=== PATIENT | male | born 1995 | race Caucasian/White ===

== ENCOUNTER 2020-06-25 10:55 | Emergency (ER) | payer OTHER, SELFPAY ==
--- NOTE | ~2020-06-25 | XR_ITS ---
EXAMINATION: LEFT HAND/WRIST. CLINICAL INFORMATION: Status post work-related injury. Pain. COMPARISON: None TECHNIQUE: 4 views left hand/wrist: FINDINGS: There is no visible acute fracture, dislocation or subluxation seen. The soft tissues are normal. Especially there is no bony abnormality involving the fourth digit XR/XR hand wrist LT IMPRESSION: Unremarkable left hand/wrist exam. No bony abnormality seen involving the fourth digit.
[2020-06-25 11:48] VITALS: BP 96/48; PULSE 57; RESP 16; TEMP 35.6; O2SAT 97; BMI 38.7
[2020-06-25] MEDS: Ibuprofen 800 MG TABLET PO (12:39)
[2020-06-25] MEDS: Lidocaine HCl 1 % MPF 5 ML VIAL SUBCUT (12:39)
--- NOTE | 2020-06-25 12:58 | ED_ITS ---
HPI - Wound/Laceration General Chief Complaint: Wound/Laceration Stated Complaint: left hand inj,work related Time Seen by Provider: 06/25/20 11:45 Source: patient Mode of arrival: ambulatory Limitations: no limitations History of Present Illness HPI narrative: 24-year-old male presenting to the ED with complaints of laceration to the left hand 4th digit at the mid to distal aspect while trying to cut some tape with a knife at work. Reports he is up-to-date on tetanus received it within the last 5 years. Denies any other symptoms complaints concerns or injuries at this time. Onset (ago): hour(s) Location: other (Left 4th digit) Place: work Patient tetanus UTD: Yes Context: accidental Associated symptoms: pain Treatments prior to arrival: bandage and tourniquet Related Data Previous Rx's Medication Instructions Recorded acetaminophen [Tylenol] 650 mg PO Q6H PRN #10 tab 06/25/20 ibuprofen 800 mg PO Q8H PRN #14 tab 06/25/20 tramadol 50 mg PO BID PRN #7 tab 06/25/20 Allergies Allergy/AdvReac Type Severity Reaction Status Date / Time No Known Allergies Allergy Verified 06/25/20 12:27 [No Known Allergies*] Review of Systems Review of Systems: Constitutional : No Fever, No Chills, Cardiovascular : No Chest Pain, No SOB Respiratory : No Dyspnea Gastrointestinal : No abdominal pain Musculoskeletal : No Joint Swelling Skin : positive skin laceration, No Foreign bodies, No rash, No surrounding erythema Neuro : No Weakness, No Numbness/tingling Psych : No SI/HI/thoughts of self injury Yes all other systems are reviewed and are negative [facility] Past Medical History Attestation statement: The following information was validated with the patient. Medical History Anxiety No known health problems OCD (obsessive compulsive disorder) Social History Social History Advance Directives: No Advance Directives Information Provided: No Physical Exam Vital Signs: Vital Signs: Last Vital Signs Temp 96.1 F L 06/25/20 11:48 Pulse 57 06/25/20 11:48 Resp 16 06/25/20 11:48 BP 96/48 L 06/25/20 11:48 Pulse Ox 97 06/25/20 11:48 Body Mass Index 38.7 vital signs have been reviewed as normal and appeared to be correct. Blood pressure hypotensive at 96/48 normal per patient. Heart rate normal. Respiration rate normal. Temperature normal. Oxygen saturation normal. Appearance: Alert. Oriented X3. No acute distress. Head: Normal external exam. Normocephalic. Atraumatic. Eyes: PERRLA. EOMI. Conjunctiva and sclera normal. Eyelids normal. ENT: Pharynx normal. Uvula midline. Moist mucous membranes. Neck: Normal inspection. Neck supple. FROM. No meningeal signs. CVS: Normal heart rate and rhythm. Heart sound normal. Respiratory: No respiratory distress. Painless inspiration. Back: Full range of motion noted. Skin: Skin warm and dry. Normal skin color. Normal skin turgor. No rashes/lesions/lacerations noted. Extremities: To left hand 4th digit at the palmar aspect at the mid to distal 4th digit there is noted to be of 3 cm intermediate laceration that is linear. No foreign bodies noted. Patient has full range of motion and sensation. No bony tenderness noted. No obvious deformities noted. Otherwise all other Extremities exhibit normal range of motion and nontender. Neuro: Oriented X 3. No motor deficit. No sensory deficit. Reflexes normal. Course Course Course Narrative: Patient now status post laceration repair with 8 sutures placed. Patient tolerated procedure well. No complications. Tetanus is up-to-date per patient within the past 5 years. X-ray obtained negative for any acute processes. Instructed patient to return if any new or worsening symptoms to follow up in 10-14 days for suture removal and to follow up with [facility] from his job. Patient understands agrees with this plan. Procedures Laceration Laceration 1: Site: hand (4th digit palmar aspect) Side (If applicable): left Size (cm): 3 Description: linear Depth: simple, single layer Local Anesthetic: lidocaine 1% Amount of anesthesia used (mL): 3 Pre-repair: wound explored, irrigated extensively and deep structures intact Skin layer closed with: nylon Size (cm): 4-0 Number of sutures: 8 Technique: simple, interrupted MDM - Wound/Laceration Medical Records Attestation: I reviewed the patient's medical records. Imaging Data X-ray of left hand/wrist: Attestation: I personally reviewed and interpreted this imaging study as follows: Radiologist's impression: FINDINGS: There is no visible acute fracture, dislocation or subluxation seen. The soft tissues are normal. Especially there is no bony abnormality involving the fourth digit XR/XR hand wrist LT IMPRESSION: Unremarkable left hand/wrist exam. No bony abnormality seen involving the fourth digit. Discharge Plan Discharge Clinical Impression: Laceration Patient Disposition: Home, Self-Care Instructions: Finger Laceration (ED) Prescriptions: New tramadol 50 mg tablet 50 mg PO BID PRN (Reason: pain) Qty: 7 RF: 0 acetaminophen [Tylenol] 325 mg tablet 650 mg PO Q6H PRN (Reason: fever or pain) Qty: 10 RF: 0 ibuprofen 800 mg tablet 800 mg PO Q8H PRN (Reason: pain) Qty: 14 RF: 0 Referrals: Carmen Rodriguez PA [Emergency Midlevel Provider] - 10 days (In 10-14 days for suture removal) Stand Alone Forms: Work/School Release Print Language: Japanese
== END 2020-06-25 13:40 | disposition home or self-care (01) ==
PROVIDERS: Emergency Provider Emergency Medicine Emergency Medical Services
DX: S61.215A Laceration without foreign body of left ring finger without damage to nail, initial encounter (principal); M79.642 Pain in left hand; W26.0XXA Contact with knife, initial encounter; Y93.9 Activity, unspecified; Y92.9 Unspecified place or not applicable; Y99.0 Civilian activity done for income or pay
CPT/HCPCS: 12002; 73110; 73130; 96372; 99283; 99284

== ENCOUNTER → 2020-07-06 16:22 | Outpatient (BNVA) | payer OTHER, SELFPAY | PROVIDERS: Visit Provider Physician Assistant | DX: Z48.02 Encounter for removal of sutures (principal); T81.30XA Disruption of wound, unspecified, initial encounter; S61.215A Laceration without foreign body of left ring finger without damage to nail, initial encounter; X58.XXXA Exposure to other specified factors, initial encounter | CPT/HCPCS: 99203; 99212 ==

== ENCOUNTER → 2020-07-08 15:30 | Outpatient (BNVA) | payer OTHER, SELFPAY | PROVIDERS: Visit Provider Physician Assistant | DX: S61.215A Laceration without foreign body of left ring finger without damage to nail, initial encounter (principal); X58.XXXA Exposure to other specified factors, initial encounter | CPT/HCPCS: 99213 ==

== ENCOUNTER 2020-07-14 15:03 | Outpatient (REF) | payer OTHER, SELFPAY | END 2020-07-14 15:04 | disposition home or self-care (01) | LOC: HO.LAB 15:03 | PROVIDERS: Visit Provider Nurse Practitioner Family | DX: R19.7 Diarrhea, unspecified (principal); Z20.822 Contact with and (suspected) exposure to COVID-19 | CPT/HCPCS: U0003; U0005 ==

== ENCOUNTER → 2020-08-13 11:28 | Outpatient (BNVA) | payer OTHER, SELFPAY | PROVIDERS: PCP Internal Medicine; Visit Provider Internal Medicine | DX: S61.315A Laceration without foreign body of left ring finger with damage to nail, initial encounter (principal); W26.9XXA Contact with unspecified sharp object(s), initial encounter | CPT/HCPCS: 12002; 99203 ==

== ENCOUNTER → 2020-08-14 13:15 | Outpatient (BNVA) | payer OTHER, SELFPAY | PROVIDERS: PCP Internal Medicine; Visit Provider Internal Medicine | DX: S61.315A Laceration without foreign body of left ring finger with damage to nail, initial encounter (principal); W26.9XXA Contact with unspecified sharp object(s), initial encounter | CPT/HCPCS: 99213 ==

== ENCOUNTER 2020-08-16 18:59 | Emergency (ER) | payer OTHER, SELFPAY ==
[2020-08-16 19:07] VITALS: BP 123/75; PULSE 87; RESP 16; TEMP 36.7; O2SAT 96; BMI 38.7
--- NOTE | 2020-08-16 19:20 | ED_ITS ---
HPI - Wound/Laceration General Chief Complaint: Wound/Laceration Stated Complaint: wound check Time Seen by Provider: 08/16/20 19:15 Source: patient Mode of arrival: ambulatory Limitations: no limitations History of Present Illness HPI narrative: 24-year-old male presents for wound check. He cut the tip of his left 4th finger with a dry box tender on 08/13/2020, presented to [facility] to have sutured. He stated that he stubbed the tip of this finger earlier today, has pain, had concerns that the sutures were loosened and applied a copious amount of super glued to the tip of his finger to keep the sutures in place. Patient is concerned about his wound. He has full range of motion, denies bleeding swelling, fevers, chills, bleeding from the site, purulent drainage, discoloration or any other concerning symptoms. Onset (ago): day(s) Extremity Location: left: hand (Left 4th finger tip) Place: work Patient tetanus UTD: Yes Context: accidental Associated symptoms: pain Treatments prior to arrival: bandage Related Data Home Medications Medication Instructions Recorded Confirmed olanzapine 2.5 mg tablet 0 mg PO 07/14/20 olanzapine 5 mg tablet 0 mg PO 07/14/20 olanzapine 7.5 mg tablet 7.5 mg PO BEDTIME 07/14/20 sertraline 100 mg tablet 200 mg PO DAILY 07/14/20 Previous Rx's Medication Instructions Recorded acetaminophen [Tylenol] 650 mg PO Q6H PRN #10 tab 06/25/20 ibuprofen 800 mg PO Q8H PRN #14 tab 06/25/20 tramadol 50 mg PO BID PRN #7 tab 06/25/20 Allergies Allergy/AdvReac Type Severity Reaction Status Date / Time No Known Allergies Allergy Verified 06/25/20 12:27 [No Known Allergies*] Review of Systems Review of Systems: Constitutional: No Fever, No Chills ENT/Mouth: No Ear Pain, No Hoarseness, No sore throat Eyes: No Eye Pain, No Swelling, No Redness, No Foreign Body Cardiovascular: No Chest Pain, No SOB Respiratory: No Cough, No Dyspnea Gastrointestinal: No Nausea, No Vomiting, No Diarrhea, No abdominal Pain Genitourinary: No Dysuria, No Hematuria Musculoskeletal: positive 4th finger pain, No Myalgias, No Joint Swelling Skin: Positive 4th finger tip laceration with sutures in place, No rash Neuro: No Weakness, No Numbness, No Paresthesias, No Loss of Consciousness, No Dizziness, No Headache Psych: No Anxiety/Panic, No Depression Heme/Lymph: no easy bruising, no Lymphadenopathy Endocrine: No Polyuria, No Polydipsia Yes all other systems are reviewed and are negative [facility] Past Medical History Attestation statement: The following information was validated with the patient. Source: old records reviewed Medical History Anxiety No known health problems OCD (obsessive compulsive disorder) Social History Social History Advance Directives: No Physical Exam Vital Signs: Vital Signs: Last Vital Signs Temp 98.0 F 08/16/20 19:07 Pulse 87 08/16/20 19:07 Resp 16 08/16/20 19:07 BP 123/75 08/16/20 19:07 Pulse Ox 96 08/16/20 19:07 Body Mass Index 38.7 Appearance: Alert. Oriented X3. No acute distress. Eyes: Pupils equal, round and reactive to light. ENT: Pharynx normal. Neck: Normal inspection. Neck supple. CVS: Normal heart rate and rhythm. Pulses normal. Respiratory: No respiratory distress. Breath sounds normal. Abdomen: Soft and nontender. Skin: Skin warm and dry. Normal skin color. Normal skin turgor. Extremities: 6 sutures to the finger tip, brisk capillary refill, strength 5/5, full range of motion. Neuro: No motor deficit. No sensory deficit. Course Course Course Narrative: 24-year-old male presents for wound assessment. Patient stubbed his finger and feels like the suture is a lucent, he did apply super glue to the tip of his finger to keep them in place. Area was cleaned, assessed, gauze pulled out of the super glue. Patient has brisk capillary refill, no indication of infection or purulent drainage from the site. Normal sensation. Patient was advised not to use any industrial products to keep sutures in place as they should be removed in a few days Patient verbalized understanding of and agrees to plan of care discharge home. MDM - Wound/Laceration Differential Diagnosis Differential diagnosis: Likely laceration Medical Records Attestation: I reviewed the patient's medical records. Discharge Plan Discharge Clinical Impression: Encounter for assessment of wound Patient Disposition: Home, Self-Care Instructions: Finger Laceration (ED) Additional Instructions: You were evaluated for pain on your left 4th finger tip. Your sutures are intact, you have brisk capillary refill. Your wound healing appropriately. Do not apply any industrial products to the wound, this includes super glue. Please follow-up with work connection as scheduled. Thank you for choosing this emergency department for evaluation. Please follow-up with primary care physician as needed. Return to the emergency department for any new, concerning, or worsening symptoms. Prescriptions: No Action tramadol 50 mg tablet 50 mg PO BID PRN (Reason: pain) Qty: 7 RF: 0 acetaminophen [Tylenol] 325 mg tablet 650 mg PO Q6H PRN (Reason: fever or pain) Qty: 10 RF: 0 ibuprofen 800 mg tablet 800 mg PO Q8H PRN (Reason: pain) Qty: 14 RF: 0 olanzapine 5 mg tablet 0 mg PO RF: 0 olanzapine 7.5 mg tablet 7.5 mg PO BEDTIME RF: 0 sertraline 100 mg tablet 200 mg PO DAILY RF: 0 olanzapine 2.5 mg tablet 0 mg PO RF: 0 Referrals: [facility] [Provider Group] - 2 days (Left 4th finger laceration) Discharge Date/Time: 08/16/20 19:39
== END 2020-08-16 19:39 | disposition home or self-care (01) ==
PROVIDERS: Emergency Provider Emergency Medicine
DX: Z04.2 Encounter for examination and observation following work accident (principal); Z48.01 Encounter for change or removal of surgical wound dressing; M79.645 Pain in left finger(s); S61.215D Laceration without foreign body of left ring finger without damage to nail, subsequent encounter; W26.9XXD Contact with unspecified sharp object(s), subsequent encounter
CPT/HCPCS: 99282; 99283

== ENCOUNTER → 2020-08-18 10:04 | Outpatient (BNVA) | payer OTHER, SELFPAY | PROVIDERS: Visit Provider Internal Medicine | DX: S61.215D Laceration without foreign body of left ring finger without damage to nail, subsequent encounter (principal); X58.XXXD Exposure to other specified factors, subsequent encounter | CPT/HCPCS: 99213 ==

== ENCOUNTER → 2020-08-24 09:19 | Outpatient (BNVA) | payer OTHER, SELFPAY | PROVIDERS: Visit Provider Internal Medicine | DX: S61.211D Laceration without foreign body of left index finger without damage to nail, subsequent encounter (principal); X58.XXXD Exposure to other specified factors, subsequent encounter | CPT/HCPCS: 99212; 99213 ==

== ENCOUNTER → 2020-09-01 11:57 | Outpatient (BNVA) | payer OTHER, SELFPAY | PROVIDERS: Visit Provider Internal Medicine | DX: S61.213D Laceration without foreign body of left middle finger without damage to nail, subsequent encounter (principal); X58.XXXD Exposure to other specified factors, subsequent encounter | CPT/HCPCS: 99213 ==

== ENCOUNTER 2020-10-17 17:55 | Inpatient (IN) | payer OTHER, MEDICAID, SELFPAY ==
[2020-10-17 18:13] VITALS: BP 152/81; PULSE 75; RESP 16; TEMP 36.8; O2SAT 100; BMI 66.4
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
[2020-10-17 18:21] VITALS: BP 152/81; PULSE 75; RESP 16; TEMP 36.8; O2SAT 100
[2020-10-17 19:17] LABS: COVID-19 Test Negative (Negative)
[2020-10-17 19:32] LABS: Amphetamine Screen Urine Not Detected (Not Detect); Barbiturates, Urine Not Detected (Not Detect); Benzodiazepines Screen Urine Not Detected (Not Detect); Cannabinoid Screen Urine POSITIVE (Not Detect); Cocaine Screen Urine Not Detected (Not Detect); Opiate Screen Urine Not Detected (Not Detect); Phencyclidine Screen Urine Not Detected (Not Detect)
--- NOTE | 2020-10-17 20:46 | PC.NURSE ---
Patient compliant with lab draw, family visited had good meeting, no behavioral concerns at this time, will continue to monitor.
[2020-10-17 20:53] LABS: MANUAL DIFF FLAG NO
[2020-10-17 20:55] LABS: Basophils Percent Auto 0.2 % (0-2); Eosinophils Percent Auto 0.2 % (0-4); Hematocrit 44.9 % (42-52); Hemoglobin 15.4 g/dl (14.0-18.0); Imm Gran Abs Auto 0.02 X10*3/uL (0.00-0.03); Imm Gran Pct Auto 0.2 % (0.0-0.4); Lymphocytes Absolute Auto 1.9 X10*3/uL (1.2-4.9); Lymphocytes Percent Auto 18.7 % (20-40); Mean Corpuscular HGB Conc 34.3 g/dl (31.0-36.0); Mean Corpuscular Hemoglobin 29.5 pg (27.0-33.0); Mean Platelet Volume 9.6 fL (9.4-12.4); Monocytes Absolute Auto 0.5 X10*3/uL (0.1-1.2); Monocytes Percent Auto 5.4 % (2-11); Neutrophils Absolute Auto 7.5 X10*3/uL (2.0-8.3); Neutrophils Percent Auto 75.3 % (45-73); Platelet Count 231 X10*3/uL (160-400); Red Blood Count 5.22 X10*6/uL (4.60-5.80); Red Cell Distribution Width 14.3 % (11.0-16.0); White Blood Count 9.9 X10*3/uL (4.8-10.8)
[2020-10-17 21:16] LABS: Ethanol < 10 mg/dL
[2020-10-17 21:18] LABS: Anion Gap 17 (12-20); Blood Urea Nitrogen 9 mg/dL (9-16); Calcium 9.5 mg/dL (8.4-10.2); Carbon Dioxide 20 mmol/L (22-29); Chloride 108 mmol/L (96-108); Estimated Glomerular Filt Rate > 60; Glucose Random 120 mg/dL (60-115); Potassium 3.6 mmol/L (3.3-5.1); Sodium 141 mmol/L (135-145)
[2020-10-17 21:20] LABS: Alanine Aminotransferase 48 U/L (0-40); Albumin Level 4.4 g/dL (3.5-5.0); Alkaline Phosphatase 71 U/L (39-117); Aspartate Amino Transferase 25 U/L (5-37); Bilirubin Direct < 0.2 mg/dL (0.0-0.5); Bilirubin Total 0.3 mg/dL (0.0-1.0); Total Protein 7.6 g/dL (6.5-8.0)
[2020-10-18 00:16] VITALS: BP 127/79; PULSE 66; RESP 17; TEMP 36.6; O2SAT 97
[2020-10-18] MEDS: LORazepam 1 MG TABLET 2 MG PO (00:37)
--- NOTE | 2020-10-18 00:59 | MHC.CARE ---
CARE team evaluation complete. Plan of care is for inpatient psychiatric admission. Pt is agreeable for treatment at this time, however a Section 12a is signed and in pt's chart for containment purposes while awaiting placement.
--- NOTE | 2020-10-18 06:23 | PC.NURSE ---
Patient requested Ativan for his restlessness and anxiety, provider notified/ordered Ativan 2 mg PO/administered as ordered at 0037, patient went to bed 0130 and slept since then, no distress observed/reported, patient is on section 12 inpatient bed search, will continue to monitor.
--- NOTE | 2020-10-18 07:03 | PC.NURSE ---
patient appears to remain at rest appears in no distress at present respirations even and unlabored
[2020-10-18 09:30] VITALS: BP 118/76; PULSE 71; RESP 17; TEMP 35.6; O2SAT 100
[2020-10-18] MEDS: Sertraline HCL 100 MG TABLET 200 MG PO (16:04)
[2020-10-18 16:57] VITALS: BP 129/50; PULSE 75; RESP 18; TEMP 36.3; O2SAT 97
[2020-10-19] MEDS: diphenhydrAMINE HCL 25 MG TABLET 50 MG PO (02:35)
[2020-10-19] MEDS: Ibuprofen 800 MG TABLET PO (02:35)
--- NOTE | 2020-10-19 05:43 | PC.NURSE ---
Patient was up until 4 am, no behavior concerns, stayed in his watching TV, Benedryl 5 mg and Ibuprofen 800 mg administered per request, mood pleasant, disposition is section 12 inpatient bed search, will continue to monitor.
[2020-10-19 07:27] VITALS: BP 163/94; PULSE 77; RESP 16; TEMP 35.8; O2SAT 99
--- NOTE | 2020-10-19 07:34 | PC.NURSE ---
Report received from Aime pt ambulating around pod with a steady gait. Flat affect, requesting tea and provided with tea.
[2020-10-19] MEDS: Sertraline HCL 100 MG TABLET 200 MG PO (08:13)
[2020-10-19] MEDS: Acetaminophen 325 MG TABLET 650 MG PO (09:18)
[2020-10-19 14:24] VITALS: RESP 16
[2020-10-19] MEDS: LORazepam 1 MG TABLET 2 MG PO (20:57)
[2020-10-19 22:36] VITALS: BP 135/60; PULSE 78; TEMP 35.7; O2SAT 96
--- NOTE | 2020-10-19 23:47 | PC.NURSE ---
Patient continues psychotic, pacing, requested Ativan, provider notified/ordered Ativan 2 mg, administered as ordered at 2157, patient is currently in bed appears sleeping, no distress observed/reported, will continue to monitor.
[2020-10-20 04:02] VITALS: BP 118/66; PULSE 66; RESP 16; TEMP 36.7; O2SAT 97
--- NOTE | 2020-10-20 06:09 | PC.NURSE ---
Patient slept through the night, no issues and concerns, no distress observed/reported, VSS, disposition section 12 bed search, will continue to monitor
[2020-10-20] MEDS: Sertraline HCL 100 MG TABLET 200 MG PO (08:26)
[2020-10-20 08:35] VITALS: BP 148/90; PULSE 94; RESP 17; TEMP 36.3; O2SAT 97
[2020-10-20] MEDS: Acetaminophen 325 MG TABLET 650 MG PO (11:38)
--- NOTE | 2020-10-20 13:35 | PC.NURSE ---
Lewis Islas (Father) [phone]
[2020-10-20] MEDS: LORazepam 1 MG TABLET PO ×2 (15:19→21:55)
[2020-10-20 17:42] VITALS: BP 139/90; PULSE 109; RESP 18; TEMP 36.7; O2SAT 96
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
[2020-10-20 18:00] VITALS: BP 135/84; PULSE 97; RESP 18; TEMP 36.2; O2SAT 97
--- NOTE | 2020-10-21 | ECG_ITS ---
Test Reason : QTC Blood Pressure : / mmHG Vent. Rate : 074 BPM Atrial Rate : 074 BPM P-R Int : 126 ms QRS Dur : 090 ms QT Int : 382 ms P-R-T Axes : 059 043 -12 degrees QTc Int : 424 ms Normal sinus rhythm Nonspecific T wave abnormality Borderline ECG No previous ECGs available Referred By: Giulia Dsouza Electronically Signed By:NAJMA FERNÁNDEZ
[2020-10-21 07:13] LABS: Cholesterol 204 mg/dL; HDL Cholesterol 39 mg/dL; LDL Cholesterol Calculated 131 mg/dl; Triglycerides 174 mg/dL
[2020-10-21 07:24] LABS: Thyroid Stimulating Hormone 2.31 uIU/mL (0.32-4.0)
[2020-10-21 07:47] LABS: Estimated Average Glucose 105 mg/dL; Hemoglobin A1C 151.6804 umol/L; Hemoglobin A1c % 5.3 %
[2020-10-21 08:46] VITALS: BP 133/90; PULSE 79; RESP 18; TEMP 36.7; O2SAT 97
[2020-10-21 09:15] LABS: Folate 9.5 ng/mL (> or = 4.0); Vitamin B12 224 pg/mL (200-900)
[2020-10-21] MEDS: Sertraline HCL 100 MG TABLET PO (14:51)
--- NOTE | 2020-10-21 14:58 | MHC.CLN ---
NUTRITION-WEIGHT HX CURRENT WEIGHT RECORDED 210 KG. PATIENT REPORTS CURRENT WEIGHT [id number]#. MEDICAL RECORD INDICATES WEIGHT HX 06/25/20=270#; 07/14/20=275#. NO RECENT WEIGHT LOSS OR WEIGHT GAIN REPORTED. NO REPORTED CONCERNS WITH CURRENT APPETITE.
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
[2020-10-21 17:21] VITALS: BP 166/84; PULSE 91; RESP 16; TEMP 36.7; O2SAT 97
[2020-10-22 10:49] VITALS: BP 161/91; PULSE 84; RESP 20; O2SAT 96
--- NOTE | 2020-10-22 14:31 | HO.PSYCHPN ---
Subjective Subjective Date of Service: 10/22/20 Reason For Visit: Radha Subjective Notes: Conditional Voluntary Interim History: Pt continues to present as labile, was up most of night, writting several very disorganized notes. Pt reports he wanted to write complaint but unable to do so as thoughts are racing and he is unable to concentrate. He denies SI/HI. He continues with roman catholic preoccupation and having to leave as I have many plans, I don't even need to sleep. Pt appears physically tired. He continues to compulsively write things down, unable to keep track of conversations. He declines antipsychotics or mood stabilizer. Medication Compliance: No Review of Systems Review of Systems Constitutional: No Fever, No Chills ENT/Mouth: No Ear Pain, No Nasal Congestion, No sore throat Eyes: No Eye Pain, No Swelling, No Redness Cardiovascular: No Chest Pain, No SOB Respiratory: No Cough, No Sputum, No Dyspnea Gastrointestinal: No Nausea, No Vomiting, No Diarrhea, No Hematochezia, No Melena Genitourinary: No Dysuria, No Urinary Frequency, No Hematuria Musculoskeletal: No Myalgias Skin: No Skin Lesions, No rash Neuro: No Weakness, No Numbness, No Paresthesias, No Dizziness, No Headache Psych: positive Anxiety, positive Depression, positive radha, no SI HI Heme/Lymph: No Lymphadenopathy Endocrine: No Polyuria, No Polydipsia Yes all other systems are reviewed and are negative Cardiovascular: Denies chest pain, Denies irregular heart rhythm and Denies lightheadedness Respiratory: Denies pain with cough Gastrointestinal: Denies constipation and Denies diarrhea Mental Status Exam Mental Status Exam Narrative: Appearance: casually groomed, poor hygiene, in NAD Behavior: guarded, irritable at times Psychomotor: agitation noted Speech: clear, hyperverbal, pressured rate/rhythm/ loud at times volume, spontaneous TP: derailment, disorganized TC: paranoid towards roommate and other family members, wanting to do many things but unable to specify what Mood: anxious Affect:labile, expansive SI:denies HI:denies AH/VH:denies Delusions:roman catholic preoccupation Insight/judgment:poor x 2. Memory/cog: alert, oriented x 3, impaired secondary to psychiatric symptoms. Diagnostics Vital Signs (24Hr): Vital Signs - 24 hr 10/21/20 17:21 10/22/20 10:49 Temperature 98.0 F Pulse Rate 91 84 Respiratory Rate 16 20 Blood Pressure 166/84 H 161/91 H Pulse Oximetry 97 96 Body Mass Index 66.4 Labs Results: 10/17/20 20:45 10/17/20 20:45 Labs: Laboratory Results - last 48 hr 10/21/20 10/21/20 10/21/20 06:19 06:19 06:19 Estimat Average Glucose 105 Hemoglobin A1c % 5.3 Triglycerides 174 Cholesterol 204 LDL Cholesterol, Calc 131 HDL Cholesterol 39 Vitamin B12 224 Folate 9.5 TSH 2.31 Medications Medications Current Medications Generic Name Dose Route Start Last Admin Trade Name Freq PRN Reason Stop Dose Admin Acetaminophen 650 mg 10/18/20 15:51 10/20/20 11:38 Acetaminophen 325 Mg Tablet PO 650 mg Q6H PRN Administration fever or pain Acetaminophen 650 mg 10/20/20 13:45 Acetaminophen 325 Mg Tablet PO Q6H PRN Headache/Pain Mild Scale (1-3) Al Hydroxide/Mg Hydroxide 30 ml 10/20/20 13:45 Magnesium Hydrox/Alum Hydrox 30 Ml Oral.Susp PO Q6H PRN Heartburn/Nausea Hydroxyzine HCl 50 mg 10/20/20 13:45 Hydroxyzine Hcl 25 Mg Tablet PO Q6H PRN Anxiety Ibuprofen 800 mg 10/18/20 15:51 10/19/20 02:35 Ibuprofen 800 Mg Tablet PO 800 mg Q8H PRN Administration pain Lorazepam 1 mg 10/20/20 13:48 10/20/20 21:55 Lorazepam 1 Mg Tablet PO 1 mg Q4H PRN Administration anxiety Magnesium Hydroxide 30 ml 10/20/20 13:45 Milk Of Magnesia 30 Ml Oral.Susp PO DAILY PRN Constipation Olanzapine 10 mg 10/20/20 13:50 Olanzapine Odt 10 Mg Tab.Rapdis TRANSLINGU Q6H PRN agitation Sertraline HCl 100 mg 10/21/20 14:45 10/22/20 09:23 Sertraline Hcl 100 Mg Tablet PO Not Given DAILY SAPNA Trazodone HCl 50 mg 10/20/20 13:45 Trazodone Hcl 50 Mg Tablet PO BEDTIME PRN Insomnia Allergies Allergies Allergy/AdvReac Type Severity Reaction Status Date / Time No Known Allergies Allergy Verified 06/25/20 12:27 [No Known Allergies*] Assessment & Plan Assessment & Plan (1) Bipolar 1 disorder, mixed, severe: Status: Acute Code(s): F31.63 - Bipolar disorder, current episode mixed, severe, without psychotic features Assessment and Plan: Mr. Islas is a 25 year-old male with hx of Bipolar Disorder who self presented to [facility] reporting signs of radha including decrease need for sleep, racing thoughts, hyperverbal, pressured speech, poor concentration, roman catholic preoccupation, flight of ideas. He recently was taken off olanzapine, some concern in terms of weight gain in addition to pt request, and started on sertraline currently on 200mg po daily. we discussed risks, benefits and alterntive treatment options. We discussed tapering him off sertraline as it is worsening manic symptoms. Pt currently declining to take antipsychotic medication nor mood stabilizer. PLAN: 1. pt declines antipsychotic medications or mood stabilizer. Medications can be offered, pt understands he can decline. May consider depakote 500mg po BID, perphenazine combination. 2. Obtain collateral information 3. Aftercare planning. Greater than 50% of the session was spent on counseling and/or coordination of care Reason for contiued inpatient stay Substantial Risk for: inability to function
--- NOTE | 2020-10-23 01:26 | PC.NURSE ---
PT pacing and sitting next to the nurse's station. Offered PRN Trazodone to help him sleep but refused and stated that he is waiting to speak with a human rights officers. This nurse reviewed all of the human rights documentation with the PT and informed him that a human rights officer would be available in the morning.
[2020-10-23 06:00] VITALS: BP 165/81; PULSE 86; TEMP 36.9; O2SAT 98
--- NOTE | 2020-10-23 14:45 | MHC.CLN ---
NUTRITION FOLLOW UP ASKED BY GSR TO SEE PATIENT. PATIENT SAID THAT HE 'WAS READY TO TALK BUT DID NOT COMMUNICATE FURTHER WITH THIS DATABASE TECHNICIAN. ASKED HOW I COULD HELP HIM AND HE DID NOT REPLY.
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
[2020-10-23 18:00] VITALS: BP 115/75; PULSE 72; RESP 18; TEMP 36.4; O2SAT 99
--- NOTE | 2020-10-24 08:33 | HO.PSYCHPN ---
Subjective Subjective Date of Service: 10/24/20 Reason For Visit: Radha Interim History: Remains psychotic and preoccupied. Talks to self. Bizarre tangential statements. Non compliance. Ct plan. Review of Systems Review of Systems Constitutional: No Fever, No Chills ENT/Mouth: No Ear Pain, No Nasal Congestion, No sore throat Eyes: No Eye Pain, No Swelling, No Redness Cardiovascular: No Chest Pain, No SOB Respiratory: No Cough, No Sputum, No Dyspnea Gastrointestinal: No Nausea, No Vomiting, No Diarrhea, No Hematochezia, No Melena Genitourinary: No Dysuria, No Urinary Frequency, No Hematuria Musculoskeletal: No Myalgias Skin: No Skin Lesions, No rash Neuro: No Weakness, No Numbness, No Paresthesias, No Dizziness, No Headache Psych: positive Anxiety, positive Depression, positive radha, no SI HI Heme/Lymph: No Lymphadenopathy Endocrine: No Polyuria, No Polydipsia Yes all other systems are reviewed and are negative Cardiovascular: Denies chest pain, Denies irregular heart rhythm and Denies lightheadedness Respiratory: Denies pain with cough Gastrointestinal: Denies constipation and Denies diarrhea Mental Status Exam Mental Status Exam Narrative: Appearance: casually groomed, poor hygiene, in NAD Behavior: guarded, irritable at times Psychomotor: agitation noted Speech: clear, hyperverbal, pressured rate/rhythm/ loud at times volume, spontaneous TP: derailment, disorganized TC: paranoid towards roommate and other family members, wanting to do many things but unable to specify what Mood: anxious Affect:labile, expansive SI:denies HI:denies AH/VH:denies Delusions:cheondoism preoccupation Insight/judgment:poor x 2. Memory/cog: alert, oriented x 3, impaired secondary to psychiatric symptoms. Diagnostics Vital Signs (24Hr): Vital Signs - 24 hr 10/23/20 18:00 Temperature 97.5 F Pulse Rate 72 Respiratory Rate 18 Blood Pressure 115/75 Pulse Oximetry 99 Body Mass Index 66.4 Labs Results: 10/17/20 20:45 10/17/20 20:45 Medications Medications Current Medications Generic Name Dose Route Start Last Admin Trade Name Freq PRN Reason Stop Dose Admin Acetaminophen 650 mg 10/18/20 15:51 10/20/20 11:38 Acetaminophen 325 Mg Tablet PO 650 mg Q6H PRN Administration fever or pain Acetaminophen 650 mg 10/20/20 13:45 Acetaminophen 325 Mg Tablet PO Q6H PRN Headache/Pain Mild Scale (1-3) Al Hydroxide/Mg Hydroxide 30 ml 10/20/20 13:45 Magnesium Hydrox/Alum Hydrox 30 Ml Oral.Susp PO Q6H PRN Heartburn/Nausea Divalproex Sodium 1,000 mg 10/22/20 14:35 10/23/20 09:04 Divalproex Sodium 500 Mg Tablet.Dr PO Not Given DAILY SAPNA Hydroxyzine HCl 50 mg 10/20/20 13:45 Hydroxyzine Hcl 25 Mg Tablet PO Q6H PRN Anxiety Ibuprofen 800 mg 10/18/20 15:51 10/19/20 02:35 Ibuprofen 800 Mg Tablet PO 800 mg Q8H PRN Administration pain Lorazepam 1 mg 10/20/20 13:48 10/20/20 21:55 Lorazepam 1 Mg Tablet PO 1 mg Q4H PRN Administration anxiety Magnesium Hydroxide 30 ml 10/20/20 13:45 Milk Of Magnesia 30 Ml Oral.Susp PO DAILY PRN Constipation Olanzapine 10 mg 10/20/20 13:50 Olanzapine Odt 10 Mg Tab.Rapdis TRANSLINGU Q6H PRN agitation Perphenazine 4 mg 10/22/20 14:35 10/23/20 20:36 Perphenazine 4 Mg Tablet PO Not Given BID SAPNA Sertraline HCl 100 mg 10/21/20 14:45 10/23/20 09:04 Sertraline Hcl 100 Mg Tablet PO Not Given DAILY SAPNA Trazodone HCl 50 mg 10/20/20 13:45 Trazodone Hcl 50 Mg Tablet PO BEDTIME PRN Insomnia Allergies Allergies Allergy/AdvReac Type Severity Reaction Status Date / Time No Known Allergies Allergy Verified 06/25/20 12:27 [No Known Allergies*] Assessment & Plan Assessment & Plan (1) Bipolar 1 disorder, mixed, severe: Status: Acute Code(s): F31.63 - Bipolar disorder, current episode mixed, severe, without psychotic features Assessment and Plan: Mr. Islas is a 25 year-old male with hx of Bipolar Disorder who self presented to [facility] reporting signs of radha including decrease need for sleep, racing thoughts, hyperverbal, pressured speech, poor concentration, cheondoism preoccupation, flight of ideas. He recently was taken off olanzapine, some concern in terms of weight gain in addition to pt request, and started on sertraline currently on 200mg po daily. we discussed risks, benefits and alterntive treatment options. We discussed tapering him off sertraline as it is worsening manic symptoms. Pt currently declining to take antipsychotic medication nor mood stabilizer. PLAN: 1. pt declines antipsychotic medications or mood stabilizer. Medications can be offered, pt understands he can decline. May consider depakote 500mg po BID, perphenazine combination. 2. Obtain collateral information. Collateral info from prescriber Venecia Kellogg obtained on 10/22- reports pt asked to be tappered off olanzapine due to weight gain, reluctant to start new antipsychotic or mood stabilizer. pt progressively more paranoid in past month. 3. Aftercare planning. Greater than 50% of the session was spent on counseling and/or coordination of care Reason for contiued inpatient stay Substantial Risk for: harm to others and inability to function
[2020-10-24 10:01] VITALS: BP 159/95; PULSE 89; RESP 16; TEMP 36.9; O2SAT 96
[2020-10-24 18:00] VITALS: BP 137/78; PULSE 73; RESP 18; TEMP 36.2; O2SAT 94
--- NOTE | 2020-10-24 18:58 | ECG_ITS ---
Test Reason : CP Blood Pressure : / mmHG Vent. Rate : 099 BPM Atrial Rate : 099 BPM P-R Int : 128 ms QRS Dur : 090 ms QT Int : 330 ms P-R-T Axes : 072 046 -11 degrees QTc Int : 423 ms Normal sinus rhythm Nonspecific ST and T wave abnormality Abnormal ECG When compared to the previous EKG of No significant changes seen Referred By: Giulia Dsouza Electronically Signed By:Yung Garrett
--- NOTE | 2020-10-25 07:25 | HO.PSYCHPN ---
Subjective Subjective Date of Service: 10/25/20 Reason For Visit: Radha Interim History: Remains psychotic and preoccupied. Talks to self. Bizarre tangential statements. Non compliance. tALKS OF BIOHAZARD/VACCINES/GERMS/VIRUSES. Was intrusive and triggered conflict with peer. Now on 1:1 Review of Systems Review of Systems Constitutional: No Fever, No Chills ENT/Mouth: No Ear Pain, No Nasal Congestion, No sore throat Eyes: No Eye Pain, No Swelling, No Redness Cardiovascular: No Chest Pain, No SOB Respiratory: No Cough, No Sputum, No Dyspnea Gastrointestinal: No Nausea, No Vomiting, No Diarrhea, No Hematochezia, No Melena Genitourinary: No Dysuria, No Urinary Frequency, No Hematuria Musculoskeletal: No Myalgias Skin: No Skin Lesions, No rash Neuro: No Weakness, No Numbness, No Paresthesias, No Dizziness, No Headache Psych: positive Anxiety, positive Depression, positive radha, no SI HI Heme/Lymph: No Lymphadenopathy Endocrine: No Polyuria, No Polydipsia Yes all other systems are reviewed and are negative Cardiovascular: Denies chest pain, Denies irregular heart rhythm and Denies lightheadedness Respiratory: Denies pain with cough Gastrointestinal: Denies constipation and Denies diarrhea Mental Status Exam Mental Status Exam Narrative: Appearance: casually groomed, poor hygiene, in NAD Behavior: guarded, irritable at times Psychomotor: agitation noted Speech: clear, hyperverbal, pressured rate/rhythm/ loud at times volume, spontaneous TP: derailment, disorganized TC: paranoid towards roommate and other family members, wanting to do many things but unable to specify what Mood: anxious Affect:labile, expansive SI:denies HI:denies AH/VH:denies Delusions:baptism preoccupation Insight/judgment:poor x 2. Memory/cog: alert, oriented x 3, impaired secondary to psychiatric symptoms. Diagnostics Vital Signs (24Hr): Vital Signs - 24 hr 10/24/20 10:01 10/24/20 18:00 Temperature 98.5 F 97.1 F Pulse Rate 89 73 Respiratory Rate 16 18 Blood Pressure 159/95 H 137/78 Pulse Oximetry 96 94 Body Mass Index 66.4 Labs Results: 10/17/20 20:45 10/17/20 20:45 Medications Medications Current Medications Generic Name Dose Route Start Last Admin Trade Name Freq PRN Reason Stop Dose Admin Acetaminophen 650 mg 10/18/20 15:51 10/20/20 11:38 Acetaminophen 325 Mg Tablet PO 650 mg Q6H PRN Administration fever or pain Acetaminophen 650 mg 10/20/20 13:45 Acetaminophen 325 Mg Tablet PO Q6H PRN Headache/Pain Mild Scale (1-3) Al Hydroxide/Mg Hydroxide 30 ml 10/20/20 13:45 Magnesium Hydrox/Alum Hydrox 30 Ml Oral.Susp PO Q6H PRN Heartburn/Nausea Divalproex Sodium 1,000 mg 10/22/20 14:35 10/24/20 10:13 Divalproex Sodium 500 Mg Tablet.Dr PO Not Given DAILY SAPNA Hydroxyzine HCl 50 mg 10/20/20 13:45 Hydroxyzine Hcl 25 Mg Tablet PO Q6H PRN Anxiety Ibuprofen 800 mg 10/18/20 15:51 10/19/20 02:35 Ibuprofen 800 Mg Tablet PO 800 mg Q8H PRN Administration pain Lorazepam 1 mg 10/20/20 13:48 10/20/20 21:55 Lorazepam 1 Mg Tablet PO 1 mg Q4H PRN Administration anxiety Magnesium Hydroxide 30 ml 10/20/20 13:45 Milk Of Magnesia 30 Ml Oral.Susp PO DAILY PRN Constipation Olanzapine 10 mg 10/20/20 13:50 Olanzapine Odt 10 Mg Tab.Rapdis TRANSLINGU Q6H PRN agitation Perphenazine 4 mg 10/22/20 14:35 10/24/20 23:31 Perphenazine 4 Mg Tablet PO Not Given BID SAPNA Sertraline HCl 100 mg 10/21/20 14:45 10/24/20 10:13 Sertraline Hcl 100 Mg Tablet PO Not Given DAILY SAPNA Trazodone HCl 50 mg 10/20/20 13:45 Trazodone Hcl 50 Mg Tablet PO BEDTIME PRN Insomnia Allergies Allergies Allergy/AdvReac Type Severity Reaction Status Date / Time No Known Allergies Allergy Verified 06/25/20 12:27 [No Known Allergies*] Assessment & Plan Assessment & Plan (1) Bipolar 1 disorder, mixed, severe: Status: Acute Code(s): F31.63 - Bipolar disorder, current episode mixed, severe, without psychotic features Assessment and Plan: Mr. Islas is a 25 year-old male with hx of Bipolar Disorder who self presented to [facility] reporting signs of radha including decrease need for sleep, racing thoughts, hyperverbal, pressured speech, poor concentration, baptism preoccupation, flight of ideas. He recently was taken off olanzapine, some concern in terms of weight gain in addition to pt request, and started on sertraline currently on 200mg po daily. we discussed risks, benefits and alterntive treatment options. We discussed tapering him off sertraline as it is worsening manic symptoms. Pt currently declining to take antipsychotic medication nor mood stabilizer. PLAN: 1. pt declines antipsychotic medications or mood stabilizer. Medications can be offered, pt understands he can decline. May consider depakote 500mg po BID, perphenazine combination. 2. Obtain collateral information. Collateral info from prescriber Venecia Kellogg obtained on 10/22- reports pt asked to be tappered off olanzapine due to weight gain, reluctant to start new antipsychotic or mood stabilizer. pt progressively more paranoid in past month. 3. Aftercare planning. 10/25: Put on 1:1. Needs civil commitment. Refusing meds Greater than 50% of the session was spent on counseling and/or coordination of care Reason for contiued inpatient stay Substantial Risk for: harm to others and rapid decompensation
[2020-10-25] MEDS: LORazepam 1 MG TABLET PO (10:50)
[2020-10-25] MEDS: OLANZapine ODT 10 MG TAB.RAPDIS TRANSLINGU (10:50)
--- NOTE | 2020-10-25 20:03 | PC.NURSE ---
Vital signs not done at 1900, patient asleep. Patient has not slept in over 24 hours, did not wake patient.
--- NOTE | 2020-10-26 04:13 | PC.NURSE ---
Johnathon was sleeping on the evening/overnight shift, did not wake up for HS medication as patient had not slept in over 24 hours the day before.
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
[2020-10-26 21:58] VITALS: BP 142/71; PULSE 74; RESP 20; TEMP 36; O2SAT 100
[2020-10-27 06:00] VITALS: BP 138/69; PULSE 70; RESP 16; TEMP 36.4; O2SAT 95
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
[2020-10-27 18:00] VITALS: BP 139/69; PULSE 75; RESP 18; TEMP 36.4; O2SAT 98
[2020-10-28 06:00] VITALS: BP 145/69; PULSE 62; RESP 20; TEMP 36.7; O2SAT 100
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
[2020-10-29 06:00] VITALS: BP 143/80; PULSE 60; TEMP 36.8; O2SAT 97
--- NOTE | 2020-10-29 15:39 | HO.PSYCHPN ---
Subjective Subjective Date of Service: 10/30/20 Reason For Visit: Radha Interim History: Pt did shower today with much encouragement. He continues to present as paranoid towards roommate, and family members of GF. He was up most of night last night. He has been less intrusive. he continues to decline medications. Thought process very disorganized. No SI/HI. No behavioral concerns. Review of Systems Review of Systems Constitutional: No Fever, No Chills ENT/Mouth: No Ear Pain, No Nasal Congestion, No sore throat Eyes: No Eye Pain, No Swelling, No Redness Cardiovascular: No Chest Pain, No SOB Respiratory: No Cough, No Sputum, No Dyspnea Gastrointestinal: No Nausea, No Vomiting, No Diarrhea, No Hematochezia, No Melena Genitourinary: No Dysuria, No Urinary Frequency, No Hematuria Musculoskeletal: No Myalgias Skin: No Skin Lesions, No rash Neuro: No Weakness, No Numbness, No Paresthesias, No Dizziness, No Headache Psych: positive Anxiety, positive Depression, positive radha, no SI HI Heme/Lymph: No Lymphadenopathy Endocrine: No Polyuria, No Polydipsia Yes all other systems are reviewed and are negative Cardiovascular: Denies chest pain, Denies irregular heart rhythm and Denies lightheadedness Respiratory: Denies pain with cough Gastrointestinal: Denies constipation and Denies diarrhea Mental Status Exam Mental Status Exam Narrative: Appearance: casually groomed, poor hygiene, in NAD Behavior: guarded, irritable at times Psychomotor: agitation noted Speech: clear, hyperverbal, pressured rate/rhythm/ loud at times volume, spontaneous TP: derailment, disorganized TC: paranoid towards roommate and other family members, wanting to do many things but unable to specify what Mood: anxious Affect:labile, expansive SI:denies HI:denies AH/VH:denies Delusions:latter-day preoccupation Insight/judgment:poor x 2. Memory/cog: alert, oriented x 3, impaired secondary to psychiatric symptoms. Diagnostics Vital Signs (24Hr): Vital Signs - 24 hr 10/30/20 06:00 Temperature 97.9 F Pulse Rate 87 Respiratory Rate 20 Blood Pressure 130/85 Pulse Oximetry 98 Body Mass Index 66.4 Labs Results: 10/17/20 20:45 10/17/20 20:45 Medications Medications Current Medications Generic Name Dose Route Start Last Admin Trade Name Freq PRN Reason Stop Dose Admin Acetaminophen 650 mg 10/18/20 15:51 10/20/20 11:38 Acetaminophen 325 Mg Tablet PO 650 mg Q6H PRN Administration fever or pain Acetaminophen 650 mg 10/20/20 13:45 Acetaminophen 325 Mg Tablet PO Q6H PRN Headache/Pain Mild Scale (1-3) Al Hydroxide/Mg Hydroxide 30 ml 10/20/20 13:45 Magnesium Hydrox/Alum Hydrox 30 Ml Oral.Susp PO Q6H PRN Heartburn/Nausea Divalproex Sodium 1,000 mg 10/22/20 14:35 10/30/20 07:57 Divalproex Sodium 500 Mg Tablet.Dr PO Not Given DAILY SAPNA Hydroxyzine HCl 50 mg 10/20/20 13:45 Hydroxyzine Hcl 25 Mg Tablet PO Q6H PRN Anxiety Ibuprofen 800 mg 10/18/20 15:51 10/19/20 02:35 Ibuprofen 800 Mg Tablet PO 800 mg Q8H PRN Administration pain Lorazepam 1 mg 10/25/20 20:10 10/30/20 13:52 Lorazepam 1 Mg Tablet PO 1 mg Q4H PRN Administration moderate to severe anxiety Magnesium Hydroxide 30 ml 10/20/20 13:45 Milk Of Magnesia 30 Ml Oral.Susp PO DAILY PRN Constipation Olanzapine 10 mg 10/20/20 13:50 10/25/20 10:50 Olanzapine Odt 10 Mg Tab.Rapdis TRANSLINGU 10 mg Q6H PRN Administration agitation Perphenazine 4 mg 10/22/20 14:35 10/30/20 07:52 Perphenazine 4 Mg Tablet PO 4 mg BID SAPNA Administration Sertraline HCl 50 mg 10/27/20 09:00 10/30/20 07:57 Sertraline Hcl 50 Mg Tablet PO Not Given DAILY SAPNA Trazodone HCl 50 mg 10/20/20 13:45 Trazodone Hcl 50 Mg Tablet PO BEDTIME PRN Insomnia Allergies Allergies Allergy/AdvReac Type Severity Reaction Status Date / Time No Known Allergies Allergy Verified 06/25/20 12:27 [No Known Allergies*] Assessment & Plan Assessment & Plan (1) Bipolar 1 disorder, mixed, severe: Status: Acute Code(s): F31.63 - Bipolar disorder, current episode mixed, severe, without psychotic features Assessment and Plan: Mr. Islas is a 25 year-old male with hx of Bipolar Disorder who self presented to [facility] reporting signs of radha including decrease need for sleep, racing thoughts, hyperverbal, pressured speech, poor concentration, latter-day preoccupation, flight of ideas. He recently was taken off olanzapine, some concern in terms of weight gain in addition to pt request, and started on sertraline currently on 200mg po daily. we discussed risks, benefits and alterntive treatment options. We discussed tapering him off sertraline as it is worsening manic symptoms. Pt currently declining to take antipsychotic medication nor mood stabilizer. PLAN: 1. pt declines antipsychotic medications or mood stabilizer. Medications can be offered, pt understands he can decline. May consider depakote 500mg po BID, perphenazine combination. 2. Obtain collateral information. Collateral info from prescriber Venecia Kellogg obtained on 10/22- reports pt asked to be tappered off olanzapine due to weight gain, reluctant to start new antipsychotic or mood stabilizer. pt progressively more paranoid in past month. 3. Aftercare planning. 10/25: Put on 1:1. Needs civil commitment. Refusing meds Greater than 50% of the session was spent on counseling and/or coordination of care Reason for contiued inpatient stay Substantial Risk for: inability to function
[2020-10-30 06:00] VITALS: BP 130/85; PULSE 87; RESP 20; TEMP 36.6; O2SAT 98
[2020-10-30] MEDS: Perphenazine 4 MG TABLET PO ×2 (07:52→13:52)
[2020-10-30] MEDS: LORazepam 1 MG TABLET PO (13:52)
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
[2020-10-30 20:59] VITALS: BP 133/64; PULSE 74; RESP 16; TEMP 36.4; O2SAT 97
[2020-10-31 06:00] VITALS: BP 132/82; PULSE 73; TEMP 36.2; O2SAT 99
--- NOTE | 2020-10-31 13:33 | HO.PSYCHPN ---
Subjective Subjective Date of Service: 10/31/20 Reason For Visit: Radha Subjective Notes: Section 7 Healthcare Proxy: No Guardianship: No Medical Problems Affecting Mental Status: No Interim History: Pt fearful there is something medically wrong with him his blood flow, his fingers feel cold, picking at where he has some dry skin thinking that is some indication of something- concerned they decreased his sertraline from 200mg to 50mg took perphenazine yesterday but refused today says he doesn't want an antipsychotic would like something to help sleep agreed to melatonin Medication Compliance: Intermittent Side effects from medications: No Attending Groups: No Review of Systems no clear medical issues , many somatic concerns Mental Status Exam Mental Status Exam Narrative: highly sensitive to noise coming from down shrestha , though it did echo quite loudly outside his room odd posturing holding hand in front of face, or notes/notebook blocking part of his face Patient Appearance: Appropriate Patient Orientation: Person, Place and Situation Level of Consciousness: Awake Patient Behavior: Posturing, Passive, Anxious and Poor Eye Contact Mood Description: Anxious and Blunted Affect Description: Apprehensive Patient Cognition Impaired: No Ability to Follow Directions: Fair Speech Pattern: Difficulty Finding Words and Long Pauses Thought Process: Distracted, Rumination and Slowed Thinking Thought Content: positive for Preoccupation and positive for Thought Blocking Depressive Symptoms: Insomnia, Diff. Making Decisions, Difficulty Sleeping and Unhappiness Abnormal Motor Activity Signs and Symptoms: Restlessness Judgement: Poor Diagnostics Vital Signs (24Hr): Vital Signs - 24 hr 10/30/20 20:59 10/31/20 06:00 Temperature 97.6 F 97.2 F Pulse Rate 74 73 Respiratory Rate 16 Blood Pressure 133/64 132/82 Pulse Oximetry 97 99 Body Mass Index 66.4 this is not his accurate bmi! Labs Results: 10/17/20 20:45 10/17/20 20:45 Medications Medications Current Medications Generic Name Dose Route Start Last Admin Trade Name Freq PRN Reason Stop Dose Admin Acetaminophen 650 mg 10/18/20 15:51 10/20/20 11:38 Acetaminophen 325 Mg Tablet PO 650 mg Q6H PRN Administration fever or pain Acetaminophen 650 mg 10/20/20 13:45 Acetaminophen 325 Mg Tablet PO Q6H PRN Headache/Pain Mild Scale (1-3) Al Hydroxide/Mg Hydroxide 30 ml 10/20/20 13:45 Magnesium Hydrox/Alum Hydrox 30 Ml Oral.Susp PO Q6H PRN Heartburn/Nausea Divalproex Sodium 1,000 mg 10/22/20 14:35 10/31/20 08:01 Divalproex Sodium 500 Mg Tablet.Dr PO Not Given DAILY SAPNA Hydroxyzine HCl 50 mg 10/20/20 13:45 Hydroxyzine Hcl 25 Mg Tablet PO Q6H PRN Anxiety Ibuprofen 800 mg 10/18/20 15:51 10/19/20 02:35 Ibuprofen 800 Mg Tablet PO 800 mg Q8H PRN Administration pain Magnesium Hydroxide 30 ml 10/20/20 13:45 Milk Of Magnesia 30 Ml Oral.Susp PO DAILY PRN Constipation Olanzapine 10 mg 10/20/20 13:50 10/25/20 10:50 Olanzapine Odt 10 Mg Tab.Rapdis TRANSLINGU 10 mg Q6H PRN Administration agitation Perphenazine 8 mg 10/30/20 21:00 10/31/20 08:02 Perphenazine 8 Mg Tablet PO Not Given BID SAPNA Sertraline HCl 50 mg 10/27/20 09:00 10/31/20 08:02 Sertraline Hcl 50 Mg Tablet PO Not Given DAILY SAPNA Trazodone HCl 50 mg 10/20/20 13:45 Trazodone Hcl 50 Mg Tablet PO BEDTIME PRN Insomnia Allergies Allergies Allergy/AdvReac Type Severity Reaction Status Date / Time No Known Allergies Allergy Verified 06/25/20 12:27 [No Known Allergies*] Assessment & Plan Assessment & Plan (1) Bipolar 1 disorder, mixed, severe: Status: Acute Code(s): F31.63 - Bipolar disorder, current episode mixed, severe, without psychotic features Assessment and Plan: continues to refuse depakote dosing, not taking perphenazine either today agreed to melatonin Quite disorganized and thought blocked Greater than 50% of the session was spent on counseling and/or coordination of care Reason for contiued inpatient stay Substantial Risk for: inability to function and rapid decompensation
[2020-10-31 21:17] VITALS: BP 142/68; PULSE 73; TEMP 36.6; O2SAT 98
[2020-11-01 06:00] VITALS: BP 131/78; PULSE 61; RESP 16; TEMP 36.6; O2SAT 99
[2020-11-01] MEDS: Sertraline HCL 50 MG TABLET PO (08:32)
[2020-11-01] MEDS: Perphenazine 8 MG TABLET PO ×2 (08:32→20:57)
--- NOTE | 2020-11-01 12:58 | HO.PSYCHPN ---
Subjective Subjective Date of Service: 11/01/20 Reason For Visit: Radha Subjective Notes: Section 7 Healthcare Proxy: No Guardianship: No (needs a gui order for out pt too!) Medical Problems Affecting Mental Status: No (though he thinks there is something wrong with his hands feet and head) Interim History: Pt reports to nursing his body coming apart. To me he is less engaged today- saying that his right side of head is heavy and the left side is sick (explains to me that the left side is too light) Says he ddidn't try melatonin we discussed because it wasn't offered Nursing reports he refused all meds lasta pm Constantly apologizing. Medication Compliance: Intermittent Side effects from medications: No (though I think he believes meds are causing hand /feet head issues) Attending Groups: No Mental Status Exam Mental Status Exam Narrative: sitting on unmade bed back/side to provider no eye contact today Patient Appearance: Disheveled Patient Orientation: Person and Place Level of Consciousness: Awake Patient Behavior: Guarded, Passive and Resistive to Care Mood Description: Suspicious, Fearful and Apprehensive Affect Description: Fearful, Anxious and Apprehensive Patient Cognition Impaired: No Ability to Follow Directions: Poor Speech Pattern: Difficulty Finding Words, Soft-Spoken, Delayed and Long Pauses Delusions: Being Controlled and Paranoid Ideation Thought Process: Illogical and Slowed Thinking Thought Content: positive for Flight of Ideas Depressive Symptoms: Diff. Making Decisions Abnormal Motor Activity Signs and Symptoms: Psychomotor Retardation and Muscle Rigidity Judgement: Poor Diagnostics Vital Signs (24Hr): Vital Signs - 24 hr 10/31/20 21:17 11/01/20 06:00 Temperature 97.8 F 97.8 F Pulse Rate 73 61 Respiratory Rate 16 Blood Pressure 142/68 H 131/78 Pulse Oximetry 98 99 Body Mass Index 66.4 Labs Results: 10/17/20 20:45 10/17/20 20:45 Medications Medications Current Medications Generic Name Dose Route Start Last Admin Trade Name Freq PRN Reason Stop Dose Admin Acetaminophen 650 mg 10/20/20 13:45 Acetaminophen 325 Mg Tablet PO Q6H PRN Headache/Pain Mild Scale (1-3) Al Hydroxide/Mg Hydroxide 30 ml 10/20/20 13:45 Magnesium Hydrox/Alum Hydrox 30 Ml Oral.Susp PO Q6H PRN Heartburn/Nausea Divalproex Sodium 1,000 mg 10/22/20 14:35 11/01/20 08:37 Divalproex Sodium 500 Mg Tablet.Dr PO Not Given DAILY SAPNA Hydroxyzine HCl 50 mg 10/20/20 13:45 Hydroxyzine Hcl 25 Mg Tablet PO Q6H PRN Anxiety Ibuprofen 800 mg 10/18/20 15:51 10/19/20 02:35 Ibuprofen 800 Mg Tablet PO 800 mg Q8H PRN Administration pain Magnesium Hydroxide 30 ml 10/20/20 13:45 Milk Of Magnesia 30 Ml Oral.Susp PO DAILY PRN Constipation Melatonin 6 mg 10/31/20 21:00 10/31/20 21:16 Melatonin 3 Mg Tablet PO Not Given BEDTIME SAPNA Olanzapine 10 mg 10/20/20 13:50 10/25/20 10:50 Olanzapine Odt 10 Mg Tab.Rapdis TRANSLINGU 10 mg Q6H PRN Administration agitation Perphenazine 8 mg 10/30/20 21:00 11/01/20 08:32 Perphenazine 8 Mg Tablet PO 8 mg BID SAPNA Administration Sertraline HCl 50 mg 10/27/20 09:00 11/01/20 08:32 Sertraline Hcl 50 Mg Tablet PO 50 mg DAILY SAPNA Administration Allergies Allergies Allergy/AdvReac Type Severity Reaction Status Date / Time No Known Allergies Allergy Verified 06/25/20 12:27 [No Known Allergies*] Assessment & Plan Assessment & Plan (1) Bipolar 1 disorder, mixed, severe: Status: Acute Code(s): F31.63 - Bipolar disorder, current episode mixed, severe, without psychotic features Assessment and Plan: continues to refuse depakote dosing, took sertraline and perphenazine now co weird head feeling Quite disorganized and thought blocked with odd posturing and speech- Greater than 50% of the session was spent on counseling and/or coordination of care Reason for contiued inpatient stay Substantial Risk for: inability to function and rapid decompensation
[2020-11-01] MEDS: Acetaminophen 325 MG TABLET 650 MG PO (16:23)
[2020-11-01] MEDS: Melatonin 3 MG TABLET 6 MG PO (20:57)
[2020-11-01 21:06] VITALS: BP 134/73; PULSE 75; TEMP 36.3
[2020-11-02 06:00] VITALS: BP 130/71; PULSE 60; RESP 16; TEMP 36.2; O2SAT 95
[2020-11-02] MEDS: Perphenazine 8 MG TABLET PO ×2 (08:22→20:23)
[2020-11-02] MEDS: Sertraline HCL 50 MG TABLET PO (08:22)
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
[2020-11-02] MEDS: Acetaminophen 325 MG TABLET 650 MG PO (20:23)
[2020-11-02] MEDS: Melatonin 3 MG TABLET 6 MG PO (20:23)
[2020-11-03] MEDS: Perphenazine 8 MG TABLET PO ×2 (10:18→21:20)
[2020-11-03] MEDS: Acetaminophen 325 MG TABLET 650 MG PO (10:26)
[2020-11-03 10:36] VITALS: BP 124/65; PULSE 78; RESP 16; TEMP 36.6; O2SAT 97
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
[2020-11-03 16:47] VITALS: BP 131/75; PULSE 65; RESP 18; TEMP 36.5; O2SAT 100
[2020-11-03 16:54] VITALS: BMI 30.2
[2020-11-03] MEDS: Melatonin 3 MG TABLET 6 MG PO (21:17)
[2020-11-04 06:00] VITALS: BP 138/78; PULSE 75; RESP 16; TEMP 36.3; O2SAT 97
[2020-11-04] MEDS: Sertraline HCL 50 MG TABLET PO (08:27)
[2020-11-04] MEDS: Perphenazine 8 MG TABLET PO ×2 (08:28→20:47)
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
[2020-11-04] MEDS: Acetaminophen 325 MG TABLET 650 MG PO (11:50)
[2020-11-04 14:53] VITALS: BP 138/78; PULSE 75; RESP 16; TEMP 36.3
[2020-11-04 18:00] VITALS: BP 153/83; PULSE 76; RESP 18; TEMP 36.3; O2SAT 94
[2020-11-04] MEDS: Melatonin 3 MG TABLET 6 MG PO (20:47)
[2020-11-05 06:00] VITALS: BP 133/79; PULSE 69; RESP 16; TEMP 36.5; O2SAT 100
[2020-11-05] MEDS: Perphenazine 8 MG TABLET PO (09:02)
[2020-11-05] MEDS: Sertraline HCL 25 MG TABLET PO (09:02)
[2020-11-05] MEDS: Divalproex Sodium 500 MG TABLET.DR 1000 MG PO (09:03)
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
[2020-11-05 18:00] VITALS: BP 147/67; PULSE 92; RESP 18; TEMP 36.6; O2SAT 98
[2020-11-05] MEDS: Melatonin 3 MG TABLET 6 MG PO (21:19)
[2020-11-05] MEDS: Perphenazine 4 MG TABLET 12 MG PO (21:19)
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
[2020-11-06 06:00] VITALS: BP 137/63; PULSE 84; RESP 16; TEMP 36.6; O2SAT 95
[2020-11-06] MEDS: Perphenazine 8 MG TABLET PO (08:47)
[2020-11-06] MEDS: Divalproex Sodium 500 MG TABLET.DR 1000 MG PO (08:47)
[2020-11-06] MEDS: Sertraline HCL 25 MG TABLET PO (08:47)
[2020-11-06] MEDS: Perphenazine 4 MG TABLET 12 MG PO (22:17)
[2020-11-06] MEDS: Melatonin 3 MG TABLET 6 MG PO (22:18)
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
[2020-11-07 06:00] VITALS: BP 130/60; PULSE 64; RESP 18; TEMP 36.5; O2SAT 98
[2020-11-07] MEDS: Perphenazine 8 MG TABLET PO (08:10)
[2020-11-07] MEDS: Divalproex Sodium 500 MG TABLET.DR 1000 MG PO (08:10)
[2020-11-07] MEDS: Sertraline HCL 25 MG TABLET PO (08:10)
[2020-11-07] MEDS: Acetaminophen 325 MG TABLET 650 MG PO (18:39)
[2020-11-07 20:36] VITALS: BP 168/110; PULSE 76; TEMP 35.9; O2SAT 99
[2020-11-07] MEDS: Melatonin 3 MG TABLET 6 MG PO (22:15)
[2020-11-07] MEDS: Perphenazine 4 MG TABLET 12 MG PO (22:15)
[2020-11-08 06:00] VITALS: BP 131/61; PULSE 61; RESP 16; TEMP 36.8; O2SAT 96
[2020-11-08] MEDS: Acetaminophen 325 MG TABLET 650 MG PO (08:13)
[2020-11-08] MEDS: Perphenazine 8 MG TABLET PO (08:13)
[2020-11-08] MEDS: Sertraline HCL 25 MG TABLET PO (08:13)
[2020-11-08] MEDS: Divalproex Sodium 500 MG TABLET.DR 1000 MG PO (08:13)
[2020-11-08 18:00] VITALS: BP 132/62; PULSE 79; RESP 18; TEMP 36.9; O2SAT 95
[2020-11-08] MEDS: Perphenazine 4 MG TABLET 12 MG PO (22:07)
[2020-11-08] MEDS: Melatonin 3 MG TABLET 6 MG PO (22:07)
[2020-11-09 06:00] VITALS: BP 110/59; PULSE 72; RESP 16; TEMP 36.7; O2SAT 98
[2020-11-09] MEDS: Perphenazine 8 MG TABLET PO (08:13)
[2020-11-09] MEDS: Divalproex Sodium 500 MG TABLET.DR 1000 MG PO (08:13)
[2020-11-09] MEDS: Sertraline HCL 25 MG TABLET PO (08:13)
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
[2020-11-09 20:10] VITALS: BP 173/79; PULSE 72; RESP 20; TEMP 37.1; O2SAT 99
[2020-11-09] MEDS: Perphenazine 4 MG TABLET 12 MG PO (22:03)
[2020-11-09] MEDS: Melatonin 3 MG TABLET 6 MG PO (22:03)
[2020-11-10 06:00] VITALS: BP 132/60; PULSE 78; RESP 16; TEMP 36.8; O2SAT 96
[2020-11-10] MEDS: Divalproex Sodium 500 MG TABLET.DR 1000 MG PO (08:15)
[2020-11-10] MEDS: Sertraline HCL 25 MG TABLET PO (08:15)
[2020-11-10] MEDS: Perphenazine 8 MG TABLET PO (08:15)
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
[2020-11-10] MEDS: Perphenazine 4 MG TABLET 12 MG PO (21:32)
[2020-11-10] MEDS: Melatonin 3 MG TABLET 6 MG PO (21:32)
[2020-11-11 06:00] VITALS: BP 119/57; PULSE 85; RESP 16; TEMP 36.7; O2SAT 98
[2020-11-11] MEDS: Sertraline HCL 25 MG TABLET PO (08:18)
[2020-11-11] MEDS: Perphenazine 8 MG TABLET PO (08:18)
[2020-11-11] MEDS: Divalproex Sodium 500 MG TABLET.DR 1000 MG PO (08:18)
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
[2020-11-11] MEDS: Melatonin 3 MG TABLET 6 MG PO (21:57)
[2020-11-11] MEDS: traZODone HCL 100 MG TABLET PO (21:57)
[2020-11-11] MEDS: Perphenazine 4 MG TABLET 12 MG PO (21:58)
[2020-11-11 22:06] VITALS: BP 127/72; PULSE 79; TEMP 36.6; O2SAT 98
[2020-11-12 08:01] LABS: Valproate 41.1 mcg/mL (50.0-100.0)
[2020-11-12] MEDS: Sertraline HCL 25 MG TABLET PO (08:22)
[2020-11-12] MEDS: Perphenazine 8 MG TABLET PO (08:22)
[2020-11-12 08:32] VITALS: BP 112/55; PULSE 62; RESP 18; TEMP 36.8; O2SAT 96
--- NOTE | 2020-11-12 11:46 | HO.PSYCHPN ---
Subjective Subjective Date of Service: 11/12/20 Reason For Visit: Radha Interim History: Pt presents with improve hygiene. Pt reports feeling frustrated about being in hospital and wants to know when he can go home. we discussed that team hopes to see that pt is less paranoid, thoughts more organized and clear. He does continue to report some paranoia towards roommate but also has no insight as to the fact that he can't return back home. He refused depakote this morning- levels today were 41. He reports fair sleep although does wake up frequently. He is suspicious about medications stating he is being given medication that are negatively affecting his brain but unable to report any side effects. No cogwheel/EPS. Review of Systems Review of Systems Constitutional: No Fever, No Chills ENT/Mouth: No Ear Pain, No Nasal Congestion, No sore throat Eyes: No Eye Pain, No Swelling, No Redness Cardiovascular: No Chest Pain, No SOB Respiratory: No Cough, No Sputum, No Dyspnea Gastrointestinal: No Nausea, No Vomiting, No Diarrhea, No Hematochezia, No Melena Genitourinary: No Dysuria, No Urinary Frequency, No Hematuria Musculoskeletal: No Myalgias Skin: No Skin Lesions, No rash Neuro: No Weakness, No Numbness, No Paresthesias, No Dizziness, No Headache Psych: positive Anxiety, positive Depression, positive radha, no SI HI Heme/Lymph: No Lymphadenopathy Endocrine: No Polyuria, No Polydipsia Yes all other systems are reviewed and are negative Cardiovascular: Denies chest pain, Denies irregular heart rhythm and Denies lightheadedness Respiratory: Denies pain with cough Gastrointestinal: Denies constipation and Denies diarrhea Mental Status Exam Mental Status Exam Narrative: Narrative: Appearance: casually groomed, poor hygiene, in NAD Behavior: guarded, irritable at times Psychomotor: agitation noted Speech: clear, hyperverbal, pressured rate/rhythm/ loud at times volume, spontaneous TP: derailment, disorganized TC: paranoid towards roommate and other family members, wanting to do many things but unable to specify what Mood: anxious Affect:labile, expansive SI:denies HI:denies AH/VH:denies Delusions:spiritism preoccupation Insight/judgment:poor x 2. Memory/cog: alert, oriented x 3, impaired secondary to psychiatric symptoms. Patient Appearance: Disheveled Patient Orientation: Person and Place Level of Consciousness: Awake Patient Behavior: Guarded, Passive and Resistive to Care Mood Description: Suspicious, Fearful and Apprehensive Affect Description: Fearful, Anxious and Apprehensive Patient Cognition Impaired: No Ability to Follow Directions: Poor Speech Pattern: Difficulty Finding Words, Soft-Spoken, Delayed and Long Pauses Diagnostics Vital Signs (24Hr): Vital Signs - 24 hr 11/11/20 22:06 11/12/20 08:32 Temperature 97.8 F 98.3 F Pulse Rate 79 62 Respiratory Rate 18 Blood Pressure 127/72 112/55 L Pulse Oximetry 98 96 Body Mass Index 30.2 Labs Results: 10/17/20 20:45 10/17/20 20:45 Labs: Laboratory Results - last 48 hr 11/12/20 07:11 Valproic Acid 41.1 L Medications Medications Current Medications Generic Name Dose Route Start Last Admin Trade Name Freq PRN Reason Stop Dose Admin Acetaminophen 650 mg 10/20/20 13:45 11/08/20 08:13 Acetaminophen 325 Mg Tablet PO 650 mg Q6H PRN Administration Headache/Pain Mild Scale (1-3) Al Hydroxide/Mg Hydroxide 30 ml 10/20/20 13:45 Magnesium Hydrox/Alum Hydrox 30 Ml Oral.Susp PO Q6H PRN Heartburn/Nausea Divalproex Sodium 1,250 mg 11/12/20 09:00 11/12/20 08:26 Divalproex Sodium 250 Mg Tablet.Dr PO Not Given DAILY SAPNA Hydroxyzine HCl 50 mg 10/20/20 13:45 Hydroxyzine Hcl 25 Mg Tablet PO Q6H PRN Anxiety Ibuprofen 800 mg 10/18/20 15:51 10/19/20 02:35 Ibuprofen 800 Mg Tablet PO 800 mg Q8H PRN Administration pain Magnesium Hydroxide 30 ml 10/20/20 13:45 Milk Of Magnesia 30 Ml Oral.Susp PO DAILY PRN Constipation Melatonin 6 mg 10/31/20 21:00 11/11/20 21:57 Melatonin 3 Mg Tablet PO 6 mg BEDTIME SAPNA Administration Olanzapine 10 mg 10/20/20 13:50 10/25/20 10:50 Olanzapine Odt 10 Mg Tab.Rapdis TRANSLINGU 10 mg Q6H PRN Administration agitation Perphenazine 12 mg 11/12/20 21:00 Perphenazine 4 Mg Tablet PO BID SAPNA Sertraline HCl 25 mg 11/05/20 09:00 11/12/20 08:22 Sertraline Hcl 25 Mg Tablet PO 25 mg DAILY SAPNA Administration Trazodone HCl 100 mg 11/11/20 21:00 11/11/20 21:57 Trazodone Hcl 100 Mg Tablet PO 100 mg BEDTIME SAPNA Administration Allergies Allergies Allergy/AdvReac Type Severity Reaction Status Date / Time No Known Allergies Allergy Verified 06/25/20 12:27 [No Known Allergies*] Assessment & Plan Assessment & Plan (1) Bipolar 1 disorder, mixed, severe: Status: Acute Code(s): F31.63 - Bipolar disorder, current episode mixed, severe, without psychotic features Assessment and Plan: Mr. Islas is a 25 year-old male with hx of Bipolar Disorder who self presented to [facility] [place] [facility] reporting signs of radha including decrease need for sleep, racing thoughts, hyperverbal, pressured speech, poor concentration, spiritism preoccupation, flight of ideas. He recently was taken off olanzapine, some concern in terms of weight gain in addition to pt request, and started on sertraline currently on 200mg po daily. we discussed risks, benefits and alterntive treatment options. We discussed tapering him off sertraline as it is worsening manic symptoms. Pt currently declining to take antipsychotic medication nor mood stabilizer. PLAN: 1. Pending section 8. 2. Increase perphenazine to 12mg po BID. 3. Increase depakote 1250mg po daily- pt started to take it more consistently. Depakote level on 11/12- 4. continue trazodone 100mg po qhs. Greater than 50% of the session was spent on counseling and/or coordination of care Reason for contiued inpatient stay Substantial Risk for: inability to function
[2020-11-12 20:08] VITALS: BP 164/84; PULSE 76; TEMP 36.5
[2020-11-12] MEDS: traZODone HCL 100 MG TABLET PO (20:37)
[2020-11-12] MEDS: Melatonin 3 MG TABLET 6 MG PO (20:37)
[2020-11-12] MEDS: Perphenazine 4 MG TABLET 12 MG PO (21:33)
[2020-11-13 08:26] VITALS: BP 126/60; PULSE 75; RESP 18; TEMP 36.3; O2SAT 100
[2020-11-13] MEDS: Divalproex Sodium 250 MG TABLET.DR 1250 MG PO (08:43)
[2020-11-13] MEDS: Perphenazine 4 MG TABLET 12 MG PO ×2 (08:43→21:10)
[2020-11-13] MEDS: Sertraline HCL 25 MG TABLET PO (08:43)
--- NOTE | 2020-11-13 14:23 | HO.PSYCHPN ---
Subjective Subjective Date of Service: 11/13/20 Reason For Visit: Radha Subjective Notes: Section 7 Interim History: Pt reports he wants to be discharged soon. he does not think he needs medications although he is less paranoid about roommate, staff here. He reports feeling frustrated about still being in hospital. He is taking medications as prescribed, with much encouragement at times. He denies SI/HI. He is less intrusive to peers. No cogwheel/EPS. Medication Compliance: Yes Side effects from medications: No Review of Systems Review of Systems Constitutional: No Fever, No Chills ENT/Mouth: No Ear Pain, No Nasal Congestion, No sore throat Eyes: No Eye Pain, No Swelling, No Redness Cardiovascular: No Chest Pain, No SOB Respiratory: No Cough, No Sputum, No Dyspnea Gastrointestinal: No Nausea, No Vomiting, No Diarrhea, No Hematochezia, No Melena Genitourinary: No Dysuria, No Urinary Frequency, No Hematuria Musculoskeletal: No Myalgias Skin: No Skin Lesions, No rash Neuro: No Weakness, No Numbness, No Paresthesias, No Dizziness, No Headache Psych: positive Anxiety, positive Depression, positive radha, no SI HI Heme/Lymph: No Lymphadenopathy Endocrine: No Polyuria, No Polydipsia Yes all other systems are reviewed and are negative Cardiovascular: Denies chest pain, Denies irregular heart rhythm and Denies lightheadedness Respiratory: Denies pain with cough Gastrointestinal: Denies constipation and Denies diarrhea Mental Status Exam Mental Status Exam Narrative: Narrative: Appearance: casually groomed, poor hygiene, in NAD Behavior: guarded, irritable at times Psychomotor: agitation noted Speech: clear, hyperverbal, pressured rate/rhythm/ loud at times volume, spontaneous TP: derailment, disorganized TC: paranoid towards roommate and other family members, wanting to do many things but unable to specify what Mood: anxious Affect:labile, expansive SI:denies HI:denies AH/VH:denies Delusions:congregational preoccupation Insight/judgment:poor x 2. Memory/cog: alert, oriented x 3, impaired secondary to psychiatric symptoms. Patient Appearance: Disheveled Patient Orientation: Person and Place Level of Consciousness: Awake Patient Behavior: Guarded, Passive and Resistive to Care Mood Description: Suspicious, Fearful and Apprehensive Affect Description: Fearful, Anxious and Apprehensive Patient Cognition Impaired: No Ability to Follow Directions: Poor Speech Pattern: Difficulty Finding Words, Soft-Spoken, Delayed and Long Pauses Diagnostics Vital Signs (24Hr): Vital Signs - 24 hr 11/12/20 20:08 11/13/20 08:26 Temperature 97.7 F 97.4 F Pulse Rate 76 75 Respiratory Rate 18 Blood Pressure 164/84 H 126/60 Pulse Oximetry 100 Body Mass Index 30.2 Labs Results: 10/17/20 20:45 10/17/20 20:45 Labs: Laboratory Results - last 48 hr 11/12/20 07:11 Valproic Acid 41.1 L Medications Medications Current Medications Generic Name Dose Route Start Last Admin Trade Name Freq PRN Reason Stop Dose Admin Acetaminophen 650 mg 10/20/20 13:45 11/08/20 08:13 Acetaminophen 325 Mg Tablet PO 650 mg Q6H PRN Administration Headache/Pain Mild Scale (1-3) Al Hydroxide/Mg Hydroxide 30 ml 10/20/20 13:45 Magnesium Hydrox/Alum Hydrox 30 Ml Oral.Susp PO Q6H PRN Heartburn/Nausea Divalproex Sodium 1,250 mg 11/12/20 09:00 11/13/20 08:43 Divalproex Sodium 250 Mg Tablet.Dr PO 1,250 mg DAILY SAPNA Administration Hydroxyzine HCl 50 mg 10/20/20 13:45 Hydroxyzine Hcl 25 Mg Tablet PO Q6H PRN Anxiety Ibuprofen 800 mg 10/18/20 15:51 10/19/20 02:35 Ibuprofen 800 Mg Tablet PO 800 mg Q8H PRN Administration pain Magnesium Hydroxide 30 ml 10/20/20 13:45 Milk Of Magnesia 30 Ml Oral.Susp PO DAILY PRN Constipation Melatonin 6 mg 10/31/20 21:00 11/12/20 20:37 Melatonin 3 Mg Tablet PO 6 mg BEDTIME SAPNA Administration Olanzapine 10 mg 10/20/20 13:50 10/25/20 10:50 Olanzapine Odt 10 Mg Tab.Rapdis TRANSLINGU 10 mg Q6H PRN Administration agitation Perphenazine 12 mg 11/12/20 21:00 11/13/20 08:43 Perphenazine 4 Mg Tablet PO 12 mg BID SAPNA Administration Sertraline HCl 25 mg 11/05/20 09:00 11/13/20 08:43 Sertraline Hcl 25 Mg Tablet PO 25 mg DAILY SAPNA Administration Trazodone HCl 100 mg 11/11/20 21:00 11/12/20 20:37 Trazodone Hcl 100 Mg Tablet PO 100 mg BEDTIME SAPNA Administration Allergies Allergies Allergy/AdvReac Type Severity Reaction Status Date / Time No Known Allergies Allergy Verified 06/25/20 12:27 [No Known Allergies*] Assessment & Plan Assessment & Plan (1) Bipolar 1 disorder, mixed, severe: Status: Acute Code(s): F31.63 - Bipolar disorder, current episode mixed, severe, without psychotic features Assessment and Plan: Mr. Islas is a 25 year-old male with hx of Bipolar Disorder who self presented to [facility] reporting signs of radha including decrease need for sleep, racing thoughts, hyperverbal, pressured speech, poor concentration, congregational preoccupation, flight of ideas. He recently was taken off olanzapine, some concern in terms of weight gain in addition to pt request, and started on sertraline currently on 200mg po daily. we discussed risks, benefits and alterntive treatment options. We discussed tapering him off sertraline as it is worsening manic symptoms. Pt currently declining to take antipsychotic medication nor mood stabilizer. PLAN: 1. Pending section 8. 2. Increase perphenazine to 12mg po BID. 3. Increase depakote 1250mg po daily- pt started to take it more consistently. Depakote level on 4. continue trazodone 100mg po qhs. Greater than 50% of the session was spent on counseling and/or coordination of care Reason for contiued inpatient stay Substantial Risk for: inability to function
[2020-11-13 20:00] VITALS: BP 136/60; PULSE 81; RESP 18; TEMP 36.9; O2SAT 96
[2020-11-13] MEDS: traZODone HCL 100 MG TABLET PO (21:10)
[2020-11-13] MEDS: Melatonin 3 MG TABLET 6 MG PO (21:10)
[2020-11-14 06:00] VITALS: BP 137/65; PULSE 84; RESP 16; TEMP 36.3; O2SAT 97
[2020-11-14] MEDS: Sertraline HCL 25 MG TABLET PO (08:48)
[2020-11-14] MEDS: Perphenazine 4 MG TABLET 12 MG PO ×2 (08:48→22:11)
[2020-11-14] MEDS: Divalproex Sodium 250 MG TABLET.DR 1250 MG PO (09:37)
--- NOTE | 2020-11-14 18:30 | P.PNPSI_ITS ---
Subjective Subjective Date of Service: 11/14/20 Reason For Visit: Radha Interim History: Patient seen and DW team. Patient continues paranoid and isolative. He is somatically preoccupied and gives non-descript symptoms. He says he is going through physical changes. Says his head is swelling . Says that when water came on his wrist band he started feeling it in his arm. Disorganized thought process. He says ASA helps with his headaches sometimes more than Ibuprofen. He is compliant with meds. Denies SI/HI. Review of Systems Review of Systems Constitutional: No Fever, No Chills ENT/Mouth: No Ear Pain, No Nasal Congestion, No sore throat Eyes: No Eye Pain, No Swelling, No Redness Cardiovascular: No Chest Pain, No SOB Respiratory: No Cough, No Sputum, No Dyspnea Gastrointestinal: No Nausea, No Vomiting, No Diarrhea, No Hematochezia, No Melena Genitourinary: No Dysuria, No Urinary Frequency, No Hematuria Musculoskeletal: No Myalgias Skin: No Skin Lesions, No rash Neuro: No Weakness, No Numbness, No Paresthesias, No Dizziness, No Headache Psych: positive Anxiety, positive Depression, positive radha, no SI HI Heme/Lymph: No Lymphadenopathy Endocrine: No Polyuria, No Polydipsia Yes all other systems are reviewed and are negative Cardiovascular: Denies chest pain, Denies irregular heart rhythm and Denies lightheadedness Respiratory: Denies pain with cough Gastrointestinal: Denies constipation and Denies diarrhea Mental Status Exam Mental Status Exam Patient Appearance: Disheveled Patient Orientation: Person and Place Level of Consciousness: Awake Patient Behavior: Guarded, Passive and Poor Eye Contact Mood Description: Suspicious, Withdrawn, Fearful, Blunted and Apprehensive Affect Description: Fearful, Anxious, Blunted, Flat and Apprehensive Patient Cognition Impaired: No Ability to Follow Directions: Poor Speech Pattern: Perseverating, Difficulty Finding Words, Soft-Spoken, Delayed and Long Pauses Memory Description: Intact Hallucinations: None (denied) Delusions: Bizarre (somatic) Thought Process: Illogical Thought Content: positive for Circumstantial, positive for Perseveration, positive for Slowed Thinking and positive for Hypochondriasis Abnormal Motor Activity Signs and Symptoms: Psychomotor Retardation Judgement: Poor Diagnostics Vital Signs (24Hr): Vital Signs - 24 hr 11/13/20 20:00 11/14/20 06:00 Temperature 98.4 F 97.4 F Pulse Rate 81 84 Respiratory Rate 18 16 Blood Pressure 136/60 137/65 Pulse Oximetry 96 97 Body Mass Index 30.2 Labs Results: 10/17/20 20:45 10/17/20 20:45 Medications Medications Current Medications Generic Name Dose Route Start Last Admin Trade Name Freq PRN Reason Stop Dose Admin Acetaminophen 650 mg 10/20/20 13:45 11/08/20 08:13 Acetaminophen 325 Mg Tablet PO 650 mg Q6H PRN Administration Headache/Pain Mild Scale (1-3) Al Hydroxide/Mg Hydroxide 30 ml 10/20/20 13:45 Magnesium Hydrox/Alum Hydrox 30 Ml Oral.Susp PO Q6H PRN Heartburn/Nausea Aspirin 325 mg 11/14/20 12:35 Aspirin Enteric Coated 325 Mg Tablet. PO Q4H PRN Pain, Moderate (Pain Scale 4-6 Divalproex Sodium 1,250 mg 11/12/20 09:00 11/14/20 09:37 Divalproex Sodium 250 Mg Tablet. PO 1,250 mg DAILY SAPNA Administration Hydroxyzine HCl 50 mg 10/20/20 13:45 Hydroxyzine Hcl 25 Mg Tablet PO Q6H PRN Anxiety Ibuprofen 800 mg 10/18/20 15:51 10/19/20 02:35 Ibuprofen 800 Mg Tablet PO 800 mg Q8H PRN Administration pain Magnesium Hydroxide 30 ml 10/20/20 13:45 Milk Of Magnesia 30 Ml Oral.Susp PO DAILY PRN Constipation Melatonin 6 mg 10/31/20 21:00 11/13/20 21:10 Melatonin 3 Mg Tablet PO 6 mg BEDTIME SAPNA Administration Olanzapine 10 mg 10/20/20 13:50 10/25/20 10:50 Olanzapine Odt 10 Mg Tab.Rapdis TRANSLINGU 10 mg Q6H PRN Administration agitation Perphenazine 12 mg 11/12/20 21:00 11/14/20 08:48 Perphenazine 4 Mg Tablet PO 12 mg BID SAPNA Administration Sertraline HCl 25 mg 11/05/20 09:00 11/14/20 08:48 Sertraline Hcl 25 Mg Tablet PO 25 mg DAILY SAPNA Administration Trazodone HCl 100 mg 11/11/20 21:00 11/13/20 21:10 Trazodone Hcl 100 Mg Tablet PO 100 mg BEDTIME SAPNA Administration Allergies Allergies Allergy/AdvReac Type Severity Reaction Status Date / Time No Known Allergies Allergy Verified 06/25/20 12:27 [No Known Allergies*] Assessment & Plan Assessment & Plan (1) Bipolar 1 disorder, mixed, severe: Status: Acute Code(s): F31.63 - Bipolar disorder, current episode mixed, severe, without psychotic features Assessment and Plan: Mr. Islas is a 25 year-old male with hx of Bipolar Disorder who self presented to [facility] reporting signs of radha including decrease need for sleep, racing thoughts, hyperverbal, pressured speech, poor concentration, congregation preoccupation, flight of ideas. He recently was taken off olanzapine, some concern in terms of weight gain in addition to pt request, and started on sertraline currently on 200mg po daily. we discussed risks, benefits and alterntive treatment options. We discussed tapering him off sertraline as it is worsening manic symptoms. Pt currently declining to take antipsychotic medication nor mood stabilizer. PLAN: 1. Pending section 8. 2. Increase perphenazine to 12mg po BID. 3. Continue depakote 1250mg po daily- pt started to take it more consistently. Depakote level on 11/12- 4. continue trazodone 100mg po qhs. 5. Added ASA 325 mg PRN headache Greater than 50% of the session was spent on counseling and/or coordination of care Reason for contiued inpatient stay Substantial Risk for: inability to function
[2020-11-14 19:57] VITALS: BP 139/80; PULSE 86; RESP 18; TEMP 36.8; O2SAT 93
[2020-11-14] MEDS: traZODone HCL 100 MG TABLET PO (22:11)
[2020-11-14] MEDS: Melatonin 3 MG TABLET 6 MG PO (22:11)
[2020-11-15 06:00] VITALS: BP 125/68; PULSE 61; RESP 16; TEMP 36.7; O2SAT 96
[2020-11-15 08:01] LABS: Alanine Aminotransferase 32 U/L (0-40); Albumin Level 4.1 g/dL (3.5-5.0); Alkaline Phosphatase 52 U/L (39-117); Aspartate Amino Transferase 17 U/L (5-37); Bilirubin Direct < 0.2 mg/dL (0.0-0.5); Bilirubin Total 0.3 mg/dL (0.0-1.0)
[2020-11-15 08:34] LABS: Ammonia 41 umol/L (13-55)
[2020-11-15] MEDS: Sertraline HCL 25 MG TABLET PO (08:41)
[2020-11-15] MEDS: Perphenazine 4 MG TABLET 12 MG PO ×2 (08:41→22:55)
[2020-11-15] MEDS: Divalproex Sodium 250 MG TABLET.DR 1250 MG PO (08:41)
[2020-11-15] MEDS: Aspirin Enteric Coated 325 MG TABLET.DR PO (12:01)
--- NOTE | 2020-11-15 13:22 | P.PNPSI_ITS ---
Subjective Subjective Date of Service: 11/15/20 Reason For Visit: Radha Interim History: Patient seen and DW team. Patient seen in his room. He continued to be internally preoccupied. He focuses on non-descript somatic syymptoms. Ear wax, head swelling, bloating and feeling his jaw is rough to the touch... Disorganized in his thought process. Denies SI/HI. Review of Systems Review of Systems Constitutional: No Fever, No Chills ENT/Mouth: No Ear Pain, No Nasal Congestion, No sore throat Eyes: No Eye Pain, No Swelling, No Redness Cardiovascular: No Chest Pain, No SOB Respiratory: No Cough, No Sputum, No Dyspnea Gastrointestinal: No Nausea, No Vomiting, No Diarrhea, No Hematochezia, No Melena Genitourinary: No Dysuria, No Urinary Frequency, No Hematuria Musculoskeletal: No Myalgias Skin: No Skin Lesions, No rash Neuro: No Weakness, No Numbness, No Paresthesias, No Dizziness, No Headache Psych: positive Anxiety, positive Depression, positive radha, no SI HI Heme/Lymph: No Lymphadenopathy Endocrine: No Polyuria, No Polydipsia Yes all other systems are reviewed and are negative Cardiovascular: Denies chest pain, Denies irregular heart rhythm and Denies lightheadedness Respiratory: Denies pain with cough Gastrointestinal: Denies constipation and Denies diarrhea Mental Status Exam Mental Status Exam Patient Appearance: Disheveled Patient Orientation: Person and Place Level of Consciousness: Awake Patient Behavior: Guarded, Passive and Poor Eye Contact Mood Description: Suspicious, Withdrawn, Fearful, Blunted and Apprehensive Affect Description: Fearful, Anxious, Blunted, Flat and Apprehensive Patient Cognition Impaired: No Ability to Follow Directions: Poor Speech Pattern: Perseverating, Difficulty Finding Words, Soft-Spoken, Delayed and Long Pauses Memory Description: Intact Hallucinations: None Delusions: Present (somatic) Perceptual Disturbances: Hallucinations Thought Process: Slowed Thinking Thought Content: positive for Circumstantial, positive for Perseveration, p ositive for Slowed Thinking and positive for Disorganized Abnormal Motor Activity Signs and Symptoms: Psychomotor Retardation Judgement: Poor Diagnostics Vital Signs (24Hr): Vital Signs - 24 hr 11/14/20 19:57 11/15/20 06:00 Temperature 98.2 F 98.0 F Pulse Rate 86 61 Respiratory Rate 18 16 Blood Pressure 139/80 125/68 Pulse Oximetry 93 96 Body Mass Index 30.2 Labs Results: 10/17/20 20:45 10/17/20 20:45 Labs: Laboratory Results - last 48 hr 11/15/20 11/15/20 06:56 06:56 Total Bilirubin 0.3 Direct Bilirubin < 0.2 AST 17 ALT 32 Alkaline Phosphatase 52 D Ammonia 41 Total Protein 7.0 Albumin 4.1 Valproic Acid 36.0 L Medications Medications Current Medications Generic Name Dose Route Start Last Admin Trade Name Freq PRN Reason Stop Dose Admin Acetaminophen 650 mg 10/20/20 13:45 11/08/20 08:13 Acetaminophen 325 Mg Tablet PO 650 mg Q6H PRN Administration Headache/Pain Mild Scale (1-3) Al Hydroxide/Mg Hydroxide 30 ml 10/20/20 13:45 Magnesium Hydrox/Alum Hydrox 30 Ml Oral.Susp PO Q6H PRN Heartburn/Nausea Aspirin 325 mg 11/14/20 12:35 11/15/20 12:01 Aspirin Enteric Coated 325 Mg Tablet. PO 325 mg Q4H PRN Administration Pain, Moderate (Pain Scale 4-6 Divalproex Sodium 1,250 mg 11/12/20 09:00 11/15/20 08:41 Divalproex Sodium 250 Mg Tablet. PO 1,250 mg DAILY SAPNA Administration Hydroxyzine HCl 50 mg 10/20/20 13:45 Hydroxyzine Hcl 25 Mg Tablet PO Q6H PRN Anxiety Ibuprofen 800 mg 10/18/20 15:51 10/19/20 02:35 Ibuprofen 800 Mg Tablet PO 800 mg Q8H PRN Administration pain Magnesium Hydroxide 30 ml 10/20/20 13:45 Milk Of Magnesia 30 Ml Oral.Susp PO DAILY PRN Constipation Melatonin 6 mg 10/31/20 21:00 11/14/20 22:11 Melatonin 3 Mg Tablet PO 6 mg BEDTIME SAPNA Administration Olanzapine 10 mg 10/20/20 13:50 10/25/20 10:50 Olanzapine Odt 10 Mg Tab.Rapdis TRANSLINGU 10 mg Q6H PRN Administration agitation Perphenazine 12 mg 11/12/20 21:00 11/15/20 08:41 Perphenazine 4 Mg Tablet PO 12 mg BID SAPNA Administration Sertraline HCl 25 mg 11/05/20 09:00 11/15/20 08:41 Sertraline Hcl 25 Mg Tablet PO 25 mg DAILY SAPNA Administration Trazodone HCl 100 mg 11/11/20 21:00 11/14/20 22:11 Trazodone Hcl 100 Mg Tablet PO 100 mg BEDTIME SAPNA Administration Allergies Allergies Allergy/AdvReac Type Severity Reaction Status Date / Time No Known Allergies Allergy Verified 06/25/20 12:27 [No Known Allergies*] Assessment & Plan Assessment & Plan (1) Bipolar 1 disorder, mixed, severe: Status: Acute Code(s): F31.63 - Bipolar disorder, current episode mixed, severe, without psychotic features Assessment and Plan: Mr. Islas is a 25 year-old male with hx of Bipolar Disorder who self presented to [facility] [place] [facility] reporting signs of radha including decrease need for sleep, racing thoughts, hyperverbal, pressured speech, poor concentration, rastafari preoccupation, flight of ideas. He recently was taken off olanzapine, some concern in terms of weight gain in addition to pt request, and started on sert raline currently on 200mg po daily. we discussed risks, benefits and alterntive treatment options. We discussed tapering him off sertraline as it is worsening manic symptoms. Pt currently declining to take antipsychotic medication nor mood stabilizer. PLAN: 1. Pending section 8. 2. perphenazine 12mg po BID. 3. Continue depakote 1250mg po daily- pt started to take it more consistently. Depakote level on 11/12- 4. continue trazodone 100mg po qhs. 5. ASA 325 mg PRN headache Greater than 50% of the session was spent on counseling and/or coordination of care Reason for contiued inpatient stay Substantial Risk for: harm to self and inability to function
[2020-11-15 20:27] VITALS: BP 168/85; PULSE 77; TEMP 36.7; O2SAT 99
[2020-11-15] MEDS: Melatonin 3 MG TABLET 6 MG PO (22:55)
[2020-11-15] MEDS: traZODone HCL 100 MG TABLET PO (22:55)
[2020-11-16] MEDS: Sertraline HCL 25 MG TABLET PO (08:50)
[2020-11-16] MEDS: Divalproex Sodium 250 MG TABLET.DR 1250 MG PO (08:50)
[2020-11-16] MEDS: Perphenazine 4 MG TABLET 12 MG PO ×2 (08:50→21:58)
[2020-11-16 08:56] VITALS: BP 152/74; PULSE 64; RESP 16; TEMP 36.7; O2SAT 98
--- NOTE | 2020-11-16 15:59 | P.PNPSI_ITS ---
Subjective Subjective Date of Service: 11/16/20 Reason For Visit: Radha Subjective Notes: Section 7 Interim History: Patient seen and discussed with team. Johnathon was evaluated this morning and upon interview he reports he is feeling anxious, nervous, and frustrated. He continues to present as internally preoccupied and has disorganized thought content. He says singing, food, and art help his mood. He presents with somatic delusions and says he is having problems breathing and that I dont understand body language. He is unable to report on his sleep, I cant tell about sleep. He is adherent with medications and tolerating them well, has a fine tremor but denies that this is new. I discussed that his VPA level is low, 36 on 11/15, however he is resistant to med changes and says they make me feel more sick usually and he wants to get off medications and help myself and get infographics. 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 He can become derailed in thought and needs questions repeated to him. In the milieu, he is not attending groups. He presents as safe in his behavior and denies SI/SIB/HI upon inquiry. He states he is eating but not drinking enough water. Review of Systems Review of Systems: CVS: No c/o chest pain, palpitations, no SOB but says he has trouble breathing HOSPITAL UNIT CLERK: complains of headaches GI: No c/o Nausea, Vomiting, diarrhea, constipation or heartburn Mental Status Exam Mental Status Exam Narrative: Well groomed, good hygiene, somewhat overweight. Poor eye contact, inattentive. No Tics. Has fine bilateral tremor. No abnormal involuntary movements. Calm, cooperative but difficult to engage in meaningful conversation. Non-pressured speech, non-spontaneous, regular rate and rhythm, normal volume and prosody. Has noticeable prolonged speech latency at times but no dysarthria. Mood is ?anxious,? affect is flat. Denies SI/SIB/HI upon inquiry. Denies A/VH. Presents with delusional thought content. Thoughts are disorganized, illogical. No known cognitive or memory impairment. Insight/ Judgment poor. Diagnostics Vital Signs (24Hr): Vital Signs - 24 hr 11/15/20 20:27 11/16/20 08:56 Temperature 98.0 F 98.1 F Pulse Rate 77 64 Respiratory Rate 16 Blood Pressure 168/85 H 152/74 H Pulse Oximetry 99 98 Body Mass Index 30.2 Labs Results: 10/17/20 20:45 10/17/20 20:45 Labs: Laboratory Results - last 48 hr 11/15/20 11/15/20 06:56 06:56 Total Bilirubin 0.3 Direct Bilirubin < 0.2 AST 17 ALT 32 Alkaline Phosphatase 52 D Ammonia 41 Total Protein 7.0 Albumin 4.1 Valproic Acid 36.0 L Medications Medications Current Medications Generic Name Dose Route Start Last Admin Trade Name Freq PRN Reason Stop Dose Admin Acetaminophen 650 mg 10/20/20 13:45 11/08/20 08:13 Acetaminophen 325 Mg Tablet PO 650 mg Q6H PRN Administration Headache/Pain Mild Scale (1-3) Al Hydroxide/Mg Hydroxide 30 ml 10/20/20 13:45 Magnesium Hydrox/Alum Hydrox 30 Ml Oral.Susp PO Q6H PRN Heartburn/Nausea Aspirin 325 mg 11/14/20 12:35 11/15/20 12:01 Aspirin Enteric Coated 325 Mg Tablet. PO 325 mg Q4H PRN Administration Pain, Moderate (Pain Scale 4-6 Divalproex Sodium 1,250 mg 11/12/20 09:00 11/16/20 08:50 Divalproex Sodium 250 Mg Tablet. PO 1,250 mg DAILY SAPNA Administration Hydroxyzine HCl 50 mg 10/20/20 13:45 Hydroxyzine Hcl 25 Mg Tablet PO Q6H PRN Anxiety Ibuprofen 800 mg 10/18/20 15:51 10/19/20 02:35 Ibuprofen 800 Mg Tablet PO 800 mg Q8H PRN Administration pain Magnesium Hydroxide 30 ml 10/20/20 13:45 Milk Of Magnesia 30 Ml Oral.Susp PO DAILY PRN Constipation Melatonin 6 mg 10/31/20 21:00 11/15/20 22:55 Melatonin 3 Mg Tablet PO 6 mg BEDTIME SAPNA Administration Olanzapine 10 mg 10/20/20 13:50 10/25/20 10:50 Olanzapine Odt 10 Mg Tab.Rapdis TRANSLINGU 10 mg Q6H PRN Administration agitation Perphenazine 12 mg 11/12/20 21:00 11/16/20 08:50 Perphenazine 4 Mg Tablet PO 12 mg BID SAPNA Administration Sertraline HCl 25 mg 11/05/20 09:00 11/16/20 08:50 Sertraline Hcl 25 Mg Tablet PO 25 mg DAILY SAPNA Administration Trazodone HCl 100 mg 11/11/20 21:00 11/15/20 22:55 Trazodone Hcl 100 Mg Tablet PO 100 mg BEDTIME SAPNA Administration Allergies Allergies Allergy/AdvReac Type Severity Reaction Status Date / Time No Known Allergies Allergy Verified 06/25/20 12:27 [No Known Allergies*] Assessment & Plan Assessment & Plan (1) Bipolar 1 disorder, mixed, severe: Status: Acute Code(s): F31.63 - Bipolar disorder, current episode mixed, severe, without psychotic features Assessment and Plan: Mr. Islas is a 25 year-old male with hx of Bipolar Disorder who self presented to [facility] [place] [facility] reporting signs of radha including decrease need for sleep, racing thoughts, hyperverbal, pressured speech, poor concentration, islam preoccup ation, flight of ideas. He recently was taken off olanzapine, some concern in terms of weight gain in addition to pt request, and started on sertraline, currently on 25mg po daily. we discussed risks, benefits and alterntive treatment options. We discussed tapering him off sertraline as it is worsening manic symptoms. Patient has been adherent with depakote 1250 mg QD and perphenazine 12 mg BID, however continues to present with disorganized thoughts and somatic delusions, appears internally preoccupied. He is not attending groups. His VPA is subtherapeutic, however he is refusing medications changes and says he would like to get off his psychotropic medications. He is on a section 7 pending 8, will continue to monitor benefit on medications and monitor for safety on the unit. Will discharge on stabilization. PLAN: 1. Pending section 8. 2. continue perphenazine 12mg po BID. 3. Continue depakote 1250mg po daily- pt started to take it more consistently. Depakote level on 11/12- 4. continue trazodone 100mg po qhs. 5. ASA 325 mg PRN headache Greater than 50% of the session was spent on counseling and/or coordination of care Reason for contiued inpatient stay Substantial Risk for: med/psych decompensation
[2020-11-16] MEDS: Milk of Magnesia 30 ML ORAL.SUSP PO (17:26)
[2020-11-16 21:28] VITALS: BP 146/75; PULSE 65; TEMP 36.7; O2SAT 96
[2020-11-16] MEDS: traZODone HCL 100 MG TABLET PO (21:57)
[2020-11-16] MEDS: Melatonin 3 MG TABLET 6 MG PO (21:57)
[2020-11-17 08:38] VITALS: BP 110/56; PULSE 93; RESP 17; TEMP 36.3; O2SAT 97
[2020-11-17] MEDS: Divalproex Sodium 250 MG TABLET.DR 1250 MG PO (09:03)
[2020-11-17] MEDS: Perphenazine 4 MG TABLET 12 MG PO ×2 (09:04→21:57)
[2020-11-17] MEDS: Sertraline HCL 25 MG TABLET PO (09:04)
[2020-11-17] MEDS: Acetaminophen 325 MG TABLET 650 MG PO (14:09)
--- NOTE | 2020-11-17 16:34 | P.PNPSI_ITS ---
Subjective Subjective Date of Service: 11/17/20 Reason For Visit: Lizzy Subjective Notes: Section 7 Healthcare Proxy: No Guardianship: No Interim History: Patient seen and discussed with team. Patient evaluated this morning and upon interview he states Im okay. Says he is sleeping more but continues to feel depressed. He continues to report feeling triggered and says he is thinking about past traumas from his childhood, having flashbacks. 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 He continues to report frustration at not being able to express himself. Says he is open to trialing a new medication to target his symptoms of depression and disorganized thought content. In the milieu, patient is safe but isolative in behavior, althoughhe did attend group today. Denies SI/SIB/HI upon inquiry. Denies irritability or assaultive ideation. Says he feels safe. 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 Poor eye contact, inattentive. No Tics. Has fine bilateral tremor. No abnormal involuntary movements. Calm, cooperative but difficult to engage in meaningful conversation. Non-pressured speech, non-spontaneous, regular rate and rhythm, normal volume and prosody. Has noticeable prolonged speech latency at times but no dysarthria. Mood is ?okay,? affect is flat. Denies SI/SIB/HI upon inquiry. Denies A/VH. Presents with delusional thought content. Thoughts are disorganized, illogical. No known cognitive or memory impairment. Insight/ Judgment poor. Diagnostics Vital Signs (24Hr): Vital Signs - 24 hr 11/16/20 21:28 11/17/20 08:38 Temperature 98.1 F 97.3 F Pulse Rate 65 93 Respiratory Rate 17 Blood Pressure 146/75 H 110/56 L Pulse Oximetry 96 97 Body Mass Index 30.2 Labs Results: 10/17/20 20:45 10/17/20 20:45 Medications Medications Current Medications Generic Name Dose Route Start Last Admin Trade Name Waldoq PRN Reason Stop Dose Admin Acetaminophen 650 mg 10/20/20 13:45 11/17/20 14:09 Acetaminophen 325 Mg Tablet PO 650 mg Q6H PRN Administration Headache/Pain Mild Scale (1-3) Al Hydroxide/Mg Hydroxide 30 ml 10/20/20 13:45 Magnesium Hydrox/Alum Hydrox 30 Ml Oral.Susp PO Q6H PRN Heartburn/Nausea Aspirin 325 mg 11/14/20 12:35 11/15/20 12:01 Aspirin Enteric Coated 325 Mg Tablet. PO 325 mg Q4H PRN Administration Pain, Moderate (Pain Scale 4-6 Divalproex Sodium 1,250 mg 11/12/20 09:00 11/17/20 09:03 Divalproex Sodium 250 Mg Tablet. PO 1,250 mg DAILY SAPNA Administration Hydroxyzine HCl 50 mg 10/20/20 13:45 Hydroxyzine Hcl 25 Mg Tablet PO Q6H PRN Anxiety Ibuprofen 800 mg 10/18/20 15:51 10/19/20 02:35 Ibuprofen 800 Mg Tablet PO 800 mg Q8H PRN Administration pain Magnesium Hydroxide 30 ml 10/20/20 13:45 11/16/20 17:26 Milk Of Magnesia 30 Ml Oral.Susp PO 30 ml DAILY PRN Administration Constipation Melatonin 6 mg 10/31/20 21:00 11/16/20 21:57 Melatonin 3 Mg Tablet PO 6 mg BEDTIME SAPNA Administration Olanzapine 10 mg 10/20/20 13:50 10/25/20 10:50 Olanzapine Odt 10 Mg Tab.Rapdis TRANSLINGU 10 mg Q6H PRN Administration agitation Perphenazine 12 mg 11/12/20 21:00 11/17/20 09:04 Perphenazine 4 Mg Tablet PO 12 mg BID SAPNA Administration Sertraline HCl 25 mg 11/05/20 09:00 11/17/20 09:04 Sertraline Hcl 25 Mg Tablet PO 25 mg DAILY SAPNA Administration Trazodone HCl 100 mg 11/11/20 21:00 11/16/20 21:57 Trazodone Hcl 100 Mg Tablet PO 100 mg BEDTIME SAPNA Administration Allergies Allergies Allergy/AdvReac Type Severity Reaction Status Date / Time No Known Allergies Allergy Verified 06/25/20 12:27 [No Known Allergies*] Assessment & Plan Assessment & Plan (1) Bipolar 1 disorder, mixed, severe: Status: Acute Code(s): F31.63 - Bipolar disorder, current episode mixed, severe, without psychotic features Assessment and Plan: Mr. Islas is a 25 year-old male with hx of Bipolar Disorder who self presented to [facility] [place] [facility] reporting signs of lizzy including decrease need for sleep, racing thoughts, hyperverbal, pressured speech, poor concentration, congregation preoccupation, flight of ideas. He recently was taken off olanzapine, some concern in terms of weight gain in addition to pt request, and started on sertr shlomo, currently on 25mg po daily. we discussed risks, benefits and alterntive treatment options. We discussed tapering him off sertraline as it is worsening manic symptoms. Patient has been adherent with depakote 1250 mg QD and perphenazine 12 mg BID, however continues to present with disorganized thoughts and somatic delusions, appears internally preoccupied. He appears to have better insight today. He is showering, eating, attended group today. His VPA is subtherapeutic, he is not open to an increased dose. He is on a section 7 pending 8, will continue to monitor benefit on medications and monitor for safety on the unit. Will discharge on stabilization. PLAN: 1. Pending section 8. 2. continue perphenazine 12mg po BID. 3. Continue depakote 1250mg po daily- pt started to take it more consistently. Depakote level on 11/12- 4. continue trazodone 100mg po qhs. 5. Discontinue sertraline 25 mg QD due to possible exacerbation in lizzy/ lack of efficacy. Start latuda 20 mg QHS with small meal to target sx of psychosis and depression. Reviewed risks and benefits. 5. ASA 325 mg PRN headache Greater than 50% of the session was spent on counseling and/or coordination of care Reason for contiued inpatient stay Substantial Risk for: med/psych decompensation
[2020-11-17 18:00] VITALS: BP 114/60; PULSE 75; RESP 16; TEMP 36.1; O2SAT 96
[2020-11-17] MEDS: Melatonin 3 MG TABLET 6 MG PO (21:57)
[2020-11-17] MEDS: traZODone HCL 100 MG TABLET PO (21:57)
[2020-11-17] MEDS: Lurasidone HCl 20 MG TABLET PO (21:57)
[2020-11-18 06:00] VITALS: BP 134/68; PULSE 59; RESP 16; TEMP 36.7; O2SAT 98
[2020-11-18] MEDS: Acetaminophen 325 MG TABLET 650 MG PO (09:33)
[2020-11-18] MEDS: Divalproex Sodium 250 MG TABLET.DR 1250 MG PO (09:33)
[2020-11-18] MEDS: Perphenazine 4 MG TABLET 12 MG PO ×2 (09:33→22:26)
--- NOTE | 2020-11-18 13:06 | HO.PSYCHPN ---
Subjective Subjective Date of Service: 11/18/20 Reason For Visit: Radha Subjective Notes: Edwards Warning, Conditional Voluntary and 3 Day Healthcare Proxy: No Guardianship: No Medical Problems Affecting Mental Status: No Interim History: Patient seen and discussed with team. Johnathon started latuda 20 mg PO last night and discontinued sertraline 25 mg. Patient evaluated this morning and upon interview he states he is feeling more emotions by my head is feeling different, probably in a bad way. When asked to explain this, he reports he has a migraine, discussed ways to manage this. He says his sleep was a little restless and that my body doesnt feel good but unable to express what is not feeling good in his body. He was on a section [address] for tomorrow, 11/19/20. Discussed his housing options and he had appropriate insight that he does not have the option of returning to his apartment and does not have family or friends to stay with. He stated he does not want to go into a prison and upon further discussion of options, he agreed to a continuance of treatment at the hospital in order to obtain a better disposition and work on housing goals. He attended 1/3 groups. He is attending to ADLs. In the milieu, patient is safe and appropriate in behavior. Denies SI/SIB/HI upon inquiry. Denies irritability or assaultive ideation. Says he feels safe. Medication Compliance: Yes Side effects from medications: No Attending Groups: Intermittent Review of Systems Acute medical concerns: No Medical Review of Systems: unchanged Review of Systems: Johnathon complains of migraine, has vague physical health complaints although he is unable to express what is bothering him. Mental Status Exam Mental Status Exam Narrative: Well groomed, good hygiene, somewhat overweight. His eye contact is intermittent, intense at times, inattentive. No Tics. Has fine bilateral tremor. No abnormal involuntary movements. Calm, cooperative but difficult to engage in meaningful conversation. Non-pressured speech, non-spontaneous, regular rate and rhythm, normal volume and prosody. Has noticeable prolonged speech latency at times but no dysarthria. Mood is ?emotional,? affect is flat. Denies SI/SIB/HI upon inquiry. Denies A/VH. Presents with delusional thought content. Thoughts are disorganized, illogical at times but able to attend to ADLs. No known cognitive or memory impairment. Insight/ Judgment limited but adequate. Diagnostics Vital Signs (24Hr): Vital Signs - 24 hr 11/17/20 18:00 11/18/20 06:00 Temperature 97.0 F 98.0 F Pulse Rate 75 59 Respiratory Rate 16 16 Blood Pressure 114/60 134/68 Pulse Oximetry 96 98 Body Mass Index 30.2 Labs Results: 10/17/20 20:45 10/17/20 20:45 Medications Medications Current Medications Generic Name Dose Route Start Last Admin Trade Name Freq PRN Reason Stop Dose Admin Acetaminophen 650 mg 10/20/20 13:45 11/18/20 09:33 Acetaminophen 325 Mg Tablet PO 650 mg Q6H PRN Administration Headache/Pain Mild Scale (1-3) Al Hydroxide/Mg Hydroxide 30 ml 10/20/20 13:45 Magnesium Hydrox/Alum Hydrox 30 Ml Oral.Susp PO Q6H PRN Heartburn/Nausea Aspirin 325 mg 11/14/20 12:35 11/15/20 12:01 Aspirin Enteric Coated 325 Mg Tablet. PO 325 mg Q4H PRN Administration Pain, Moderate (Pain Scale 4-6 Divalproex Sodium 1,250 mg 11/12/20 09:00 11/18/20 09:33 Divalproex Sodium 250 Mg Tablet. PO 1,250 mg DAILY SAPNA Administration Hydroxyzine HCl 50 mg 10/20/20 13:45 Hydroxyzine Hcl 25 Mg Tablet PO Q6H PRN Anxiety Ibuprofen 800 mg 10/18/20 15:51 10/19/20 02:35 Ibuprofen 800 Mg Tablet PO 800 mg Q8H PRN Administration pain Lurasidone HCl 20 mg 11/17/20 21:00 11/17/20 21:57 Lurasidone Hcl 20 Mg Tablet PO 20 mg BEDTIME SAPNA Administration Magnesium Hydroxide 30 ml 10/20/20 13:45 11/16/20 17:26 Milk Of Magnesia 30 Ml Oral.Susp PO 30 ml DAILY PRN Administration Constipation Melatonin 6 mg 10/31/20 21:00 11/17/20 21:57 Melatonin 3 Mg Tablet PO 6 mg BEDTIME SAPNA Administration Olanzapine 10 mg 10/20/20 13:50 10/25/20 10:50 Olanzapine Odt 10 Mg Tab.Rapdis TRANSLINGU 10 mg Q6H PRN Administration agitation Perphenazine 12 mg 11/12/20 21:00 11/18/20 09:33 Perphenazine 4 Mg Tablet PO 12 mg BID SAPNA Administration Trazodone HCl 100 mg 11/11/20 21:00 11/17/20 21:57 Trazodone Hcl 100 Mg Tablet PO 100 mg BEDTIME SAPNA Administration Allergies Allergies Allergy/AdvReac Type Severity Reaction Status Date / Time No Known Allergies Allergy Verified 06/25/20 12:27 [No Known Allergies*] Assessment & Plan Assessment & Plan (1) Bipolar 1 disorder, mixed, severe: Status: Acute Code(s): F31.63 - Bipolar disorder, current episode mixed, severe, without psychotic features Assessment and Plan: Mr. Islas is a 25 year-old male with hx of Bipolar Disorder who self presented [place] [facility] [place] [place] [facility] reporting signs of radha including decrease need for sleep, racing thoughts, hyperverbal, pressured speech, poor concentration, yazidi preoccupation, flight of ideas. He recently was taken off olanzapine, some concern in terms of weight gain in addition to pt request, and started on sertraline, currently on 25mg po daily. we discussed risks, benefits and alterntive treatment options. We discussed tapering him off sertraline as it is worsening manic symptoms. Patient has been adherent with depakote 1250 mg QD and perphenazine 12 mg BID, however continues to present with disorganized thoughts and somatic delusions, appears internally preoccupied. His insight appears to be improving as he is able to discuss limited housing options and benefits of continuing with treatment. He is showering, eating, attending group intermittently. His VPA is subtherapeutic and he is not open to an increased dose. He was started on latuda to adjunct perphenazine in order to target psychotic symptoms. Will continue to monitor benefit on medications and monitor for safety on the unit. Will discharge on stabilization. PLAN: 1. Signed a CV and 3 day notice 2. continue perphenazine 12mg po BID. 3. Continue depakote 1250mg po daily- pt is adherent. Depakote level on 11/12- 4. continue trazodone 100mg po qhs. 5. Continue latuda 20 mg QHS with small meal to target sx of psychosis and depression. Reviewed risks and benefits. 5. ASA 325 mg PRN headache Greater than 50% of the session was spent on counseling and/or coordination of care Reason for contiued inpatient stay Substantial Risk for: med/psych decompensation
[2020-11-18 20:00] VITALS: BP 136/61; PULSE 70; TEMP 36.6; O2SAT 94
[2020-11-18] MEDS: Melatonin 3 MG TABLET 6 MG PO (22:26)
[2020-11-18] MEDS: Lurasidone HCl 20 MG TABLET PO (22:26)
[2020-11-18] MEDS: traZODone HCL 100 MG TABLET PO (22:26)
[2020-11-19 06:00] VITALS: BP 112/58; PULSE 80; RESP 16; TEMP 36.7; O2SAT 98
[2020-11-19] MEDS: Divalproex Sodium 250 MG TABLET.DR 1250 MG PO (08:06)
[2020-11-19] MEDS: Perphenazine 4 MG TABLET 12 MG PO ×2 (08:07→20:50)
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
[2020-11-19 18:10] VITALS: BP 130/58; PULSE 77; RESP 16; TEMP 36.7; O2SAT 97
[2020-11-19] MEDS: traZODone HCL 100 MG TABLET PO (20:50)
[2020-11-19] MEDS: Melatonin 3 MG TABLET 6 MG PO (20:50)
[2020-11-19] MEDS: Lurasidone HCl 40 MG TABLET PO (20:50)
[2020-11-20 07:45] VITALS: BP 110/52; PULSE 66; RESP 18; TEMP 36.5; O2SAT 97
[2020-11-20] MEDS: Divalproex Sodium 250 MG TABLET.DR 1250 MG PO (08:55)
[2020-11-20] MEDS: Perphenazine 4 MG TABLET 12 MG PO ×2 (08:55→20:25)
--- NOTE | 2020-11-20 15:49 | P.PNPSI_ITS ---
Subjective Subjective Date of Service: 11/20/20 Reason For Visit: Radha Subjective Notes: [facility] Warning, Conditional Voluntary and 3 Day Healthcare Proxy: No Guardianship: No Medical Problems Affecting Mental Status: No Interim History: Patient seen and discussed with team. Patient evaluated this morning and upon interview he states things are going okay but then says I feel pretty sick, my head doesn't feel right anymore. Of note, OT and social work staff have reported that Terry is struggling with attending to basic ADLs, i.e. he has been needing one step directions for showering, unable to follow simple multi-step directions. He was not oriented to date and repeatedly questioned what year it is, as well as stating he forgot how to sign his signature. He has been inattentive with poor eye contact and presents with paranoid ideations about staff, i.e. endorsed paranoid thoughts that the social worker delinquency prevention was hiding information from him when completing a [facility] application. Today he reports his sleep is restless and he is having recurring nightmares. He says he feels depressed and angry today and that his mood changes a lot. He attributes this to having a lot of flashbacks and that my main focus is on my old job and school. We discussed his situation of homelessness and during the interview, he stated he would be willing to discharge to a respite unit, however with social work staff he is adamant that he will not go to respite and wants to go into witness protection. He denies A/VH or SI/SIB/HI upon inquiry today. He is med adherent and tolerating meds well. He is adamant that he will not accept an IM formulation of his antipsychotic medication. In the milieu, patient is safe but isolative in behavior. He did not attend group today. Denies assaultive ideation. Medication Compliance: Yes Side effects from medications: No Attending Groups: No Review of Systems Acute medical concerns: No Medical Review of Systems: unchanged Mental Status Exam Mental Status Exam Narrative: Well groomed, good hygiene, overweight. His eye contact is intermittent with this signwriter, poor with staff, appears inattentive today. No Tics. Has fine bilateral tremor. No abnormal involuntary movements. Calm, cooperative but difficult to engage in meaningful conversation. Non-pressured speech, non-spontaneous, regular rate and rhythm, normal volume and prosody. No prolonged speech latency or dysarthria. Mood is ?depressed and angry,? affect remains flat. Denies SI/SIB/HI upon inquiry. Denies A/VH. Presents with delusional thought content. Thoughts are paranoid in content today. No known cognitive or memory impairment. Insight/ Judgment limited. Diagnostics Vital Signs (24Hr): Vital Signs - 24 hr 11/19/20 18:10 11/20/20 07:45 Temperature 98.1 F 97.7 F Pulse Rate 77 66 Respiratory Rate 16 18 Blood Pressure 130/58 L 110/52 L Pulse Oximetry 97 97 Body Mass Index 30.2 Labs Results: 10/17/20 20:45 10/17/20 20:45 Medications Medications Current Medications Generic Name Dose Route Start Last Admin Trade Name Freq PRN Reason Stop Dose Admin Acetaminophen 650 mg 10/20/20 13:45 11/18/20 09:33 Acetaminophen 325 Mg Tablet PO 650 mg Q6H PRN Administration Headache/Pain Mild Scale (1-3) Al Hydroxide/Mg Hydroxide 30 ml 10/20/20 13:45 Magnesium Hydrox/Alum Hydrox 30 Ml Oral.Susp PO Q6H PRN Heartburn/Nausea Aspirin 325 mg 11/14/20 12:35 11/15/20 12:01 Aspirin Enteric Coated 325 Mg Tablet. PO 325 mg Q4H PRN Administration Pain, Moderate (Pain Scale 4-6 Divalproex Sodium 1,250 mg 11/12/20 09:00 11/20/20 08:55 Divalproex Sodium 250 Mg Tablet. PO 1,250 mg DAILY SAPNA Administration Hydroxyzine HCl 50 mg 10/20/20 13:45 Hydroxyzine Hcl 25 Mg Tablet PO Q6H PRN Anxiety Ibuprofen 800 mg 10/18/20 15:51 10/19/20 02:35 Ibuprofen 800 Mg Tablet PO 800 mg Q8H PRN Administration pain Lurasidone HCl 40 mg 11/19/20 21:00 11/19/20 20:50 Lurasidone Hcl 40 Mg Tablet PO 40 mg BEDTIME SAPNA Administration Magnesium Hydroxide 30 ml 10/20/20 13:45 11/16/20 17:26 Milk Of Magnesia 30 Ml Oral.Susp PO 30 ml DAILY PRN Administration Constipation Melatonin 6 mg 10/31/20 21:00 11/19/20 20:50 Melatonin 3 Mg Tablet PO 6 mg BEDTIME SAPNA Administration Olanzapine 10 mg 10/20/20 13:50 10/25/20 10:50 Olanzapine Odt 10 Mg Tab.Rapdis TRANSLINGU 10 mg Q6H PRN Administration agitation Perphenazine 12 mg 11/12/20 21:00 11/20/20 08:55 Perphenazine 4 Mg Tablet PO 12 mg BID SAPNA Administration Polyethylene Glycol 17 gm 11/19/20 14:31 Polyethylene Glycol 3350 17 Gm Powd.Pack PO DAILY PRN constipation Trazodone HCl 100 mg 11/11/20 21:00 11/19/20 20:50 Trazodone Hcl 100 Mg Tablet PO 100 mg BEDTIME SAPNA Administration Allergies Allergies Allergy/AdvReac Type Severity Reaction Status Date / Time No Known Allergies Allergy Verified 06/25/20 12:27 [No Known Allergies*] Assessment & Plan Assessment & Plan (1) Schizoaffective disorder, bipolar type: Status: Acute Code(s): F25.0 - Schizoaffective disorder, bipolar type Assessment and Plan: Mr. Islas is a 25 year-old male with hx of Bipolar Disorder who self presented to [facility] reporting signs of radha including decrease need for sleep, racing thoughts, hyperverbal, pressured speech, poor concentration, orthodox preoccupation, flight of ideas. He recently was taken off olanzapine, some concern in terms of weight gain in addition to pt request, and started on sertraline, currently on 25mg po daily. we discussed risks, benefits and alterntive treatment options. We discussed tapering him off sertraline as it is worsening manic symptoms. Patient has been adherent with depakote 1250 mg QD and perphenazine 12 mg BID, however continues to present with disorganized thoughts and somatic delusions, appears internally preoccupied. His insight today is poor as he is now saying he wants to go into witness protection program when discussing his situation of homelessness. He is showering, eating, but did not attend group and staff are reporting that he is having significant difficulty attending to his ADLs independently. His VPA is subtherapeutic and he is not open to an increased dose. He is not open to IM psychotropic medication. He was started on latuda on 11/17/20 to adjunct perphenazine in order to target psychotic symptoms. Will continue to monitor benefit on medications and monitor for safety on the unit. Will discharge on stabilization.? 8/5: Today Terry reports he does not think his medications are helping and thinks his medications are making him more sick inside. His latuda was incre ased 11/19/20. He is willing to continue on latuda trial. PLAN: 1. Signed a CV and 3 day notice, up on 11/23 2. continue perphenazine 12mg po BID. 3. Continue depakote 1250mg po daily- pt is adherent. Depakote level on 11/15 36 (L) 4. continue trazodone 100mg po qhs. 5. continue latuda 40 mg QHS with small meal to target sx of psychosis and depression. Reviewed risks and benefits. 5.? ASA 325 mg PRN headache Greater than 50% of the session was spent on counseling and/or coordination of care Patient educated on: medication risk/benefits Reason for contiued inpatient stay Substantial Risk for: rapid decompensation
[2020-11-20] MEDS: Acetaminophen 325 MG TABLET 650 MG PO (16:02)
[2020-11-20] MEDS: Ibuprofen 800 MG TABLET PO (16:59)
[2020-11-20] MEDS: traZODone HCL 100 MG TABLET PO (20:25)
[2020-11-20] MEDS: Lurasidone HCl 40 MG TABLET PO (20:25)
[2020-11-20] MEDS: Melatonin 3 MG TABLET 6 MG PO (20:25)
[2020-11-20 21:20] VITALS: BP 142/75; PULSE 68; TEMP 36.6; O2SAT 95
[2020-11-21] MEDS: hydrOXYzine HCL 25 MG TABLET 50 MG PO (02:45)
[2020-11-21 06:00] VITALS: BP 90/50; PULSE 64; RESP 18; TEMP 36.6; O2SAT 96
[2020-11-21] MEDS: Perphenazine 4 MG TABLET 12 MG PO ×2 (11:23→21:08)
[2020-11-21] MEDS: Divalproex Sodium 250 MG TABLET.DR 1250 MG PO (11:25)
[2020-11-21] MEDS: Acetaminophen 325 MG TABLET 650 MG PO (12:35)
--- NOTE | 2020-11-21 15:15 | P.PNPSI_ITS ---
Subjective Subjective Date of Service: 11/21/20 Reason For Visit: Radha Interim History: pt found resting in bed mid-morning. c/o nausea, sick, depressed. he is concerned that his medications are making him feel nauseated, yet he does not wish to discuss further with MD and states he will take the meds later. MD asks about GERD and informs pt he has PRN medication for such things he can ask the nurses for to see if that improves his situation. he acknowledges the availability of the PRN. he has no other questions or complaints for MD. per staff, pt reporting anxiety. refused meds thus far today. isolating. up for a couple hours in the middle of the night, otherwise slept. Mental Status Exam Mental Status Exam Narrative: adequate hygiene, overweight. Calm, cooperative but difficult to engage in meaningful conversation. Non-pressured speech, non-spontaneous, regular rate and rhythm, normal volume and prosody. no SI/HI/AVH expressed. Diagnostics Vital Signs (24Hr): Vital Signs - 24 hr 11/20/20 21:20 11/21/20 06:00 Temperature 97.9 F 98 F Pulse Rate 68 64 Respiratory Rate 18 Blood Pressure 142/75 H 90/50 L Pulse Oximetry 95 96 Body Mass Index 30.2 Labs Results: 10/17/20 20:45 10/17/20 20:45 Medications Medications Current Medications Generic Name Dose Route Start Last Admin Trade Name Freq PRN Reason Stop Dose Admin Acetaminophen 650 mg 10/20/20 13:45 11/21/20 12:35 Acetaminophen 325 Mg Tablet PO 650 mg Q6H PRN Administration Headache/Pain Mild Scale (1-3) Al Hydroxide/Mg Hydroxide 30 ml 10/20/20 13:45 Magnesium Hydrox/Alum Hydrox 30 Ml Oral.Susp PO Q6H PRN Heartburn/Nausea Aspirin 325 mg 11/14/20 12:35 11/15/20 12:01 Aspirin Enteric Coated 325 Mg Tablet. PO 325 mg Q4H PRN Administration Pain, Moderate (Pain Scale 4-6 Divalproex Sodium 1,250 mg 11/12/20 09:00 11/21/20 11:25 Divalproex Sodium 250 Mg Tablet. PO 1,250 mg DAILY SAPNA Administration Hydroxyzine HCl 50 mg 10/20/20 13:45 11/21/20 02:45 Hydroxyzine Hcl 25 Mg Tablet PO 50 mg Q6H PRN Administration Anxiety Ibuprofen 800 mg 10/18/20 15:51 11/20/20 16:59 Ibuprofen 800 Mg Tablet PO 800 mg Q8H PRN Administration pain Lurasidone HCl 40 mg 11/19/20 21:00 11/20/20 20:25 Lurasidone Hcl 40 Mg Tablet PO 40 mg BEDTIME SAPNA Administration Magnesium Hydroxide 30 ml 10/20/20 13:45 11/16/20 17:26 Milk Of Magnesia 30 Ml Oral.Susp PO 30 ml DAILY PRN Administration Constipation Melatonin 6 mg 10/31/20 21:00 11/20/20 20:25 Melatonin 3 Mg Tablet PO 6 mg BEDTIME SAPNA Administration Olanzapine 10 mg 10/20/20 13:50 10/25/20 10:50 Olanzapine Odt 10 Mg Tab.Rapdis TRANSLINGU 10 mg Q6H PRN Administration agitation Perphenazine 12 mg 11/12/20 21:00 11/21/20 11:23 Perphenazine 4 Mg Tablet PO 12 mg BID SAPNA Administration Polyethylene Glycol 17 gm 11/19/20 14:31 Polyethylene Glycol 3350 17 Gm Powd.Pack PO DAILY PRN constipation Trazodone HCl 100 mg 11/11/20 21:00 11/20/20 20:25 Trazodone Hcl 100 Mg Tablet PO 100 mg BEDTIME SAPNA Administration Allergies Allergies Allergy/AdvReac Type Severity Reaction Status Date / Time No Known Allergies Allergy Verified 06/25/20 12:27 [No Known Allergies*] Assessment & Plan Assessment & Plan (1) Schizoaffective disorder, bipolar type: Status: Acute Code(s): F25.0 - Schizoaffective disorder, bipolar type Assessment and Plan: Mr. Islas is a 25 year-old male with hx of Bipolar Disorder who self presented to [facility] reporting signs of radha including decrease need for sleep, racing thoughts, hyperverbal, pressured speech, poor concentration, yarsanism preoccupation, flight of ideas. He recently was taken off olanzapine, some concern in terms of weight gain in addition to pt request, and started on sertraline, currently on 25mg po daily. we discussed risks, benefits and alterntive treatment options. We discussed tapering him off sertraline as it is worsening manic symptoms. Patient has been adherent with depakote 1250 mg QD and perphenazine 12 mg BID, however continues to present with disorganized thoughts and somatic delusions, appears internally preoccupied. His VPA is subtherapeutic and he is not open to an increased dose. He is not open to IM psychotropic medication. He was started on latuda on 11/17/20 to adjunct perphenazine in order to target psychotic symptoms. Will continue to monitor benefit on medications and monitor for safety on the unit. Will discharge on stabilization.? 11/19: Today Terry reports he does not think his medications are helping and thinks his medications are making him more sick inside. His latuda was increased 11/19/20. He is willing to continue on latuda trial. PLAN: 1. Signed a CV and 3 day notice, up on 11/23 2. continue perphenazine 12mg po BID. 3. Continue depakote 1250mg po daily- pt is adherent. Depakote level on 11/15 36 (L) 4. continue trazodone 100mg po qhs. 5. continue latuda 40 mg QHS with small meal to target sx of psychosis and depression. Reviewed risks and benefits. 5.? ASA 325 mg PRN headache Greater than 50% of the session was spent on counseling and/or coordination of care Reason for contiued inpatient stay Substantial Risk for: inability to function and rapid decompensation
[2020-11-21 20:09] VITALS: BP 133/63; PULSE 77; TEMP 36.6; O2SAT 99
[2020-11-21] MEDS: Melatonin 3 MG TABLET 6 MG PO (21:07)
[2020-11-21] MEDS: traZODone HCL 100 MG TABLET PO (21:07)
[2020-11-21] MEDS: Lurasidone HCl 40 MG TABLET PO (21:08)
[2020-11-21] MEDS: Magnesium Hydrox/Alum Hydrox 30 ML ORAL.SUSP PO (22:53)
[2020-11-22 08:39] VITALS: BP 120/68; PULSE 66; RESP 16; TEMP 36.3; O2SAT 97
[2020-11-22] MEDS: Perphenazine 4 MG TABLET 12 MG PO ×2 (08:55→22:18)
[2020-11-22] MEDS: Divalproex Sodium 250 MG TABLET.DR 1250 MG PO (08:56)
--- NOTE | 2020-11-22 13:15 | HO.PSYCHPN ---
Subjective Subjective Date of Service: 11/22/20 Reason For Visit: Radha Interim History: pt found in his room lying in bed, awake. sits up for interview. presents in a somewhat disorganized and vague fashion; difficult to tease out exactly what pt means and wants. he asks why he hasn't been set up with [facility] yet and asks to speak with SW about it; he is redirected to expect to be able to do that tomorrow. he c/o headache and itchiness. he is informed of tylenol and hydroxyzine he has available to help with those things. he asks about wha this medications are and says he doesn't want to take them because he doesn't even know what they are supposed to do. MD redirects him to staff to get a meds list but offers to review it with him once he has it. MD later encounters pt in [facility] after he has obtained list. MD and pt discuss meds, MD identifies the various medications by class and indicates their purpose to pt. he writes the information down on his list and thanks MD. no further questions or requests. per staff, pt has been isolative and paranoid. poor sleep. taking medications. had nausea yesterday and got maalox. c/o feeling bugs crawling on him yesterday and biting him. asked staff to call ED for him bcse he was seeing things. Mental Status Exam Mental Status Exam Narrative: adequate hygiene, overweight. Calm, cooperative. Non-pressured speech, non-spontaneous, regular rate and rhythm, normal volume and prosody. no SI/HI/AVH expressed. Diagnostics Vital Signs (24Hr): Vital Signs - 24 hr 11/21/20 20:09 11/22/20 08:39 Temperature 97.8 F 97.3 F Pulse Rate 77 66 Respiratory Rate 16 Blood Pressure 133/63 120/68 Pulse Oximetry 99 97 Body Mass Index 30.2 Labs Results: 10/17/20 20:45 10/17/20 20:45 Medications Medications Current Medications Generic Name Dose Route Start Last Admin Trade Name Freq PRN Reason Stop Dose Admin Acetaminophen 650 mg 10/20/20 13:45 11/21/20 12:35 Acetaminophen 325 Mg Tablet PO 650 mg Q6H PRN Administration Headache/Pain Mild Scale (1-3) Al Hydroxide/Mg Hydroxide 30 ml 10/20/20 13:45 08/07/21 22:53 Magnesium Hydrox/Alum Hydrox 30 Ml Oral.Susp PO 30 ml Q6H PRN Administration Heartburn/Nausea Aspirin 325 mg 11/14/20 12:35 11/15/20 12:01 Aspirin Enteric Coated 325 Mg Tablet. PO 325 mg Q4H PRN Administration Pain, Moderate (Pain Scale 4-6 Divalproex Sodium 1,250 mg 11/12/20 09:00 11/22/20 08:56 Divalproex Sodium 250 Mg Tablet. PO 1,250 mg DAILY SAPNA Administration Hydroxyzine HCl 50 mg 10/20/20 13:45 11/21/20 02:45 Hydroxyzine Hcl 25 Mg Tablet PO 50 mg Q6H PRN Administration Anxiety Ibuprofen 800 mg 10/18/20 15:51 11/20/20 16:59 Ibuprofen 800 Mg Tablet PO 800 mg Q8H PRN Administration pain Lurasidone HCl 40 mg 11/19/20 21:00 11/21/20 21:08 Lurasidone Hcl 40 Mg Tablet PO 40 mg BEDTIME SAPNA Administration Magnesium Hydroxide 30 ml 10/20/20 13:45 11/16/20 17:26 Milk Of Magnesia 30 Ml Oral.Susp PO 30 ml DAILY PRN Administration Constipation Melatonin 6 mg 10/31/20 21:00 11/21/20 21:07 Melatonin 3 Mg Tablet PO 6 mg BEDTIME SAPNA Administration Olanzapine 10 mg 10/20/20 13:50 10/25/20 10:50 Olanzapine Odt 10 Mg Tab.Rapdis TRANSLINGU 10 mg Q6H PRN Administration agitation Perphenazine 12 mg 11/12/20 21:00 11/22/20 08:55 Perphenazine 4 Mg Tablet PO 12 mg BID SAPNA Administration Polyethylene Glycol 17 gm 11/19/20 14:31 Polyethylene Glycol 3350 17 Gm Powd.Pack PO DAILY PRN constipation Trazodone HCl 100 mg 11/11/20 21:00 11/21/20 21:07 Trazodone Hcl 100 Mg Tablet PO 100 mg BEDTIME SAPNA Administration Allergies Allergies Allergy/AdvReac Type Severity Reaction Status Date / Time No Known Allergies Allergy Verified 06/25/20 12:27 [No Known Allergies*] Assessment & Plan Assessment & Plan (1) Schizoaffective disorder, bipolar type: Status: Acute Code(s): F25.0 - Schizoaffective disorder, bipolar type Assessment and Plan: Mr. Islas is a 25 year-old male with hx of Bipolar Disorder who self [place] [facility] [place] reporting signs of radha including decrease need for sleep, racing thoughts, hyperverbal, pressured speech, poor concentration, buddhism preoccupation, flight of ideas. He recently was taken off olanzapine, some concern in terms of weight gain in addition to pt request, and started on sertraline, currently on 25mg po daily. we discussed risks, benefits and alterntive treatment options. We discussed tapering him off sertraline as it is worsening manic symptoms. Patient has been adherent with depakote 1250 mg QD and perphenazine 12 mg BID, however continues to present with disorganized thoughts and somatic delusions, appears internally preoccupied. His VPA is subtherapeutic and he is not open to an increased dose. He is not open to IM psychotropic medication. He was started on latuda on 11/17/20 to adjunct perphenazine in order to target psychotic symptoms. Will continue to monitor benefit on medications and monitor for safety on the unit. Will discharge on stabilization.? 11/19: Today Terry reports he does not think his medications are helping and thinks his medications are making him more sick inside. His latuda was increased 11/19/20. He is willing to continue on latuda trial. PLAN: 1. Signed a CV and 3 day notice, up on 11/23 2. continue perphenazine 12mg po BID. 3. Continue depakote 1250mg po daily- pt is adherent. Depakote level on 11/15 36 (L) 4. continue trazodone 100mg po qhs. 5. continue latuda 40 mg QHS with small meal to target sx of psychosis and depression. Reviewed risks and benefits. 5.? ASA 325 mg PRN headache Greater than 50% of the session was spent on counseling and/or coordination of care Reason for contiued inpatient stay Substantial Risk for: inability to function and rapid decompensation
[2020-11-22 20:18] VITALS: BP 172/81; PULSE 75; TEMP 36.8; O2SAT 99
[2020-11-22] MEDS: Melatonin 3 MG TABLET 6 MG PO (22:18)
[2020-11-22] MEDS: traZODone HCL 100 MG TABLET PO (22:18)
[2020-11-22] MEDS: Lurasidone HCl 40 MG TABLET PO (22:18)
[2020-11-22] MEDS: Magnesium Hydrox/Alum Hydrox 30 ML ORAL.SUSP PO (23:09)
[2020-11-23 06:00] VITALS: BP 117/59; PULSE 54; RESP 18; TEMP 36.7; O2SAT 99
[2020-11-23] MEDS: Perphenazine 4 MG TABLET 12 MG PO ×2 (08:39→22:18)
[2020-11-23] MEDS: Divalproex Sodium 250 MG TABLET.DR 1250 MG PO (08:39)
--- NOTE | 2020-11-23 08:47 | P.PNPSI_ITS ---
Subjective Subjective Date of Service: 11/24/20 Reason For Visit: Radha Subjective Notes: Section 7 Interim History: Pt presents slightly less paranoid towards roommate, GF, some nsight as to why GF currently may be pursuing restraining order. He does accept idea, to some extend, that maybe he was paranoid and believing things that are not necessarily true and acting in ways that scared others. His thought process is quite disorganized- with significant word salad, most sentences are intelligible and responses show loose associations and derailment. Overall, he does not think he needs psychiatric treatment. He reports over the weekend at night he felt something crawling around and on his genitals. He denies this at this time. He has also been focused on not getting enough water and food, although he is eating all his meals. He reports sleep is intermittent. He has been mostly in his room. Medication Compliance: Intermittent Side effects from medications: No Attending Groups: No Review of Systems Acute medical concerns: No Review of Systems Review of Systems Constitutional: No Fever, No Chills ENT/Mouth: No Ear Pain, No Nasal Congestion, No sore throat Eyes: No Eye Pain, No Swelling, No Redness Cardiovascular: No Chest Pain, No SOB Respiratory: No Cough, No Sputum, No Dyspnea Gastrointestinal: No Nausea, No Vomiting, No Diarrhea, No Hematochezia, No Melena Genitourinary: No Dysuria, No Urinary Frequency, No Hematuria Musculoskeletal: No Myalgias Skin: No Skin Lesions, No rash Neuro: No Weakness, No Numbness, No Paresthesias, No Dizziness, No Headache Psych: positive Anxiety, positive Depression, positive radha, no SI HI Heme/Lymph: No Lymphadenopathy Endocrine: No Polyuria, No Polydipsia Yes all other systems are reviewed and are negative Cardiovascular: Denies chest pain, Denies irregular heart rhythm and Denies lightheadedness Respiratory: Denies pain with cough Gastrointestinal: Denies constipation and Denies diarrhea Mental Status Exam Mental Status Exam Narrative: Appearance: casually groomed, improved hygiene, in NAD Behavior: guarded, irritable at times Psychomotor: no agitation or retardation noted Speech: clear, regular rate/rhythm/ loud at times volume, spontaneous TP: derailment, disorganized TC: less paranoid towards roommate and other family members, wanting to find a job, sentences intelligible at times Mood: frustrated Affect:constricted SI:denies HI:denies AH/VH:denies Delusions:latter-day preoccupation, grandiose ideas, some paranoia. Insight/judgment:poor x 2. Memory/cog: alert, oriented x 3, impaired secondary to psychiatric symptoms. Diagnostics Vital Signs (24Hr): Vital Signs - 24 hr 11/23/20 19:58 Temperature 98.3 F Pulse Rate 73 Respiratory Rate 18 Blood Pressure 142/69 H Pulse Oximetry 100 Body Mass Index 30.2 Labs Results: 10/17/20 20:45 10/17/20 20:45 Medications Medications Current Medications Generic Name Dose Route Start Last Admin Trade Name Freq PRN Reason Stop Dose Admin Acetaminophen 650 mg 10/20/20 13:45 11/21/20 12:35 Acetaminophen 325 Mg Tablet PO 650 mg Q6H PRN Administration Headache/Pain Mild Scale (1-3) Al Hydroxide/Mg Hydroxide 30 ml 10/20/20 13:45 11/22/20 23:09 Magnesium Hydrox/Alum Hydrox 30 Ml Oral.Susp PO 30 ml Q6H PRN Administration Heartburn/Nausea Aspirin 325 mg 11/14/20 12:35 11/15/20 12:01 Aspirin Enteric Coated 325 Mg Tablet. PO 325 mg Q4H PRN Administration Pain, Moderate (Pain Scale 4-6 Divalproex Sodium 1,250 mg 11/12/20 09:00 11/23/20 08:39 Divalproex Sodium 250 Mg Tablet. PO 1,250 mg DAILY SAPNA Administration Hydroxyzine HCl 50 mg 10/20/20 13:45 11/21/20 02:45 Hydroxyzine Hcl 25 Mg Tablet PO 50 mg Q6H PRN Administration Anxiety Ibuprofen 800 mg 10/18/20 15:51 11/20/20 16:59 Ibuprofen 800 Mg Tablet PO 800 mg Q8H PRN Administration pain Magnesium Hydroxide 30 ml 10/20/20 13:45 11/23/20 13:39 Milk Of Magnesia 30 Ml Oral.Susp PO 30 ml DAILY PRN Administration Constipation Melatonin 6 mg 10/31/20 21:00 11/23/20 22:18 Melatonin 3 Mg Tablet PO 6 mg BEDTIME SAPNA Administration Olanzapine 10 mg 10/20/20 13:50 10/25/20 10:50 Olanzapine Odt 10 Mg Tab.Rapdis TRANSLINGU 10 mg Q6H PRN Administration agitation Perphenazine 12 mg 11/24/20 21:00 Perphenazine 4 Mg Tablet PO BEDTIME SAPNA Polyethylene Glycol 17 gm 11/19/20 14:31 Polyethylene Glycol 3350 17 Gm Powd.Pack PO DAILY PRN constipation Trazodone HCl 100 mg 11/11/20 21:00 11/23/20 22:18 Trazodone Hcl 100 Mg Tablet PO 100 mg BEDTIME SAPNA Administration Allergies Allergies Allergy/AdvReac Type Severity Reaction Status Date / Time No Known Allergies Allergy Verified 06/25/20 12:27 [No Known Allergies*] Assessment & Plan Assessment & Plan (1) Schizoaffective disorder, bipolar type: Status: Acute Code(s): F25.0 - Schizoaffective disorder, bipolar type Assessment and Plan: Mr. Islas is a 25 year-old male with hx of Bipolar Disorder who self presented to [facility] [place] [facility] reporting signs of radha including decrease need for sleep, racing thoughts, hyperverbal, pressured speech, poor concentration, latter-day preoccupation, flight of ideas. He recently was taken off olanzapine, some concern in terms of weight gain in addition to pt request, and started on sertraline, currently on 25mg po daily. we discussed risks, benefits and al terntive treatment options. We discussed tapering him off sertraline as it is worsening manic symptoms. Patient has been adherent with depakote 1250 mg QD and perphenazine 12 mg BID, however continues to present with disorganized thoughts and somatic delusions, appears internally preoccupied. His VPA is subtherapeutic and he is not open to an increased dose. He is not open to IM psychotropic medication. He was started on latuda on 11/17/20 to adjunct perphenazine in order to target psychotic sy mptoms. Will continue to monitor benefit on medications and monitor for safety on the unit. Will discharge on stabilization.? 11/19: Today Terry reports he does not think his medications are helping and thinks his medications are making him more sick inside. His latuda was increased 11/19/20. He is willing to continue on latuda trial. PLAN: 1. Signed a CV and 3 day notice, up on 11/23 2. continue perphenazine 12mg po BID. 3. Continue depakote 1250mg po daily- pt is adherent. Depakote level on 11/15 36 (L) 4. continue trazodone 100mg po qhs. 5. continue latuda 40 mg QHS with small meal to target sx of psychosis and depression. Reviewed risks and benefits. 5.? ASA 325 mg PRN headache Greater than 50% of the session was spent on counseling and/or coordination of care Reason for contiued inpatient stay Substantial Risk for: inability to function
[2020-11-23] MEDS: Milk of Magnesia 30 ML ORAL.SUSP PO (13:39)
[2020-11-23 19:58] VITALS: BP 142/69; PULSE 73; RESP 18; TEMP 36.8; O2SAT 100
[2020-11-23] MEDS: traZODone HCL 100 MG TABLET PO (22:18)
[2020-11-23] MEDS: Melatonin 3 MG TABLET 6 MG PO (22:18)
[2020-11-23] MEDS: Lurasidone HCl 40 MG TABLET PO (22:18)
[2020-11-24 06:00] VITALS: BP 143/65; PULSE 83; RESP 18; TEMP 36.3; O2SAT 96
[2020-11-24] MEDS: Paliperidone ER 6 MG TAB.ER.24 PO (09:12)
[2020-11-24] MEDS: Divalproex Sodium 250 MG TABLET.DR 1250 MG PO (09:12)
--- NOTE | 2020-11-24 10:52 | P.PNPSI_ITS ---
Subjective Subjective Date of Service: 11/26/20 Reason For Visit: Radha Subjective Notes: Section 7 Interim History: Pt presents slightly less paranoid towards roommate, GF. However, pt continues to present grossly disorganized, his thought process is mostly inenteligible. He asks about why he is taking medications and what they help him with. He reports being manic with medications which is not the case, pt mostly paranoid, guarded, withdrawn. He reports sleeping better. He insists he does not have enough food to eat or drink, although eating all his meals. He denies SI/HI. He insists on getting job but lacks ability to understand how current symptoms are impairing his ability to care for self. We discussed simplifying meds, switching to paliperidone given minimal effect with perphenazine. Medication Compliance: Intermittent Side effects from medications: No Attending Groups: No Review of Systems Acute medical concerns: No Review of Systems Review of Systems Constitutional: No Fever, No Chills ENT/Mouth: No Ear Pain, No Nasal Congestion, No sore throat Eyes: No Eye Pain, No Swelling, No Redness Cardiovascular: No Chest Pain, No SOB Respiratory: No Cough, No Sputum, No Dyspnea Gastrointestinal: No Nausea, No Vomiting, No Diarrhea, No Hematochezia, No Melena Genitourinary: No Dysuria, No Urinary Frequency, No Hematuria Musculoskeletal: No Myalgias Skin: No Skin Lesions, No rash Neuro: No Weakness, No Numbness, No Paresthesias, No Dizziness, No Headache Psych: positive Anxiety, positive Depression, positive radha, no SI HI Heme/Lymph: No Lymphadenopathy Endocrine: No Polyuria, No Polydipsia Yes all other systems are reviewed and are negative Cardiovascular: Denies chest pain, Denies irregular heart rhythm and Denies lightheadedness Respiratory: Denies pain with cough Gastrointestinal: Denies constipation and Denies diarrhea Mental Status Exam Mental Status Exam Narrative: Appearance: casually groomed, improved hygiene, in NAD Behavior: guarded, irritable at times Psychomotor: no agitation or retardation noted Speech: clear, regular rate/rhythm/ loud at times volume, spontaneous TP: derailment, disorganized TC: less paranoid towards roommate and other family members, wanting to find a job, sentences intelligible at times Mood: frustrated Affect:constricted SI:denies HI:denies AH/VH:denies Delusions:yarsanism preoccupation, grandiose ideas, some paranoia. Insight/judgment:poor x 2. Memory/cog: alert, oriented x 3, impaired secondary to psychiatric symptoms. Ability to Follow Directions: Poor Speech Pattern: Perseverating, Difficulty Finding Words, Soft-Spoken, Delayed and Long Pauses Memory Description: Intact Diagnostics Vital Signs (24Hr): Vital Signs - 24 hr 11/25/20 21:19 11/26/20 08:44 Temperature 98.0 F 98.1 F Pulse Rate 73 69 Respiratory Rate 16 Blood Pressure 128/66 111/66 Pulse Oximetry 98 95 Body Mass Index 30.2 Labs Results: 10/17/20 20:45 10/17/20 20:45 Labs: Laboratory Results - last 48 hr 11/24/20 14:40 Ammonia 49 Medications Medications Current Medications Generic Name Dose Route Start Last Admin Trade Name Freq PRN Reason Stop Dose Admin Acetaminophen 650 mg 10/20/20 13:45 11/21/20 12:35 Acetaminophen 325 Mg Tablet PO 650 mg Q6H PRN Administration Headache/Pain Mild Scale (1-3) Al Hydroxide/Mg Hydroxide 30 ml 10/20/20 13:45 11/22/20 23:09 Magnesium Hydrox/Alum Hydrox 30 Ml Oral.Susp PO 30 ml Q6H PRN Administration Heartburn/Nausea Aspirin 325 mg 11/14/20 12:35 11/15/20 12:01 Aspirin Enteric Coated 325 Mg Tablet. PO 325 mg Q4H PRN Administration Pain, Moderate (Pain Scale 4-6 Divalproex Sodium 1,250 mg 11/12/20 09:00 11/26/20 09:29 Divalproex Sodium 250 Mg Tablet. PO 1,250 mg DAILY SAPNA Administration Hydroxyzine HCl 50 mg 10/20/20 13:45 11/21/20 02:45 Hydroxyzine Hcl 25 Mg Tablet PO 50 mg Q6H PRN Administration Anxiety Ibuprofen 800 mg 10/18/20 15:51 11/20/20 16:59 Ibuprofen 800 Mg Tablet PO 800 mg Q8H PRN Administration pain Magnesium Hydroxide 30 ml 10/20/20 13:45 11/23/20 13:39 Milk Of Magnesia 30 Ml Oral.Susp PO 30 ml DAILY PRN Administration Constipation Melatonin 6 mg 10/31/20 21:00 11/25/20 21:16 Melatonin 3 Mg Tablet PO 6 mg BEDTIME SAPNA Administration Olanzapine 10 mg 10/20/20 13:50 10/25/20 10:50 Olanzapine Odt 10 Mg Tab.Rapdis TRANSLINGU 10 mg Q6H PRN Administration agitation Paliperidone 6 mg 11/24/20 09:00 11/26/20 09:29 Paliperidone Er 6 Mg Tab.Er.24 PO 6 mg DAILY SAPNA Administration Perphenazine 12 mg 11/24/20 21:00 11/25/20 21:16 Perphenazine 4 Mg Tablet PO 12 mg BEDTIME SAPNA Administration Polyethylene Glycol 17 gm 11/19/20 14:31 Polyethylene Glycol 3350 17 Gm Powd.Pack PO DAILY PRN constipation Trazodone HCl 100 mg 11/11/20 21:00 11/25/20 21:16 Trazodone Hcl 100 Mg Tablet PO 100 mg BEDTIME SAPNA Administration Allergies Allergies Allergy/AdvReac Type Severity Reaction Status Date / Time No Known Allergies Allergy Verified 06/25/20 12:27 [No Known Allergies*] Assessment & Plan Assessment & Plan (1) Schizoaffective disorder, bipolar type: Status: Acute Code(s): F25.0 - Schizoaffective disorder, bipolar type Assessment and Plan: Mr. Islas is a 25 year-old male with hx of Schizoaffective Disorder who self [place] [facility] [place] signs of radha including decrease need for sleep, racing thoughts, hyperverbal, pressured speech, poor concentration, yarsanism preoccupation, flight of ideas. He recently was taken off olanzapine, some concern in terms of weight gain in addition to pt request, and started on ser traline, currently on 25mg po daily. we discussed risks, benefits and alterntive treatment options. We discussed tapering him off sertraline as it is worsening manic symptoms. Pt presents as guarded, thought process with loose associations, appears to struggle to process information. PLAN: 1. Section 7 2. Switch perphenazine 12mg po BID to paliperidone. 3. Continue depakote 1250mg po daily- pt is adherent. Depakote level on 11/15 36 (L) 4. continue trazodone 100mg po qhs. Greater than 50% of the session was spent on counseling and/or coordination of care Reason for contiued inpatient stay Substantial Risk for: inability to function
[2020-11-24 15:34] LABS: Ammonia 49 umol/L (13-55)
[2020-11-24] MEDS: traZODone HCL 100 MG TABLET PO (22:19)
[2020-11-24] MEDS: Perphenazine 4 MG TABLET 12 MG PO (22:19)
[2020-11-24] MEDS: Melatonin 3 MG TABLET 6 MG PO (22:19)
[2020-11-25 10:12] VITALS: BP 128/58; PULSE 83; RESP 16; TEMP 36.7; O2SAT 97
--- NOTE | 2020-11-25 10:59 | HO.PSYCHPN ---
Subjective Subjective Date of Service: 11/26/20 Reason For Visit: Lizzy Interim History: Discussed pt during rounds. Met pt with clinician Christina. Pt sitting on chair, looking around, scanning room, at times would stop talking as if internally preoccupied. He looked the door several times and insisted I'm not paranoid. He reports medications making him more manic. When asked about what he describes as manic he reports having problems communicating with others. Note that his eye contact was limited. He reports I need medication that helps me to communicate, maybe I will learn sign language, I am loosing control over my bodily fluid like my breathing. Pt although insisting less on roommate trying to poison him, or nena GF was sexually assaulted by her family members, grossly disorganized. It is clear that he struggles to process information about medications, dispo as to housing or lack of. Medication Compliance: Intermittent Review of Systems Acute medical concerns: No Medical Review of Systems: unchanged Review of Systems Review of Systems Constitutional: No Fever, No Chills ENT/Mouth: No Ear Pain, No Nasal Congestion, No sore throat Eyes: No Eye Pain, No Swelling, No Redness Cardiovascular: No Chest Pain, No SOB Respiratory: No Cough, No Sputum, No Dyspnea Gastrointestinal: No Nausea, No Vomiting, No Diarrhea, No Hematochezia, No Melena Genitourinary: No Dysuria, No Urinary Frequency, No Hematuria Musculoskeletal: No Myalgias Skin: No Skin Lesions, No rash Neuro: No Weakness, No Numbness, No Paresthesias, No Dizziness, No Headache Psych: positive Anxiety, positive Depression, positive lizzy, no SI HI Heme/Lymph: No Lymphadenopathy Endocrine: No Polyuria, No Polydipsia Yes all other systems are reviewed and are negative Cardiovascular: Denies chest pain, Denies irregular heart rhythm and Denies lightheadedness Respiratory: Denies pain with cough Gastrointestinal: Denies constipation and Denies diarrhea Mental Status Exam Mental Status Exam Narrative: Appearance: casually groomed, improved hygiene, in NAD Behavior: guarded, irritable at times Psychomotor: no agitation or retardation noted Speech: clear, regular rate/rhythm/ loud at times volume, spontaneous TP: derailment, disorganized TC: less paranoid towards roommate and other family members, wanting to find a job, sentences intelligible at times Mood: frustrated Affect:constricted SI:denies HI:denies AH/VH:denies Delusions:hoahaoism preoccupation, grandiose ideas, some paranoia. Insight/judgment:poor x 2. Memory/cog: alert, oriented x 3, impaired secondary to psychiatric symptoms. Diagnostics Vital Signs (24Hr): Vital Signs - 24 hr 11/25/20 21:19 11/26/20 08:44 Temperature 98.0 F 98.1 F Pulse Rate 73 69 Respiratory Rate 16 Blood Pressure 128/66 111/66 Pulse Oximetry 98 95 Body Mass Index 30.2 Labs Results: 10/17/20 20:45 10/17/20 20:45 Labs: Laboratory Results - last 48 hr 11/24/20 14:40 Ammonia 49 Medications Medications Current Medications Generic Name Dose Route Start Last Admin Trade Name Freq PRN Reason Stop Dose Admin Acetaminophen 650 mg 10/20/20 13:45 11/21/20 12:35 Acetaminophen 325 Mg Tablet PO 650 mg Q6H PRN Administration Headache/Pain Mild Scale (1-3) Al Hydroxide/Mg Hydroxide 30 ml 10/20/20 13:45 11/22/20 23:09 Magnesium Hydrox/Alum Hydrox 30 Ml Oral.Susp PO 30 ml Q6H PRN Administration Heartburn/Nausea Aspirin 325 mg 11/14/20 12:35 11/15/20 12:01 Aspirin Enteric Coated 325 Mg Tablet. PO 325 mg Q4H PRN Administration Pain, Moderate (Pain Scale 4-6 Divalproex Sodium 1,250 mg 11/12/20 09:00 11/26/20 09:29 Divalproex Sodium 250 Mg Tablet. PO 1,250 mg DAILY SAPNA Administration Hydroxyzine HCl 50 mg 10/20/20 13:45 11/21/20 02:45 Hydroxyzine Hcl 25 Mg Tablet PO 50 mg Q6H PRN Administration Anxiety Ibuprofen 800 mg 10/18/20 15:51 11/20/20 16:59 Ibuprofen 800 Mg Tablet PO 800 mg Q8H PRN Administration pain Magnesium Hydroxide 30 ml 10/20/20 13:45 11/23/20 13:39 Milk Of Magnesia 30 Ml Oral.Susp PO 30 ml DAILY PRN Administration Constipation Melatonin 6 mg 10/31/20 21:00 11/25/20 21:16 Melatonin 3 Mg Tablet PO 6 mg BEDTIME SAPNA Administration Olanzapine 10 mg 10/20/20 13:50 10/25/20 10:50 Olanzapine Odt 10 Mg Tab.Rapdis TRANSLINGU 10 mg Q6H PRN Administration agitation Paliperidone 6 mg 11/24/20 09:00 11/26/20 09:29 Paliperidone Er 6 Mg Tab.Er.24 PO 6 mg DAILY SAPNA Administration Perphenazine 12 mg 11/24/20 21:00 11/25/20 21:16 Perphenazine 4 Mg Tablet PO 12 mg BEDTIME SAPNA Administration Polyethylene Glycol 17 gm 11/19/20 14:31 Polyethylene Glycol 3350 17 Gm Powd.Pack PO DAILY PRN constipation Trazodone HCl 100 mg 11/11/20 21:00 11/25/20 21:16 Trazodone Hcl 100 Mg Tablet PO 100 mg BEDTIME SAPNA Administration Allergies Allergies Allergy/AdvReac Type Severity Reaction Status Date / Time No Known Allergies Allergy Verified 06/25/20 12:27 [No Known Allergies*] Assessment & Plan Assessment & Plan (1) Schizoaffective disorder, bipolar type: Status: Acute Code(s): F25.0 - Schizoaffective disorder, bipolar type Assessment and Plan: Mr. Islas is a 25 year-old male with hx of Schizoaffective Disorder who self presented to [facility] reporting signs of lizzy including decrease need for sleep, racing thoughts, hyperverbal, pressured speech, poor concentration, hoahaoism preoccupation, flight of ideas. He recently was taken off olanzapine, some concern in terms of weight gain in addition to pt request, and started on sertraline, currently on 25mg po daily. we discussed risks, benefits and alterntive treatment options. We discussed tapering him off sertraline as it is worsening manic symptoms. Pt presents as guarded, thought process with loose associations, appears to struggle to process information. PLAN: 1. Section 7 2. Switch perphenazine 12mg po BID to paliperidone. Continue paliperidone 6mg po daily. 3. Continue depakote 1250mg po daily- pt is adherent. Depakote level on 11/15 36 (L) 4. continue trazodone 100mg po qhs. Greater than 50% of the session was spent on counseling and/or coordination of care Reason for contiued inpatient stay Substantial Risk for: inability to function
[2020-11-25] MEDS: Perphenazine 4 MG TABLET 12 MG PO (21:16)
[2020-11-25] MEDS: Melatonin 3 MG TABLET 6 MG PO (21:16)
[2020-11-25] MEDS: traZODone HCL 100 MG TABLET PO (21:16)
[2020-11-25 21:19] VITALS: BP 128/66; PULSE 73; TEMP 36.7; O2SAT 98
--- NOTE | 2020-11-26 08:06 | P.PNPSI_ITS ---
Subjective Subjective Date of Service: 11/28/20 Reason For Visit: Radha Interim History: Pt continues to present with loose associations, most of conversation is intelligible. We had discussed switching perphenazine to paliperidone given partial benefit. He does during this switch appear i ncreasingly more suspicious and paranoid. He denies SI/HI. He appears internally preoccupied. He is mostly in his room, he agreed to postpone court and take paliperidone instead. Medication Compliance: Intermittent Review of Systems Review of Systems Constitutional: No Fever, No Chills ENT/Mouth: No Ear Pain, No Nasal Congestion, No sore throat Eyes: No Eye Pain, No Swelling, No Redness Cardiovascular: No Chest Pain, No SOB Respiratory: No Cough, No Sputum, No Dyspnea Gastrointestinal: No Nausea, No Vomiting, No Diarrhea, No Hematochezia, No Melena Genitourinary: No Dysuria, No Urinary Frequency, No Hematuria Musculoskeletal: No Myalgias Skin: No Skin Lesions, No rash Neuro: No Weakness, No Numbness, No Paresthesias, No Dizziness, No Headache Psych: positive Anxiety, positive Depression, positive radha, no SI HI Heme/Lymph: No Lymphadenopathy Endocrine: No Polyuria, No Polydipsia Yes all other systems are reviewed and are negative Cardiovascular: Denies chest pain, Denies irregular heart rhythm and Denies lightheadedness Respiratory: Denies pain with cough Gastrointestinal: Denies constipation and Denies diarrhea Mental Status Exam Mental Status Exam Narrative: Appearance: casually groomed, improved hygiene, in NAD Behavior: guarded, irritable at times Psychomotor: no agitation or retardation noted Speech: clear, regular rate/rhythm/ loud at times volume, spontaneous TP: derailment, disorganized TC: less paranoid towards roommate and other family members, wanting to find a job, sentences intelligible at times Mood: frustrated Affect:constricted SI:denies HI:denies AH/VH:denies Delusions:hinduism preoccupation, grandiose ideas, some paranoia. Insight/judgment:poor x 2. Memory/cog: alert, oriented x 3, impaired secondary to psychiatric symptoms. Memory Description: Intact Diagnostics Vital Signs (24Hr): Vital Signs - 24 hr 11/27/20 10:09 11/27/20 18:00 Temperature 98.1 F 98.1 F Pulse Rate 72 70 Respiratory Rate 16 18 Blood Pressure 135/63 127/58 L Pulse Oximetry 98 100 Body Mass Index 30.2 Labs Results: 10/17/20 20:45 10/17/20 20:45 Medications Medications Current Medications Generic Name Dose Route Start Last Admin Trade Name Waldoq PRN Reason Stop Dose Admin Acetaminophen 650 mg 10/20/20 13:45 11/21/20 12:35 Acetaminophen 325 Mg Tablet PO 650 mg Q6H PRN Administration Headache/Pain Mild Scale (1-3) Al Hydroxide/Mg Hydroxide 30 ml 10/20/20 13:45 11/27/20 16:28 Magnesium Hydrox/Alum Hydrox 30 Ml Oral.Susp PO 30 ml Q6H PRN Administration Heartburn/Nausea Aspirin 325 mg 11/14/20 12:35 11/15/20 12:01 Aspirin Enteric Coated 325 Mg Tablet. PO 325 mg Q4H PRN Administration Pain, Moderate (Pain Scale 4-6 Divalproex Sodium 1,250 mg 11/12/20 09:00 11/27/20 11:25 Divalproex Sodium 250 Mg Tablet. PO Not Given DAILY SAPNA Hydroxyzine HCl 50 mg 10/20/20 13:45 11/21/20 02:45 Hydroxyzine Hcl 25 Mg Tablet PO 50 mg Q6H PRN Administration Anxiety Ibuprofen 800 mg 10/18/20 15:51 11/20/20 16:59 Ibuprofen 800 Mg Tablet PO 800 mg Q8H PRN Administration pain Magnesium Hydroxide 30 ml 10/20/20 13:45 11/23/20 13:39 Milk Of Magnesia 30 Ml Oral.Susp PO 30 ml DAILY PRN Administration Constipation Melatonin 6 mg 10/31/20 21:00 11/27/20 21:44 Melatonin 3 Mg Tablet PO 6 mg BEDTIME SAPNA Administration Olanzapine 10 mg 10/20/20 13:50 10/25/20 10:50 Olanzapine Odt 10 Mg Tab.Rapdis TRANSLINGU 10 mg Q6H PRN Administration agitation Paliperidone 6 mg 11/24/20 09:00 11/27/20 11:25 Paliperidone Er 6 Mg Tab.Er.24 PO 6 mg DAILY SAPNA Administration Perphenazine 12 mg 11/24/20 21:00 11/27/20 21:46 Perphenazine 4 Mg Tablet PO Not Given BEDTIME SAPNA Polyethylene Glycol 17 gm 11/19/20 14:31 Polyethylene Glycol 3350 17 Gm Powd.Pack PO DAILY PRN constipation Trazodone HCl 100 mg 11/11/20 21:00 11/27/20 21:46 Trazodone Hcl 100 Mg Tablet PO Not Given BEDTIME SAPNA Allergies Allergies Allergy/AdvReac Type Severity Reaction Status Date / Time No Known Allergies Allergy Verified 06/25/20 12:27 [No Known Allergies*] Assessment & Plan Assessment & Plan (1) Schizoaffective disorder, bipolar type: Status: Acute Code(s): F25.0 - Schizoaffective disorder, bipolar type Assessment and Plan: Mr. Islas is a 25 year-old male with hx of Schizoaffective Disorder who self presented to [facility] reporting signs of radha including decrease need for sleep, racing thoughts, hyperverbal, pressured speech, poor concentration, hinduism preoccupation, flight of ideas. He recently was taken off olanzapine, some concern in terms of weight gain in addition to pt request, and started on sertraline, currently on 25mg po daily. we discussed risks, benefits and alterntive treatment options. We discussed tapering him off sertraline as it is worsening manic symptoms. Pt presents as guarded, thought process with loose associations, appears to struggle to process information. PLAN: 1. Section 7 2. Switch perphenazine 12mg po BID to paliperidone. Continue paliperidone 6mg po daily. 3. Continue depakote 1250mg po daily- pt is adherent. Depakote level on 11/15 36 (L) 4. continue trazodone 100mg po qhs. Greater than 50% of the session was spent on counseling and/or coordination of care Reason for contiued inpatient stay Substantial Risk for: inability to function
[2020-11-26 08:44] VITALS: BP 111/66; PULSE 69; RESP 16; TEMP 36.7; O2SAT 95
[2020-11-26] MEDS: Divalproex Sodium 250 MG TABLET.DR 1250 MG PO (09:29)
[2020-11-26] MEDS: Paliperidone ER 6 MG TAB.ER.24 PO (09:29)
[2020-11-26] MEDS: Magnesium Hydrox/Alum Hydrox 30 ML ORAL.SUSP PO (15:21)
[2020-11-26 19:56] VITALS: BP 141/88; PULSE 70; TEMP 36.2; O2SAT 99
--- NOTE | 2020-11-27 08:09 | P.PNPSI_ITS ---
Subjective Subjective Date of Service: 11/28/20 Reason For Visit: Radha Interim History: Pt decline paliperidone in morning, thought he was given a different medication and asked to speak with this keno writer/runner prior to agreeing taking it. Pt continues to present with loose associations, most of conversation is intelligible. We had discussed switching perphenazine to paliperidone given partial benefit. He does during this switch appear increasingly more suspicious and paranoid. He denies SI/HI. He appears internally preoccupied. He is mostly in his room, he agreed to postpone court and take paliperidone instead. Review of Systems Review of Systems Constitutional: No Fever, No Chills ENT/Mouth: No Ear Pain, No Nasal Congestion, No sore throat Eyes: No Eye Pain, No Swelling, No Redness Cardiovascular: No Chest Pain, No SOB Respiratory: No Cough, No Sputum, No Dyspnea Gastrointestinal: No Nausea, No Vomiting, No Diarrhea, No Hematochezia, No Melena Genitourinary: No Dysuria, No Urinary Frequency, No Hematuria Musculoskeletal: No Myalgias Skin: No Skin Lesions, No rash Neuro: No Weakness, No Numbness, No Paresthesias, No Dizziness, No Headache Psych: positive Anxiety, positive Depression, positive radha, no SI HI Heme/Lymph: No Lymphadenopathy Endocrine: No Polyuria, No Polydipsia Yes all other systems are reviewed and are negative Cardiovascular: Denies chest pain, Denies irregular heart rhythm and Denies lightheadedness Respiratory: Denies pain with cough Gastrointestinal: Denies constipation and Denies diarrhea Mental Status Exam Mental Status Exam Narrative: Appearance: casually groomed, improved hygiene, in NAD Behavior: guarded, irritable at times Psychomotor: no agitation or retardation noted Speech: clear, regular rate/rhythm/ loud at times volume, spontaneous TP: derailment, disorganized TC: less paranoid towards roommate and other family members, wanting to find a job, sentences intelligible at times Mood: frustrated Affect:constricted SI:denies HI:denies AH/VH:denies Delusions:pentecostal preoccupation, grandiose ideas, some paranoia. Insight/judgment:poor x 2. Memory/cog: alert, oriented x 3, impaired secondary to psychiatric symptoms. Diagnostics Vital Signs (24Hr): Vital Signs - 24 hr 11/27/20 10:09 11/27/20 18:00 Temperature 98.1 F 98.1 F Pulse Rate 72 70 Respiratory Rate 16 18 Blood Pressure 135/63 127/58 L Pulse Oximetry 98 100 Body Mass Index 30.2 Labs Results: 10/17/20 20:45 10/17/20 20:45 Medications Medications Current Medications Generic Name Dose Route Start Last Admin Trade Name Freq PRN Reason Stop Dose Admin Acetaminophen 650 mg 10/20/20 13:45 11/21/20 12:35 Acetaminophen 325 Mg Tablet PO 650 mg Q6H PRN Administration Headache/Pain Mild Scale (1-3) Al Hydroxide/Mg Hydroxide 30 ml 10/20/20 13:45 11/27/20 16:28 Magnesium Hydrox/Alum Hydrox 30 Ml Oral.Susp PO 30 ml Q6H PRN Administration Heartburn/Nausea Aspirin 325 mg 11/14/20 12:35 11/15/20 12:01 Aspirin Enteric Coated 325 Mg Tablet. PO 325 mg Q4H PRN Administration Pain, Moderate (Pain Scale 4-6 Divalproex Sodium 1,250 mg 11/12/20 09:00 11/27/20 11:25 Divalproex Sodium 250 Mg Tablet. PO Not Given DAILY SAPNA Hydroxyzine HCl 50 mg 10/20/20 13:45 11/21/20 02:45 Hydroxyzine Hcl 25 Mg Tablet PO 50 mg Q6H PRN Administration Anxiety Ibuprofen 800 mg 10/18/20 15:51 11/20/20 16:59 Ibuprofen 800 Mg Tablet PO 800 mg Q8H PRN Administration pain Magnesium Hydroxide 30 ml 10/20/20 13:45 11/23/20 13:39 Milk Of Magnesia 30 Ml Oral.Susp PO 30 ml DAILY PRN Administration Constipation Melatonin 6 mg 10/31/20 21:00 11/27/20 21:44 Melatonin 3 Mg Tablet PO 6 mg BEDTIME SAPNA Administration Olanzapine 10 mg 10/20/20 13:50 10/25/20 10:50 Olanzapine Odt 10 Mg Tab.Rapdis TRANSLINGU 10 mg Q6H PRN Administration agitation Paliperidone 6 mg 11/24/20 09:00 11/27/20 11:25 Paliperidone Er 6 Mg Tab.Er.24 PO 6 mg DAILY SAPNA Administration Perphenazine 12 mg 11/24/20 21:00 11/27/20 21:46 Perphenazine 4 Mg Tablet PO Not Given BEDTIME SAPNA Polyethylene Glycol 17 gm 11/19/20 14:31 Polyethylene Glycol 3350 17 Gm Powd.Pack PO DAILY PRN constipation Trazodone HCl 100 mg 11/11/20 21:00 11/27/20 21:46 Trazodone Hcl 100 Mg Tablet PO Not Given BEDTIME SAPNA Allergies Allergies Allergy/AdvReac Type Severity Reaction Status Date / Time No Known Allergies Allergy Verified 06/25/20 12:27 [No Known Allergies*] Assessment & Plan Assessment & Plan (1) Schizoaffective disorder, bipolar type: Status: Acute Code(s): F25.0 - Schizoaffective disorder, bipolar type Assessment and Plan: Mr. Islas is a 25 year-old male with hx of Schizoaffective Disorder who self presented to [facility] reporting signs of radha including decrease need for sleep, racing thoughts, hyperverbal, pressured speech, poor concentration, pentecostal preoccupation, flight of ideas. He recently was taken off olanzapine, some concern in terms of weight gain in addition to pt request, and started on sertraline, currently on 25mg po daily. we discussed risks, benefits and a lterntive treatment options. We discussed tapering him off sertraline as it is worsening manic symptoms. Pt presents as guarded, thought process with loose associations, appears to struggle to process information. PLAN: 1. Section 7 2. Switch perphenazine 12mg po BID to paliperidone. Continue paliperidone 6mg po daily. 3. Continue depakote 1250mg po daily- pt is adherent. Depakote level on 11/15 36 (L) 4. continue trazodone 100mg po qhs. Greater than 50% of the session was spent on counseling and/or coordination of care Reason for contiued inpatient stay Substantial Risk for: inability to function
[2020-11-27 10:09] VITALS: BP 135/63; PULSE 72; RESP 16; TEMP 36.7; O2SAT 98
[2020-11-27] MEDS: Paliperidone ER 6 MG TAB.ER.24 PO (11:25)
[2020-11-27] MEDS: Magnesium Hydrox/Alum Hydrox 30 ML ORAL.SUSP PO (16:28)
[2020-11-27 18:00] VITALS: BP 127/58; PULSE 70; RESP 18; TEMP 36.7; O2SAT 100
[2020-11-27] MEDS: Melatonin 3 MG TABLET 6 MG PO (21:44)
[2020-11-28 06:00] VITALS: BP 107/52; PULSE 70; RESP 14; TEMP 36.2; O2SAT 99
[2020-11-28] MEDS: Paliperidone ER 6 MG TAB.ER.24 PO (09:56)
--- NOTE | 2020-11-28 10:50 | HO.PSYCHPN ---
Subjective Subjective Date of Service: 11/28/20 Reason For Visit: Radha Subjective Notes: Section 7 and Section 8 Interim History: Nursing staff reported that the patient has refused perphenazine at since he is taking Invega PO. He slept 5 hours last night. The staff has noticed that he remains anxious and dypshoric, writing in his room most of the time, paranoid and disorganized at times. Today, he was lying on bed and he interact minimally, denies side effects. He was grdetful that I stopped the Perphenazine and keep only on Invega. Medication Compliance: Intermittent Review of Systems Acute medical concerns: No Medical Review of Systems: unchanged Mental Status Exam Mental Status Exam Patient Appearance: Disheveled Patient Orientation: Person and Situation Level of Consciousness: Awake Patient Behavior: Guarded and Suspicious Mood Description: Apprehensive Affect Description: Labile Patient Cognition Impaired: No Ability to Follow Directions: Fair Hallucinations: None (denies but seems that he responds to internal stimuli) Delusions: Paranoid Ideation Thought Process: Illogical and Distracted Thought Content: positive for Circumstantial, positive for Perseveration, positive for Poverty of Content and positive for Thought Blocking Judgement: Poor Diagnostics Vital Signs (24Hr): Vital Signs - 24 hr 11/27/20 18:00 11/28/20 06:00 Temperature 98.1 F 97.1 F Pulse Rate 70 70 Respiratory Rate 18 14 Blood Pressure 127/58 L 107/52 L Pulse Oximetry 100 99 Body Mass Index 30.2 Labs Results: 10/17/20 20:45 10/17/20 20:45 Medications Medications Current Medications Generic Name Dose Route Start Last Admin Trade Name Art PRN Reason Stop Dose Admin Acetaminophen 650 mg 10/20/20 13:45 11/21/20 12:35 Acetaminophen 325 Mg Tablet PO 650 mg Q6H PRN Administration Headache/Pain Mild Scale (1-3) Al Hydroxide/Mg Hydroxide 30 ml 10/20/20 13:45 11/27/20 16:28 Magnesium Hydrox/Alum Hydrox 30 Ml Oral.Susp PO 30 ml Q6H PRN Administration Heartburn/Nausea Aspirin 325 mg 11/14/20 12:35 11/15/20 12:01 Aspirin Enteric Coated 325 Mg Tablet. PO 325 mg Q4H PRN Administration Pain, Moderate (Pain Scale 4-6 Divalproex Sodium 1,250 mg 11/12/20 09:00 11/28/20 09:56 Divalproex Sodium 250 Mg Tablet.Dr PO Not Given DAILY SANPA Hydroxyzine HCl 50 mg 10/20/20 13:45 11/21/20 02:45 Hydroxyzine Hcl 25 Mg Tablet PO 50 mg Q6H PRN Administration Anxiety Ibuprofen 800 mg 10/18/20 15:51 11/20/20 16:59 Ibuprofen 800 Mg Tablet PO 800 mg Q8H PRN Administration pain Magnesium Hydroxide 30 ml 10/20/20 13:45 11/23/20 13:39 Milk Of Magnesia 30 Ml Oral.Susp PO 30 ml DAILY PRN Administration Constipation Melatonin 6 mg 10/31/20 21:00 11/27/20 21:44 Melatonin 3 Mg Tablet PO 6 mg BEDTIME SAPNA Administration Olanzapine 10 mg 10/20/20 13:50 10/25/20 10:50 Olanzapine Odt 10 Mg Tab.Rapdis TRANSLINGU 10 mg Q6H PRN Administration agitation Paliperidone 6 mg 11/24/20 09:00 11/28/20 09:56 Paliperidone Er 6 Mg Tab.Er.24 PO 6 mg DAILY SAPNA Administration Perphenazine 12 mg 11/24/20 21:00 11/27/20 21:46 Perphenazine 4 Mg Tablet PO Not Given BEDTIME SAPNA Polyethylene Glycol 17 gm 11/19/20 14:31 Polyethylene Glycol 3350 17 Gm Powd.Pack PO DAILY PRN constipation Trazodone HCl 100 mg 11/11/20 21:00 11/27/20 21:46 Trazodone Hcl 100 Mg Tablet PO Not Given BEDTIME SAPNA Allergies Allergies Allergy/AdvReac Type Severity Reaction Status Date / Time No Known Allergies Allergy Verified 06/25/20 12:27 [No Known Allergies*] Assessment & Plan Assessment & Plan (1) Schizoaffective disorder, bipolar type: Status: Acute Code(s): F25.0 - Schizoaffective disorder, bipolar type Assessment and Plan: Mr. Islas is a 25 year-old male with hx of Schizoaffective Disorder who self presented to [facility] reporting signs of radha including decrease need for sleep, racing thoughts, hyperverbal, pressured speech, poor concentration, shinto preoccupation, flight of ideas. He recently was taken off olanzapine, some concern in terms of weight gain in addition to pt request, and started on sertraline, currently on 25mg po daily. we discussed risks, benefits and alterntive treatment options. We discussed tapering him off sertraline as it is worsening manic symptoms. Pt presents as guarded, thought process with loose associations, appears to struggle to process information. PLAN: 1. Section 7 2. Switch perphenazine 12mg po BID to paliperidone. Continue paliperidone 6mg po daily. vD/C [place] 3. Continue depakote 1250mg po daily- pt is adherent. Depakote level on 11/15 36 (L) 4. continue trazodone 100mg po qhs. Greater than 50% of the session was spent on counseling and/or coordination of care Reason for contiued inpatient stay Substantial Risk for: inability to function, rapid decompensation and med/psych decompensation
[2020-11-28 20:47] VITALS: BP 135/64; PULSE 70; RESP 18; TEMP 36.6; O2SAT 100
[2020-11-28] MEDS: Melatonin 3 MG TABLET 6 MG PO (21:42)
[2020-11-29 07:50] VITALS: BP 125/60; PULSE 68; RESP 16; TEMP 36.6; O2SAT 97
--- NOTE | 2020-11-29 10:02 | HO.PSYCHPN ---
Subjective Subjective Date of Service: 11/29/20 Reason For Visit: Radha Interim History: The patient remains perseverative and disorganized. Nursing staff reported that he even needed help to fill his menu. He took Melatonin last night and refused Trazodone. Today, he reported that he wants to know why my record is and how much of my genetic information the hospital has , very delusional and paranoid. He stated that the Invega capsule was different . Review of Systems Acute medical concerns: No Medical Review of Systems: unchanged Mental Status Exam Mental Status Exam Patient Appearance: Disheveled and Unkempt Patient Orientation: Person Level of Consciousness: Awake Patient Behavior: Suspicious and Poor Eye Contact Mood Description: Withdrawn, Hostile and Anxious Affect Description: Constricted Patient Cognition Impaired: No Ability to Follow Directions: Fair Speech Pattern: Clear, Monotone and Rambling Hallucinations: None Delusions: Paranoid Ideation Thought Process: Illogical and Distracted Thought Content: positive for Perseveration, positive for Poverty of Content and positive for Loose Associations Judgement: Poor Diagnostics Vital Signs (24Hr): Vital Signs - 24 hr 11/28/20 20:47 11/29/20 07:50 Temperature 97.9 F 97.8 F Pulse Rate 70 68 Respiratory Rate 18 16 Blood Pressure 135/64 125/60 Pulse Oximetry 100 97 Body Mass Index 30.2 Labs Results: 10/17/20 20:45 10/17/20 20:45 Medications Medications Current Medications Generic Name Dose Route Start Last Admin Trade Name Freq PRN Reason Stop Dose Admin Acetaminophen 650 mg 10/20/20 13:45 11/21/20 12:35 Acetaminophen 325 Mg Tablet PO 650 mg Q6H PRN Administration Headache/Pain Mild Scale (1-3) Al Hydroxide/Mg Hydroxide 30 ml 10/20/20 13:45 11/27/20 16:28 Magnesium Hydrox/Alum Hydrox 30 Ml Oral.Susp PO 30 ml Q6H PRN Administration Heartburn/Nausea Aspirin 325 mg 11/14/20 12:35 11/15/20 12:01 Aspirin Enteric Coated 325 Mg Tablet. PO 325 mg Q4H PRN Administration Pain, Moderate (Pain Scale 4-6 Divalproex Sodium 1,250 mg 11/12/20 09:00 11/28/20 09:56 Divalproex Sodium 250 Mg Tablet.Dr MORRISON Not Given DAILY SAPNA Hydroxyzine HCl 50 mg 10/20/20 13:45 11/21/20 02:45 Hydroxyzine Hcl 25 Mg Tablet PO 50 mg Q6H PRN Administration Anxiety Ibuprofen 800 mg 10/18/20 15:51 11/20/20 16:59 Ibuprofen 800 Mg Tablet PO 800 mg Q8H PRN Administration pain Magnesium Hydroxide 30 ml 10/20/20 13:45 11/23/20 13:39 Milk Of Magnesia 30 Ml Oral.Susp PO 30 ml DAILY PRN Administration Constipation Melatonin 6 mg 10/31/20 21:00 11/28/20 21:42 Melatonin 3 Mg Tablet PO 6 mg BEDTIME SAPNA Administration Olanzapine 10 mg 10/20/20 13:50 10/25/20 10:50 Olanzapine Odt 10 Mg Tab.Rapdis TRANSLINGU 10 mg Q6H PRN Administration agitation Paliperidone 6 mg 11/24/20 09:00 11/28/20 09:56 Paliperidone Er 6 Mg Tab.Er.24 PO 6 mg DAILY SAPNA Administration Polyethylene Glycol 17 gm 11/19/20 14:31 Polyethylene Glycol 3350 17 Gm Powd.Pack PO DAILY PRN constipation Trazodone HCl 100 mg 11/11/20 21:00 11/28/20 21:43 Trazodone Hcl 100 Mg Tablet PO Not Given BEDTIME SAPNA Allergies Allergies Allergy/AdvReac Type Severity Reaction Status Date / Time No Known Allergies Allergy Verified 06/25/20 12:27 [No Known Allergies*] Assessment & Plan Assessment & Plan (1) Schizoaffective disorder, bipolar type: Status: Acute Code(s): F25.0 - Schizoaffective disorder, bipolar type Assessment and Plan: Mr. Islas is a 25 year-old male with hx of Schizoaffective Disorder who self presented to [facility] [place] ED reporting signs of radha including decrease need for sleep, racing thoughts, hyperverbal, pressured speech, poor concentration, yazdanism preoccupation, flight of ideas. He recently was taken off olanzapine, some concern in terms of weight gain in addition to pt request, and started on sertraline, currently on 25mg po daily. we discussed risks, benefits and alterntive treatment options. We discussed tapering him off sertraline as it is worsening manic symptoms. Pt presents as guarded, thought process with loose associations, appears to struggle to process information. PLAN: 1. Section 7 2. Switch perphenazine 12mg po BID to paliperidone. Continue paliperidone 6mg po daily. vD/C Perpehanzien 3. Continue depakote 1250mg po daily- pt is adherent. Depakote level on 11/15 36 (L) 4. continue trazodone 100mg po qhs. Greater than 50% of the session was spent on counseling and/or coordination of care Reason for contiued inpatient stay Substantial Risk for: inability to function, rapid decompensation and med/psych decompensation
[2020-11-29 18:00] VITALS: BP 135/71; PULSE 71; RESP 16; TEMP 36.2; O2SAT 99
[2020-11-29] MEDS: Milk of Magnesia 30 ML ORAL.SUSP PO (18:40)
[2020-11-29 20:00] VITALS: BP 123/66; PULSE 75; TEMP 36.9; O2SAT 99
[2020-11-30 08:18] VITALS: BP 116/65; PULSE 73; RESP 16; TEMP 36.4; O2SAT 99
[2020-11-30] MEDS: Paliperidone ER 6 MG TAB.ER.24 PO (08:46)
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
[2020-11-30 20:44] VITALS: BP 180/99; PULSE 82; TEMP 36.7; O2SAT 100
[2020-11-30] MEDS: Acetaminophen 325 MG TABLET 650 MG PO (22:22)
[2020-12-01] MEDS: hydrOXYzine HCL 25 MG TABLET 50 MG PO ×2 (03:09→22:07)
[2020-12-01] MEDS: Paliperidone ER 6 MG TAB.ER.24 PO (10:00)
[2020-12-01 10:02] VITALS: BP 116/55; PULSE 75; RESP 16; TEMP 36.8; O2SAT 98
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
--- NOTE | 2020-12-02 00:41 | PC.NURSE ---
PT refused VS at 1900.
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
[2020-12-02] MEDS: Paliperidone ER 6 MG TAB.ER.24 PO (09:45)
[2020-12-02 09:49] VITALS: BP 145/63; PULSE 89; RESP 20; TEMP 35.8; O2SAT 95
[2020-12-02] MEDS: hydrOXYzine HCL 25 MG TABLET 50 MG PO (16:36)
[2020-12-02 22:55] VITALS: BP 127/65; PULSE 96; RESP 20; TEMP 36.4; O2SAT 95
[2020-12-02] MEDS: diphenhydrAMINE HCL 25 MG TABLET PO (23:07)
[2020-12-02] MEDS: Mineral Oil/Petrolatum,White 106 GM Tube 1 APPL TOPICAL (23:07)
--- NOTE | 2020-12-02 23:12 | PC.NURSE ---
Patient declined scheduled Trazodone and Melatonin, was given PRN Benadryl PO.
[2020-12-03 08:00] VITALS: BP 126/65; PULSE 67; RESP 20; TEMP 36.4; O2SAT 97
[2020-12-03] MEDS: Paliperidone ER 6 MG TAB.ER.24 PO (09:00)
--- NOTE | 2020-12-03 09:04 | HO.PSYCHPN ---
Subjective Subjective Date of Service: 12/04/20 Reason For Visit: Radha Subjective Notes: Section 7 Interim History: Pt mostly in his room.Pt reports that needs to detox. He is asking for water, change of pitchers as he thinks is contaminated. He reports he is not able to exercise and does not feel safe going outside his room at times. He reports fair sleep. He denies SI/HI. His thought process continues to be largely intelligible. Medication Compliance: Intermittent Side effects from medications: No Attending Groups: No Review of Systems Review of Systems Constitutional: No Fever, No Chills ENT/Mouth: No Ear Pain, No Nasal Congestion, No sore throat Eyes: No Eye Pain, No Swelling, No Redness Cardiovascular: No Chest Pain, No SOB Respiratory: No Cough, No Sputum, No Dyspnea Gastrointestinal: No Nausea, No Vomiting, No Diarrhea, No Hematochezia, No Melena Genitourinary: No Dysuria, No Urinary Frequency, No Hematuria Musculoskeletal: No Myalgias Skin: No Skin Lesions, No rash Neuro: No Weakness, No Numbness, No Paresthesias, No Dizziness, No Headache Psych: positive Anxiety, positive Depression, positive radha, no SI HI Heme/Lymph: No Lymphadenopathy Endocrine: No Polyuria, No Polydipsia Yes all other systems are reviewed and are negative Cardiovascular: Denies chest pain, Denies irregular heart rhythm and Denies lightheadedness Respiratory: Denies pain with cough Gastrointestinal: Denies constipation and Denies diarrhea Mental Status Exam Mental Status Exam Narrative: Appearance: casually groomed, improved hygiene, in NAD Behavior: guarded, irritable at times Psychomotor: no agitation or retardation noted Speech: clear, regular rate/rhythm/ loud at times volume, spontaneous TP: derailment, disorganized TC: less paranoid towards roommate and other family members, wanting to find a job, sentences intelligible at times Mood: frustrated Affect:constricted SI:denies HI:denies AH/VH:denies Delusions:zoroastrian preoccupation, grandiose ideas, some paranoia. Insight/judgment:poor x 2. Memory/cog: alert, oriented x 3, impaired secondary to psychiatric symptoms. Diagnostics Vital Signs (24Hr): Vital Signs - 24 hr 12/03/20 18:00 Temperature 98.0 F Pulse Rate 60 Respiratory Rate 18 Blood Pressure 125/62 Pulse Oximetry 100 Body Mass Index 30.2 Labs Results: 10/17/20 20:45 10/17/20 20:45 Medications Medications Current Medications Generic Name Dose Route Start Last Admin Trade Name Art PRN Reason Stop Dose Admin Acetaminophen 650 mg 10/20/20 13:45 11/30/20 22:22 Acetaminophen 325 Mg Tablet PO 650 mg Q6H PRN Administration Headache/Pain Mild Scale (1-3) Al Hydroxide/Mg Hydroxide 30 ml 10/20/20 13:45 11/27/20 16:28 Magnesium Hydrox/Alum Hydrox 30 Ml Oral.Susp PO 30 ml Q6H PRN Administration Heartburn/Nausea Aspirin 325 mg 11/14/20 12:35 11/15/20 12:01 Aspirin Enteric Coated 325 Mg Tablet. PO 325 mg Q4H PRN Administration Pain, Moderate (Pain Scale 4-6 Diphenhydramine HCl 25 mg 12/02/20 22:00 12/02/20 23:07 Diphenhydramine Hcl 25 Mg Tablet PO 25 mg Q3H PRN Administration Rash Divalproex Sodium 1,250 mg 11/12/20 09:00 12/03/20 09:01 Divalproex Sodium 250 Mg Tablet.Dr MORRISON Not Given DAILY SAPNA Hydroxyzine HCl 50 mg 10/20/20 13:45 12/02/20 16:36 Hydroxyzine Hcl 25 Mg Tablet PO 50 mg Q6H PRN Administration Anxiety Ibuprofen 800 mg 10/18/20 15:51 11/20/20 16:59 Ibuprofen 800 Mg Tablet PO 800 mg Q8H PRN Administration pain Magnesium Hydroxide 30 ml 10/20/20 13:45 11/29/20 18:40 Milk Of Magnesia 30 Ml Oral.Susp PO 30 ml DAILY PRN Administration Constipation Melatonin 6 mg 10/31/20 21:00 12/03/20 21:21 Melatonin 3 Mg Tablet PO 6 mg BEDTIME SAPNA Administration Multi-Ingred Cream/Lotion/Oil/Oint 1 appl 12/02/20 22:00 12/02/20 23:07 Mineral Oil/Petrolatum,White 106 Gm Tube TOPICAL 1 appl BID PRN Administration rash Olanzapine 10 mg 10/20/20 13:50 10/25/20 10:50 Olanzapine Odt 10 Mg Tab.Rapdis TRANSLINGU 10 mg Q6H PRN Administration agitation Paliperidone 6 mg 11/24/20 09:00 12/03/20 09:00 Paliperidone Er 6 Mg Tab.Er.24 PO 6 mg DAILY SAPNA Administration Polyethylene Glycol 17 gm 11/19/20 14:31 12/02/20 12:30 Polyethylene Glycol 3350 17 Gm Powd.Pack PO 17 gm DAILY PRN Administration constipation Trazodone HCl 100 mg 11/11/20 21:00 12/03/20 21:21 Trazodone Hcl 100 Mg Tablet PO 100 mg BEDTIME SAPNA Administration Allergies Allergies Allergy/AdvReac Type Severity Reaction Status Date / Time No Known Allergies Allergy Verified 06/25/20 12:27 [No Known Allergies*] Assessment & Plan Assessment & Plan (1) Schizoaffective disorder, bipolar type: Status: Acute Code(s): F25.0 - Schizoaffective disorder, bipolar type Assessment and Plan: Mr. Islas is a 25 year-old male with hx of Schizoaffective Disorder who self presented to [facility] [place] [facility] reporting signs of radha including decrease need for sleep, racing thoughts, hyperverbal, pressured speech, poor concentration, zoroastrian preoccupation, flight of ideas. He recently was taken off olanzapine, some concern in terms of weight gain in addition to pt request, and started on sertraline, currently on 25mg po daily. we discussed risks, benefits and alterntive treatment options. We discussed tapering him off sertraline as it is worsening manic symptoms. Pt presents as guarded, thought process with loose associations, appears to struggle to process information. PLAN: 1. Section 7 2. Switch perphenazine 12mg po BID to paliperidone. Continue paliperidone 6mg po daily. vD/C Perpehanzien 3. Continue depakote 1250mg po daily- pt is adherent. Depakote level on 11/15 36 (L) 4. continue trazodone 100mg po qhs. Greater than 50% of the session was spent on counseling and/or coordination of care Reason for contiued inpatient stay Substantial Risk for: inability to function
[2020-12-03 18:00] VITALS: BP 125/62; PULSE 60; RESP 18; TEMP 36.7; O2SAT 100
[2020-12-03] MEDS: traZODone HCL 100 MG TABLET PO (21:21)
[2020-12-03] MEDS: Melatonin 3 MG TABLET 6 MG PO (21:21)
[2020-12-04 06:00] VITALS: BP 125/55; PULSE 62; RESP 18; TEMP 36.5; O2SAT 98
--- NOTE | 2020-12-04 06:51 | HO.PSYCHPN ---
Subjective Subjective Date of Service: 12/07/20 Reason For Visit: Radha Interim History: Pt reports he met with psychiatrist who is independent examiner. He reports he recognized the psychiatrist from the [facility] and did not trust him. Pt advised to go to groups but states that he feels chemicals in unit affecting his hands in ways he can't control. He also reports that taking showers is affecting his thoughts. Medication Compliance: Intermittent Side effects from medications: No Attending Groups: No Review of Systems Review of Systems Constitutional: No Fever, No Chills ENT/Mouth: No Ear Pain, No Nasal Congestion, No sore throat Eyes: No Eye Pain, No Swelling, No Redness Cardiovascular: No Chest Pain, No SOB Respiratory: No Cough, No Sputum, No Dyspnea Gastrointestinal: No Nausea, No Vomiting, No Diarrhea, No Hematochezia, No Melena Genitourinary: No Dysuria, No Urinary Frequency, No Hematuria Musculoskeletal: No Myalgias Skin: No Skin Lesions, No rash Neuro: No Weakness, No Numbness, No Paresthesias, No Dizziness, No Headache Psych: positive Anxiety, positive Depression, positive radha, no SI HI Heme/Lymph: No Lymphadenopathy Endocrine: No Polyuria, No Polydipsia Yes all other systems are reviewed and are negative Cardiovascular: Denies chest pain, Denies irregular heart rhythm and Denies lightheadedness Respiratory: Denies pain with cough Gastrointestinal: Denies constipation and Denies diarrhea Mental Status Exam Mental Status Exam Narrative: Appearance: casually groomed, improved hygiene, in NAD Behavior: guarded, irritable at times Psychomotor: no agitation or retardation noted Speech: clear, regular rate/rhythm/ loud at times volume, spontaneous TP: derailment, disorganized TC: less paranoid towards roommate and other family members, wanting to find a job, sentences intelligible at times Mood: frustrated Affect:constricted SI:denies HI:denies AH/VH:denies Delusions:shinto preoccupation, grandiose ideas, some paranoia. Insight/judgment:poor x 2. Memory/cog: alert, oriented x 3, impaired secondary to psychiatric symptoms. Patient Appearance: Disheveled and Unkempt Patient Orientation: Person Level of Consciousness: Awake Patient Behavior: Suspicious and Poor Eye Contact Mood Description: Withdrawn, Hostile and Anxious Affect Description: Constricted Patient Cognition Impaired: No Ability to Follow Directions: Fair Speech Pattern: Clear, Monotone and Rambling Memory Description: Intact Diagnostics Vital Signs (24Hr): Body Mass Index 30.2 Labs Results: 10/17/20 20:45 10/17/20 20:45 Medications Medications Current Medications Generic Name Dose Route Start Last Admin Trade Name Freq PRN Reason Stop Dose Admin Acetaminophen 650 mg 10/20/20 13:45 12/06/20 21:42 Acetaminophen 325 Mg Tablet PO 650 mg Q6H PRN Administration Headache/Pain Mild Scale (1-3) Al Hydroxide/Mg Hydroxide 30 ml 10/20/20 13:45 11/27/20 16:28 Magnesium Hydrox/Alum Hydrox 30 Ml Oral.Susp PO 30 ml Q6H PRN Administration Heartburn/Nausea Aspirin 325 mg 11/14/20 12:35 11/15/20 12:01 Aspirin Enteric Coated 325 Mg Tablet. PO 325 mg Q4H PRN Administration Pain, Moderate (Pain Scale 4-6 Diphenhydramine HCl 25 mg 12/02/20 22:00 12/02/20 23:07 Diphenhydramine Hcl 25 Mg Tablet PO 25 mg Q3H PRN Administration Rash Divalproex Sodium 1,250 mg 12/06/20 21:00 12/06/20 23:07 Divalproex Sodium 250 Mg Tablet. PO Not Given BEDTIME SAPNA Hydroxyzine HCl 50 mg 10/20/20 13:45 12/02/20 16:36 Hydroxyzine Hcl 25 Mg Tablet PO 50 mg Q6H PRN Administration Anxiety Ibuprofen 800 mg 10/18/20 15:51 12/05/20 07:41 Ibuprofen 800 Mg Tablet PO 800 mg Q8H PRN Administration pain Magnesium Hydroxide 30 ml 10/20/20 13:45 12/05/20 21:13 Milk Of Magnesia 30 Ml Oral.Susp PO 30 ml DAILY PRN Administration Constipation Melatonin 6 mg 10/31/20 21:00 12/06/20 22:57 Melatonin 3 Mg Tablet PO 6 mg BEDTIME SAPNA Administration Multi-Ingred Cream/Lotion/Oil/Oint 1 appl 12/02/20 22:00 12/02/20 23:07 Mineral Oil/Petrolatum,White 106 Gm Tube TOPICAL 1 appl BID PRN Administration rash Olanzapine 10 mg 10/20/20 13:50 10/25/20 10:50 Olanzapine Odt 10 Mg Tab.Rapdis TRANSLINGU 10 mg Q6H PRN Administration agitation Paliperidone 6 mg 11/24/20 09:00 12/06/20 09:17 Paliperidone Er 6 Mg Tab.Er.24 PO 6 mg DAILY SAPNA Administration Polyethylene Glycol 17 gm 11/19/20 14:31 12/02/20 12:30 Polyethylene Glycol 3350 17 Gm Powd.Pack PO 17 gm DAILY PRN Administration constipation Trazodone HCl 100 mg 11/11/20 21:00 12/06/20 22:57 Trazodone Hcl 100 Mg Tablet PO 100 mg BEDTIME SAPNA Administration Allergies Allergies Allergy/AdvReac Type Severity Reaction Status Date / Time No Known Allergies Allergy Verified 06/25/20 12:27 [No Known Allergies*] Assessment & Plan Assessment & Plan (1) Schizoaffective disorder, bipolar type: Status: Acute Code(s): F25.0 - Schizoaffective disorder, bipolar type Assessment and Plan: Mr. Islas is a 25 year-old male with hx of Schizoaffective Disorder who self presented to [facility] [place] [facility] reporting signs of radha including decrease need for sleep, racing thoughts, hyperverbal, pressured speech, poor concentration, shinto preoccupation, flight of ideas. He recently was taken off olanzapine, some concern in terms of weight gain in addition to pt request, and started on sertraline, currently on 25mg po daily. we discussed risks, benefits and alterntive treatment options. We discussed tapering him off sertraline as it is worsening manic symptoms. Pt presents as guarded, thought process with loose associations, appears to struggle to process information. PLAN: 1. Section 7 2. Switch perphenazine 12mg po BID to paliperidone. Continue paliperidone 6mg po daily. vD/C Perpehanzien 3. Continue depakote 1250mg po daily- pt is adherent. Depakote level on 11/15 36 (L) 4. continue trazodone 100mg po qhs. Greater than 50% of the session was spent on counseling and/or coordination of care Reason for contiued inpatient stay Substantial Risk for: inability to function
[2020-12-04] MEDS: Paliperidone ER 6 MG TAB.ER.24 PO (09:52)
[2020-12-04] MEDS: Divalproex Sodium 250 MG TABLET.DR 1250 MG PO (11:52)
[2020-12-04 18:00] VITALS: BP 131/57; PULSE 80; RESP 18; TEMP 36.8; O2SAT 100
[2020-12-04] MEDS: Melatonin 3 MG TABLET 6 MG PO (21:05)
[2020-12-04] MEDS: traZODone HCL 100 MG TABLET PO (21:05)
[2020-12-05 06:00] VITALS: BP 124/62; PULSE 62; RESP 16; TEMP 36.2; O2SAT 99
--- NOTE | 2020-12-05 06:53 | HO.PSYCHPN ---
Subjective Subjective Date of Service: 12/07/20 Reason For Visit: Radha Interim History: Pt continues to report that he has traumatic memories from time when [facility] was [facility]. He has identified several staff members and even the independent examiner who he states were there. He scans the room, thinks someone can hear our conversations and at times whispers. He denies SI/HI. he report she needs to detox. He denies SI/HI. Medication Compliance: Intermittent Review of Systems Review of Systems Constitutional: No Fever, No Chills ENT/Mouth: No Ear Pain, No Nasal Congestion, No sore throat Eyes: No Eye Pain, No Swelling, No Redness Cardiovascular: No Chest Pain, No SOB Respiratory: No Cough, No Sputum, No Dyspnea Gastrointestinal: No Nausea, No Vomiting, No Diarrhea, No Hematochezia, No Melena Genitourinary: No Dysuria, No Urinary Frequency, No Hematuria Musculoskeletal: No Myalgias Skin: No Skin Lesions, No rash Neuro: No Weakness, No Numbness, No Paresthesias, No Dizziness, No Headache Psych: positive Anxiety, positive Depression, positive radha, no SI HI Heme/Lymph: No Lymphadenopathy Endocrine: No Polyuria, No Polydipsia Yes all other systems are reviewed and are negative Cardiovascular: Denies chest pain, Denies irregular heart rhythm and Denies lightheadedness Respiratory: Denies pain with cough Gastrointestinal: Denies constipation and Denies diarrhea Mental Status Exam Mental Status Exam Narrative: Appearance: casually groomed, improved hygiene, in NAD Behavior: guarded, irritable at times Psychomotor: no agitation or retardation noted Speech: clear, regular rate/rhythm/ loud at times volume, spontaneous TP: derailment, disorganized TC: less paranoid towards roommate and other family members, wanting to find a job, sentences intelligible at times Mood: frustrated Affect:constricted SI:denies HI:denies AH/VH:denies Delusions:congregation preoccupation, grandiose ideas, some paranoia. Insight/judgment:poor x 2. Memory/cog: alert, oriented x 3, impaired secondary to psychiatric symptoms. Patient Appearance: Disheveled and Unkempt Patient Orientation: Person Level of Consciousness: Awake Patient Behavior: Suspicious and Poor Eye Contact Mood Description: Withdrawn, Hostile and Anxious Affect Description: Constricted Patient Cognition Impaired: No Ability to Follow Directions: Fair Speech Pattern: Clear, Monotone and Rambling Memory Description: Intact Diagnostics Vital Signs (24Hr): Body Mass Index 30.2 Labs Results: 10/17/20 20:45 10/17/20 20:45 Medications Medications Current Medications Generic Name Dose Route Start Last Admin Trade Name Freq PRN Reason Stop Dose Admin Acetaminophen 650 mg 10/20/20 13:45 12/06/20 21:42 Acetaminophen 325 Mg Tablet PO 650 mg Q6H PRN Administration Headache/Pain Mild Scale (1-3) Al Hydroxide/Mg Hydroxide 30 ml 10/20/20 13:45 11/27/20 16:28 Magnesium Hydrox/Alum Hydrox 30 Ml Oral.Susp PO 30 ml Q6H PRN Administration Heartburn/Nausea Aspirin 325 mg 11/14/20 12:35 11/15/20 12:01 Aspirin Enteric Coated 325 Mg Tablet. PO 325 mg Q4H PRN Administration Pain, Moderate (Pain Scale 4-6 Diphenhydramine HCl 25 mg 12/02/20 22:00 12/02/20 23:07 Diphenhydramine Hcl 25 Mg Tablet PO 25 mg Q3H PRN Administration Rash Divalproex Sodium 1,250 mg 12/06/20 21:00 12/06/20 23:07 Divalproex Sodium 250 Mg Tablet. PO Not Given BEDTIME SAPNA Hydroxyzine HCl 50 mg 10/20/20 13:45 12/02/20 16:36 Hydroxyzine Hcl 25 Mg Tablet PO 50 mg Q6H PRN Administration Anxiety Ibuprofen 800 mg 10/18/20 15:51 12/05/20 07:41 Ibuprofen 800 Mg Tablet PO 800 mg Q8H PRN Administration pain Magnesium Hydroxide 30 ml 10/20/20 13:45 12/05/20 21:13 Milk Of Magnesia 30 Ml Oral.Susp PO 30 ml DAILY PRN Administration Constipation Melatonin 6 mg 10/31/20 21:00 12/06/20 22:57 Melatonin 3 Mg Tablet PO 6 mg BEDTIME SAPNA Administration Multi-Ingred Cream/Lotion/Oil/Oint 1 appl 12/02/20 22:00 12/02/20 23:07 Mineral Oil/Petrolatum,White 106 Gm Tube TOPICAL 1 appl BID PRN Administration rash Olanzapine 10 mg 10/20/20 13:50 10/25/20 10:50 Olanzapine Odt 10 Mg Tab.Rapdis TRANSLINGU 10 mg Q6H PRN Administration agitation Paliperidone 6 mg 11/24/20 09:00 12/06/20 09:17 Paliperidone Er 6 Mg Tab.Er.24 PO 6 mg DAILY SAPNA Administration Polyethylene Glycol 17 gm 11/19/20 14:31 12/02/20 12:30 Polyethylene Glycol 3350 17 Gm Powd.Pack PO 17 gm DAILY PRN Administration constipation Trazodone HCl 100 mg 11/11/20 21:00 12/06/20 22:57 Trazodone Hcl 100 Mg Tablet PO 100 mg BEDTIME SAPNA Administration Allergies Allergies Allergy/AdvReac Type Severity Reaction Status Date / Time No Known Allergies Allergy Verified 06/25/20 12:27 [No Known Allergies*] Assessment & Plan Assessment & Plan (1) Schizoaffective disorder, bipolar type: Status: Acute Code(s): F25.0 - Schizoaffective disorder, bipolar type Assessment and Plan: Mr. Islas is a 25 year-old male with hx of Schizoaffective Disorder who self [place] [facility] [facility] reporting signs of radha including decrease need for sleep, racing thoughts, hyperverbal, pressured speech, poor concentration, congregation preoccupation, flight of ideas. He recently was taken off olanzapine, some concern in terms of weight gain in addition to pt request, and started on sertraline, currently on 25mg po daily. we discussed risks, benefits and alterntive treatment options. We discussed tapering him off sertraline as it is worsening manic symptoms. Pt presents as guarded, thought process with loose associations, appears to struggle to process information. PLAN: 1. Section 7 2. Switch perphenazine 12mg po BID to paliperidone. Continue paliperidone 6mg po daily. vD/C Perpehanzien 3. Continue depakote 1250mg po daily- pt is adherent. Depakote level on 11/15 36 (L) 4. continue trazodone 100mg po qhs. Greater than 50% of the session was spent on counseling and/or coordination of care Reason for contiued inpatient stay Substantial Risk for: inability to function
[2020-12-05] MEDS: Ibuprofen 800 MG TABLET PO (07:41)
[2020-12-05] MEDS: Paliperidone ER 6 MG TAB.ER.24 PO (12:23)
[2020-12-05] MEDS: Divalproex Sodium 250 MG TABLET.DR 1250 MG PO (12:24)
[2020-12-05] MEDS: Melatonin 3 MG TABLET 6 MG PO (21:12)
[2020-12-05] MEDS: traZODone HCL 100 MG TABLET PO (21:12)
[2020-12-05] MEDS: Milk of Magnesia 30 ML ORAL.SUSP PO (21:13)
[2020-12-05 21:52] VITALS: BP 133/64; PULSE 72; TEMP 36.6
[2020-12-06 06:00] VITALS: BP 120/59; PULSE 66; RESP 18; TEMP 36.5; O2SAT 98
--- NOTE | 2020-12-06 06:54 | HO.PSYCHPN ---
Subjective Subjective Date of Service: 12/07/20 Reason For Visit: Radha Interim History: Pt continues to insist about going to court and testifying about [place]. He thinks he is being poison by chemicals here in unit, suspicious of several staff members who he thinks were at [employer]. He denies SI/HI. Medication Compliance: Intermittent Side effects from medications: No Review of Systems Review of Systems Constitutional: No Fever, No Chills ENT/Mouth: No Ear Pain, No Nasal Congestion, No sore throat Eyes: No Eye Pain, No Swelling, No Redness Cardiovascular: No Chest Pain, No SOB Respiratory: No Cough, No Sputum, No Dyspnea Gastrointestinal: No Nausea, No Vomiting, No Diarrhea, No Hematochezia, No Melena Genitourinary: No Dysuria, No Urinary Frequency, No Hematuria Musculoskeletal: No Myalgias Skin: No Skin Lesions, No rash Neuro: No Weakness, No Numbness, No Paresthesias, No Dizziness, No Headache Psych: positive Anxiety, positive Depression, positive radha, no SI HI Heme/Lymph: No Lymphadenopathy Endocrine: No Polyuria, No Polydipsia Yes all other systems are reviewed and are negative Cardiovascular: Denies chest pain, Denies irregular heart rhythm and Denies lightheadedness Respiratory: Denies pain with cough Gastrointestinal: Denies constipation and Denies diarrhea Mental Status Exam Mental Status Exam Narrative: Appearance: casually groomed, improved hygiene, in NAD Behavior: guarded, irritable at times Psychomotor: no agitation or retardation noted Speech: clear, regular rate/rhythm/ loud at times volume, spontaneous TP: derailment, disorganized TC: less paranoid towards roommate and other family members, wanting to find a job, sentences intelligible at times Mood: frustrated Affect:constricted SI:denies HI:denies AH/VH:denies Delusions:yarsanism preoccupation, grandiose ideas, some paranoia. Insight/judgment:poor x 2. Memory/cog: alert, oriented x 3, impaired secondary to psychiatric symptoms. Patient Appearance: Disheveled and Unkempt Patient Orientation: Person Level of Consciousness: Awake Patient Behavior: Suspicious and Poor Eye Contact Mood Description: Withdrawn, Hostile and Anxious Affect Description: Constricted Patient Cognition Impaired: No Ability to Follow Directions: Fair Speech Pattern: Clear, Monotone and Rambling Memory Description: Intact Diagnostics Vital Signs (24Hr): Body Mass Index 30.2 Labs Results: 10/17/20 20:45 10/17/20 20:45 Medications Medications Current Medications Generic Name Dose Route Start Last Admin Trade Name Waldoq PRN Reason Stop Dose Admin Acetaminophen 650 mg 10/20/20 13:45 12/06/20 21:42 Acetaminophen 325 Mg Tablet PO 650 mg Q6H PRN Administration Headache/Pain Mild Scale (1-3) Al Hydroxide/Mg Hydroxide 30 ml 10/20/20 13:45 11/27/20 16:28 Magnesium Hydrox/Alum Hydrox 30 Ml Oral.Susp PO 30 ml Q6H PRN Administration Heartburn/Nausea Aspirin 325 mg 11/14/20 12:35 11/15/20 12:01 Aspirin Enteric Coated 325 Mg Tablet. PO 325 mg Q4H PRN Administration Pain, Moderate (Pain Scale 4-6 Diphenhydramine HCl 25 mg 12/02/20 22:00 12/02/20 23:07 Diphenhydramine Hcl 25 Mg Tablet PO 25 mg Q3H PRN Administration Rash Divalproex Sodium 1,250 mg 12/06/20 21:00 12/06/20 23:07 Divalproex Sodium 250 Mg Tablet. PO Not Given BEDTIME SAPNA Hydroxyzine HCl 50 mg 10/20/20 13:45 12/02/20 16:36 Hydroxyzine Hcl 25 Mg Tablet PO 50 mg Q6H PRN Administration Anxiety Ibuprofen 800 mg 10/18/20 15:51 12/05/20 07:41 Ibuprofen 800 Mg Tablet PO 800 mg Q8H PRN Administration pain Magnesium Hydroxide 30 ml 10/20/20 13:45 12/05/20 21:13 Milk Of Magnesia 30 Ml Oral.Susp PO 30 ml DAILY PRN Administration Constipation Melatonin 6 mg 10/31/20 21:00 12/06/20 22:57 Melatonin 3 Mg Tablet PO 6 mg BEDTIME SAPNA Administration Multi-Ingred Cream/Lotion/Oil/Oint 1 appl 12/02/20 22:00 12/02/20 23:07 Mineral Oil/Petrolatum,White 106 Gm Tube TOPICAL 1 appl BID PRN Administration rash Olanzapine 10 mg 10/20/20 13:50 10/25/20 10:50 Olanzapine Odt 10 Mg Tab.Rapdis TRANSLINGU 10 mg Q6H PRN Administration agitation Paliperidone 6 mg 11/24/20 09:00 12/06/20 09:17 Paliperidone Er 6 Mg Tab.Er.24 PO 6 mg DAILY SAPNA Administration Polyethylene Glycol 17 gm 11/19/20 14:31 12/02/20 12:30 Polyethylene Glycol 3350 17 Gm Powd.Pack PO 17 gm DAILY PRN Administration constipation Trazodone HCl 100 mg 11/11/20 21:00 12/06/20 22:57 Trazodone Hcl 100 Mg Tablet PO 100 mg BEDTIME SAPNA Administration Allergies Allergies Allergy/AdvReac Type Severity Reaction Status Date / Time No Known Allergies Allergy Verified 06/25/20 12:27 [No Known Allergies*] Assessment & Plan Assessment & Plan (1) Schizoaffective disorder, bipolar type: Status: Acute Code(s): F25.0 - Schizoaffective disorder, bipolar type Assessment and Plan: Mr. Islas is a 25 year-old male with hx of Schizoaffective Disorder who self [place] [facility] signs of radha including decrease need for sleep, racing thoughts, hyperverbal, pressured speech, poor concentration, yarsanism preoccupation, flight of ideas. He recently was taken off olanzapine, some concern in terms of weight gain in addition to pt request, and started on sertraline, currently on 25mg po daily. we discussed risks, benefits and alterntive treatment options. We discussed tapering him off sertraline as it is worsening manic symptoms. Pt presents as guarded, thought process with loose associations, appears to struggle to process information. PLAN: 1. Section 7 2. Switch perphenazine 12mg po BID to paliperidone. Continue paliperidone 6mg po daily. vD/C Perpehanzien 3. Continue depakote 1250mg po daily- pt is adherent. Depakote level on 11/15 36 (L) 4. continue trazodone 100mg po qhs. Greater than 50% of the session was spent on counseling and/or coordination of care Reason for contiued inpatient stay Substantial Risk for: inability to function
[2020-12-06] MEDS: Paliperidone ER 6 MG TAB.ER.24 PO (09:17)
[2020-12-06] MEDS: Acetaminophen 325 MG TABLET 650 MG PO (21:42)
[2020-12-06] MEDS: traZODone HCL 100 MG TABLET PO (22:57)
[2020-12-06] MEDS: Melatonin 3 MG TABLET 6 MG PO (22:57)
--- NOTE | 2020-12-06 23:14 | PC.NURSE ---
Johnathon refused his HS depakote.
--- NOTE | 2020-12-07 08:43 | HO.PSYCHPN ---
Subjective Subjective Date of Service: 12/08/20 Reason For Visit: Radha Interim History: Pt in room as soon as he saw this senior grant writer coming in, he quickly advised this senior grant writer not to enter room as it's full of debris. Pt reports loud noises coming from floor on top of his room like an explosition now leaving significant debris and dust in his room. There is no signs of debris nor dust in his room. Pt continues to report that his skin is absorbing dangerous chemical, he insists people can hear him in his room. He then asks what I think his schedule should be for the day. He was encouraged to attend groups but states he can't control chemicals outside his room. He denies SI/HI. His thought process largely disorganized intelligible. He has been most in his room. He insists that he is dehydrated and needs to drink more water and more food. Medication Compliance: Intermittent Side effects from medications: No Attending Groups: No Review of Systems Review of Systems Constitutional: No Fever, No Chills ENT/Mouth: No Ear Pain, No Nasal Congestion, No sore throat Eyes: No Eye Pain, No Swelling, No Redness Cardiovascular: No Chest Pain, No SOB Respiratory: No Cough, No Sputum, No Dyspnea Gastrointestinal: No Nausea, No Vomiting, No Diarrhea, No Hematochezia, No Melena Genitourinary: No Dysuria, No Urinary Frequency, No Hematuria Musculoskeletal: No Myalgias Skin: No Skin Lesions, No rash Neuro: No Weakness, No Numbness, No Paresthesias, No Dizziness, No Headache Psych: positive Anxiety, positive Depression, positive radha, no SI HI Heme/Lymph: No Lymphadenopathy Endocrine: No Polyuria, No Polydipsia Yes all other systems are reviewed and are negative Cardiovascular: Denies chest pain, Denies irregular heart rhythm and Denies lightheadedness Respiratory: Denies pain with cough Gastrointestinal: Denies constipation and Denies diarrhea Mental Status Exam Mental Status Exam Narrative: Appearance: casually groomed, improved hygiene, in NAD Behavior: guarded, irritable at times Psychomotor: no agitation or retardation noted Speech: clear, regular rate/rhythm/ loud at times volume, spontaneous TP: derailment, disorganized TC: less paranoid towards roommate and other family members, wanting to find a job, sentences intelligible at times Mood: frustrated Affect:constricted SI:denies HI:denies AH/VH:denies Delusions:latter day preoccupation, grandiose ideas, some paranoia. Insight/judgment:poor x 2. Memory/cog: alert, oriented x 3, impaired secondary to psychiatric symptoms. Patient Appearance: Disheveled and Unkempt Patient Orientation: Person Level of Consciousness: Awake Patient Behavior: Suspicious and Poor Eye Contact Mood Description: Withdrawn, Hostile and Anxious Affect Description: Constricted Patient Cognition Impaired: No Ability to Follow Directions: Fair Speech Pattern: Clear, Monotone and Rambling Memory Description: Intact Diagnostics Vital Signs (24Hr): Vital Signs - 24 hr 12/07/20 09:03 12/07/20 20:27 Temperature 97.1 F 96.8 F Pulse Rate 66 80 Respiratory Rate 18 19 Blood Pressure 143/63 H 134/60 Pulse Oximetry 97 98 Body Mass Index 30.2 Labs Results: 10/17/20 20:45 10/17/20 20:45 Medications Medications Current Medications Generic Name Dose Route Start Last Admin Trade Name Freq PRN Reason Stop Dose Admin Acetaminophen 650 mg 10/20/20 13:45 12/07/20 21:50 Acetaminophen 325 Mg Tablet PO 650 mg Q6H PRN Administration Headache/Pain Mild Scale (1-3) Al Hydroxide/Mg Hydroxide 30 ml 10/20/20 13:45 11/27/20 16:28 Magnesium Hydrox/Alum Hydrox 30 Ml Oral.Susp PO 30 ml Q6H PRN Administration Heartburn/Nausea Aspirin 325 mg 11/14/20 12:35 11/15/20 12:01 Aspirin Enteric Coated 325 Mg Tablet. PO 325 mg Q4H PRN Administration Pain, Moderate (Pain Scale 4-6 Diphenhydramine HCl 25 mg 12/02/20 22:00 12/02/20 23:07 Diphenhydramine Hcl 25 Mg Tablet PO 25 mg Q3H PRN Administration Rash Divalproex Sodium 1,250 mg 12/06/20 21:00 12/07/20 21:53 Divalproex Sodium 250 Mg Tablet. PO Not Given BEDTIME SAPNA Hydroxyzine HCl 50 mg 10/20/20 13:45 12/02/20 16:36 Hydroxyzine Hcl 25 Mg Tablet PO 50 mg Q6H PRN Administration Anxiety Ibuprofen 800 mg 10/18/20 15:51 12/07/20 09:05 Ibuprofen 800 Mg Tablet PO 800 mg Q8H PRN Administration pain Magnesium Hydroxide 30 ml 10/20/20 13:45 12/05/20 21:13 Milk Of Magnesia 30 Ml Oral.Susp PO 30 ml DAILY PRN Administration Constipation Melatonin 6 mg 10/31/20 21:00 12/07/20 21:50 Melatonin 3 Mg Tablet PO 6 mg BEDTIME SAPNA Administration Multi-Ingred Cream/Lotion/Oil/Oint 1 appl 12/02/20 22:00 12/02/20 23:07 Mineral Oil/Petrolatum,White 106 Gm Tube TOPICAL 1 appl BID PRN Administration rash Olanzapine 10 mg 10/20/20 13:50 10/25/20 10:50 Olanzapine Odt 10 Mg Tab.Rapdis TRANSLINGU 10 mg Q6H PRN Administration agitation Paliperidone 6 mg 11/24/20 09:00 12/07/20 09:05 Paliperidone Er 6 Mg Tab.Er.24 PO 6 mg DAILY SAPNA Administration Polyethylene Glycol 17 gm 11/19/20 14:31 12/02/20 12:30 Polyethylene Glycol 3350 17 Gm Powd.Pack PO 17 gm DAILY PRN Administration constipation Trazodone HCl 100 mg 11/11/20 21:00 12/07/20 21:50 Trazodone Hcl 100 Mg Tablet PO 100 mg BEDTIME SAPNA Administration Allergies Allergies Allergy/AdvReac Type Severity Reaction Status Date / Time No Known Allergies Allergy Verified 06/25/20 12:27 [No Known Allergies*] Assessment & Plan Assessment & Plan (1) Schizoaffective disorder, bipolar type: Status: Acute Code(s): F25.0 - Schizoaffective disorder, bipolar type Assessment and Plan: Mr. Islas is a 25 year-old male with hx of Schizoaffective Disorder who self presented to [facility] [place] ED reporting signs of radha including decrease need for sleep, racing thoughts, hyperverbal, pressured speech, poor concentration, latter day preoccupation, flight of ideas. He recently was taken off olanzapine, some concern in terms of weight gain in addition to pt request, and started on sertraline, currently on 25mg po daily. we discussed risks, benefits and alterntive treatment options. We discussed tapering him off sertraline as it is worsening manic symptoms. Pt presents as guarded, thought process with loose associations, appears to struggle to process information. PLAN: 1. Section 7 2. Switch perphenazine 12mg po BID to paliperidone. Continue paliperidone 6mg po daily. vD/C Perpehanzien 3. Continue depakote 1250mg po daily- pt is adherent. Depakote level on 11/15 36 (L) 4. continue trazodone 100mg po qhs. Greater than 50% of the session was spent on counseling and/or coordination of care Reason for contiued inpatient stay Substantial Risk for: inability to function
[2020-12-07 09:03] VITALS: BP 143/63; PULSE 66; RESP 18; TEMP 36.2; O2SAT 97
[2020-12-07] MEDS: Paliperidone ER 6 MG TAB.ER.24 PO (09:05)
[2020-12-07] MEDS: Ibuprofen 800 MG TABLET PO (09:05)
[2020-12-07 20:27] VITALS: BP 134/60; PULSE 80; RESP 19; TEMP 36; O2SAT 98
[2020-12-07] MEDS: traZODone HCL 100 MG TABLET PO (21:50)
[2020-12-07] MEDS: Acetaminophen 325 MG TABLET 650 MG PO (21:50)
[2020-12-07] MEDS: Melatonin 3 MG TABLET 6 MG PO (21:50)
[2020-12-08 06:00] VITALS: BP 118/56; PULSE 63; RESP 16; TEMP 36.9; O2SAT 97
--- NOTE | 2020-12-08 08:37 | HO.PSYCHPN ---
Subjective Subjective Date of Service: 12/09/20 Reason For Visit: Radha Interim History: Pt continues to present as guarded and suspicious. Pt continues to report that some staff were part of haunted house. He thinks he is being recorded and does not feel safe outside of his room. However, he was assigned a roommate. Pt very suspicious and paranoid towards this roommate. He denies SI/HI. continues to report that he is dehydrated and needs to detox. Because he got new roommate he did not want to stay in room, asked to be in art room instead most of the day. Medication Compliance: Intermittent Side effects from medications: No Attending Groups: No Review of Systems Acute medical concerns: No Review of Systems Review of Systems Constitutional: No Fever, No Chills ENT/Mouth: No Ear Pain, No Nasal Congestion, No sore throat Eyes: No Eye Pain, No Swelling, No Redness Cardiovascular: No Chest Pain, No SOB Respiratory: No Cough, No Sputum, No Dyspnea Gastrointestinal: No Nausea, No Vomiting, No Diarrhea, No Hematochezia, No Melena Genitourinary: No Dysuria, No Urinary Frequency, No Hematuria Musculoskeletal: No Myalgias Skin: No Skin Lesions, No rash Neuro: No Weakness, No Numbness, No Paresthesias, No Dizziness, No Headache Psych: positive Anxiety, positive Depression, positive radha, no SI HI Heme/Lymph: No Lymphadenopathy Endocrine: No Polyuria, No Polydipsia Yes all other systems are reviewed and are negative Cardiovascular: Denies chest pain, Denies irregular heart rhythm and Denies lightheadedness Respiratory: Denies pain with cough Gastrointestinal: Denies constipation and Denies diarrhea Mental Status Exam Mental Status Exam Narrative: Appearance: casually groomed, improved hygiene, in NAD Behavior: guarded, irritable at times Psychomotor: no agitation or retardation noted Speech: clear, regular rate/rhythm/ loud at times volume, spontaneous TP: derailment, disorganized TC: less paranoid towards roommate and other family members, wanting to find a job, sentences intelligible at times Mood: frustrated Affect:constricted SI:denies HI:denies AH/VH:denies Delusions:presybeterian preoccupation, grandiose ideas, some paranoia. Insight/judgment:poor x 2. Memory/cog: alert, oriented x 3, impaired secondary to psychiatric symptoms. Patient Appearance: Disheveled and Unkempt Patient Orientation: Person Level of Consciousness: Awake Patient Behavior: Suspicious and Poor Eye Contact Mood Description: Withdrawn, Hostile and Anxious Affect Description: Constricted Patient Cognition Impaired: No Ability to Follow Directions: Fair Speech Pattern: Clear, Monotone and Rambling Memory Description: Intact Diagnostics Vital Signs (24Hr): Vital Signs - 24 hr 12/08/20 21:09 Temperature 96.9 F Pulse Rate 78 Respiratory Rate 18 Blood Pressure 149/70 H Pulse Oximetry 100 Body Mass Index 30.2 Labs Results: 10/17/20 20:45 10/17/20 20:45 Medications Medications Current Medications Generic Name Dose Route Start Last Admin Trade Name Freq PRN Reason Stop Dose Admin Acetaminophen 650 mg 10/20/20 13:45 12/07/20 21:50 Acetaminophen 325 Mg Tablet PO 650 mg Q6H PRN Administration Headache/Pain Mild Scale (1-3) Al Hydroxide/Mg Hydroxide 30 ml 10/20/20 13:45 11/27/20 16:28 Magnesium Hydrox/Alum Hydrox 30 Ml Oral.Susp PO 30 ml Q6H PRN Administration Heartburn/Nausea Aspirin 325 mg 11/14/20 12:35 11/15/20 12:01 Aspirin Enteric Coated 325 Mg Tablet. PO 325 mg Q4H PRN Administration Pain, Moderate (Pain Scale 4-6 Diphenhydramine HCl 25 mg 12/02/20 22:00 12/02/20 23:07 Diphenhydramine Hcl 25 Mg Tablet PO 25 mg Q3H PRN Administration Rash Divalproex Sodium 1,250 mg 12/06/20 21:00 12/08/20 21:05 Divalproex Sodium 250 Mg Tablet. PO 1,250 mg BEDTIME SAPNA Administration Hydroxyzine HCl 50 mg 10/20/20 13:45 12/02/20 16:36 Hydroxyzine Hcl 25 Mg Tablet PO 50 mg Q6H PRN Administration Anxiety Ibuprofen 800 mg 10/18/20 15:51 12/07/20 09:05 Ibuprofen 800 Mg Tablet PO 800 mg Q8H PRN Administration pain Magnesium Hydroxide 30 ml 10/20/20 13:45 12/05/20 21:13 Milk Of Magnesia 30 Ml Oral.Susp PO 30 ml DAILY PRN Administration Constipation Melatonin 6 mg 10/31/20 21:00 12/08/20 21:05 Melatonin 3 Mg Tablet PO 6 mg BEDTIME SAPNA Administration Multi-Ingred Cream/Lotion/Oil/Oint 1 appl 12/02/20 22:00 12/02/20 23:07 Mineral Oil/Petrolatum,White 106 Gm Tube TOPICAL 1 appl BID PRN Administration rash Olanzapine 10 mg 10/20/20 13:50 10/25/20 10:50 Olanzapine Odt 10 Mg Tab.Rapdis TRANSLINGU 10 mg Q6H PRN Administration agitation Paliperidone 6 mg 11/24/20 09:00 12/08/20 09:18 Paliperidone Er 6 Mg Tab.Er.24 PO 6 mg DAILY SAPNA Administration Polyethylene Glycol 17 gm 11/19/20 14:31 12/02/20 12:30 Polyethylene Glycol 3350 17 Gm Powd.Pack PO 17 gm DAILY PRN Administration constipation Trazodone HCl 100 mg 11/11/20 21:00 12/08/20 21:05 Trazodone Hcl 100 Mg Tablet PO 100 mg BEDTIME SAPNA Administration Allergies Allergies Allergy/AdvReac Type Severity Reaction Status Date / Time No Known Allergies Allergy Verified 06/25/20 12:27 [No Known Allergies*] Assessment & Plan Assessment & Plan (1) Schizoaffective disorder, bipolar type: Status: Acute Code(s): F25.0 - Schizoaffective disorder, bipolar type Assessment and Plan: Mr. Islas is a 25 year-old male with hx of Schizoaffective Disorder who self presented to [facility] ED reporting signs of radha including decrease need for sleep, racing thoughts, hyperverbal, pressured speech, poor concentration, presybeterian preoccupation, flight of ideas. He recently was taken off olanzapine, some concern in terms of weight gain in addition to pt request, and started on sertraline, currently on 25mg po daily. we discussed risks, benefits and alterntive treatment options. We discussed tapering him off sertraline as it is worsening manic symptoms. Pt presents as guarded, thought process with loose associations, appears to struggle to process information. PLAN: 1. Section 7 2. Switch perphenazine 12mg po BID to paliperidone. Continue paliperidone 6mg po daily. vD/C Perpehanzien 3. Continue depakote 1250mg po daily- pt is adherent. Depakote level on 11/15 36 (L) 4. continue trazodone 100mg po qhs. Greater than 50% of the session was spent on counseling and/or coordination of care Reason for contiued inpatient stay Substantial Risk for: inability to function
[2020-12-08] MEDS: Paliperidone ER 6 MG TAB.ER.24 PO (09:18)
[2020-12-08] MEDS: traZODone HCL 100 MG TABLET PO (21:05)
[2020-12-08] MEDS: Divalproex Sodium 250 MG TABLET.DR 1250 MG PO (21:05)
[2020-12-08] MEDS: Melatonin 3 MG TABLET 6 MG PO (21:05)
[2020-12-08 21:09] VITALS: BP 149/70; PULSE 78; RESP 18; TEMP 36.1; O2SAT 100
[2020-12-09] MEDS: Paliperidone ER 6 MG TAB.ER.24 PO (10:02)
[2020-12-09 10:04] VITALS: BP 129/61; PULSE 79; TEMP 35.9; O2SAT 97
--- NOTE | 2020-12-09 21:34 | PC.NURSE ---
refused HS medications and VS REPORTS ''i don't need them''
[2020-12-10 06:00] VITALS: RESP 18
--- NOTE | 2020-12-10 08:26 | P.PNPSI_ITS ---
Subjective Subjective Date of Service: 12/11/20 Reason For Visit: Radha Interim History: Pt continues to present as guarded and suspicious. Pt continues to report that some staff were part of haunted house. He thinks he is being recorded and does not feel safe outside of his room. However, he was assigned a roommate. Pt very suspicious and paranoid towards this roommate. He denies SI/HI. continues to report that he is dehydrated and needs to detox. Because he got new roommate he did not want to stay in room, asked to be in art room instead most of the day. Review of Systems Review of Systems Constitutional: No Fever, No Chills ENT/Mouth: No Ear Pain, No Nasal Congestion, No sore throat Eyes: No Eye Pain, No Swelling, No Redness Cardiovascular: No Chest Pain, No SOB Respiratory: No Cough, No Sputum, No Dyspnea Gastrointestinal: No Nausea, No Vomiting, No Diarrhea, No Hematochezia, No Melena Genitourinary: No Dysuria, No Urinary Frequency, No Hematuria Musculoskeletal: No Myalgias Skin: No Skin Lesions, No rash Neuro: No Weakness, No Numbness, No Paresthesias, No Dizziness, No Headache Psych: positive Anxiety, positive Depression, positive radha, no SI HI Heme/Lymph: No Lymphadenopathy Endocrine: No Polyuria, No Polydipsia Yes all other systems are reviewed and are negative Cardiovascular: Denies chest pain, Denies irregular heart rhythm and Denies lightheadedness Respiratory: Denies pain with cough Gastrointestinal: Denies constipation and Denies diarrhea Mental Status Exam Mental Status Exam Narrative: Appearance: casually groomed, improved hygiene, in NAD Behavior: guarded, irritable at times Psychomotor: no agitation or retardation noted Speech: clear, regular rate/rhythm/ loud at times volume, spontaneous TP: derailment, disorganized TC: less paranoid towards roommate and other family members, wanting to find a job, sentences intelligible at times Mood: frustrated Affect:constricted SI:denies HI:denies AH/VH:denies Delusions:gnosticism preoccupation, grandiose ideas, some paranoia. Insight/judgment:poor x 2. Memory/cog: alert, oriented x 3, impaired secondary to psychiatric symptoms. Patient Appearance: Disheveled and Unkempt Patient Orientation: Person Level of Consciousness: Awake Patient Behavior: Suspicious and Poor Eye Contact Mood Description: Withdrawn, Hostile and Anxious Affect Description: Constricted Patient Cognition Impaired: No Ability to Follow Directions: Fair Speech Pattern: Clear, Monotone and Rambling Memory Description: Intact Diagnostics Vital Signs (24Hr): Vital Signs - 24 hr 12/10/20 21:47 Temperature 98.0 F Pulse Rate 72 Respiratory Rate 18 Blood Pressure 120/57 L Pulse Oximetry 100 Body Mass Index 30.2 Labs Results: 10/17/20 20:45 10/17/20 20:45 Medications Medications Current Medications Generic Name Dose Route Start Last Admin Trade Name Freq PRN Reason Stop Dose Admin Acetaminophen 650 mg 10/20/20 13:45 12/07/20 21:50 Acetaminophen 325 Mg Tablet PO 650 mg Q6H PRN Administration Headache/Pain Mild Scale (1-3) Al Hydroxide/Mg Hydroxide 30 ml 10/20/20 13:45 11/27/20 16:28 Magnesium Hydrox/Alum Hydrox 30 Ml Oral.Susp PO 30 ml Q6H PRN Administration Heartburn/Nausea Aspirin 325 mg 11/14/20 12:35 11/15/20 12:01 Aspirin Enteric Coated 325 Mg Tablet. PO 325 mg Q4H PRN Administration Pain, Moderate (Pain Scale 4-6 Diphenhydramine HCl 25 mg 12/02/20 22:00 12/02/20 23:07 Diphenhydramine Hcl 25 Mg Tablet PO 25 mg Q3H PRN Administration Rash Divalproex Sodium 1,250 mg 12/06/20 21:00 12/10/20 22:01 Divalproex Sodium 250 Mg Tablet. PO Not Given BEDTIME SAPNA Hydroxyzine HCl 50 mg 10/20/20 13:45 12/10/20 21:57 Hydroxyzine Hcl 25 Mg Tablet PO 50 mg Q6H PRN Administration Anxiety Ibuprofen 800 mg 10/18/20 15:51 12/07/20 09:05 Ibuprofen 800 Mg Tablet PO 800 mg Q8H PRN Administration pain Magnesium Hydroxide 30 ml 10/20/20 13:45 12/05/20 21:13 Milk Of Magnesia 30 Ml Oral.Susp PO 30 ml DAILY PRN Administration Constipation Melatonin 6 mg 10/31/20 21:00 12/10/20 21:57 Melatonin 3 Mg Tablet PO 6 mg BEDTIME SAPNA Administration Multi-Ingred Cream/Lotion/Oil/Oint 1 appl 12/02/20 22:00 08/18/21 23:07 Mineral Oil/Petrolatum,White 106 Gm Tube TOPICAL 1 appl BID PRN Administration rash Olanzapine 10 mg 10/20/20 13:50 10/25/20 10:50 Olanzapine Odt 10 Mg Tab.Rapdis TRANSLINGU 10 mg Q6H PRN Administration agitation Paliperidone 6 mg 11/24/20 09:00 12/10/20 08:58 Paliperidone Er 6 Mg Tab.Er.24 PO 6 mg DAILY SAPNA Administration Polyethylene Glycol 17 gm 11/19/20 14:31 12/02/20 12:30 Polyethylene Glycol 3350 17 Gm Powd.Pack PO 17 gm DAILY PRN Administration constipation Trazodone HCl 100 mg 11/11/20 21:00 12/10/20 21:57 Trazodone Hcl 100 Mg Tablet PO 100 mg BEDTIME SAPNA Administration Allergies Allergies Allergy/AdvReac Type Severity Reaction Status Date / Time No Known Allergies Allergy Verified 06/25/20 12:27 [No Known Allergies*] Assessment & Plan Assessment & Plan (1) Schizoaffective disorder, bipolar type: Status: Acute Code(s): F25.0 - Schizoaffective disorder, bipolar type Assessment and Plan: Mr. Islas is a 25 year-old male with hx of Schizoaffective Disorder who self presented to [facility] [place] reporting signs of radha including decrease need for sleep, racing thoughts, hyperverbal, pressured speech, poor concentration, gnosticism preoccupation, flight of ideas. He recently was taken off olanzapine, some concern in terms of weight gain in addition to pt request, and started on sertraline, currently on 25mg po daily. we discussed risks, benefits and alterntive treatment options. We discussed tapering him off sertraline as it is worsening manic symptoms. Pt presents as guarded, thought process with loose associations, appears to struggle to process information. PLAN: 1. Section 7 2. Switch perphenazine 12mg po BID to paliperidone. Continue paliperidone 6mg po daily. vD/C Perpehanzien 3. Continue depakote 1250mg po daily- pt is adherent. Depakote level on 11/15 36 (L) 4. continue trazodone 100mg po qhs. Greater than 50% of the session was spent on counseling and/or coordination of care Reason for contiued inpatient stay Substantial Risk for: inability to function
--- NOTE | 2020-12-10 08:27 | P.PNPSI_ITS ---
Subjective Subjective Date of Service: 12/11/20 Reason For Visit: Radha Subjective Notes: Section 8 (committed on 12/11/20) Interim History: Pt continues to present as guarded and suspicious. Pt continues to report that some staff were part of haunted house. He thinks he is being recorded and does not feel safe outside of his room. However, he was assigned a roommate. Pt very suspicious and paranoid towards this roommate. He denies SI/HI. continues to report that he is dehydrated and needs to detox. Because he got new roommate he did not want to stay in room, asked to be in art room instead most of the day. Pt was committed in court today for involuntary psych tx. Medication Compliance: Intermittent Review of Systems Review of Systems Constitutional: No Fever, No Chills ENT/Mouth: No Ear Pain, No Nasal Congestion, No sore throat Eyes: No Eye Pain, No Swelling, No Redness Cardiovascular: No Chest Pain, No SOB Respiratory: No Cough, No Sputum, No Dyspnea Gastrointestinal: No Nausea, No Vomiting, No Diarrhea, No Hematochezia, No Melena Genitourinary: No Dysuria, No Urinary Frequency, No Hematuria Musculoskeletal: No Myalgias Skin: No Skin Lesions, No rash Neuro: No Weakness, No Numbness, No Paresthesias, No Dizziness, No Headache Psych: positive Anxiety, positive Depression, positive radha, no SI HI Heme/Lymph: No Lymphadenopathy Endocrine: No Polyuria, No Polydipsia Yes all other systems are reviewed and are negative Cardiovascular: Denies chest pain, Denies irregular heart rhythm and Denies lightheadedness Respiratory: Denies pain with cough Gastrointestinal: Denies constipation and Denies diarrhea Mental Status Exam Mental Status Exam Narrative: Appearance: casually groomed, improved hygiene, in NAD Behavior: guarded, irritable at times Psychomotor: no agitation or retardation noted Speech: clear, regular rate/rhythm/ loud at times volume, spontaneous TP: derailment, disorganized TC: less paranoid towards roommate and other family members, wanting to find a job, sentences intelligible at times Mood: frustrated Affect:constricted SI:denies HI:denies AH/VH:denies Delusions:presybeterian preoccupation, grandiose ideas, some paranoia. Insight/judgment:poor x 2. Memory/cog: alert, oriented x 3, impaired secondary to psychiatric symptoms. Patient Appearance: Disheveled and Unkempt Patient Orientation: Person Level of Consciousness: Awake Patient Behavior: Suspicious and Poor Eye Contact Mood Description: Withdrawn, Hostile and Anxious Affect Description: Constricted Patient Cognition Impaired: No Ability to Follow Directions: Fair Speech Pattern: Clear, Monotone and Rambling Memory Description: Intact Diagnostics Vital Signs (24Hr): Vital Signs - 24 hr 12/10/20 21:47 Temperature 98.0 F Pulse Rate 72 Respiratory Rate 18 Blood Pressure 120/57 L Pulse Oximetry 100 Body Mass Index 30.2 Labs Results: 10/17/20 20:45 10/17/20 20:45 Medications Medications Current Medications Generic Name Dose Route Start Last Admin Trade Name Freq PRN Reason Stop Dose Admin Acetaminophen 650 mg 10/20/20 13:45 12/07/20 21:50 Acetaminophen 325 Mg Tablet PO 650 mg Q6H PRN Administration Headache/Pain Mild Scale (1-3) Al Hydroxide/Mg Hydroxide 30 ml 10/20/20 13:45 11/27/20 16:28 Magnesium Hydrox/Alum Hydrox 30 Ml Oral.Susp PO 30 ml Q6H PRN Administration Heartburn/Nausea Aspirin 325 mg 11/14/20 12:35 11/15/20 12:01 Aspirin Enteric Coated 325 Mg Tablet. PO 325 mg Q4H PRN Administration Pain, Moderate (Pain Scale 4-6 Diphenhydramine HCl 25 mg 12/02/20 22:00 12/02/20 23:07 Diphenhydramine Hcl 25 Mg Tablet PO 25 mg Q3H PRN Administration Rash Divalproex Sodium 1,250 mg 12/06/20 21:00 12/10/20 22:01 Divalproex Sodium 250 Mg Tablet. PO Not Given BEDTIME SAPNA Hydroxyzine HCl 50 mg 10/20/20 13:45 12/10/20 21:57 Hydroxyzine Hcl 25 Mg Tablet PO 50 mg Q6H PRN Administration Anxiety Ibuprofen 800 mg 10/18/20 15:51 12/07/20 09:05 Ibuprofen 800 Mg Tablet PO 800 mg Q8H PRN Administration pain Magnesium Hydroxide 30 ml 10/20/20 13:45 12/05/20 21:13 Milk Of Magnesia 30 Ml Oral.Susp PO 30 ml DAILY PRN Administration Constipation Melatonin 6 mg 10/31/20 21:00 12/10/20 21:57 Melatonin 3 Mg Tablet PO 6 mg BEDTIME SAPNA Administration Multi-Ingred Cream/Lotion/Oil/Oint 1 appl 12/02/20 22:00 12/02/20 23:07 Mineral Oil/Petrolatum,White 106 Gm Tube TOPICAL 1 appl BID PRN Administration rash Olanzapine 10 mg 10/20/20 13:50 10/25/20 10:50 Olanzapine Odt 10 Mg Tab.Rapdis TRANSLINGU 10 mg Q6H PRN Administration agitation Paliperidone 6 mg 11/24/20 09:00 12/10/20 08:58 Paliperidone Er 6 Mg Tab.Er.24 PO 6 mg DAILY SAPNA Administration Polyethylene Glycol 17 gm 11/19/20 14:31 12/02/20 12:30 Polyethylene Glycol 3350 17 Gm Powd.Pack PO 17 gm DAILY PRN Administration constipation Trazodone HCl 100 mg 11/11/20 21:00 12/10/20 21:57 Trazodone Hcl 100 Mg Tablet PO 100 mg BEDTIME SAPNA Administration Allergies Allergies Allergy/AdvReac Type Severity Reaction Status Date / Time No Known Allergies Allergy Verified 06/25/20 12:27 [No Known Allergies*] Assessment & Plan Assessment & Plan (1) Schizoaffective disorder, bipolar type: Status: Acute Code(s): F25.0 - Schizoaffective disorder, bipolar type Assessment and Plan: Mr. Islas is a 25 year-old male with hx of Schizoaffective Disorder who self presented to [facility] reporting signs of radha including decrease need for sleep, racing thoughts, hyperverbal, pressured speech, poor concentration, presybeterian preoccupation, flight of ideas. He recently was taken off olanzapine, some concern in terms of weight gain in addition to pt request, and started on sertraline, currently on 25mg po daily. we discussed risks, benefits and alterntive treatment options. We discussed tapering him off sertraline as it is worsening manic symptoms. Pt presents as guarded, thought process with loose associations, appears to struggle to process information. PLAN: 1. Section 7 2. Switch perphenazine 12mg po BID to paliperidone. Continue paliperidone 6mg po daily. vD/C Perpehanzien 3. Continue depakote 1250mg po daily- pt is adherent. Depakote level on 11/15 36 ( L) 4. continue trazodone 100mg po qhs. Greater than 50% of the session was spent on counseling and/or coordination of care Reason for contiued inpatient stay Substantial Risk for: inability to function
[2020-12-10] MEDS: Paliperidone ER 6 MG TAB.ER.24 PO (08:58)
[2020-12-10 21:47] VITALS: BP 120/57; PULSE 72; RESP 18; TEMP 36.7; O2SAT 100
[2020-12-10] MEDS: traZODone HCL 100 MG TABLET PO (21:57)
[2020-12-10] MEDS: Melatonin 3 MG TABLET 6 MG PO (21:57)
[2020-12-10] MEDS: hydrOXYzine HCL 25 MG TABLET 50 MG PO (21:57)
[2020-12-11] MEDS: Paliperidone ER 6 MG TAB.ER.24 PO (09:27)
[2020-12-11 09:31] VITALS: BP 142/65; PULSE 76; RESP 16; TEMP 36.7; O2SAT 98
--- NOTE | 2020-12-11 12:42 | P.PNPSI_ITS ---
Subjective Subjective Date of Service: 12/11/20 Reason For Visit: Radha Interim History: pt states, i'm sick. can i have my medications adjusted? he states he is experiencing some congestion and would like to have the PRN he got last evening available moving forward. MD states he will look into it and make it so if it is reasonable. also c/o feeling the invega is making his head s mall, among other complaints, and he would like the dose changed. he is referred to speak with his attending on monday. per staff, not attending groups, refusing VPA. slept through the night. Mental Status Exam Mental Status Exam Narrative: Appearance: casually groomed, improved hygiene, in NAD Behavior: guarded, irritable at times Psychomotor: no agitation or retardation noted Speech: clear, regular rate/rhythm, spontaneous TP: linear in brief interaction TC: delusions and paranoia Affect:constricted no SI/HI/AVH expressed. Diagnostics Vital Signs (24Hr): Vital Signs - 24 hr 12/10/20 21:47 12/11/20 09:31 Temperature 98.0 F 98.1 F Pulse Rate 72 76 Respiratory Rate 18 16 Blood Pressure 120/57 L 142/65 H Pulse Oximetry 100 98 Body Mass Index 30.2 Labs Results: 10/17/20 20:45 10/17/20 20:45 Medications Medications Current Medications Generic Name Dose Route Start Last Admin Trade Name Freq PRN Reason Stop Dose Admin Acetaminophen 650 mg 10/20/20 13:45 12/07/20 21:50 Acetaminophen 325 Mg Tablet PO 650 mg Q6H PRN Administration Headache/Pain Mild Scale (1-3) Al Hydroxide/Mg Hydroxide 30 ml 10/20/20 13:45 11/27/20 16:28 Magnesium Hydrox/Alum Hydrox 30 Ml Oral.Susp PO 30 ml Q6H PRN Administration Heartburn/Nausea Aspirin 325 mg 11/14/20 12:35 11/15/20 12:01 Aspirin Enteric Coated 325 Mg Tablet.Dr PO 325 mg Q4H PRN Administration Pain, Moderate (Pain Scale 4-6 Diphenhydramine HCl 25 mg 12/02/20 22:00 12/02/20 23:07 Diphenhydramine Hcl 25 Mg Tablet PO 25 mg Q3H PRN Administration Rash Divalproex Sodium 1,250 mg 12/06/20 21:00 12/10/20 22:01 Divalproex Sodium 250 Mg Tablet.Dr MORRISON Not Given BEDTIME SAPNA Hydroxyzine HCl 50 mg 10/20/20 13:45 12/10/20 21:57 Hydroxyzine Hcl 25 Mg Tablet PO 50 mg Q6H PRN Administration Anxiety Ibuprofen 800 mg 10/18/20 15:51 12/07/20 09:05 Ibuprofen 800 Mg Tablet PO 800 mg Q8H PRN Administration pain Magnesium Hydroxide 30 ml 10/20/20 13:45 12/05/20 21:13 Milk Of Magnesia 30 Ml Oral.Susp PO 30 ml DAILY PRN Administration Constipation Melatonin 6 mg 10/31/20 21:00 12/10/20 21:57 Melatonin 3 Mg Tablet PO 6 mg BEDTIME SAPNA Administration Multi-Ingred Cream/Lotion/Oil/Oint 1 appl 12/02/20 22:00 12/02/20 23:07 Mineral Oil/Petrolatum,White 106 Gm Tube TOPICAL 1 appl BID PRN Administration rash Olanzapine 10 mg 10/20/20 13:50 10/25/20 10:50 Olanzapine Odt 10 Mg Tab.Rapdis TRANSLINGU 10 mg Q6H PRN Administration agitation Paliperidone 6 mg 11/24/20 09:00 12/11/20 09:27 Paliperidone Er 6 Mg Tab.Er.24 PO 6 mg DAILY SAPNA Administration Polyethylene Glycol 17 gm 11/19/20 14:31 12/02/20 12:30 Polyethylene Glycol 3350 17 Gm Powd.Pack PO 17 gm DAILY PRN Administration constipation Trazodone HCl 100 mg 11/11/20 21:00 12/10/20 21:57 Trazodone Hcl 100 Mg Tablet PO 100 mg BEDTIME SAPNA Administration Allergies Allergies Allergy/AdvReac Type Severity Reaction Status Date / Time No Known Allergies Allergy Verified 06/25/20 12:27 [No Known Allergies*] Assessment & Plan Assessment & Plan (1) Schizoaffective disorder, bipolar type: Status: Acute Code(s): F25.0 - Schizoaffective disorder, bipolar type Assessment and Plan: Mr. Islas is a 25 year-old male with hx of Schizoaffective Disorder who self presented to [facility] reporting signs of radha including decrease need for sleep, racing thoughts, hyperverbal, pressured speech, poor concentration, hoahaoism preoccupation, flight of ideas. He recently was taken off olanzapine, some co ncern in terms of weight gain in addition to pt request, and started on sertraline, currently on 25mg po daily. we discussed risks, benefits and alterntive treatment options. We discussed tapering him off sertraline as it is worsening manic symptoms. Pt presents as guarded, thought process with loose associations, appears to struggle to process information. PLAN: 1. Section 7 2. Switch perphenazine 12mg po BID to paliperidone. Continue paliperidone 6mg po daily. D/C Perphenazine. 3. Continue depakote 1250mg po daily- pt is not adherent. Depakote level on 11/15 36 (L) 4. continue trazodone 100mg po qhs. Greater than 50% of the session was spent on counseling and/or coordination of care Reason for contiued inpatient stay Substantial Risk for: inability to function and rapid decompensation
[2020-12-11] MEDS: hydrOXYzine HCL 25 MG TABLET 50 MG PO (20:29)
[2020-12-12 06:00] VITALS: BP 119/61; PULSE 68; RESP 16; TEMP 36.7; O2SAT 98
[2020-12-12] MEDS: Paliperidone ER 6 MG TAB.ER.24 PO (09:15)
[2020-12-12 21:14] VITALS: BP 144/69; PULSE 84; RESP 18; TEMP 36.3; O2SAT 97
[2020-12-12] MEDS: Melatonin 3 MG TABLET 6 MG PO (21:43)
--- NOTE | 2020-12-12 23:23 | P.PNPSI_ITS ---
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 Feels that no one is being honest with him and that he has been subject to experiments and poisoning. Patient irritable dysphoric no insight has been more irritable verbally angry but not threatening Diagnostics Vital Signs (24Hr): Vital Signs - 24 hr 12/12/20 06:00 12/12/20 21:14 Temperature 98.1 F 97.3 F Pulse Rate 68 84 Respiratory Rate 16 18 Blood Pressure 119/61 144/69 H Pulse Oximetry 98 97 Body Mass Index 30.2 Labs Results: 10/17/20 20:45 10/17/20 20:45 Medications Medications Current Medications Generic Name Dose Route Start Last Admin Trade Name Freq PRN Reason Stop Dose Admin Acetaminophen 650 mg 10/20/20 13:45 12/07/20 21:50 Acetaminophen 325 Mg Tablet PO 650 mg Q6H PRN Administration Headache/Pain Mild Scale (1-3) Al Hydroxide/Mg Hydroxide 30 ml 10/20/20 13:45 11/27/20 16:28 Magnesium Hydrox/Alum Hydrox 30 Ml Oral.Susp PO 30 ml Q6H PRN Administration Heartburn/Nausea Aspirin 325 mg 11/14/20 12:35 11/15/20 12:01 Aspirin Enteric Coated 325 Mg Tablet. PO 325 mg Q4H PRN Administration Pain, Moderate (Pain Scale 4-6 Diphenhydramine HCl 25 mg 12/02/20 22:00 12/02/20 23:07 Diphenhydramine Hcl 25 Mg Tablet PO 25 mg Q3H PRN Administration Rash Divalproex Sodium 1,250 mg 12/06/20 21:00 12/12/20 21:51 Divalproex Sodium 250 Mg Tablet. PO Not Given BEDTIME SAPNA Hydroxyzine HCl 50 mg 10/20/20 13:45 12/11/20 20:29 Hydroxyzine Hcl 25 Mg Tablet PO 50 mg Q6H PRN Administration Anxiety Ibuprofen 800 mg 10/18/20 15:51 12/07/20 09:05 Ibuprofen 800 Mg Tablet PO 800 mg Q8H PRN Administration pain Magnesium Hydroxide 30 ml 10/20/20 13:45 12/05/20 21:13 Milk Of Magnesia 30 Ml Oral.Susp PO 30 ml DAILY PRN Administration Constipation Melatonin 6 mg 10/31/20 21:00 12/12/20 21:43 Melatonin 3 Mg Tablet PO 6 mg BEDTIME SAPNA Administration Multi-Ingred Cream/Lotion/Oil/Oint 1 appl 12/02/20 22:00 12/02/20 23:07 Mineral Oil/Petrolatum,White 106 Gm Tube TOPICAL 1 appl BID PRN Administration rash Olanzapine 10 mg 10/20/20 13:50 10/25/20 10:50 Olanzapine Odt 10 Mg Tab.Rapdis TRANSLINGU 10 mg Q6H PRN Administration agitation Paliperidone 6 mg 11/24/20 09:00 12/12/20 09:15 Paliperidone Er 6 Mg Tab.Er.24 PO 6 mg DAILY SAPNA Administration Polyethylene Glycol 17 gm 11/19/20 14:31 12/02/20 12:30 Polyethylene Glycol 3350 17 Gm Powd.Pack PO 17 gm DAILY PRN Administration constipation Trazodone HCl 100 mg 11/11/20 21:00 12/12/20 21:52 Trazodone Hcl 100 Mg Tablet PO Not Given BEDTIME SAPNA Allergies Allergies Allergy/AdvReac Type Severity Reaction Status Date / Time No Known Allergies Allergy Verified 06/25/20 12:27 [No Known Allergies*] Assessment & Plan Assessment & Plan (1) Schizoaffective disorder, bipolar type: Status: Acute Code(s): F25.0 - Schizoaffective disorder, bipolar type Assessment and Plan: Mr. Islas is a 25 year-old male with hx of Schizoaffective Disorder who self presented to [facility] reporting signs of radha including decrease need for sleep, racing thoughts, hyperverbal, pressured speech, poor concentration, scientology preoccupation, flight of ideas. He recently was taken off olanzapine, some concern in terms of weight gain in addition to pt request, and started on sertraline, currently on 25mg po daily. we discussed risks, benefits and alterntive treatment options. We discussed tapering him off sertraline as it is worsening manic symptoms. Pt presents as guarded, thought process with loose associations, appears to struggle to process information. PLAN: Continue plan of care patient on Section 8 has been generally refusing nighttime Depakote Continue Invega would benefit from long-acting injectable question jaron referralr Greater than 50% of the session was spent on counseling and/or coordination of care Reason for contiued inpatient stay Substantial Risk for: inability to function and rapid decompensation
[2020-12-13 06:00] VITALS: BP 129/57; PULSE 83; RESP 16; TEMP 36.8; O2SAT 98
[2020-12-13] MEDS: Paliperidone ER 6 MG TAB.ER.24 PO (09:44)
[2020-12-13 21:33] VITALS: BP 147/74; PULSE 80; TEMP 36.7; O2SAT 99
[2020-12-13] MEDS: Melatonin 3 MG TABLET 6 MG PO (21:40)
--- NOTE | 2020-12-13 22:57 | P.PNPSI_ITS ---
Subjective Subjective Date of Service: 12/13/20 Reason For Visit: Radha Subjective Notes: Szymanski Order and Section 8 Interim History: Pt isolated focused on multiple paranoid delusions Medication Compliance: Intermittent Attending Groups: No Mental Status Exam Mental Status Exam Patient Appearance: Well Grooomed Patient Orientation: Person, Place, Time and Situation Level of Consciousness: Awake and Appropriate Patient Behavior: Suspicious, Sedated, Avoidant and Poor Eye Contact Mood Description: Flat and Apprehensive Affect Description: Blunted, Angry and Apprehensive Speech Pattern: Clear Delusions: Paranoid Ideation and Bizarre Thought Process: Rumination and Slowed Thinking Thought Content: positive for Obsessional Thoughts, positive for Perseveration, positive for Preoccupation, positive for Slowed Thinking, negative for Suicidal Ideation or negative for Homicidal Ideation Depressive Symptoms: Increased Anxiety and Increased Irritability Abnormal Motor Activity Signs and Symptoms: Psychomotor Retardation Judgement: Poor Diagnostics Vital Signs (24Hr): Vital Signs - 24 hr 12/13/20 06:00 12/13/20 21:33 Temperature 98.3 F 98.0 F Pulse Rate 83 80 Respiratory Rate 16 Blood Pressure 129/57 L 147/74 H Pulse Oximetry 98 99 Body Mass Index 30.2 Labs Results: 10/17/20 20:45 10/17/20 20:45 Medications Medications Current Medications Generic Name Dose Route Start Last Admin Trade Name Freq PRN Reason Stop Dose Admin Acetaminophen 650 mg 10/20/20 13:45 12/07/20 21:50 Acetaminophen 325 Mg Tablet PO 650 mg Q6H PRN Administration Headache/Pain Mild Scale (1-3) Al Hydroxide/Mg Hydroxide 30 ml 10/20/20 13:45 11/27/20 16:28 Magnesium Hydrox/Alum Hydrox 30 Ml Oral.Susp PO 30 ml Q6H PRN Administration Heartburn/Nausea Aspirin 325 mg 11/14/20 12:35 11/15/20 12:01 Aspirin Enteric Coated 325 Mg Tablet. PO 325 mg Q4H PRN Administration Pain, Moderate (Pain Scale 4-6 Diphenhydramine HCl 25 mg 12/02/20 22:00 12/02/20 23:07 Diphenhydramine Hcl 25 Mg Tablet PO 25 mg Q3H PRN Administration Rash Divalproex Sodium 1,250 mg 12/06/20 21:00 12/12/20 21:51 Divalproex Sodium 250 Mg Tablet. PO Not Given BEDTIME SAPNA Hydroxyzine HCl 50 mg 10/20/20 13:45 12/11/20 20:29 Hydroxyzine Hcl 25 Mg Tablet PO 50 mg Q6H PRN Administration Anxiety Ibuprofen 800 mg 10/18/20 15:51 12/07/20 09:05 Ibuprofen 800 Mg Tablet PO 800 mg Q8H PRN Administration pain Magnesium Hydroxide 30 ml 10/20/20 13:45 12/05/20 21:13 Milk Of Magnesia 30 Ml Oral.Susp PO 30 ml DAILY PRN Administration Constipation Melatonin 6 mg 10/31/20 21:00 12/13/20 21:40 Melatonin 3 Mg Tablet PO 6 mg BEDTIME SAPNA Administration Multi-Ingred Cream/Lotion/Oil/Oint 1 appl 12/02/20 22:00 12/02/20 23:07 Mineral Oil/Petrolatum,White 106 Gm Tube TOPICAL 1 appl BID PRN Administration rash Olanzapine 10 mg 10/20/20 13:50 10/25/20 10:50 Olanzapine Odt 10 Mg Tab.Rapdis TRANSLINGU 10 mg Q6H PRN Administration agitation Paliperidone 6 mg 11/24/20 09:00 12/13/20 09:44 Paliperidone Er 6 Mg Tab.Er.24 PO 6 mg DAILY SAPNA Administration Polyethylene Glycol 17 gm 11/19/20 14:31 12/02/20 12:30 Polyethylene Glycol 3350 17 Gm Powd.Pack PO 17 gm DAILY PRN Administration constipation Trazodone HCl 100 mg 11/11/20 21:00 12/12/20 21:52 Trazodone Hcl 100 Mg Tablet PO Not Given BEDTIME SAPNA Allergies Allergies Allergy/AdvReac Type Severity Reaction Status Date / Time No Known Allergies Allergy Verified 06/25/20 12:27 [No Known Allergies*] Assessment & Plan Assessment & Plan (1) Schizoaffective disorder, bipolar type: Status: Acute Code(s): F25.0 - Schizoaffective disorder, bipolar type Assessment and Plan: PLAN: Continue plan of care patient on Section 8 has been generally refusing nighttime Depakote Continue Invega would benefit from long-acting injectable question vibra ref erral Greater than 50% of the session was spent on counseling and/or coordination of care Reason for contiued inpatient stay Substantial Risk for: harm to others, inability to function and rapid decompensation
[2020-12-14 08:30] VITALS: BP 130/59; PULSE 62; RESP 18; TEMP 36.7; O2SAT 99
[2020-12-14] MEDS: Paliperidone ER 6 MG TAB.ER.24 PO (08:57)
--- NOTE | 2020-12-14 13:49 | P.PNPSI_ITS ---
Subjective Subjective Date of Service: 12/15/20 Reason For Visit: Radha Subjective Notes: Section 8 Interim History: Pt reports he is bleeding through pores. No blood visible. He reports after showered brain fluids on his towel were visible. He reports he does not trust anyone. He states this financial underwriter also was part of haunted house. He thinks medications are poisoning him. He looks around room and states people may be able to listen to him. He denies SI/HI. He continues to present very disorganized, unable to complete simply tasks. Most conversation is delusional content with significant loose associations Medication Compliance: Yes Side effects from medications: No Attending Groups: No Review of Systems Acute medical concerns: No Review of Systems Review of Systems Constitutional: No Fever, No Chills ENT/Mouth: No Ear Pain, No Nasal Congestion, No sore throat Eyes: No Eye Pain, No Swelling, No Redness Cardiovascular: No Chest Pain, No SOB Respiratory: No Cough, No Sputum, No Dyspnea Gastrointestinal: No Nausea, No Vomiting, No Diarrhea, No Hematochezia, No Melena Genitourinary: No Dysuria, No Urinary Frequency, No Hematuria Musculoskeletal: No Myalgias Skin: No Skin Lesions, No rash Neuro: No Weakness, No Numbness, No Paresthesias, No Dizziness, No Headache Psych: positive Anxiety, positive Depression, positive radha, no SI HI Heme/Lymph: No Lymphadenopathy Endocrine: No Polyuria, No Polydipsia Yes all other systems are reviewed and are negative Cardiovascular: Denies chest pain, Denies irregular heart rhythm and Denies lightheadedness Respiratory: Denies pain with cough Gastrointestinal: Denies constipation and Denies diarrhea Mental Status Exam Mental Status Exam Narrative: Appearance: wearing hospital gown, fair hygiene in NAD Behavior:guarded, suspicious psychomotor: some retardation noted at times Speech:clear, delayed response rate, soft tone, spontaneous Thought process:derailment, loose associations. Thought content:paranoid delusions Mood: anxious Affect: fearful, suspicious SI:none HI:none VH/AH:internally preoccupied Delusions:paranoid delusions Insight/judgment:impaired x 2. Memory/cog: alert, not oriented to month, date, situation Diagnostics Vital Signs (24Hr): Vital Signs - 24 hr 12/14/20 21:30 12/15/20 08:41 Temperature 95.1 F L 97.3 F Pulse Rate 85 66 Respiratory Rate 16 Blood Pressure 132/60 140/61 H Pulse Oximetry 97 98 Body Mass Index 30.2 Labs Results: 10/17/20 20:45 10/17/20 20:45 Medications Medications Current Medications Generic Name Dose Route Start Last Admin Trade Name Freq PRN Reason Stop Dose Admin Acetaminophen 650 mg 10/20/20 13:45 12/07/20 21:50 Acetaminophen 325 Mg Tablet PO 650 mg Q6H PRN Administration Headache/Pain Mild Scale (1-3) Al Hydroxide/Mg Hydroxide 30 ml 10/20/20 13:45 11/27/20 16:28 Magnesium Hydrox/Alum Hydrox 30 Ml Oral.Susp PO 30 ml Q6H PRN Administration Heartburn/Nausea Aspirin 325 mg 11/14/20 12:35 11/15/20 12:01 Aspirin Enteric Coated 325 Mg Tablet. PO 325 mg Q4H PRN Administration Pain, Moderate (Pain Scale 4-6 Diphenhydramine HCl 25 mg 12/02/20 22:00 12/02/20 23:07 Diphenhydramine Hcl 25 Mg Tablet PO 25 mg Q3H PRN Administration Rash Divalproex Sodium 1,250 mg 12/06/20 21:00 12/15/20 00:29 Divalproex Sodium 250 Mg Tablet. PO Not Given BEDTIME SAPNA Hydroxyzine HCl 50 mg 10/20/20 13:45 12/11/20 20:29 Hydroxyzine Hcl 25 Mg Tablet PO 50 mg Q6H PRN Administration Anxiety Ibuprofen 800 mg 10/18/20 15:51 12/07/20 09:05 Ibuprofen 800 Mg Tablet PO 800 mg Q8H PRN Administration pain Magnesium Hydroxide 30 ml 10/20/20 13:45 12/05/20 21:13 Milk Of Magnesia 30 Ml Oral.Susp PO 30 ml DAILY PRN Administration Constipation Melatonin 6 mg 10/31/20 21:00 12/14/20 20:56 Melatonin 3 Mg Tablet PO 6 mg BEDTIME SAPNA Administration Multi-Ingred Cream/Lotion/Oil/Oint 1 appl 12/02/20 22:00 12/02/20 23:07 Mineral Oil/Petrolatum,White 106 Gm Tube TOPICAL 1 appl BID PRN Administration rash Olanzapine 10 mg 10/20/20 13:50 10/25/20 10:50 Olanzapine Odt 10 Mg Tab.Rapdis TRANSLINGU 10 mg Q6H PRN Administration agitation Paliperidone 6 mg 11/24/20 09:00 12/15/20 08:50 Paliperidone Er 6 Mg Tab.Er.24 PO 6 mg DAILY SAPNA Administration Polyethylene Glycol 17 gm 11/19/20 14:31 12/02/20 12:30 Polyethylene Glycol 3350 17 Gm Powd.Pack PO 17 gm DAILY PRN Administration constipation Trazodone HCl 100 mg 11/11/20 21:00 12/15/20 00:29 Trazodone Hcl 100 Mg Tablet PO Not Given BEDTIME SAPNA Allergies Allergies Allergy/AdvReac Type Severity Reaction Status Date / Time No Known Allergies Allergy Verified 06/25/20 12:27 [No Known Allergies*] Assessment & Plan Assessment & Plan (1) Schizoaffective disorder, bipolar type: Status: Acute Code(s): F25.0 - Schizoaffective disorder, bipolar type Assessment and Plan: Mr. Islas is a 25 year-old male with hx of Schizoaffective Disorder who self presented to [facility] [place] [place] ED reporting signs of radha including decrease need for sleep, racing thoughts, hyperverbal, pressured speech, poor concentration, holiness preoccupation, flight of ideas. He recently was taken off olanzapine, some concern in terms of weight gain in addition to pt request, and started on sertraline, currently on 25mg po daily. we discussed risks, benefits and al terntive treatment options. We discussed tapering him off sertraline as it is worsening manic symptoms. Pt presents as guarded, thought process with loose associations, appears to struggle to process information. PLAN: 1. Continue plan of care- patient on Section 8. 2. Increase paliperidone to 12mg po qhs. Back up IM if pt refuses per section 8. Greater than 50% of the session was spent on counseling and/or coordination of care Reason for contiued inpatient stay Substantial Risk for: inability to function
[2020-12-14] MEDS: Melatonin 3 MG TABLET 6 MG PO (20:56)
[2020-12-14 21:30] VITALS: BP 132/60; PULSE 85; TEMP 35.1; O2SAT 97
[2020-12-15 08:41] VITALS: BP 140/61; PULSE 66; RESP 16; TEMP 36.3; O2SAT 98
[2020-12-15] MEDS: Paliperidone ER 6 MG TAB.ER.24 PO (08:50)
--- NOTE | 2020-12-15 13:57 | HO.PSYCHPN ---
Subjective Subjective Date of Service: 12/15/20 Reason For Visit: Radha Subjective Notes: Section 8 Interim History: Pt continues to report paranoid/somatic delusions of needing to detox from harmful chemicals that are entering his skin, present in the air. He reports after he showered brain fluids on his towel were visible. He reports he does not trust anyone. He states this program writer also was part of haunted house. He thinks medications are poisoning him. He looks around room and states people may be able to listen to him. He denies SI/HI. He continues to present very disorganized, unable to complete simply tasks. Most conversation is delusional content with significant loose associations Medication Compliance: Yes Review of Systems Review of Systems Constitutional: No Fever, No Chills ENT/Mouth: No Ear Pain, No Nasal Congestion, No sore throat Eyes: No Eye Pain, No Swelling, No Redness Cardiovascular: No Chest Pain, No SOB Respiratory: No Cough, No Sputum, No Dyspnea Gastrointestinal: No Nausea, No Vomiting, No Diarrhea, No Hematochezia, No Melena Genitourinary: No Dysuria, No Urinary Frequency, No Hematuria Musculoskeletal: No Myalgias Skin: No Skin Lesions, No rash Neuro: No Weakness, No Numbness, No Paresthesias, No Dizziness, No Headache Psych: positive Anxiety, positive Depression, positive radha, no SI HI Heme/Lymph: No Lymphadenopathy Endocrine: No Polyuria, No Polydipsia Yes all other systems are reviewed and are negative Cardiovascular: Denies chest pain, Denies irregular heart rhythm and Denies lightheadedness Respiratory: Denies pain with cough Gastrointestinal: Denies constipation and Denies diarrhea Mental Status Exam Mental Status Exam Narrative: Appearance: wearing hospital gown, fair hygiene in NAD Behavior:guarded, suspicious psychomotor: some retardation noted at times Speech:clear, delayed response rate, soft tone, spontaneous Thought process:derailment, loose associations. Thought content:paranoid delusions Mood: anxious Affect: fearful, suspicious SI:none HI:none VH/AH:internally preoccupied Delusions:paranoid delusions Insight/judgment:impaired x 2. Memory/cog: alert, not oriented to month, date, situation Diagnostics Vital Signs (24Hr): Vital Signs - 24 hr 12/14/20 21:30 12/15/20 08:41 Temperature 95.1 F L 97.3 F Pulse Rate 85 66 Respiratory Rate 16 Blood Pressure 132/60 140/61 H Pulse Oximetry 97 98 Body Mass Index 30.2 Labs Results: 10/17/20 20:45 10/17/20 20:45 Medications Medications Current Medications Generic Name Dose Route Start Last Admin Trade Name Freq PRN Reason Stop Dose Admin Acetaminophen 650 mg 10/20/20 13:45 12/07/20 21:50 Acetaminophen 325 Mg Tablet PO 650 mg Q6H PRN Administration Headache/Pain Mild Scale (1-3) Al Hydroxide/Mg Hydroxide 30 ml 10/20/20 13:45 11/27/20 16:28 Magnesium Hydrox/Alum Hydrox 30 Ml Oral.Susp PO 30 ml Q6H PRN Administration Heartburn/Nausea Aspirin 325 mg 11/14/20 12:35 11/15/20 12:01 Aspirin Enteric Coated 325 Mg Tablet. PO 325 mg Q4H PRN Administration Pain, Moderate (Pain Scale 4-6 Diphenhydramine HCl 25 mg 12/02/20 22:00 12/02/20 23:07 Diphenhydramine Hcl 25 Mg Tablet PO 25 mg Q3H PRN Administration Rash Divalproex Sodium 1,250 mg 12/06/20 21:00 12/15/20 00:29 Divalproex Sodium 250 Mg Tablet. PO Not Given BEDTIME SAPNA Hydroxyzine HCl 50 mg 10/20/20 13:45 12/11/20 20:29 Hydroxyzine Hcl 25 Mg Tablet PO 50 mg Q6H PRN Administration Anxiety Ibuprofen 800 mg 10/18/20 15:51 12/07/20 09:05 Ibuprofen 800 Mg Tablet PO 800 mg Q8H PRN Administration pain Magnesium Hydroxide 30 ml 10/20/20 13:45 12/05/20 21:13 Milk Of Magnesia 30 Ml Oral.Susp PO 30 ml DAILY PRN Administration Constipation Melatonin 6 mg 10/31/20 21:00 12/14/20 20:56 Melatonin 3 Mg Tablet PO 6 mg BEDTIME SAPNA Administration Multi-Ingred Cream/Lotion/Oil/Oint 1 appl 12/02/20 22:00 12/02/20 23:07 Mineral Oil/Petrolatum,White 106 Gm Tube TOPICAL 1 appl BID PRN Administration rash Olanzapine 10 mg 10/20/20 13:50 10/25/20 10:50 Olanzapine Odt 10 Mg Tab.Rapdis TRANSLINGU 10 mg Q6H PRN Administration agitation Paliperidone 6 mg 11/24/20 09:00 12/15/20 08:50 Paliperidone Er 6 Mg Tab.Er.24 PO 6 mg DAILY SAPNA Administration Polyethylene Glycol 17 gm 11/19/20 14:31 12/02/20 12:30 Polyethylene Glycol 3350 17 Gm Powd.Pack PO 17 gm DAILY PRN Administration constipation Trazodone HCl 100 mg 11/11/20 21:00 12/15/20 00:29 Trazodone Hcl 100 Mg Tablet PO Not Given BEDTIME SAPNA Allergies Allergies Allergy/AdvReac Type Severity Reaction Status Date / Time No Known Allergies Allergy Verified 06/25/20 12:27 [No Known Allergies*] Assessment & Plan Assessment & Plan (1) Schizoaffective disorder, bipolar type: Status: Acute Code(s): F25.0 - Schizoaffective disorder, bipolar type Assessment and Plan: Mr. Islas is a 25 year-old male with hx of Schizoaffective Disorder who self presented to [facility] [place] ED reporting signs of radha including decrease need for sleep, racing thoughts, hyperverbal, pressured speech, poor concentration, gnosticism preoccupation, flight of ideas. He recently was taken off olanzapine, some concern in terms of weight gain in addition to pt request, and started on sertraline, currently on 25mg po daily. we discussed risks, benefits and alterntive treatment options. We discussed tapering him off sertraline as it is worsening manic symptoms. Pt presents as guarded, thought process with loose associations, appears to struggle to process information. PLAN: 1. Continue plan of care- patient on Section 8. 2. Increase paliperidone to 12mg po qhs. Back up IM if pt refuses per section 8. Greater than 50% of the session was spent on counseling and/or coordination of care Reason for contiued inpatient stay Substantial Risk for: inability to function
[2020-12-15] MEDS: Melatonin 3 MG TABLET 6 MG PO (22:14)
[2020-12-16 09:30] VITALS: BP 127/59; PULSE 72; RESP 18; TEMP 36.6; O2SAT 96
[2020-12-16] MEDS: Acetaminophen 325 MG TABLET 650 MG PO (09:51)
[2020-12-16] MEDS: Paliperidone ER 6 MG TAB.ER.24 PO (09:51)
[2020-12-16] MEDS: hydrOXYzine HCL 25 MG TABLET 50 MG PO (09:51)
--- NOTE | 2020-12-16 13:49 | HO.PSYCHPN ---
Subjective Subjective Date of Service: 12/16/20 Reason For Visit: Radha Subjective Notes: Section 8 Interim History: Pt continues to report paranoia about staff being part of haunted house. Pt continues to endorse anxious mood, worried about chemicals in the air and not being able to do detox. He has been mostly in his room. minimally interactive with peers. Pt continues to present as internally preoccupied. He denies SI/HI. continues to present with derailment in thought process. Medication Compliance: Yes Side effects from medications: No Attending Groups: No Review of Systems Acute medical concerns: No Medical Review of Systems: unchanged Review of Systems Review of Systems Constitutional: No Fever, No Chills ENT/Mouth: No Ear Pain, No Nasal Congestion, No sore throat Eyes: No Eye Pain, No Swelling, No Redness Cardiovascular: No Chest Pain, No SOB Respiratory: No Cough, No Sputum, No Dyspnea Gastrointestinal: No Nausea, No Vomiting, No Diarrhea, No Hematochezia, No Melena Genitourinary: No Dysuria, No Urinary Frequency, No Hematuria Musculoskeletal: No Myalgias Skin: No Skin Lesions, No rash Neuro: No Weakness, No Numbness, No Paresthesias, No Dizziness, No Headache Psych: positive Anxiety, positive Depression, positive radha, no SI HI Heme/Lymph: No Lymphadenopathy Endocrine: No Polyuria, No Polydipsia Yes all other systems are reviewed and are negative Cardiovascular: Denies chest pain, Denies irregular heart rhythm and Denies lightheadedness Respiratory: Denies pain with cough Gastrointestinal: Denies constipation and Denies diarrhea Mental Status Exam Mental Status Exam Narrative: Appearance: wearing hospital gown, fair hygiene in NAD Behavior:guarded, suspicious psychomotor: some retardation noted at times Speech:clear, delayed response rate, soft tone, spontaneous Thought process:derailment, loose associations. Thought content:paranoid delusions Mood: anxious Affect: fearful, suspicious SI:none HI:none VH/AH:internally preoccupied Delusions:paranoid delusions Insight/judgment:impaired x 2. Memory/cog: alert, not oriented to month, date, situation Diagnostics Vital Signs (24Hr): Vital Signs - 24 hr 12/16/20 09:30 Temperature 97.8 F Pulse Rate 72 Respiratory Rate 18 Blood Pressure 127/59 L Pulse Oximetry 96 Body Mass Index 30.2 Labs Results: 10/17/20 20:45 10/17/20 20:45 Medications Medications Current Medications Generic Name Dose Route Start Last Admin Trade Name Freq PRN Reason Stop Dose Admin Acetaminophen 650 mg 10/20/20 13:45 12/16/20 09:51 Acetaminophen 325 Mg Tablet PO 650 mg Q6H PRN Administration Headache/Pain Mild Scale (1-3) Al Hydroxide/Mg Hydroxide 30 ml 10/20/20 13:45 11/27/20 16:28 Magnesium Hydrox/Alum Hydrox 30 Ml Oral.Susp PO 30 ml Q6H PRN Administration Heartburn/Nausea Aspirin 325 mg 11/14/20 12:35 11/15/20 12:01 Aspirin Enteric Coated 325 Mg Tablet.Dr PO 325 mg Q4H PRN Administration Pain, Moderate (Pain Scale 4-6 Diphenhydramine HCl 25 mg 12/02/20 22:00 12/02/20 23:07 Diphenhydramine Hcl 25 Mg Tablet PO 25 mg Q3H PRN Administration Rash Haloperidol Lactate 5 mg 12/16/20 13:47 Haloperidol Lactate 5 Mg/Ml Vial IM DAILY PRN if pt refuses oral paliperidon Hydroxyzine HCl 50 mg 10/20/20 13:45 12/16/20 09:51 Hydroxyzine Hcl 25 Mg Tablet PO 50 mg Q6H PRN Administration Anxiety Ibuprofen 800 mg 10/18/20 15:51 12/07/20 09:05 Ibuprofen 800 Mg Tablet PO 800 mg Q8H PRN Administration pain Magnesium Hydroxide 30 ml 10/20/20 13:45 12/05/20 21:13 Milk Of Magnesia 30 Ml Oral.Susp PO 30 ml DAILY PRN Administration Constipation Melatonin 6 mg 10/31/20 21:00 12/15/20 22:14 Melatonin 3 Mg Tablet PO 6 mg BEDTIME SAPNA Administration Multi-Ingred Cream/Lotion/Oil/Oint 1 appl 12/02/20 22:00 12/02/20 23:07 Mineral Oil/Petrolatum,White 106 Gm Tube TOPICAL 1 appl BID PRN Administration rash Olanzapine 10 mg 10/20/20 13:50 10/25/20 10:50 Olanzapine Odt 10 Mg Tab.Rapdis TRANSLINGU 10 mg Q6H PRN Administration agitation Paliperidone 9 mg 12/17/20 09:00 Paliperidone Er 9 Mg Tab.Er.24 PO DAILY SAPNA Polyethylene Glycol 17 gm 11/19/20 14:31 12/02/20 12:30 Polyethylene Glycol 3350 17 Gm Powd.Pack PO 17 gm DAILY PRN Administration constipation Trazodone HCl 100 mg 11/11/20 21:00 12/15/20 22:15 Trazodone Hcl 100 Mg Tablet PO Not Given BEDTIME SAPNA Allergies Allergies Allergy/AdvReac Type Severity Reaction Status Date / Time No Known Allergies Allergy Verified 06/25/20 12:27 [No Known Allergies*] Assessment & Plan Assessment & Plan (1) Schizoaffective disorder, bipolar type: Status: Acute Code(s): F25.0 - Schizoaffective disorder, bipolar type Assessment and Plan: Mr. Islas is a 25 year-old male with hx of Schizoaffective Disorder who self presented to [facility] [place] [facility] reporting signs of radha including decrease need for sleep, racing thoughts, hyperverbal, pressured speech, poor concentration, anabaptist preoccupation, flight of ideas. He recently was taken off olanzapine, some concern in terms of weight gain in addition to pt request, and started on sertraline, currently on 25mg po daily. we discussed risks, benefits and alternative treatment options. Pt presents as guarded, thought process with loose associations, appears to struggle to process information. PLAN: 1. Continue plan of care- patient on Section 8. 2. Increase paliperidone to 9mg po qhs. Back up HAldol 5mg IM if pt refuses oral paliperidone per section 8. 3. will switch depakote to lithium 900mg po qhs. 4. Clonazepam 0.5mg po qhs for sleep/anxiety. Greater than 50% of the session was spent on counseling and/or coordination of care Reason for contiued inpatient stay Substantial Risk for: inability to function
[2020-12-16 19:51] VITALS: BP 140/60; PULSE 70; RESP 18; TEMP 36.7
[2020-12-16] MEDS: Mineral Oil/Petrolatum,White 106 GM Tube 1 APPL TOPICAL (21:26)
[2020-12-16] MEDS: Melatonin 3 MG TABLET 6 MG PO (22:46)
[2020-12-16] MEDS: clonazePAM 0.5 MG TABLET PO (22:47)
--- NOTE | 2020-12-17 07:37 | P.PNPSI_ITS ---
Subjective Subjective Date of Service: 12/22/20 Reason For Visit: Radha Subjective Notes: Section 8 Interim History: Pt continues to report that there are harmful chemicals in the unit and he has to limit where he goes in the unit as it is not well sanatized. Pt suspicious towards staff, increasingly more irritable. He denies SI/HI. He does not attend groups in part due to paranoia. fearful to be around others. Medication Compliance: Yes Side effects from medications: No Review of Systems Review of Systems Constitutional: No Fever, No Chills ENT/Mouth: No Ear Pain, No Nasal Congestion, No sore throat Eyes: No Eye Pain, No Swelling, No Redness Cardiovascular: No Chest Pain, No SOB Respiratory: No Cough, No Sputum, No Dyspnea Gastrointestinal: No Nausea, No Vomiting, No Diarrhea, No Hematochezia, No Melena Genitourinary: No Dysuria, No Urinary Frequency, No Hematuria Musculoskeletal: No Myalgias Skin: No Skin Lesions, No rash Neuro: No Weakness, No Numbness, No Paresthesias, No Dizziness, No Headache Psych: positive Anxiety, positive Depression, positive radha, no SI HI Heme/Lymph: No Lymphadenopathy Endocrine: No Polyuria, No Polydipsia Yes all other systems are reviewed and are negative Cardiovascular: Denies chest pain, Denies irregular heart rhythm and Denies lightheadedness Respiratory: Denies pain with cough Gastrointestinal: Denies constipation and Denies diarrhea Mental Status Exam Mental Status Exam Narrative: Appearance: wearing hospital gown, fair hygiene in NAD Behavior:guarded, suspicious psychomotor: some retardation noted at times Speech:clear, delayed response rate, soft tone, spontaneous Thought process:derailment, loose associations. Thought content:paranoid delusions Mood: anxious Affect: fearful, suspicious SI:none HI:none VH/AH:internally preoccupied Delusions:paranoid delusions Insight/judgment:impaired x 2. Memory/cog: alert, not oriented to month, date, situation Patient Appearance: Well Grooomed Patient Orientation: Person, Place, Time and Situation Level of Consciousness: Awake and Appropriate Patient Behavior: Suspicious, Sedated, Avoidant and Poor Eye Contact Mood Description: Flat and Apprehensive Affect Description: Blunted, Angry and Apprehensive Patient Cognition Impaired: No Ability to Follow Directions: Fair Speech Pattern: Clear Memory Description: Intact Diagnostics Vital Signs (24Hr): Vital Signs - 24 hr 12/21/20 08:34 12/21/20 16:42 Temperature 97.7 F 98.4 F Pulse Rate 74 87 Respiratory Rate 16 Blood Pressure 120/57 L 130/58 L Body Mass Index 30.2 Labs Results: 10/17/20 20:45 10/17/20 20:45 Medications Medications Current Medications Generic Name Dose Route Start Last Admin Trade Name [place] PRN Reason Stop Dose Admin Acetaminophen 650 mg 10/20/20 13:45 12/16/20 09:51 Acetaminophen 325 Mg Tablet PO 650 mg Q6H PRN Administration Headache/Pain Mild Scale (1-3) Al Hydroxide/Mg Hydroxide 30 ml 10/20/20 13:45 11/27/20 16:28 Magnesium Hydrox/Alum Hydrox 30 Ml Oral.Susp PO 30 ml Q6H PRN Administration Heartburn/Nausea Aspirin 325 mg 11/14/20 12:35 11/15/20 12:01 Aspirin Enteric Coated 325 Mg Tablet.Dr PO 325 mg Q4H PRN Administration Pain, Moderate (Pain Scale 4-6 Diphenhydramine HCl 25 mg 12/02/20 22:00 12/02/20 23:07 Diphenhydramine Hcl 25 Mg Tablet PO 25 mg Q3H PRN Administration Rash Haloperidol 2 mg 12/20/20 21:00 12/21/20 22:34 Haloperidol 1 Mg Tablet PO 2 mg BID SAPNA Administration Haloperidol Lactate 5 mg 12/20/20 16:16 Haloperidol Lactate 5 Mg/Ml Vial IM BID PRN if pt refuses PO antipsychotic Hydroxyzine HCl 50 mg 10/20/20 13:45 12/20/20 18:26 Hydroxyzine Hcl 25 Mg Tablet PO 50 mg Q6H PRN Administration Anxiety Ibuprofen 800 mg 10/18/20 15:51 12/07/20 09:05 Ibuprofen 800 Mg Tablet PO 800 mg Q8H PRN Administration pain [place] Carbonate 900 mg 12/16/20 21:00 12/21/20 22:35 [place] Carbonate Er 450 Mg Tablet.Er PO Not Given BEDTIME SAPNA Magnesium Hydroxide 30 ml 10/20/20 13:45 12/05/20 21:13 Milk Of Magnesia 30 Ml Oral.Susp PO 30 ml DAILY PRN Administration Constipation Melatonin 6 mg 10/31/20 21:00 12/21/20 22:35 Melatonin 3 Mg Tablet PO Not Given BEDTIME SAPNA Multi-Ingred Cream/Lotion/Oil/Oint 1 appl 12/02/20 22:00 12/20/20 14:32 Mineral Oil/Petrolatum,White 106 Gm Tube TOPICAL 1 appl BID PRN Administration rash Olanzapine 10 mg 10/20/20 13:50 10/25/20 10:50 Olanzapine Odt 10 Mg Tab.Rapdis TRANSLINGU 10 mg Q6H PRN Administration agitation Paliperidone 12 mg 12/20/20 09:00 12/21/20 09:26 Paliperidone Er 6 Mg Tab.Er.24 PO 12 mg DAILY SAPNA Administration Polyethylene Glycol 17 gm 11/19/20 14:31 12/02/20 12:30 Polyethylene Glycol 3350 17 Gm Powd.Pack PO 17 gm DAILY PRN Administration constipation Trazodone HCl 100 mg 11/11/20 21:00 12/21/20 22:35 Trazodone Hcl 100 Mg Tablet PO Not Given BEDTIME SAPNA Allergies Allergies Allergy/AdvReac Type Severity Reaction Status Date / Time No Known Allergies Allergy Verified 06/25/20 12:27 [No Known Allergies*] Assessment & Plan Assessment & Plan (1) Schizoaffective disorder, bipolar type: Status: Acute Code(s): F25.0 - Schizoaffective disorder, bipolar type Assessment and Plan: Mr. Islas is a 25 year-old male with hx of Schizoaffective Disorder who self presented to [facility] [place] [facility] reporting signs of radha including decrease need for sleep, racing thoughts, hyperverbal, pressured speech, poor concentration, adventist preoccupation, flight of ideas. He recently was taken off olanzapine, some concern in terms of weight gain in addition to pt request, and started on sertraline, currently on 25mg po daily. we discussed risks, benefits and alternative treatment options. Pt presents as guarded, thought process with loose associations, appears to struggle to process information. PLAN: 1. Continue plan of care- patient on Section 8. 2. Increase paliperidone to 9mg po qhs. Back up HAldol 5mg IM if pt refuses oral paliperidone per section 8. 3. will switch depakote to lithium 900mg po qhs. 4. Clonazepam 0.5mg po qhs for sleep/anxiety. Greater than 50% of the session was spent on counseling and/or coordination of care Reason for contiued inpatient stay Substantial Risk for: inability to function
[2020-12-17 10:00] VITALS: BP 130/74; PULSE 77; RESP 18; TEMP 36.7; O2SAT 99
[2020-12-17] MEDS: Paliperidone ER 9 MG TAB.ER.24 PO (10:00)
[2020-12-17] MEDS: Mineral Oil/Petrolatum,White 106 GM Tube 1 APPL TOPICAL (14:35)
[2020-12-17 18:00] VITALS: BP 120/69; PULSE 86; RESP 18; TEMP 36.7; O2SAT 100
[2020-12-17] MEDS: Melatonin 3 MG TABLET 6 MG PO (21:57)
[2020-12-18 06:00] VITALS: BP 114/58; PULSE 67; RESP 16; TEMP 36.6; O2SAT 96
--- NOTE | 2020-12-18 07:39 | HO.PSYCHPN ---
Subjective Subjective Date of Service: 12/22/20 Reason For Visit: Radha Interim History: Pt continues to report that there are harmful chemicals in the unit and he has to limit where he goes in the unit as it is not well sanitized. Pt asking to leave as he does not think he needs further treatment. Pt suspicious towards staff, increasingly more irritable. He denies SI/HI. He does not attend groups in part due to paranoia. fearful to be around others. Medication Compliance: Yes Review of Systems Review of Systems Constitutional: No Fever, No Chills ENT/Mouth: No Ear Pain, No Nasal Congestion, No sore throat Eyes: No Eye Pain, No Swelling, No Redness Cardiovascular: No Chest Pain, No SOB Respiratory: No Cough, No Sputum, No Dyspnea Gastrointestinal: No Nausea, No Vomiting, No Diarrhea, No Hematochezia, No Melena Genitourinary: No Dysuria, No Urinary Frequency, No Hematuria Musculoskeletal: No Myalgias Skin: No Skin Lesions, No rash Neuro: No Weakness, No Numbness, No Paresthesias, No Dizziness, No Headache Psych: positive Anxiety, positive Depression, positive radha, no SI HI Heme/Lymph: No Lymphadenopathy Endocrine: No Polyuria, No Polydipsia Yes all other systems are reviewed and are negative Cardiovascular: Denies chest pain, Denies irregular heart rhythm and Denies lightheadedness Respiratory: Denies pain with cough Gastrointestinal: Denies constipation and Denies diarrhea Mental Status Exam Mental Status Exam Narrative: Appearance: wearing hospital gown, fair hygiene in NAD Behavior:guarded, suspicious psychomotor: some retardation noted at times Speech:clear, delayed response rate, soft tone, spontaneous Thought process:derailment, loose associations. Thought content:paranoid delusions Mood: anxious Affect: fearful, suspicious SI:none HI:none VH/AH:internally preoccupied Delusions:paranoid delusions Insight/judgment:impaired x 2. Memory/cog: alert, not oriented to month, date, situation Patient Appearance: Well Grooomed Patient Orientation: Person, Place, Time and Situation Level of Consciousness: Awake and Appropriate Patient Behavior: Suspicious, Sedated, Avoidant and Poor Eye Contact Mood Description: Flat and Apprehensive Affect Description: Blunted, Angry and Apprehensive Patient Cognition Impaired: No Ability to Follow Directions: Fair Speech Pattern: Clear Memory Description: Intact Diagnostics Vital Signs (24Hr): Vital Signs - 24 hr 12/21/20 08:34 12/21/20 16:42 Temperature 97.7 F 98.4 F Pulse Rate 74 87 Respiratory Rate 16 Blood Pressure 120/57 L 130/58 L Body Mass Index 30.2 Labs Results: 10/17/20 20:45 10/17/20 20:45 Medications Medications Current Medications Generic Name Dose Route Start Last Admin Trade Name Freq PRN Reason Stop Dose Admin Acetaminophen 650 mg 10/20/20 13:45 12/16/20 09:51 Acetaminophen 325 Mg Tablet PO 650 mg Q6H PRN Administration Headache/Pain Mild Scale (1-3) Al Hydroxide/Mg Hydroxide 30 ml 10/20/20 13:45 11/27/20 16:28 Magnesium Hydrox/Alum Hydrox 30 Ml Oral.Susp PO 30 ml Q6H PRN Administration Heartburn/Nausea Aspirin 325 mg 11/14/20 12:35 11/15/20 12:01 Aspirin Enteric Coated 325 Mg Tablet.Dr PO 325 mg Q4H PRN Administration Pain, Moderate (Pain Scale 4-6 Diphenhydramine HCl 25 mg 12/02/20 22:00 12/02/20 23:07 Diphenhydramine Hcl 25 Mg Tablet PO 25 mg Q3H PRN Administration Rash Haloperidol 2 mg 12/20/20 21:00 12/21/20 22:34 Haloperidol 1 Mg Tablet PO 2 mg BID SAPNA Administration Haloperidol Lactate 5 mg 12/20/20 16:16 Haloperidol Lactate 5 Mg/Ml Vial IM BID PRN if pt refuses PO antipsychotic Hydroxyzine HCl 50 mg 10/20/20 13:45 12/20/20 18:26 Hydroxyzine Hcl 25 Mg Tablet PO 50 mg Q6H PRN Administration Anxiety Ibuprofen 800 mg 10/18/20 15:51 12/07/20 09:05 Ibuprofen 800 Mg Tablet PO 800 mg Q8H PRN Administration pain [place] Carbonate 900 mg 12/16/20 21:00 12/21/20 22:35 [place] Carbonate Er 450 Mg Tablet.Er PO Not Given BEDTIME SAPNA Magnesium Hydroxide 30 ml 10/20/20 13:45 12/05/20 21:13 Milk Of Magnesia 30 Ml Oral.Susp PO 30 ml DAILY PRN Administration Constipation Melatonin 6 mg 10/31/20 21:00 12/21/20 22:35 Melatonin 3 Mg Tablet PO Not Given BEDTIME SAPNA Multi-Ingred Cream/Lotion/Oil/Oint 1 appl 12/02/20 22:00 12/20/20 14:32 Mineral Oil/Petrolatum,White 106 Gm Tube TOPICAL 1 appl BID PRN Administration rash Olanzapine 10 mg 10/20/20 13:50 10/25/20 10:50 Olanzapine Odt 10 Mg Tab.Rapdis TRANSLINGU 10 mg Q6H PRN Administration agitation Paliperidone 12 mg 12/20/20 09:00 12/21/20 09:26 Paliperidone Er 6 Mg Tab.Er.24 PO 12 mg DAILY SAPNA Administration Polyethylene Glycol 17 gm 11/19/20 14:31 12/02/20 12:30 Polyethylene Glycol 3350 17 Gm Powd.Pack PO 17 gm DAILY PRN Administration constipation Trazodone HCl 100 mg 11/11/20 21:00 12/21/20 22:35 Trazodone Hcl 100 Mg Tablet PO Not Given BEDTIME SAPNA Allergies Allergies Allergy/AdvReac Type Severity Reaction Status Date / Time No Known Allergies Allergy Verified 06/25/20 12:27 [No Known Allergies*] Assessment & Plan Assessment & Plan (1) Schizoaffective disorder, bipolar type: Status: Acute Code(s): F25.0 - Schizoaffective disorder, bipolar type Assessment and Plan: Mr. Islas is a 25 year-old male with hx of Schizoaffective Disorder who self presented to [facility] reporting signs of radha including decrease need for sleep, racing thoughts, hyperverbal, pressured speech, poor concentration, christian preoccupation, flight of ideas. He recently was taken off olanzapine, some concern in terms of weight gain in addition to pt request, and started on sertraline, currently on 25mg po daily. we discussed risks, benefits and alternative treatment options. Pt presents as guarded, thought process with loose associations, appears to struggle to process information. PLAN: 1. Continue plan of care- patient on Section 8. 2. Increase paliperidone to 9mg po qhs. Back up HAldol 5mg IM if pt refuses oral paliperidone per section 8. 3. will switch depakote to lithium 900mg po qhs. 4. Clonazepam 0.5mg po qhs for sleep/anxiety. Greater than 50% of the session was spent on counseling and/or coordination of care Reason for contiued inpatient stay Substantial Risk for: inability to function
[2020-12-18] MEDS: Paliperidone ER 9 MG TAB.ER.24 PO (09:47)
[2020-12-18 18:00] VITALS: BP 134/80; PULSE 68; RESP 18; TEMP 36.6
[2020-12-18] MEDS: Melatonin 3 MG TABLET 6 MG PO (20:32)
[2020-12-18] MEDS: Mineral Oil/Petrolatum,White 106 GM Tube 1 APPL TOPICAL (20:34)
--- NOTE | 2020-12-19 07:40 | P.PNPSI_ITS ---
Subjective Subjective Date of Service: 12/22/20 Reason For Visit: Lizzy Subjective Notes: Section 8 Interim History: Pt somewhat irritable and asking to be discharged. He continues to report that there are harmful chemicals in the unit and he has to limit where he goes on the unit as it is not well sanitized. Pt asking to leave as he does not think he needs further treatment. Pt suspicious towards staff, increasingly more irritable. He denies SI/HI. He does not attend groups in part due to paranoia. fearful to be around others. We discussed adding haldol given limited effect with haldol. Medication Compliance: Yes Review of Systems Review of Systems Constitutional: No Fever, No Chills ENT/Mouth: No Ear Pain, No Nasal Congestion, No sore throat Eyes: No Eye Pain, No Swelling, No Redness Cardiovascular: No Chest Pain, No SOB Respiratory: No Cough, No Sputum, No Dyspnea Gastrointestinal: No Nausea, No Vomiting, No Diarrhea, No Hematochezia, No Paulina kyle Genitourinary: No Dysuria, No Urinary Frequency, No Hematuria Musculoskeletal: No Myalgias Skin: No Skin Lesions, No rash Neuro: No Weakness, No Numbness, No Paresthesias, No Dizziness, No Headache Psych: positive Anxiety, positive Depression, positive lizzy, no SI HI Heme/Lymph: No Lymphadenopathy Endocrine: No Polyuria, No Polydipsia Yes all other systems are reviewed and are negative Cardiovascular: Denies chest pain, Denies irregular heart rhythm and Denies lightheadedness Respiratory: Denies pain with cough Gastrointestinal: Denies constipation and Denies diarrhea Mental Status Exam Mental Status Exam Narrative: Appearance: wearing hospital gown, fair hygiene in NAD Behavior:guarded, suspicious psychomotor: some retardation noted at times Speech:clear, delayed response rate, soft tone, spontaneous Thought process:derailment, loose associations. Thought content:paranoid delusions Mood: anxious Affect: fearful, suspicious SI:none HI:none VH/AH:internally preoccupied Delusions:paranoid delusions Insight/judgment:impaired x 2. Memory/cog: alert, not oriented to month, date, situation Patient Appearance: Well Grooomed Patient Orientation: Person, Place, Time and Situation Level of Consciousness: Awake and Appropriate Patient Behavior: Suspicious, Sedated, Avoidant and Poor Eye Contact Mood Description: Flat and Apprehensive Affect Description: Blunted, Angry and Apprehensive Patient Cognition Impaired: No Ability to Follow Directions: Fair Speech Pattern: Clear Memory Description: Intact Diagnostics Vital Signs (24Hr): Vital Signs - 24 hr 12/21/20 08:34 12/21/20 16:42 Temperature 97.7 F 98.4 F Pulse Rate 74 87 Respiratory Rate 16 Blood Pressure 120/57 L 130/58 L Body Mass Index 30.2 Labs Results: 10/17/20 20:45 10/17/20 20:45 Medications Medications Current Medications Generic Name Dose Route Start Last Admin Trade Name Freq PRN Reason Stop Dose Admin Acetaminophen 650 mg 10/20/20 13:45 12/16/20 09:51 Acetaminophen 325 Mg Tablet PO 650 mg Q6H PRN Administration Headache/Pain Mild Scale (1-3) Al Hydroxide/Mg Hydroxide 30 ml 10/20/20 13:45 11/27/20 16:28 Magnesium Hydrox/Alum Hydrox 30 Ml Oral.Susp PO 30 ml Q6H PRN Administration Heartburn/Nausea Aspirin 325 mg 11/14/20 12:35 11/15/20 12:01 Aspirin Enteric Coated 325 Mg Tablet.Dr PO 325 mg Q4H PRN Administration Pain, Moderate (Pain Scale 4-6 Diphenhydramine HCl 25 mg 12/02/20 22:00 12/02/20 23:07 Diphenhydramine Hcl 25 Mg Tablet PO 25 mg Q3H PRN Administration Rash Haloperidol 2 mg 12/20/20 21:00 12/21/20 22:34 Haloperidol 1 Mg Tablet PO 2 mg BID SAPNA Administration Haloperidol Lactate 5 mg 12/20/20 16:16 Haloperidol Lactate 5 Mg/Ml Vial IM BID PRN if pt refuses PO antipsychotic Hydroxyzine HCl 50 mg 10/20/20 13:45 12/20/20 18:26 Hydroxyzine Hcl 25 Mg Tablet PO 50 mg Q6H PRN Administration Anxiety Ibuprofen 800 mg 10/18/20 15:51 12/07/20 09:05 Ibuprofen 800 Mg Tablet PO 800 mg Q8H PRN Administration pain [place] Carbonate 900 mg 12/16/20 21:00 12/21/20 22:35 [place] Carbonate Er 450 Mg Tablet.Er PO Not Given BEDTIME SAPNA Magnesium Hydroxide 30 ml 10/20/20 13:45 12/05/20 21:13 Milk Of Magnesia 30 Ml Oral.Susp PO 30 ml DAILY PRN Administration Constipation Melatonin 6 mg 10/31/20 21:00 12/21/20 22:35 Melatonin 3 Mg Tablet PO Not Given BEDTIME SAPNA Multi-Ingred Cream/Lotion/Oil/Oint 1 appl 12/02/20 22:00 12/20/20 14:32 Mineral Oil/Petrolatum,White 106 Gm Tube TOPICAL 1 appl BID PRN Administration rash Olanzapine 10 mg 10/20/20 13:50 10/25/20 10:50 Olanzapine Odt 10 Mg Tab.Rapdis TRANSLINGU 10 mg Q6H PRN Administration agitation Paliperidone 12 mg 12/20/20 09:00 12/21/20 09:26 Paliperidone Er 6 Mg Tab.Er.24 PO 12 mg DAILY SAPNA Administration Polyethylene Glycol 17 gm 11/19/20 14:31 12/02/20 12:30 Polyethylene Glycol 3350 17 Gm Powd.Pack PO 17 gm DAILY PRN Administration constipation Trazodone HCl 100 mg 11/11/20 21:00 12/21/20 22:35 Trazodone Hcl 100 Mg Tablet PO Not Given BEDTIME SAPNA Allergies Allergies Allergy/AdvReac Type Severity Reaction Status Date / Time No Known Allergies Allergy Verified 06/25/20 12:27 [No Known Allergies*] Assessment & Plan Assessment & Plan (1) Schizoaffective disorder, bipolar type: Status: Acute Code(s): F25.0 - Schizoaffective disorder, bipolar type Assessment and Plan: Mr. Islas is a 25 year-old male with hx of Schizoaffective Disorder who self presented to [facility] [place] [facility] reporting signs of lizzy including decrease need for sleep, racing thoughts, hyperverbal, pressured speech, poor concentration, presybeterian preoccupation, flight of ideas. He recently was taken off olanzapine, some concern in terms of weight gain in addition to pt request, and started on sertraline, currently on 25mg po daily. we discussed risks, benefits and alternative treatment options. Pt presents as guarded, thought process with loose associations, appears to struggle to process information. PLAN: 1. Continue plan of care- patient on Section 8. 2. Increase paliperidone to 9mg po qhs. Back up HAldol 5mg IM if pt refuses oral paliperidone per section 8. 3. will switch depakote to lithium 900mg po qhs. 4. Clonazepam 0.5mg po qhs for sleep/anxiety. Greater than 50% of the session was spent on counseling and/or coordination of care Reason for contiued inpatient stay Substantial Risk for: inability to function
[2020-12-19] MEDS: Paliperidone ER 9 MG TAB.ER.24 PO (09:54)
[2020-12-19 09:56] VITALS: BP 124/59; PULSE 67; RESP 16; TEMP 36.7; O2SAT 99
[2020-12-19 18:00] VITALS: BP 135/66; PULSE 61; RESP 18; TEMP 36.2; O2SAT 99
--- NOTE | 2020-12-20 07:41 | HO.PSYCHPN ---
Subjective Subjective Date of Service: 12/22/20 Reason For Visit: Radha Interim History: Pt somewhat irritable and asking to be discharged. He continues to report that there are harmful chemicals in the unit and he has to limit where he goes on the unit as it is not well sanitized. Pt asking to leave as he does not think he needs further treatment. Pt suspicious towards staff, increasingly more irritable. He denies SI/HI. He does not attend groups in part due to paranoia. fearful to be around others. We discussed adding haldol given limited effect with haldol. Review of Systems Review of Systems Constitutional: No Fever, No Chills ENT/Mouth: No Ear Pain, No Nasal Congestion, No sore throat Eyes: No Eye Pain, No Swelling, No Redness Cardiovascular: No Chest Pain, No SOB Respiratory: No Cough, No Sputum, No Dyspnea Gastrointestinal: No Nausea, No Vomiting, No Diarrhea, No Hematochezia, No Melena Genitourinary: No Dysuria, No Urinary Frequency, No Hematuria Musculoskeletal: No Myalgias Skin: No Skin Lesions, No rash Neuro: No Weakness, No Numbness, No Paresthesias, No Dizziness, No Headache Psych: positive Anxiety, positive Depression, positive radha, no SI HI Heme/Lymph: No Lymphadenopathy Endocrine: No Polyuria, No Polydipsia Yes all other systems are reviewed and are negative Cardiovascular: Denies chest pain, Denies irregular heart rhythm and Denies lightheadedness Respiratory: Denies pain with cough Gastrointestinal: Denies constipation and Denies diarrhea Mental Status Exam Mental Status Exam Narrative: Appearance: wearing hospital gown, fair hygiene in NAD Behavior:guarded, suspicious psychomotor: some retardation noted at times Speech:clear, delayed response rate, soft tone, spontaneous Thought process:derailment, loose associations. Thought content:paranoid delusions Mood: anxious Affect: fearful, suspicious SI:none HI:none VH/AH:internally preoccupied Delusions:paranoid delusions Insight/judgment:impaired x 2. Memory/cog: alert, not oriented to month, date, situation Patient Appearance: Well Grooomed Patient Orientation: Person, Place, Time and Situation Level of Consciousness: Awake and Appropriate Patient Behavior: Suspicious, Sedated, Avoidant and Poor Eye Contact Mood Description: Flat and Apprehensive Affect Description: Blunted, Angry and Apprehensive Patient Cognition Impaired: No Ability to Follow Directions: Fair Speech Pattern: Clear Memory Description: Intact Diagnostics Vital Signs (24Hr): Vital Signs - 24 hr 12/21/20 08:34 12/21/20 16:42 Temperature 97.7 F 98.4 F Pulse Rate 74 87 Respiratory Rate 16 Blood Pressure 120/57 L 130/58 L Body Mass Index 30.2 Labs Results: 10/17/20 20:45 10/17/20 20:45 Medications Medications Current Medications Generic Name Dose Route Start Last Admin Trade Name Freq PRN Reason Stop Dose Admin Acetaminophen 650 mg 10/20/20 13:45 12/16/20 09:51 Acetaminophen 325 Mg Tablet PO 650 mg Q6H PRN Administration Headache/Pain Mild Scale (1-3) Al Hydroxide/Mg Hydroxide 30 ml 10/20/20 13:45 11/27/20 16:28 Magnesium Hydrox/Alum Hydrox 30 Ml Oral.Susp PO 30 ml Q6H PRN Administration Heartburn/Nausea Aspirin 325 mg 11/14/20 12:35 11/15/20 12:01 Aspirin Enteric Coated 325 Mg Tablet.Dr PO 325 mg Q4H PRN Administration Pain, Moderate (Pain Scale 4-6 Diphenhydramine HCl 25 mg 12/02/20 22:00 12/02/20 23:07 Diphenhydramine Hcl 25 Mg Tablet PO 25 mg Q3H PRN Administration Rash Haloperidol 2 mg 12/20/20 21:00 12/21/20 22:34 Haloperidol 1 Mg Tablet PO 2 mg BID SAPNA Administration Haloperidol Lactate 5 mg 12/20/20 16:16 Haloperidol Lactate 5 Mg/Ml Vial IM BID PRN if pt refuses PO antipsychotic Hydroxyzine HCl 50 mg 10/20/20 13:45 12/20/20 18:26 Hydroxyzine Hcl 25 Mg Tablet PO 50 mg Q6H PRN Administration Anxiety Ibuprofen 800 mg 10/18/20 15:51 12/07/20 09:05 Ibuprofen 800 Mg Tablet PO 800 mg Q8H PRN Administration pain [place] Carbonate 900 mg 12/16/20 21:00 12/21/20 22:35 [place] Carbonate Er 450 Mg Tablet.Er PO Not Given BEDTIME SAPNA Magnesium Hydroxide 30 ml 10/20/20 13:45 12/05/20 21:13 Milk Of Magnesia 30 Ml Oral.Susp PO 30 ml DAILY PRN Administration Constipation Melatonin 6 mg 10/31/20 21:00 12/21/20 22:35 Melatonin 3 Mg Tablet PO Not Given BEDTIME SAPNA Multi-Ingred Cream/Lotion/Oil/Oint 1 appl 12/02/20 22:00 12/20/20 14:32 Mineral Oil/Petrolatum,White 106 Gm Tube TOPICAL 1 appl BID PRN Administration rash Olanzapine 10 mg 10/20/20 13:50 10/25/20 10:50 Olanzapine Odt 10 Mg Tab.Rapdis TRANSLINGU 10 mg Q6H PRN Administration agitation Paliperidone 12 mg 12/20/20 09:00 12/21/20 09:26 Paliperidone Er 6 Mg Tab.Er.24 PO 12 mg DAILY SAPNA Administration Polyethylene Glycol 17 gm 11/19/20 14:31 12/02/20 12:30 Polyethylene Glycol 3350 17 Gm Powd.Pack PO 17 gm DAILY PRN Administration constipation Trazodone HCl 100 mg 11/11/20 21:00 12/21/20 22:35 Trazodone Hcl 100 Mg Tablet PO Not Given BEDTIME SAPNA Allergies Allergies Allergy/AdvReac Type Severity Reaction Status Date / Time No Known Allergies Allergy Verified 06/25/20 12:27 [No Known Allergies*] Assessment & Plan Assessment & Plan (1) Schizoaffective disorder, bipolar type: Status: Acute Code(s): F25.0 - Schizoaffective disorder, bipolar type Assessment and Plan: Mr. Islas is a 25 year-old male with hx of Schizoaffective Disorder who self presented to [facility] [facility] reporting signs of radha including decrease need for sleep, racing thoughts, hyperverbal, pressured speech, poor concentration, orthodoxy preoccupation, flight of ideas. He recently was taken off olanzapine, some concern in terms of weight gain in addition to pt request, and started on sertraline, currently on 25mg po daily. we discussed risks, benefits and alternative treatment options. Pt presents as guarded, thought process with loose associations, appears to struggle to process information. PLAN: 1. Continue plan of care- patient on Section 8. 2. Increase paliperidone to 12mg po qhs. Back up HAldol 5mg IM if pt refuses oral paliperidone per section 8. 3. will switch depakote to lithium 900mg po qhs. 4. Start Haldol 2.5mg po BID back up IM haldol. 4. Clonazepam 0.5mg po qhs for sleep/anxiety. Greater than 50% of the session was spent on counseling and/or coordination of care Reason for contiued inpatient stay Substantial Risk for: inability to function
[2020-12-20 09:34] VITALS: BP 137/63; PULSE 66; RESP 16; TEMP 36.7; O2SAT 98
[2020-12-20] MEDS: Paliperidone ER 6 MG TAB.ER.24 12 MG PO (09:41)
[2020-12-20] MEDS: Mineral Oil/Petrolatum,White 106 GM Tube 1 APPL TOPICAL (14:32)
[2020-12-20] MEDS: hydrOXYzine HCL 25 MG TABLET 50 MG PO (18:26)
[2020-12-20 20:24] VITALS: BP 159/70; PULSE 75; RESP 18; TEMP 36.6; O2SAT 98
[2020-12-20] MEDS: HaloperidoL 1 MG TABLET 2 MG PO (22:40)
--- NOTE | 2020-12-21 07:42 | P.PNPSI_ITS ---
Subjective Subjective Date of Service: 12/22/20 Reason For Visit: Radha Interim History: Pt somewhat irritable and asking to be discharged. He continues to report that there are harmful chemicals in the unit and he has to limit where he goes on the unit as it is not well sanitized. Pt asking to leave as he does not think he needs further treatment. Pt suspicious towards staff, increasingly more irritable. He denies SI/HI. He does not attend groups in part due to paranoia. fearful to be around others. We discussed adding haldol given limited effect with haldol. Review of Systems Review of Systems Constitutional: No Fever, No Chills ENT/Mouth: No Ear Pain, No Nasal Congestion, No sore throat Eyes: No Eye Pain, No Swelling, No Redness Cardiovascular: No Chest Pain, No SOB Respiratory: No Cough, No Sputum, No Dyspnea Gastrointestinal: No Nausea, No Vomiting, No Diarrhea, No Hematochezia, No Melena Genitourinary: No Dysuria, No Urinary Frequency, No Hematuria Musculoskeletal: No Myalgias Skin: No Skin Lesions, No rash Neuro: No Weakness, No Numbness, No Paresthesias, No Dizziness, No Headache Psych: positive Anxiety, positive Depression, positive radha, no SI HI Heme/Lymph: No Lymphadenopathy Endocrine: No Polyuria, No Polydipsia Yes all other systems are reviewed and are negative Cardiovascular: Denies chest pain, Denies irregular heart rhythm and Denies lightheadedness Respiratory: Denies pain with cough Gastrointestinal: Denies constipation and Denies diarrhea Mental Status Exam Mental Status Exam Narrative: Appearance: wearing hospital gown, fair hygiene in NAD Behavior:guarded, suspicious psychomotor: some retardation noted at times Speech:clear, delayed response rate, soft tone, spontaneous Thought process:derailment, loose associations. Thought content:paranoid delusions Mood: anxious Affect: fearful, suspicious SI:none HI:none VH/AH:internally preoccupied Delusions:paranoid delusions Insight/judgment:impaired x 2. Memory/cog: alert, not oriented to month, date, situation Patient Appearance: Well Grooomed Patient Orientation: Person, Place, Time and Situation Level of Consciousness: Awake and Appropriate Patient Behavior: Suspicious, Sedated, Avoidant and Poor Eye Contact Mood Description: Flat and Apprehensive Affect Description: Blunted, Angry and Apprehensive Patient Cognition Impaired: No Ability to Follow Directions: Fair Speech Pattern: Clear Memory Description: Intact Diagnostics Vital Signs (24Hr): Vital Signs - 24 hr 12/21/20 08:34 12/21/20 16:42 Temperature 97.7 F 98.4 F Pulse Rate 74 87 Respiratory Rate 16 Blood Pressure 120/57 L 130/58 L Body Mass Index 30.2 Labs Results: 10/17/20 20:45 10/17/20 20:45 Medications Medications Current Medications Generic Name Dose Route Start Last Admin Trade Name Freq PRN Reason Stop Dose Admin Acetaminophen 650 mg 10/20/20 13:45 12/16/20 09:51 Acetaminophen 325 Mg Tablet PO 650 mg Q6H PRN Administration Headache/Pain Mild Scale (1-3) Al Hydroxide/Mg Hydroxide 30 ml 10/20/20 13:45 11/27/20 16:28 Magnesium Hydrox/Alum Hydrox 30 Ml Oral.Susp PO 30 ml Q6H PRN Administration Heartburn/Nausea Aspirin 325 mg 11/14/20 12:35 11/15/20 12:01 Aspirin Enteric Coated 325 Mg Tablet.Dr PO 325 mg Q4H PRN Administration Pain, Moderate (Pain Scale 4-6 Diphenhydramine HCl 25 mg 12/02/20 22:00 12/02/20 23:07 Diphenhydramine Hcl 25 Mg Tablet PO 25 mg Q3H PRN Administration Rash Haloperidol 2 mg 12/20/20 21:00 12/21/20 22:34 Haloperidol 1 Mg Tablet PO 2 mg BID SAPNA Administration Haloperidol Lactate 5 mg 12/20/20 16:16 Haloperidol Lactate 5 Mg/Ml Vial IM BID PRN if pt refuses PO antipsychotic Hydroxyzine HCl 50 mg 10/20/20 13:45 12/20/20 18:26 Hydroxyzine Hcl 25 Mg Tablet PO 50 mg Q6H PRN Administration Anxiety Ibuprofen 800 mg 10/18/20 15:51 12/07/20 09:05 Ibuprofen 800 Mg Tablet PO 800 mg Q8H PRN Administration pain [place] Carbonate 900 mg 12/16/20 21:00 12/21/20 22:35 [place] Carbonate Er 450 Mg Tablet.Er PO Not Given BEDTIME SAPNA Magnesium Hydroxide 30 ml 10/20/20 13:45 12/05/20 21:13 Milk Of Magnesia 30 Ml Oral.Susp PO 30 ml DAILY PRN Administration Constipation Melatonin 6 mg 10/31/20 21:00 12/21/20 22:35 Melatonin 3 Mg Tablet PO Not Given BEDTIME SAPNA Multi-Ingred Cream/Lotion/Oil/Oint 1 appl 12/02/20 22:00 12/20/20 14:32 Mineral Oil/Petrolatum,White 106 Gm Tube TOPICAL 1 appl BID PRN Administration rash Olanzapine 10 mg 10/20/20 13:50 10/25/20 10:50 Olanzapine Odt 10 Mg Tab.Rapdis TRANSLINGU 10 mg Q6H PRN Administration agitation Paliperidone 12 mg 12/20/20 09:00 12/21/20 09:26 Paliperidone Er 6 Mg Tab.Er.24 PO 12 mg DAILY SAPNA Administration Polyethylene Glycol 17 gm 11/19/20 14:31 12/02/20 12:30 Polyethylene Glycol 3350 17 Gm Powd.Pack PO 17 gm DAILY PRN Administration constipation Trazodone HCl 100 mg 11/11/20 21:00 12/21/20 22:35 Trazodone Hcl 100 Mg Tablet PO Not Given BEDTIME SAPNA Allergies Allergies Allergy/AdvReac Type Severity Reaction Status Date / Time No Known Allergies Allergy Verified 06/25/20 12:27 [No Known Allergies*] Assessment & Plan Assessment & Plan (1) Schizoaffective disorder, bipolar type: Status: Acute Code(s): F25.0 - Schizoaffective disorder, bipolar type Assessment and Plan: Mr. Islas is a 25 year-old male with hx of Schizoaffective Disorder who self presented to [facility] reporting signs of radha including decrease need for sleep, racing thoughts, hyperverbal, pressured speech, poor concentration, religion preoccupation, flight of ideas. He recently was taken off olanzapine, some concern in terms of weight gain in addition to pt request, and started on sertraline, currently on 25mg po daily. we discussed risks, benefits and alternative treatment options. Pt presents as guarded, thought process with loose associations, appears to struggle to process information. PLAN: 1. Continue plan of care- patient on Section 8. 2. Increase paliperidone to 12mg po qhs. Back up HAldol 5mg IM if pt refuses oral paliperidone per section 8. 3. will switch depakote to lithium 900mg po qhs. 4. Start Haldol 2.5mg po BID back up IM haldol. 4. Clonazepam 0.5mg po qhs for sleep/anxiety. Greater than 50% of the session was spent on counseling and/or coordination of care Reason for contiued inpatient stay Substantial Risk for: inability to function
[2020-12-21 08:34] VITALS: BP 120/57; PULSE 74; RESP 16; TEMP 36.5
[2020-12-21] MEDS: Paliperidone ER 6 MG TAB.ER.24 12 MG PO (09:26)
[2020-12-21] MEDS: HaloperidoL 1 MG TABLET 2 MG PO ×2 (09:52→22:34)
[2020-12-21 16:42] VITALS: BP 130/58; PULSE 87; TEMP 36.9
[2020-12-22 06:00] VITALS: BP 130/59; PULSE 87; RESP 16; TEMP 36.2; O2SAT 98
--- NOTE | 2020-12-22 09:24 | HO.PSYCHPN ---
Subjective Subjective Date of Service: 12/23/20 Reason For Visit: Radha Subjective Notes: Section 8 Interim History: Pt has been more visible in the unit and actually attended a few groups. He appropriately expresses his frustration about being in the unit/hospital for so long. Pt does report some concern about unit not being clean and worried about contamination in unit but slightly less as he is able to attend and participate briefly in groups, which before he wouldn't get out of his room or stay in groups as he worried about chemicals in unit poisoning him. He appears less fearful, but scanning room as we met. He continues to present as suspicious with staff, less perseveration on haunted house and staff trying to hurt him. He denies SI/HI. Medication Compliance: Yes Side effects from medications: Yes Attending Groups: Intermittent Review of Systems Acute medical concerns: Yes Review of Systems Review of Systems Constitutional: No Fever, No Chills ENT/Mouth: No Ear Pain, No Nasal Congestion, No sore throat Eyes: No Eye Pain, No Swelling, No Redness Cardiovascular: No Chest Pain, No SOB Respiratory: No Cough, No Sputum, No Dyspnea Gastrointestinal: No Nausea, No Vomiting, No Diarrhea, No Hematochezia, No Melena Genitourinary: No Dysuria, No Urinary Frequency, No Hematuria Musculoskeletal: No Myalgias Skin: No Skin Lesions, No rash Neuro: No Weakness, No Numbness, No Paresthesias, No Dizziness, No Headache Psych: positive Anxiety, positive Depression, positive radha, no SI HI Heme/Lymph: No Lymphadenopathy Endocrine: No Polyuria, No Polydipsia Yes all other systems are reviewed and are negative Cardiovascular: Denies chest pain, Denies irregular heart rhythm and Denies lightheadedness Respiratory: Denies pain with cough Gastrointestinal: Denies constipation and Denies diarrhea Mental Status Exam Mental Status Exam Narrative: Appearance: wearing hospital gown, fair hygiene in NAD Behavior:guarded, suspicious psychomotor: some retardation noted at times Speech:clear, delayed response rate, soft tone, spontaneous Thought process:derailment, loose associations. Thought content:paranoid delusions Mood: anxious Affect: fearful, suspicious SI:none HI:none VH/AH:internally preoccupied Delusions:paranoid delusions Insight/judgment:impaired x 2. Memory/cog: alert, not oriented to month, date, situation Diagnostics Vital Signs (24Hr): Vital Signs - 24 hr 12/22/20 18:00 Temperature 97.2 F Pulse Rate 79 Blood Pressure 149/63 H Pulse Oximetry 97 Body Mass Index 30.2 Labs Results: 10/17/20 20:45 10/17/20 20:45 Medications Medications Current Medications Generic Name Dose Route Start Last Admin Trade Name Freq PRN Reason Stop Dose Admin Acetaminophen 650 mg 10/20/20 13:45 12/16/20 09:51 Acetaminophen 325 Mg Tablet PO 650 mg Q6H PRN Administration Headache/Pain Mild Scale (1-3) Al Hydroxide/Mg Hydroxide 30 ml 10/20/20 13:45 11/27/20 16:28 Magnesium Hydrox/Alum Hydrox 30 Ml Oral.Susp PO 30 ml Q6H PRN Administration Heartburn/Nausea Aspirin 325 mg 11/14/20 12:35 11/15/20 12:01 Aspirin Enteric Coated 325 Mg Tablet.Dr PO 325 mg Q4H PRN Administration Pain, Moderate (Pain Scale 4-6 Diphenhydramine HCl 25 mg 12/02/20 22:00 12/02/20 23:07 Diphenhydramine Hcl 25 Mg Tablet PO 25 mg Q3H PRN Administration Rash Haloperidol 2 mg 12/20/20 21:00 12/22/20 20:16 Haloperidol 1 Mg Tablet PO 2 mg BID SAPNA Administration Haloperidol Lactate 5 mg 12/20/20 16:16 Haloperidol Lactate 5 Mg/Ml Vial IM BID PRN if pt refuses PO antipsychotic Hydroxyzine HCl 50 mg 10/20/20 13:45 12/20/20 18:26 Hydroxyzine Hcl 25 Mg Tablet PO 50 mg Q6H PRN Administration Anxiety Ibuprofen 800 mg 10/18/20 15:51 12/07/20 09:05 Ibuprofen 800 Mg Tablet PO 800 mg Q8H PRN Administration pain [place] Carbonate 900 mg 12/16/20 21:00 12/22/20 20:19 [place] Carbonate Er 450 Mg Tablet.Er PO Not Given BEDTIME SAPNA Magnesium Hydroxide 30 ml 10/20/20 13:45 12/05/20 21:13 Milk Of Magnesia 30 Ml Oral.Susp PO 30 ml DAILY PRN Administration Constipation Melatonin 6 mg 10/31/20 21:00 12/22/20 20:16 Melatonin 3 Mg Tablet PO 6 mg BEDTIME SAPNA Administration Multi-Ingred Cream/Lotion/Oil/Oint 1 appl 12/02/20 22:00 12/20/20 14:32 Mineral Oil/Petrolatum,White 106 Gm Tube TOPICAL 1 appl BID PRN Administration rash Olanzapine 10 mg 10/20/20 13:50 10/25/20 10:50 Olanzapine Odt 10 Mg Tab.Rapdis TRANSLINGU 10 mg Q6H PRN Administration agitation Paliperidone 12 mg 12/20/20 09:00 12/22/20 10:00 Paliperidone Er 6 Mg Tab.Er.24 PO 12 mg DAILY SAPNA Administration Polyethylene Glycol 17 gm 11/19/20 14:31 12/02/20 12:30 Polyethylene Glycol 3350 17 Gm Powd.Pack PO 17 gm DAILY PRN Administration constipation Trazodone HCl 100 mg 11/11/20 21:00 12/22/20 20:19 Trazodone Hcl 100 Mg Tablet PO Not Given BEDTIME SAPNA Allergies Allergies Allergy/AdvReac Type Severity Reaction Status Date / Time No Known Allergies Allergy Verified 06/25/20 12:27 [No Known Allergies*] Assessment & Plan Assessment & Plan (1) Schizoaffective disorder, bipolar type: Status: Acute Code(s): F25.0 - Schizoaffective disorder, bipolar type Assessment and Plan: Mr. Islas is a 25 year-old male with hx of Schizoaffective Disorder who self presented to [facility] [place] ED reporting signs of radha including decrease need for sleep, racing thoughts, hyperverbal, pressured speech, poor concentration, jehovah's witness preoccupation, flight of ideas. He recently was taken off olanzapine, some concern in terms of weight gain in addition to pt request, and started on sertraline, currently on 25mg po daily. we discussed risks, benefits and alternative treatment options. Pt presents as guarded, thought process with loose associations, appears to struggle to process information. PLAN: 1. Continue plan of care- patient on Section 8. 2. Increase paliperidone to 12mg po qhs. Back up HAldol 5mg IM if pt refuses oral paliperidone per section 8. 3. will switch depakote to lithium 900mg po qhs. 4. increase Haldol 5mg po BID back up IM haldol. 4. Clonazepam 0.5mg po qhs for sleep/anxiety. Greater than 50% of the session was spent on counseling and/or coordination of care Reason for contiued inpatient stay Substantial Risk for: inability to function
[2020-12-22] MEDS: Paliperidone ER 6 MG TAB.ER.24 12 MG PO (10:00)
[2020-12-22] MEDS: HaloperidoL 1 MG TABLET 2 MG PO ×2 (10:00→20:16)
[2020-12-22 18:00] VITALS: BP 149/63; PULSE 79; TEMP 36.2; O2SAT 97
[2020-12-22] MEDS: Melatonin 3 MG TABLET 6 MG PO (20:16)
--- NOTE | 2020-12-23 00:18 | PC.NURSE ---
refused trazodone and lithium
[2020-12-23 06:00] VITALS: BP 115/58; PULSE 84; RESP 16; TEMP 36.3; O2SAT 99
--- NOTE | 2020-12-23 08:38 | P.PNPSI_ITS ---
Subjective Subjective Date of Service: 12/25/20 Reason For Visit: Radha Interim History: Pt mostly in his room again but did attend one group. He appropriately expresses his frustration about being in the unit/hospital for so long. Pt does report some concern about unit not being clean and worried about contamination in unit but slightly less as he is able to attend and participate briefly in groups, which before he wouldn't get out of his room or stay in groups as he worried about chemicals in unit poisoning him. He appears less fearful, but scanning room as we met. He continues to present as suspicious with staff, less perseveration on haunted house and staff trying to hurt him. He denies SI/HI. Review of Systems Review of Systems Constitutional: No Fever, No Chills ENT/Mouth: No Ear Pain, No Nasal Congestion, No sore throat Eyes: No Eye Pain, No Swelling, No Redness Cardiovascular: No Chest Pain, No SOB Respiratory: No Cough, No Sputum, No Dyspnea Gastrointestinal: No Nausea, No Vomiting, No Diarrhea, No Hematochezia, No Melena Genitourinary: No Dysuria, No Urinary Frequency, No Hematuria Musculoskeletal: No Myalgias Skin: No Skin Lesions, No rash Neuro: No Weakness, No Numbness, No Paresthesias, No Dizziness, No Headache Psych: positive Anxiety, positive Depression, positive radha, no SI HI Heme/Lymph: No Lymphadenopathy Endocrine: No Polyuria, No Polydipsia Yes all other systems are reviewed and are negative Cardiovascular: Denies chest pain, Denies irregular heart rhythm and Denies lightheadedness Respiratory: Denies pain with cough Gastrointestinal: Denies constipation and Denies diarrhea Mental Status Exam Mental Status Exam Narrative: Appearance: wearing hospital gown, fair hygiene in NAD Behavior:guarded, suspicious psychomotor: some retardation noted at times Speech:clear, delayed response rate, soft tone, spontaneous Thought process:derailment, loose associations. Thought content:paranoid delusions Mood: anxious Affect: fearful, suspicious SI:none HI:none VH/AH:internally preoccupied Delusions:paranoid delusions Insight/judgment:impaired x 2. Memory/cog: alert, not oriented to month, date, situation Mood Description: Flat and Apprehensive Affect Description: Blunted, Angry and Apprehensive Patient Cognition Impaired: No Ability to Follow Directions: Fair Speech Pattern: Clear Memory Description: Intact Diagnostics Vital Signs (24Hr): Vital Signs - 24 hr 12/24/20 12:10 12/24/20 20:31 Temperature 97.8 F 96.5 F L Pulse Rate 84 83 Respiratory Rate 19 Blood Pressure 122/74 184/100 H Pulse Oximetry 100 97 Body Mass Index 30.2 Labs Results: 10/17/20 20:45 10/17/20 20:45 Medications Medications Current Medications Generic Name Dose Route Start Last Admin Trade Name Art PRN Reason Stop Dose Admin Acetaminophen 650 mg 10/20/20 13:45 12/24/20 20:29 Acetaminophen 325 Mg Tablet PO 650 mg Q6H PRN Administration Headache/Pain Mild Scale (1-3) Al Hydroxide/Mg Hydroxide 30 ml 10/20/20 13:45 11/27/20 16:28 Magnesium Hydrox/Alum Hydrox 30 Ml Oral.Susp PO 30 ml Q6H PRN Administration Heartburn/Nausea Aspirin 325 mg 11/14/20 12:35 11/15/20 12:01 Aspirin Enteric Coated 325 Mg Tablet.Dr PO 325 mg Q4H PRN Administration Pain, Moderate (Pain Scale 4-6 Diphenhydramine HCl 25 mg 12/02/20 22:00 12/25/20 05:34 Diphenhydramine Hcl 25 Mg Tablet PO 25 mg Q3H PRN Administration Rash Haloperidol 5 mg 12/23/20 21:00 12/24/20 20:29 Haloperidol 5 Mg Tablet PO 5 mg BID SAPNA Administration Haloperidol Lactate 5 mg 12/20/20 16:16 Haloperidol Lactate 5 Mg/Ml Vial IM BID PRN if pt refuses PO antipsychotic Hydroxyzine HCl 50 mg 10/20/20 13:45 12/20/20 18:26 Hydroxyzine Hcl 25 Mg Tablet PO 50 mg Q6H PRN Administration Anxiety Ibuprofen 800 mg 10/18/20 15:51 12/07/20 09:05 Ibuprofen 800 Mg Tablet PO 800 mg Q8H PRN Administration pain [place] Carbonate 900 mg 12/16/20 21:00 12/24/20 20:33 [place] Carbonate Er 450 Mg Tablet.Er PO Not Given BEDTIME SAPNA Magnesium Hydroxide 30 ml 10/20/20 13:45 12/24/20 19:39 Milk Of Magnesia 30 Ml Oral.Susp PO 30 ml DAILY PRN Administration Constipation Melatonin 6 mg 10/31/20 21:00 12/24/20 20:29 Melatonin 3 Mg Tablet PO 6 mg BEDTIME SAPNA Administration Multi-Ingred Cream/Lotion/Oil/Oint 1 appl 12/02/20 22:00 12/20/20 14:32 Mineral Oil/Petrolatum,White 106 Gm Tube TOPICAL 1 appl BID PRN Administration rash Olanzapine 10 mg 10/20/20 13:50 10/25/20 10:50 Olanzapine Odt 10 Mg Tab.Rapdis TRANSLINGU 10 mg Q6H PRN Administration agitation Paliperidone 12 mg 12/20/20 09:00 12/24/20 08:40 Paliperidone Er 6 Mg Tab.Er.24 PO 12 mg DAILY SAPNA Administration Polyethylene Glycol 17 gm 11/19/20 14:31 12/02/20 12:30 Polyethylene Glycol 3350 17 Gm Powd.Pack PO 17 gm DAILY PRN Administration constipation Trazodone HCl 100 mg 11/11/20 21:00 12/24/20 20:34 Trazodone Hcl 100 Mg Tablet PO Not Given BEDTIME SAPNA Allergies Allergies Allergy/AdvReac Type Severity Reaction Status Date / Time No Known Allergies Allergy Verified 06/25/20 12:27 [No Known Allergies*] Assessment & Plan Assessment & Plan (1) Schizoaffective disorder, bipolar type: Status: Acute Code(s): F25.0 - Schizoaffective disorder, bipolar type Assessment and Plan: Mr. Islas is a 25 year-old male with hx of Schizoaffective Disorder who self presented to [facility] ED reporting signs of radha including decrease need for sleep, racing thoughts, hyperverbal, pressured speech, poor concentration, muslim preoccupation, flight of ideas. He recently was taken off olanzapine, some concern in terms of weight gain in addition to pt request, and started on sertraline, currently on 25mg po daily. we discussed risks, benefits and alternative treatment options. Pt presents as guarded, thought process with loose associations, appears to struggle to process information. PLAN: 1. Continue plan of care- patient on Section 8. 2. Increase paliperidone to 12mg po qhs. Back up HAldol 5mg IM if pt refuses oral paliperidone per section 8. 3. will switch depakote to lithium 900mg po qhs. 4. increase Haldol 5mg po BID back up IM haldol. 4. Clonazepam 0.5mg po qhs for sleep/anxiety. Greater than 50% of the session was spent on counseling and/or coordination of care Reason for contiued inpatient stay Substantial Risk for: inability to function
[2020-12-23] MEDS: HaloperidoL 1 MG TABLET 2 MG PO (10:02)
[2020-12-23] MEDS: Paliperidone ER 6 MG TAB.ER.24 12 MG PO (10:02)
[2020-12-23 20:34] VITALS: BP 129/71; PULSE 77; TEMP 36.4; O2SAT 97
[2020-12-23] MEDS: HaloperidoL 5 MG TABLET PO (20:38)
[2020-12-23] MEDS: Melatonin 3 MG TABLET 6 MG PO (20:38)
[2020-12-23] MEDS: Acetaminophen 325 MG TABLET 650 MG PO (20:38)
[2020-12-24 08:15] VITALS: BP 132/67; PULSE 67; RESP 16; TEMP 36.7; O2SAT 97
[2020-12-24] MEDS: HaloperidoL 5 MG TABLET PO ×2 (08:40→20:29)
[2020-12-24] MEDS: Paliperidone ER 6 MG TAB.ER.24 12 MG PO (08:40)
--- NOTE | 2020-12-24 08:40 | P.PNPSI_ITS ---
Subjective Subjective Date of Service: 12/25/20 Reason For Visit: Radha Subjective Notes: Section 8 Interim History: Pt reports his heart is shrinking with haldol. VS wnl, denies chest pain. Pt reports he does not want to take medications. He continues to worried about germs in unit and feeling like he has to wash his hands constantly. He talks less about [facility] and several staff working there. He continues with some paranoia about peers and staff. Note that in evening SBP>170. afebrile. No cogwheel or EPS. Medication Compliance: Intermittent Side effects from medications: No Review of Systems Review of Systems Constitutional: No Fever, No Chills ENT/Mouth: No Ear Pain, No Nasal Congestion, No sore throat Eyes: No Eye Pain, No Swelling, No Redness Cardiovascular: No Chest Pain, No SOB Respiratory: No Cough, No Sputum, No Dyspnea Gastrointestinal: No Nausea, No Vomiting, No Diarrhea, No Hematochezia, No Melena Genitourinary: No Dysuria, No Urinary Frequency, No Hematuria Musculoskeletal: No Myalgias Skin: No Skin Lesions, No rash Neuro: No Weakness, No Numbness, No Paresthesias, No Dizziness, No Headache Psych: positive Anxiety, positive Depression, positive radha, no SI HI Heme/Lymph: No Lymphadenopathy Endocrine: No Polyuria, No Polydipsia Yes all other systems are reviewed and are negative Cardiovascular: Denies chest pain, Denies irregular heart rhythm and Denies lightheadedness Respiratory: Denies pain with cough Gastrointestinal: Denies constipation and Denies diarrhea Mental Status Exam Mental Status Exam Narrative: Appearance: wearing hospital gown, fair hygiene in NAD Behavior:guarded, suspicious psychomotor: some retardation noted at times Speech:clear, delayed response rate, soft tone, spontaneous Thought process:derailment, loose associations. Thought content:paranoid delusions Mood: anxious Affect: fearful, suspicious SI:none HI:none VH/AH:internally preoccupied Delusions:paranoid delusions Insight/judgment:impaired x 2. Memory/cog: alert, not oriented to month, date, situation Diagnostics Vital Signs (24Hr): Vital Signs - 24 hr 12/24/20 12:10 12/24/20 20:31 Temperature 97.8 F 96.5 F L Pulse Rate 84 83 Respiratory Rate 19 Blood Pressure 122/74 184/100 H Pulse Oximetry 100 97 Body Mass Index 30.2 Labs Results: 10/17/20 20:45 10/17/20 20:45 Medications Medications Current Medications Generic Name Dose Route Start Last Admin Trade Name Art PRN Reason Stop Dose Admin Acetaminophen 650 mg 10/20/20 13:45 12/24/20 20:29 Acetaminophen 325 Mg Tablet PO 650 mg Q6H PRN Administration Headache/Pain Mild Scale (1-3) Al Hydroxide/Mg Hydroxide 30 ml 10/20/20 13:45 11/27/20 16:28 Magnesium Hydrox/Alum Hydrox 30 Ml Oral.Susp PO 30 ml Q6H PRN Administration Heartburn/Nausea Aspirin 325 mg 11/14/20 12:35 11/15/20 12:01 Aspirin Enteric Coated 325 Mg Tablet. PO 325 mg Q4H PRN Administration Pain, Moderate (Pain Scale 4-6 Diphenhydramine HCl 25 mg 12/02/20 22:00 12/25/20 05:34 Diphenhydramine Hcl 25 Mg Tablet PO 25 mg Q3H PRN Administration Rash Haloperidol 5 mg 12/23/20 21:00 12/24/20 20:29 Haloperidol 5 Mg Tablet PO 5 mg BID SAPNA Administration Haloperidol Lactate 5 mg 12/20/20 16:16 Haloperidol Lactate 5 Mg/Ml Vial IM BID PRN if pt refuses PO antipsychotic Hydroxyzine HCl 50 mg 10/20/20 13:45 12/20/20 18:26 Hydroxyzine Hcl 25 Mg Tablet PO 50 mg Q6H PRN Administration Anxiety Ibuprofen 800 mg 10/18/20 15:51 12/07/20 09:05 Ibuprofen 800 Mg Tablet PO 800 mg Q8H PRN Administration pain [place] Carbonate 900 mg 12/16/20 21:00 12/24/20 20:33 [place] Carbonate Er 450 Mg Tablet.Er PO Not Given BEDTIME SAPNA Magnesium Hydroxide 30 ml 10/20/20 13:45 12/24/20 19:39 Milk Of Magnesia 30 Ml Oral.Susp PO 30 ml DAILY PRN Administration Constipation Melatonin 6 mg 10/31/20 21:00 12/24/20 20:29 Melatonin 3 Mg Tablet PO 6 mg BEDTIME SAPNA Administration Multi-Ingred Cream/Lotion/Oil/Oint 1 appl 12/02/20 22:00 12/20/20 14:32 Mineral Oil/Petrolatum,White 106 Gm Tube TOPICAL 1 appl BID PRN Administration rash Olanzapine 10 mg 10/20/20 13:50 10/25/20 10:50 Olanzapine Odt 10 Mg Tab.Rapdis TRANSLINGU 10 mg Q6H PRN Administration agitation Paliperidone 12 mg 12/20/20 09:00 12/24/20 08:40 Paliperidone Er 6 Mg Tab.Er.24 PO 12 mg DAILY SAPNA Administration Polyethylene Glycol 17 gm 11/19/20 14:31 12/02/20 12:30 Polyethylene Glycol 3350 17 Gm Powd.Pack PO 17 gm DAILY PRN Administration constipation Trazodone HCl 100 mg 11/11/20 21:00 12/24/20 20:34 Trazodone Hcl 100 Mg Tablet PO Not Given BEDTIME SAPNA Allergies Allergies Allergy/AdvReac Type Severity Reaction Status Date / Time No Known Allergies Allergy Verified 06/25/20 12:27 [No Known Allergies*] Assessment & Plan Assessment & Plan (1) Schizoaffective disorder, bipolar type: Status: Acute Code(s): F25.0 - Schizoaffective disorder, bipolar type Assessment and Plan: Mr. Islas is a 25 year-old male with hx of Schizoaffective Disorder who self presented to [facility] ED reporting signs of radha including decrease need for sleep, racing thoughts, hyperverbal, pressured speech, poor concentration, restorationist preoccupation, flight of ideas. He recently was taken off olanzapine, some concern in terms of weight gain in addition to pt request, and started on sertraline, currently on 25mg po daily. we discussed risks, benefits and alternative treatment options. Pt presents as guarded, thought process with loose associations, appears to struggle to process information. PLAN: 1. Continue plan of care- patient on Section 8. 2. Increase paliperidone to 12mg po qhs. Back up HAldol 5mg IM if pt refuses oral paliperidone per section 8. 3. will switch depakote to lithium 900mg po qhs. 4. increase Haldol 5mg po BID back up IM haldol. 4. Clonazepam 0.5mg po qhs for sleep/anxiety. Greater than 50% of the session was spent on counseling and/or coordination of care Reason for contiued inpatient stay Substantial Risk for: inability to function
[2020-12-24] MEDS: Acetaminophen 325 MG TABLET 650 MG PO ×2 (08:41→20:29)
[2020-12-24] MEDS: diphenhydrAMINE HCL 25 MG TABLET 50 MG PO (11:37)
--- NOTE | 2020-12-24 11:42 | PC.NURSE ---
PT complained of stiffness and achiness in his body, requested tylenol, medicaiton administered with some effect. PT then stated that his palms felt itchy and he felt like his skin and bones were twisting . PT educated about medications, pt states that he does not want to take cogentin stating that he got sick last time he took that and he is worried about the cogentin affecting his mind, PT educated about medicaiton again, pt continues to state he does not want cogentin. Provider notified, TO for benadryl 50mg PO, medication administered with some encouragement.
[2020-12-24 12:10] VITALS: BP 122/74; PULSE 84; RESP 19; TEMP 36.6; O2SAT 100
[2020-12-24] MEDS: Milk of Magnesia 30 ML ORAL.SUSP PO (19:39)
[2020-12-24] MEDS: Melatonin 3 MG TABLET 6 MG PO (20:29)
[2020-12-24 20:31] VITALS: BP 184/100; PULSE 83; TEMP 35.8; O2SAT 97
[2020-12-25] MEDS: diphenhydrAMINE HCL 25 MG TABLET PO ×2 (05:34→20:14)
[2020-12-25] MEDS: HaloperidoL 5 MG TABLET PO ×2 (09:50→20:14)
[2020-12-25] MEDS: Acetaminophen 325 MG TABLET 650 MG PO ×2 (09:50→20:13)
[2020-12-25] MEDS: Paliperidone ER 6 MG TAB.ER.24 12 MG PO (09:50)
[2020-12-25 09:57] VITALS: BP 134/60; PULSE 73; RESP 16; TEMP 36.5; O2SAT 99
--- NOTE | 2020-12-25 10:19 | P.PNPSI_ITS ---
Subjective Subjective Date of Service: 12/25/20 Reason For Visit: Radha Interim History: pt appears at a loss to explain his continuing to be hospitalized. asks to speak with MD about both discharge and major medication changes, which MD redirects pt to discuss with his provider on monday. pt would like to convey to his provider that he believes the haldol has been negatively affecting him, causing his head to be congested, making his bones feel brittle and painful, and making his hair fall out. he asks for a lower dose or a different medication. on chart review, cari [employer] has ust increased the haldol dose. MD declines to make changes in regimen today and directs pt to discuss with cari on monday. per staff, c/o body aches, bizarre somatic symptoms. having difficulty filling out his menu. Mental Status Exam Mental Status Exam Narrative: Appearance: casually groomed, fair hygiene, in NAD Behavior: guarded. Psychomotor: no agitation or retardation noted Speech: clear, regular rate/rhythm, spontaneous TP: wandering, digressive TC: delusions Affect:constricted no SI/HI/AVH expressed. Diagnostics Vital Signs (24Hr): Vital Signs - 24 hr 12/24/20 12:10 12/24/20 20:31 12/25/20 09:57 Temperature 97.8 F 96.5 F L 97.7 F Pulse Rate 84 83 73 Respiratory Rate 19 16 Blood Pressure 122/74 184/100 H 134/60 Pulse Oximetry 100 97 99 Body Mass Index 30.2 Labs Results: 10/17/20 20:45 10/17/20 20:45 Medications Medications Current Medications Generic Name Dose Route Start Last Admin Trade Name Freq PRN Reason Stop Dose Admin Acetaminophen 650 mg 10/20/20 13:45 12/25/20 09:50 Acetaminophen 325 Mg Tablet PO 650 mg Q6H PRN Administration Headache/Pain Mild Scale (1-3) Al Hydroxide/Mg Hydroxide 30 ml 10/20/20 13:45 11/27/20 16:28 Magnesium Hydrox/Alum Hydrox 30 Ml Oral.Susp PO 30 ml Q6H PRN Administration Heartburn/Nausea Aspirin 325 mg 11/14/20 12:35 11/15/20 12:01 Aspirin Enteric Coated 325 Mg Tablet. PO 325 mg Q4H PRN Administration Pain, Moderate (Pain Scale 4-6 Diphenhydramine HCl 25 mg 12/02/20 22:00 12/25/20 05:34 Diphenhydramine Hcl 25 Mg Tablet PO 25 mg Q3H PRN Administration Rash Haloperidol 5 mg 12/23/20 21:00 12/25/20 09:50 Haloperidol 5 Mg Tablet PO 5 mg BID SAPNA Administration Haloperidol Lactate 5 mg 12/20/20 16:16 Haloperidol Lactate 5 Mg/Ml Vial IM BID PRN if pt refuses PO antipsychotic Hydroxyzine HCl 50 mg 10/20/20 13:45 12/20/20 18:26 Hydroxyzine Hcl 25 Mg Tablet PO 50 mg Q6H PRN Administration Anxiety Ibuprofen 800 mg 10/18/20 15:51 12/07/20 09:05 Ibuprofen 800 Mg Tablet PO 800 mg Q8H PRN Administration pain [place] Carbonate 900 mg 12/16/20 21:00 12/24/20 20:33 [place] Carbonate Er 450 Mg Tablet.Er PO Not Given BEDTIME SAPNA Magnesium Hydroxide 30 ml 10/20/20 13:45 12/24/20 19:39 Milk Of Magnesia 30 Ml Oral.Susp PO 30 ml DAILY PRN Administration Constipation Melatonin 6 mg 10/31/20 21:00 12/24/20 20:29 Melatonin 3 Mg Tablet PO 6 mg BEDTIME SAPNA Administration Multi-Ingred Cream/Lotion/Oil/Oint 1 appl 12/02/20 22:00 12/20/20 14:32 Mineral Oil/Petrolatum,White 106 Gm Tube TOPICAL 1 appl BID PRN Administration rash Olanzapine 10 mg 10/20/20 13:50 10/25/20 10:50 Olanzapine Odt 10 Mg Tab.Rapdis TRANSLINGU 10 mg Q6H PRN Administration agitation Paliperidone 12 mg 12/20/20 09:00 12/25/20 09:50 Paliperidone Er 6 Mg Tab.Er.24 PO 12 mg DAILY SAPNA Administration Polyethylene Glycol 17 gm 11/19/20 14:31 12/02/20 12:30 Polyethylene Glycol 3350 17 Gm Powd.Pack PO 17 gm DAILY PRN Administration constipation Trazodone HCl 100 mg 11/11/20 21:00 12/24/20 20:34 Trazodone Hcl 100 Mg Tablet PO Not Given BEDTIME SAPNA Allergies Allergies Allergy/AdvReac Type Severity Reaction Status Date / Time No Known Allergies Allergy Verified 06/25/20 12:27 [No Known Allergies*] Assessment & Plan Assessment & Plan (1) Schizoaffective disorder, bipolar type: Status: Acute Code(s): F25.0 - Schizoaffective disorder, bipolar type Assessment and Plan: Mr. Islas is a 25 year-old male with hx of Schizoaffective Disorder who self presented to [facility] reporting signs of radha including decrease need for sleep, racing thoughts, hyperverbal, pressured speech, poor concentration, hinduism preoccupation, flight of ideas. He recently was taken off olanzapine, some concern in terms of weight gain in addition to pt request, and started on sertraline, currently on 25mg po daily. we discussed risks, benefits and alternative treatment options. Pt presents as guarded, thought process with loose associations, appears to struggle to process information. PLAN: 1. Continue plan of care- patient on Section 8. 2. Increased paliperidone to 12mg po qhs. Back up HAldol 5mg IM if pt refuses oral paliperidone per section 8. haldol 5 mg BID scheduled. 3. switched depakote to lithium 900mg po qhs. 4. increase Haldol 5mg po BID back up IM haldol. 4. Clonazepam 0.5mg po qhs for sleep/anxiety. Greater than 50% of the session was spent on counseling and/or coordination of care Reason for contiued inpatient stay Substantial Risk for: inability to function and rapid decompensation
[2020-12-25] MEDS: Magnesium Citrate 300 ML SOLUTION PO (15:38)
[2020-12-25 18:00] VITALS: BP 128/62; PULSE 88; RESP 18; TEMP 36.8; O2SAT 97
[2020-12-25] MEDS: Melatonin 3 MG TABLET 6 MG PO (20:14)
[2020-12-26 06:00] VITALS: BP 136/58; PULSE 76; RESP 16; TEMP 36.3; O2SAT 96
[2020-12-26] MEDS: Paliperidone ER 6 MG TAB.ER.24 12 MG PO (08:21)
[2020-12-26] MEDS: HaloperidoL 5 MG TABLET PO ×2 (08:21→21:10)
--- NOTE | 2020-12-26 10:51 | HO.PSYCHPN ---
Subjective Subjective Date of Service: 12/26/20 Reason For Visit: Radha Interim History: Patient seen. DW team. Mostly isolative but did attend part of a group this AM. He denies hallucinations and says he would like to be discharged. He is preoccupied with germs. He says he is having some anxiety. VSS stable Review of Systems Review of Systems Constitutional: No Fever, No Chills ENT/Mouth: No Ear Pain, No Nasal Congestion, No sore throat Eyes: No Eye Pain, No Swelling, No Redness Cardiovascular: No Chest Pain, No SOB Respiratory: No Cough, No Sputum, No Dyspnea Gastrointestinal: No Nausea, No Vomiting, No Diarrhea, No Hematochezia, No Melena Genitourinary: No Dysuria, No Urinary Frequency, No Hematuria Musculoskeletal: No Myalgias Skin: No Skin Lesions, No rash Neuro: No Weakness, No Numbness, No Paresthesias, No Dizziness, No Headache Psych: positive Anxiety, positive Depression, positive radha, no SI HI Heme/Lymph: No Lymphadenopathy Endocrine: No Polyuria, No Polydipsia Yes all other systems are reviewed and are negative Cardiovascular: Denies chest pain, Denies irregular heart rhythm and Denies lightheadedness Respiratory: Denies pain with cough Gastrointestinal: Denies constipation and Denies diarrhea Mental Status Exam Mental Status Exam Narrative: Appearance: casually groomed, fair hygiene, in NAD Behavior: guarded. Psychomotor: no agitation or retardation noted Speech: clear, regular rate/rhythm, spontaneous TP: wandering, digressive TC: delusions Affect:constricted no SI/HI/AVH expressed. Patient Appearance: Well Grooomed Patient Orientation: Person, Place, Time and Situation Level of Consciousness: Awake and Appropriate Patient Behavior: Suspicious, Sedated, Avoidant and Poor Eye Contact Mood Description: Flat and Apprehensive Affect Description: Blunted, Angry and Apprehensive Patient Cognition Impaired: No Ability to Follow Directions: Fair Speech Pattern: Clear Memory Description: Intact Diagnostics Vital Signs (24Hr): Vital Signs - 24 hr 12/25/20 18:00 12/26/20 06:00 Temperature 98.2 F 97.4 F Pulse Rate 88 76 Respiratory Rate 18 16 Blood Pressure 128/62 136/58 L Pulse Oximetry 97 96 Body Mass Index 30.2 Labs Results: 10/17/20 20:45 10/17/20 20:45 Medications Medications Current Medications Generic Name Dose Route Start Last Admin Trade Name [place] PRN Reason Stop Dose Admin Acetaminophen 650 mg 10/20/20 13:45 12/25/20 20:13 Acetaminophen 325 Mg Tablet PO 650 mg Q6H PRN Administration Headache/Pain Mild Scale (1-3) Al Hydroxide/Mg Hydroxide 30 ml 10/20/20 13:45 11/27/20 16:28 Magnesium Hydrox/Alum Hydrox 30 Ml Oral.Susp PO 30 ml Q6H PRN Administration Heartburn/Nausea Aspirin 325 mg 11/14/20 12:35 11/15/20 12:01 Aspirin Enteric Coated 325 Mg Tablet. PO 325 mg Q4H PRN Administration Pain, Moderate (Pain Scale 4-6 Diphenhydramine HCl 25 mg 12/02/20 22:00 12/25/20 20:14 Diphenhydramine Hcl 25 Mg Tablet PO 25 mg Q3H PRN Administration Rash Haloperidol 5 mg 12/23/20 21:00 12/26/20 08:21 Haloperidol 5 Mg Tablet PO 5 mg BID SAPNA Administration Haloperidol Lactate 5 mg 12/20/20 16:16 Haloperidol Lactate 5 Mg/Ml Vial IM BID PRN if pt refuses PO antipsychotic Hydroxyzine HCl 50 mg 10/20/20 13:45 12/20/20 18:26 Hydroxyzine Hcl 25 Mg Tablet PO 50 mg Q6H PRN Administration Anxiety Ibuprofen 800 mg 10/18/20 15:51 12/07/20 09:05 Ibuprofen 800 Mg Tablet PO 800 mg Q8H PRN Administration pain [place] Carbonate 900 mg 12/16/20 21:00 12/25/20 20:16 [place] Carbonate Er 450 Mg Tablet.Er PO Not Given BEDTIME SAPNA Magnesium Hydroxide 30 ml 10/20/20 13:45 12/24/20 19:39 Milk Of Magnesia 30 Ml Oral.Susp PO 30 ml DAILY PRN Administration Constipation Melatonin 6 mg 10/31/20 21:00 12/25/20 20:14 Melatonin 3 Mg Tablet PO 6 mg BEDTIME SAPNA Administration Multi-Ingred Cream/Lotion/Oil/Oint 1 appl 12/02/20 22:00 12/20/20 14:32 Mineral Oil/Petrolatum,White 106 Gm Tube TOPICAL 1 appl BID PRN Administration rash Olanzapine 10 mg 10/20/20 13:50 10/25/20 10:50 Olanzapine Odt 10 Mg Tab.Rapdis TRANSLINGU 10 mg Q6H PRN Administration agitation Paliperidone 12 mg 12/20/20 09:00 12/26/20 08:21 Paliperidone Er 6 Mg Tab.Er.24 PO 12 mg DAILY SAPNA Administration Polyethylene Glycol 17 gm 11/19/20 14:31 12/25/20 13:05 Polyethylene Glycol 3350 17 Gm Powd.Pack PO 17 gm DAILY PRN Administration constipation Trazodone HCl 100 mg 11/11/20 21:00 12/25/20 20:16 Trazodone Hcl 100 Mg Tablet PO Not Given BEDTIME SAPNA Allergies Allergies Allergy/AdvReac Type Severity Reaction Status Date / Time No Known Allergies Allergy Verified 06/25/20 12:27 [No Known Allergies*] Assessment & Plan Assessment & Plan (1) Schizoaffective disorder, bipolar type: Status: Acute Code(s): F25.0 - Schizoaffective disorder, bipolar type Assessment and Plan: Mr. Islas is a 25 year-old male with hx of Schizoaffective Disorder who self presented to [facility] [place] [place] ED reporting signs of radha including decrease need for sleep, racing thoughts, hyperverbal, pressured speech, poor concentration, scientologist preoccupation, flight of ideas. He recently was taken off olanzapine, some concern in terms of weight gain in addition to pt request, and started on sertraline, currently on 25mg po daily. we discussed risks, benefits and alternative treatment options. Pt presents as guarded, thought process with loose associations, appears to struggle to process information. PLAN: 1. Continue plan of care- patient on Section 8. 2. Increased paliperidone to 12mg po qhs. Back up HAldol 5mg IM if pt refuses oral paliperidone per section 8. haldol 5 mg BID scheduled. 3. switched depakote to lithium 900mg po qhs. 4. increase Haldol 5mg po BID back up IM haldol. 4. Clonazepam 0.5mg po qhs for sleep/anxiety. Greater than 50% of the session was spent on counseling and/or coordination of care Reason for contiued inpatient stay Substantial Risk for: inability to function and rapid decompensation
[2020-12-26] MEDS: hydrOXYzine HCL 25 MG TABLET 50 MG PO (11:37)
[2020-12-26 18:00] VITALS: BP 105/54; PULSE 68; RESP 16; TEMP 36.8; O2SAT 96
[2020-12-26] MEDS: Melatonin 3 MG TABLET 6 MG PO (21:10)
[2020-12-27] MEDS: HaloperidoL 5 MG TABLET PO ×2 (08:43→22:20)
[2020-12-27] MEDS: Acetaminophen 325 MG TABLET 650 MG PO (08:50)
[2020-12-27] MEDS: Paliperidone ER 6 MG TAB.ER.24 12 MG PO (08:50)
[2020-12-27 09:30] VITALS: BP 114/63; PULSE 78; RESP 20; TEMP 36.3; O2SAT 96
--- NOTE | 2020-12-27 11:28 | PC.NURSE ---
Patient requesting Tylenol for dull muscle pain and a clicky in my joints . Reports concern the diameter of my colon is not large enough to pass (waste). I am worried my prostate is full of bacteria and is affecting my bowels. The last time I took something I had diarrhea . It was not the normal. The hospital is not the place for sex. I haven't had that since I have been here .
[2020-12-27] MEDS: Docusate Sodium 100 MG CAPSULE PO (14:58)
[2020-12-27] MEDS: hydrOXYzine HCL 25 MG TABLET 50 MG PO (14:58)
--- NOTE | 2020-12-27 20:06 | P.PNPSI_ITS ---
Subjective Subjective Date of Service: 12/27/20 Reason For Visit: Lizzy Interim History: Patient seen. DW team. Complaining of constipation. My abdomen and my intestines are not cooperating . Somatically preoccupied. Says Romulo is giving him diarrhea. He denies hallucinations and says he would like to be discharged. He is preoccupied with somatic symptoms. He says he is having some anxiety. VSS stable Review of Systems Review of Systems Constitutional: No Fever, No Chills ENT/Mouth: No Ear Pain, No Nasal Congestion, No sore throat Eyes: No Eye Pain, No Swelling, No Redness Cardiovascular: No Chest Pain, No SOB Respiratory: No Cough, No Sputum, No Dyspnea Gastrointestinal: No Nausea, No Vomiting, No Diarrhea, No Hematochezia, No Melena Genitourinary: No Dysuria, No Urinary Frequency, No Hematuria Musculoskeletal: No Myalgias Skin: No Skin Lesions, No rash Neuro: No Weakness, No Numbness, No Paresthesias, No Dizziness, No Headache Psych: positive Anxiety, positive Depression, positive lizzy, no SI HI Heme/Lymph: No Lymphadenopathy Endocrine: No Polyuria, No Polydipsia Yes all other systems are reviewed and are negative Cardiovascular: Denies chest pain, Denies irregular heart rhythm and Denies lightheadedness Respiratory: Denies pain with cough Gastrointestinal: Denies constipation and Denies diarrhea Mental Status Exam Mental Status Exam Narrative: Appearance: casually groomed, fair hygiene, in NAD Behavior: guarded. Psychomotor: no agitation or retardation noted Speech: clear, regular rate/rhythm, spontaneous TP: wandering, digressive TC: delusions Affect:constricted no SI/HI/AVH expressed. Patient Appearance: Well Grooomed Patient Orientation: Person, Place, Time and Situation Level of Consciousness: Awake and Appropriate Patient Behavior: Suspicious, Sedated, Avoidant and Poor Eye Contact Mood Description: Flat and Apprehensive Affect Description: Blunted, Angry and Apprehensive Patient Cognition Impaired: No Ability to Follow Directions: Fair Speech Pattern: Clear Memory Description: Intact Diagnostics Vital Signs (24Hr): Vital Signs - 24 hr 12/27/20 09:30 Temperature 97.3 F Pulse Rate 78 Respiratory Rate 20 Blood Pressure 114/63 Pulse Oximetry 96 Body Mass Index 30.2 Labs Results: 10/17/20 20:45 10/17/20 20:45 Medications Medications Current Medications Generic Name Dose Route Start Last Admin Trade Name Waldoq PRN Reason Stop Dose Admin Acetaminophen 650 mg 10/20/20 13:45 12/27/20 08:50 Acetaminophen 325 Mg Tablet PO 650 mg Q6H PRN Administration Headache/Pain Mild Scale (1-3) Al Hydroxide/Mg Hydroxide 30 ml 10/20/20 13:45 11/27/20 16:28 Magnesium Hydrox/Alum Hydrox 30 Ml Oral.Susp PO 30 ml Q6H PRN Administration Heartburn/Nausea Aspirin 325 mg 11/14/20 12:35 11/15/20 12:01 Aspirin Enteric Coated 325 Mg Tablet. PO 325 mg Q4H PRN Administration Pain, Moderate (Pain Scale 4-6 Diphenhydramine HCl 25 mg 12/02/20 22:00 12/25/20 20:14 Diphenhydramine Hcl 25 Mg Tablet PO 25 mg Q3H PRN Administration Rash Docusate Sodium 100 mg 12/27/20 14:43 12/27/20 14:58 Docusate Sodium 100 Mg Capsule PO 100 mg BID PRN Administration Constipation Haloperidol 5 mg 12/23/20 21:00 12/27/20 08:43 Haloperidol 5 Mg Tablet PO 5 mg BID SAPNA Administration Haloperidol Lactate 5 mg 12/20/20 16:16 Haloperidol Lactate 5 Mg/Ml Vial IM BID PRN if pt refuses PO antipsychotic Hydroxyzine HCl 50 mg 10/20/20 13:45 12/27/20 14:58 Hydroxyzine Hcl 25 Mg Tablet PO 50 mg Q6H PRN Administration Anxiety Ibuprofen 800 mg 10/18/20 15:51 12/07/20 09:05 Ibuprofen 800 Mg Tablet PO 800 mg Q8H PRN Administration pain [place] Carbonate 900 mg 12/16/20 21:00 12/26/20 21:51 [place] Carbonate Er 450 Mg Tablet.Er PO Not Given BEDTIME SAPNA Magnesium Hydroxide 30 ml 10/20/20 13:45 12/24/20 19:39 Milk Of Magnesia 30 Ml Oral.Susp PO 30 ml DAILY PRN Administration Constipation Melatonin 6 mg 10/31/20 21:00 12/26/20 21:10 Melatonin 3 Mg Tablet PO 6 mg BEDTIME SAPNA Administration Multi-Ingred Cream/Lotion/Oil/Oint 1 appl 12/02/20 22:00 12/20/20 14:32 Mineral Oil/Petrolatum,White 106 Gm Tube TOPICAL 1 appl BID PRN Administration rash Olanzapine 10 mg 10/20/20 13:50 10/25/20 10:50 Olanzapine Odt 10 Mg Tab.Rapdis TRANSLINGU 10 mg Q6H PRN Administration agitation Paliperidone 12 mg 12/20/20 09:00 12/27/20 08:50 Paliperidone Er 6 Mg Tab.Er.24 PO 12 mg DAILY SAPNA Administration Polyethylene Glycol 17 gm 11/19/20 14:31 12/25/20 13:05 Polyethylene Glycol 3350 17 Gm Powd.Pack PO 17 gm DAILY PRN Administration constipation Trazodone HCl 100 mg 11/11/20 21:00 12/26/20 21:51 Trazodone Hcl 100 Mg Tablet PO Not Given BEDTIME SAPNA Allergies Allergies Allergy/AdvReac Type Severity Reaction Status Date / Time No Known Allergies Allergy Verified 06/25/20 12:27 [No Known Allergies*] Assessment & Plan Assessment & Plan (1) Schizoaffective disorder, bipolar type: Status: Acute Code(s): F25.0 - Schizoaffective disorder, bipolar type Assessment and Plan: Mr. Islas is a 25 year-old male with hx of Schizoaffective Disorder who self presented to [facility] [place] [facility] reporting signs of lizzy including decrease need for sleep, racing thoughts, hyperverbal, pressured speech, poor concentration, roman catholic preoccupation, flight of ideas. He recently was taken off olanzapine, some concern in terms of weight gain in addition to pt request, and started on sertraline, currently on 25mg po daily. we discussed risks, benefits and alternative treatment options. Pt presents as guarded, thought process with loose associations, appears to struggle to process information. PLAN: Colace BID PRN. 1. Continue plan of care- patient on Section 8. 2. Increased paliperidone to 12mg po qhs. Back up HAldol 5mg IM if pt refuses oral paliperidone per section 8. haldol 5 mg BID scheduled. 3. switched depakote to lithium 900mg po qhs. 4. increase Haldol 5mg po BID back up IM haldol. 4. Clonazepam 0.5mg po qhs for sleep/anxiety. Greater than 50% of the session was spent on counseling and/or coordination of care Reason for contiued inpatient stay Substantial Risk for: inability to function and rapid decompensation
[2020-12-27] MEDS: Melatonin 3 MG TABLET 6 MG PO (22:20)
[2020-12-27 22:36] VITALS: BP 119/77; PULSE 109; TEMP 36.2; O2SAT 97
[2020-12-28 08:08] VITALS: BP 125/68; PULSE 71; RESP 16; TEMP 36.7; O2SAT 99
[2020-12-28] MEDS: Paliperidone ER 6 MG TAB.ER.24 12 MG PO (09:24)
[2020-12-28] MEDS: HaloperidoL 5 MG TABLET PO ×2 (09:24→20:33)
[2020-12-28] MEDS: hydrOXYzine HCL 25 MG TABLET 50 MG PO (10:45)
--- NOTE | 2020-12-28 11:24 | P.PNPSI_ITS ---
Subjective Subjective Date of Service: 12/28/20 Reason For Visit: Lizzy Interim History: agrees he had a better weekend. appears less tense than usual. states he was given colace over the weekend, which worked but not completely. asks to speak with joshrafael abad. was informed she would return tomorrow. agrees to have colace scheduled. per staff, more visible, sleeping well. a nx/dep bcse he's here. Mental Status Exam Mental Status Exam Narrative: Appearance: casually groomed, fair hygiene, in NAD Behavior: less guarded. Psychomotor: no agitation or retardation noted Speech: clear, regular rate/rhythm, spontaneous TP: fairly linear and logical in brief interview TC: no delusions or paranoia expressed Affect:constricted no SI/HI/AVH expressed. Diagnostics Vital Signs (24Hr): Vital Signs - 24 hr 12/27/20 22:36 12/28/20 08:08 Temperature 97.2 F 98.0 F Pulse Rate 109 H 71 Respiratory Rate 16 Blood Pressure 119/77 125/68 Pulse Oximetry 97 99 Body Mass Index 30.2 Labs Results: 10/17/20 20:45 10/17/20 20:45 Medications Medications Current Medications Generic Name Dose Route Start Last Admin Trade Name Freq PRN Reason Stop Dose Admin Acetaminophen 650 mg 10/20/20 13:45 12/27/20 08:50 Acetaminophen 325 Mg Tablet PO 650 mg Q6H PRN Administration Headache/Pain Mild Scale (1-3) Al Hydroxide/Mg Hydroxide 30 ml 10/20/20 13:45 11/27/20 16:28 Magnesium Hydrox/Alum Hydrox 30 Ml Oral.Susp PO 30 ml Q6H PRN Administration Heartburn/Nausea Aspirin 325 mg 11/14/20 12:35 11/15/20 12:01 Aspirin Enteric Coated 325 Mg Tablet. PO 325 mg Q4H PRN Administration Pain, Moderate (Pain Scale 4-6 Diphenhydramine HCl 25 mg 12/02/20 22:00 12/25/20 20:14 Diphenhydramine Hcl 25 Mg Tablet PO 25 mg Q3H PRN Administration Rash Docusate Sodium 100 mg 12/28/20 21:00 Docusate Sodium 100 Mg Capsule PO BID SAPNA Haloperidol 5 mg 12/23/20 21:00 12/28/20 09:24 Haloperidol 5 Mg Tablet PO 5 mg BID SAPNA Administration Haloperidol Lactate 5 mg 12/20/20 16:16 Haloperidol Lactate 5 Mg/Ml Vial IM BID PRN if pt refuses PO antipsychotic Hydroxyzine HCl 50 mg 10/20/20 13:45 12/28/20 10:45 Hydroxyzine Hcl 25 Mg Tablet PO 50 mg Q6H PRN Administration Anxiety Ibuprofen 800 mg 10/18/20 15:51 12/07/20 09:05 Ibuprofen 800 Mg Tablet PO 800 mg Q8H PRN Administration pain [place] Carbonate 900 mg 12/16/20 21:00 12/27/20 22:48 [place] Carbonate Er 450 Mg Tablet.Er PO Not Given BEDTIME SAPNA Magnesium Hydroxide 30 ml 10/20/20 13:45 12/24/20 19:39 Milk Of Magnesia 30 Ml Oral.Susp PO 30 ml DAILY PRN Administration Constipation Melatonin 6 mg 10/31/20 21:00 12/27/20 22:20 Melatonin 3 Mg Tablet PO 6 mg BEDTIME SAPNA Administration Multi-Ingred Cream/Lotion/Oil/Oint 1 appl 12/02/20 22:00 12/20/20 14:32 Mineral Oil/Petrolatum,White 106 Gm Tube TOPICAL 1 appl BID PRN Administration rash Olanzapine 10 mg 10/20/20 13:50 10/25/20 10:50 Olanzapine Odt 10 Mg Tab.Rapdis TRANSLINGU 10 mg Q6H PRN Administration agitation Paliperidone 12 mg 12/20/20 09:00 12/28/20 09:24 Paliperidone Er 6 Mg Tab.Er.24 PO 12 mg DAILY SAPNA Administration Polyethylene Glycol 17 gm 11/19/20 14:31 12/25/20 13:05 Polyethylene Glycol 3350 17 Gm Powd.Pack PO 17 gm DAILY PRN Administration constipation Trazodone HCl 100 mg 11/11/20 21:00 12/27/20 22:49 Trazodone Hcl 100 Mg Tablet PO Not Given BEDTIME SAPNA Allergies Allergies Allergy/AdvReac Type Severity Reaction Status Date / Time No Known Allergies Allergy Verified 06/25/20 12:27 [No Known Allergies*] Assessment & Plan Assessment & Plan (1) Schizoaffective disorder, bipolar type: Status: Acute Code(s): F25.0 - Schizoaffective disorder, bipolar type Assessment and Plan: Mr. Islas is a 25 year-old male with hx of Schizoaffective Disorder who self presented to [facility] [place] [facility] reporting signs of lizzy including decrease need for sleep, racing thoughts, hyperverbal, pressured speech, poor concentration, orthodox preoccupation, flight of ideas. He recently was taken off olanzapine, some concern in terms of weight gain in addition to pt request, and started on sertraline, currently on 25mg po daily. we discussed risks, benefits and alternative treatment options. Pt presents as guarded, thought process with loose associations, appears to struggle to process information. PLAN: Colace BID. 1. Continue plan of care- patient on Section 8. 2. Increased paliperidone to 12mg po qhs. Back up HAldol 5mg IM if pt refuses oral paliperidone per section 8. haldol 5 mg BID scheduled. 3. switched depakote to lithium 900mg po qhs. 4. increase Haldol 5mg po BID back up IM haldol. 4. Clonazepam 0.5mg po qhs for sleep/anxiety. Greater than 50% of the session was spent on counseling and/or coordination of care Reason for contiued inpatient stay Substantial Risk for: inability to function and rapid decompensation
[2020-12-28 13:44] LABS: COVID-19 Test Negative (Negative); IDNOW Serial# 9DD0AD1C
[2020-12-28] MEDS: Milk of Magnesia 30 ML ORAL.SUSP PO (15:25)
[2020-12-28 20:24] VITALS: BP 162/93; PULSE 113; TEMP 36.6; O2SAT 96
[2020-12-28] MEDS: Docusate Sodium 100 MG CAPSULE PO (20:33)
[2020-12-28] MEDS: Melatonin 3 MG TABLET 6 MG PO (20:33)
[2020-12-29 08:30] VITALS: BP 124/58; PULSE 72; RESP 18; TEMP 36.8; O2SAT 98
--- NOTE | 2020-12-29 09:22 | HO.PSYCHPN ---
Subjective Subjective Date of Service: 12/30/20 Reason For Visit: Lizzy Subjective Notes: Section 8 Interim History: Pt met with with this insurance underwriter sales and clinician Tiffany. Pt presents as much calmer, less suspicious. He is no longer scanning the room. He reports he is feeling better in that he notes that he is not as suspicious and paranoid towards others in the unit. He reports he thinks this is due to medication. He reports sleeping and eating well. He denies SI/HI. he has been much more visible in the unit. He has attended some groups, able to participate appropriately. His thought process much more organized and coherent. No behavioral concerns. Medication Compliance: Yes Side effects from medications: No Attending Groups: Intermittent Review of Systems Acute medical concerns: No Review of Systems Review of Systems Constitutional: No Fever, No Chills ENT/Mouth: No Ear Pain, No Nasal Congestion, No sore throat Eyes: No Eye Pain, No Swelling, No Redness Cardiovascular: No Chest Pain, No SOB Respiratory: No Cough, No Sputum, No Dyspnea Gastrointestinal: No Nausea, No Vomiting, No Diarrhea, No Hematochezia, No Melena Genitourinary: No Dysuria, No Urinary Frequency, No Hematuria Musculoskeletal: No Myalgias Skin: No Skin Lesions, No rash Neuro: No Weakness, No Numbness, No Paresthesias, No Dizziness, No Headache Psych: positive Anxiety, positive Depression, positive lizzy, no SI HI Heme/Lymph: No Lymphadenopathy Endocrine: No Polyuria, No Polydipsia Yes all other systems are reviewed and are negative Cardiovascular: Denies chest pain, Denies irregular heart rhythm and Denies lightheadedness Respiratory: Denies pain with cough Gastrointestinal: Denies constipation and Denies diarrhea Mental Status Exam Mental Status Exam Narrative: Appearance: casually groomed, fair hygiene, in NAD Behavior: less guarded. Psychomotor: no agitation or retardation noted Speech: clear, regular rate/rhythm, spontaneous TP: fairly linear and logical in brief interview TC: no delusions or paranoia expressed Affect:constricted no SI/HI/AVH expressed. Diagnostics Vital Signs (24Hr): Vital Signs - 24 hr 12/29/20 18:00 12/30/20 06:00 Temperature 98.2 F 97.9 F Pulse Rate 89 65 Respiratory Rate 16 18 Blood Pressure 105/50 L 101/50 L Pulse Oximetry 95 96 Body Mass Index 30.2 Labs Results: 10/17/20 20:45 10/17/20 20:45 Labs: Laboratory Results - last 48 hr 12/28/20 12:20 COVID-19 ([facility]) Negative COVID-19 Clin Com See Note Medications Medications Current Medications Generic Name Dose Route Start Last Admin Trade Name Freq PRN Reason Stop Dose Admin Acetaminophen 650 mg 10/20/20 13:45 12/29/20 18:36 Acetaminophen 325 Mg Tablet PO 650 mg Q6H PRN Administration Headache/Pain Mild Scale (1-3) Al Hydroxide/Mg Hydroxide 30 ml 10/20/20 13:45 11/27/20 16:28 Magnesium Hydrox/Alum Hydrox 30 Ml Oral.Susp PO 30 ml Q6H PRN Administration Heartburn/Nausea Aspirin 325 mg 11/14/20 12:35 11/15/20 12:01 Aspirin Enteric Coated 325 Mg Tablet.Dr PO 325 mg Q4H PRN Administration Pain, Moderate (Pain Scale 4-6 Diphenhydramine HCl 25 mg 12/02/20 22:00 12/25/20 20:14 Diphenhydramine Hcl 25 Mg Tablet PO 25 mg Q3H PRN Administration Rash Docusate Sodium 100 mg 12/28/20 21:00 12/30/20 08:32 Docusate Sodium 100 Mg Capsule PO 100 mg BID SAPNA Administration Haloperidol 5 mg 12/23/20 21:00 12/30/20 08:32 Haloperidol 5 Mg Tablet PO 5 mg BID SAPNA Administration Haloperidol Lactate 5 mg 12/20/20 16:16 Haloperidol Lactate 5 Mg/Ml Vial IM BID PRN if pt refuses PO antipsychotic Hydroxyzine HCl 50 mg 10/20/20 13:45 12/29/20 18:01 Hydroxyzine Hcl 25 Mg Tablet PO 50 mg Q6H PRN Administration Anxiety Ibuprofen 800 mg 10/18/20 15:51 12/07/20 09:05 Ibuprofen 800 Mg Tablet PO 800 mg Q8H PRN Administration pain [place] Carbonate 900 mg 12/16/20 21:00 12/29/20 21:21 [place] Carbonate Er 450 Mg Tablet.Er PO Not Given BEDTIME SAPNA Magnesium Hydroxide 30 ml 10/20/20 13:45 12/28/20 15:25 Milk Of Magnesia 30 Ml Oral.Susp PO 30 ml DAILY PRN Administration Constipation Melatonin 6 mg 10/31/20 21:00 12/29/20 21:18 Melatonin 3 Mg Tablet PO 6 mg BEDTIME SAPNA Administration Multi-Ingred Cream/Lotion/Oil/Oint 1 appl 12/02/20 22:00 12/20/20 14:32 Mineral Oil/Petrolatum,White 106 Gm Tube TOPICAL 1 appl BID PRN Administration rash Olanzapine 10 mg 10/20/20 13:50 10/25/20 10:50 Olanzapine Odt 10 Mg Tab.Rapdis TRANSLINGU 10 mg Q6H PRN Administration agitation Paliperidone 12 mg 12/20/20 09:00 12/30/20 08:32 Paliperidone Er 6 Mg Tab.Er.24 PO 12 mg DAILY SAPNA Administration Polyethylene Glycol 17 gm 11/19/20 14:31 12/25/20 13:05 Polyethylene Glycol 3350 17 Gm Powd.Pack PO 17 gm DAILY PRN Administration constipation Trazodone HCl 100 mg 11/11/20 21:00 12/29/20 21:21 Trazodone Hcl 100 Mg Tablet PO Not Given BEDTIME SAPNA Allergies Allergies Allergy/AdvReac Type Severity Reaction Status Date / Time No Known Allergies Allergy Verified 06/25/20 12:27 [No Known Allergies*] Assessment & Plan Assessment & Plan (1) Schizoaffective disorder, bipolar type: Status: Acute Code(s): F25.0 - Schizoaffective disorder, bipolar type Assessment and Plan: Mr. Islas is a 25 year-old male with hx of Schizoaffective Disorder who self presented to [facility] [place] [facility] reporting signs of lizzy including decrease need for sleep, racing thoughts, hyperverbal, pressured speech, poor concentration, rastafarian preoccupation, flight of ideas. He recently was taken off olanzapine, some concern in terms of weight gain in addition to pt request. we discussed risks, benefits and alternative treatment options. Pt presents as guarded, thought process with loose associations, appears to struggle to process information. PLAN: Colace BID. 1. Continue plan of care- patient on Section 8. 2. Increased paliperidone to 12mg po qhs. Back up HAldol 5mg IM if pt refuses oral paliperidone per section 8. haldol 5 mg BID scheduled. 3. increase Haldol 5mg po BID back up IM haldol. 4. Clonazepam 0.5mg po qhs for sleep/anxiety. Greater than 50% of the session was spent on counseling and/or coordination of care Reason for contiued inpatient stay Substantial Risk for: stable for discharge
[2020-12-29] MEDS: Paliperidone ER 6 MG TAB.ER.24 12 MG PO (09:51)
[2020-12-29] MEDS: Docusate Sodium 100 MG CAPSULE PO ×2 (09:51→21:18)
[2020-12-29] MEDS: HaloperidoL 5 MG TABLET PO ×2 (09:51→21:18)
[2020-12-29 18:00] VITALS: BP 105/50; PULSE 89; RESP 16; TEMP 36.8; O2SAT 95
[2020-12-29] MEDS: hydrOXYzine HCL 25 MG TABLET 50 MG PO (18:01)
[2020-12-29] MEDS: Acetaminophen 325 MG TABLET 650 MG PO (18:36)
[2020-12-29] MEDS: Melatonin 3 MG TABLET 6 MG PO (21:18)
[2020-12-30 06:00] VITALS: BP 101/50; PULSE 65; RESP 18; TEMP 36.6; O2SAT 96
[2020-12-30] MEDS: Paliperidone ER 6 MG TAB.ER.24 12 MG PO (08:32)
[2020-12-30] MEDS: Docusate Sodium 100 MG CAPSULE PO ×2 (08:32→20:56)
[2020-12-30] MEDS: HaloperidoL 5 MG TABLET PO ×2 (08:32→20:56)
--- NOTE | 2020-12-30 09:55 | P.PNPSI_ITS ---
Subjective Subjective Date of Service: 01/01/21 Reason For Visit: Radha Subjective Notes: Section 8 Interim History: Pt reports feeling anxious about discharge. He reports he plans to continue medications and sees how these medications have been helpful in that he is less paranoid and able to be around others. He reports sleeping and eating well. He denies SI/HI. His thought process more organized. Review of Systems Review of Systems Constitutional: No Fever, No Chills ENT/Mouth: No Ear Pain, No Nasal Congestion, No sore throat Eyes: No Eye Pain, No Swelling, No Redness Cardiovascular: No Chest Pain, No SOB Respiratory: No Cough, No Sputum, No Dyspnea Gastrointestinal: No Nausea, No Vomiting, No Diarrhea, No Hematochezia, No Melena Genitourinary: No Dysuria, No Urinary Frequency, No Hematuria Musculoskeletal: No Myalgias Skin: No Skin Lesions, No rash Neuro: No Weakness, No Numbness, No Paresthesias, No Dizziness, No Headache Psych: positive Anxiety, positive Depression, positive radha, no SI HI Heme/Lymph: No Lymphadenopathy Endocrine: No Polyuria, No Polydipsia Yes all other systems are reviewed and are negative Cardiovascular: Denies chest pain, Denies irregular heart rhythm and Denies lightheadedness Respiratory: Denies pain with cough Gastrointestinal: Denies constipation and Denies diarrhea Mental Status Exam Mental Status Exam Narrative: Appearance: casually groomed, fair hygiene, in NAD Behavior: less guarded. Psychomotor: no agitation or retardation noted Speech: clear, regular rate/rhythm, spontaneous TP: fairly linear and logical in brief interview TC: no delusions or paranoia expressed Affect:constricted no SI/HI/AVH expressed. Diagnostics Vital Signs (24Hr): Vital Signs - 24 hr 12/31/20 18:00 Temperature 97.9 F Pulse Rate 64 Respiratory Rate 18 Blood Pressure 94/54 L Pulse Oximetry 97 Body Mass Index 30.2 Labs Results: 10/17/20 20:45 10/17/20 20:45 Medications Medications Current Medications Acetaminophen (Acetaminophen 325 Mg Tablet) 650 mg PO Q6H PRN PRN Reason: Headache/Pain Mild Scale (1-3) Last Admin: 12/31/20 18:44 Dose: 650 mg Documented by: Al Hydroxide/Mg Hydroxide (Magnesium Hydrox/Alum Hydrox 30 Ml Oral.Susp) 30 ml PO Q6H PRN PRN Reason: Heartburn/Nausea Last Admin: 11/27/20 16:28 Dose: 30 ml Documented by: Aspirin (Aspirin Enteric Coated 325 Mg Tablet.Dr) 325 mg PO Q4H PRN PRN Reason: Pain, Moderate (Pain Scale 4-6 Last Admin: 11/15/20 12:01 Dose: 325 mg Documented by: Diphenhydramine HCl (Diphenhydramine Hcl 25 Mg Tablet) 25 mg PO Q3H PRN PRN Reason: Rash Last Admin: 12/31/20 15:56 Dose: 25 mg Documented by: Docusate Sodium (Docusate Sodium 100 Mg Capsule) 100 mg PO BID [facility] Last Admin: 01/01/21 09:28 Dose: 100 mg Documented by: Haloperidol (Haloperidol 5 Mg Tablet) 5 mg PO BID [facility] Last Admin: 01/01/21 09:28 Dose: 5 mg Documented by: Haloperidol Lactate (Haloperidol Lactate 5 Mg/Ml Vial) 5 mg IM BID PRN PRN Reason: if pt refuses PO antipsychotic Hydroxyzine HCl (Hydroxyzine Hcl 25 Mg Tablet) 50 mg PO Q6H PRN PRN Reason: Anxiety Last Admin: 12/31/20 16:33 Dose: 50 mg Documented by: Ibuprofen (Ibuprofen 800 Mg Tablet) 800 mg PO Q8H PRN PRN Reason: pain Last Admin: 12/07/20 09:05 Dose: 800 mg Documented by: Magnesium Hydroxide (Milk Of Magnesia 30 Ml Oral.Susp) 30 ml PO DAILY PRN PRN Reason: Constipation Last Admin: 12/28/20 15:25 Dose: 30 ml Documented by: Melatonin (Melatonin 3 Mg Tablet) 6 mg PO BEDTIME [facility] Last Admin: 12/31/20 20:44 Dose: 6 mg Documented by: Multi-Ingred Cream/Lotion/Oil/Oint (Mineral Oil/Petrolatum,White 106 Gm Tube) 1 appl TOPICAL BID PRN PRN Reason: rash Last Admin: 12/20/20 14:32 Dose: 1 appl Documented by: Olanzapine (Olanzapine Odt 10 Mg Tab.Rapdis) 10 mg TRANSLINGU Q6H PRN PRN Reason: agitation Last Admin: 10/25/20 10:50 Dose: 10 mg Documented by: Paliperidone (Paliperidone Er 6 Mg Tab.Er.24) 12 mg PO DAILY [facility] Last Admin: 01/01/21 09:28 Dose: 12 mg Documented by: Polyethylene Glycol (Polyethylene Glycol 3350 17 Gm Powd.Pack) 17 gm PO DAILY PRN PRN Reason: constipation Last Admin: 12/25/20 13:05 Dose: 17 gm Documented by: Trazodone HCl (Trazodone Hcl 100 Mg Tablet) 100 mg PO BEDTIME SAPNA Last Admin: 12/31/20 20:44 Dose: 100 mg Documented by: Allergies Allergies Allergy/AdvReac Type Severity Reaction Status Date / Time No Known Allergies Allergy Verified 06/25/20 12:27 [No Known Allergies*] Assessment & Plan Assessment & Plan (1) Schizoaffective disorder, bipolar type: Status: Acute Code(s): F25.0 - Schizoaffective disorder, bipolar type Assessment and Plan: Mr. Islas is a 25 year-old male with hx of Schizoaffective Disorder who self [place] [facility] reporting signs of radha including decrease need for sleep, racing thoughts, hyperverbal, pressured speech, poor concentration, mu-ism preoccupation, flight of ideas. He recently was taken off olanzapine, some con cern in terms of weight gain in addition to pt request. we discussed risks, benefits and alternative treatment options. Pt presents as guarded, thought process with loose associations, appears to str uggle to process information. PLAN: Colace BID. 1. Continue plan of care- patient on Section 8. 2. Increased paliperidone to 12mg po qhs. Back up HAldol 5mg IM if pt refuses oral paliperidone per section 8. haldol 5 mg BID scheduled. 3. increase Haldol 5mg po BID back up IM haldol. 4. Clonazepam 0.5mg po qhs for sleep/anxiety. Greater than 50% of the session was spent on counseling and/or coordination of care Reason for contiued inpatient stay Substantial Risk for: inability to function and rapid decompensation
[2020-12-30] MEDS: hydrOXYzine HCL 25 MG TABLET 50 MG PO ×2 (11:07→18:24)
[2020-12-30 20:50] VITALS: BP 129/58; PULSE 83; TEMP 36.6; O2SAT 95
[2020-12-30] MEDS: Melatonin 3 MG TABLET 6 MG PO (20:56)
[2020-12-31 06:00] VITALS: BP 125/59; PULSE 85; RESP 16; TEMP 37; O2SAT 97
[2020-12-31] MEDS: HaloperidoL 5 MG TABLET PO ×2 (09:00→20:44)
[2020-12-31] MEDS: Docusate Sodium 100 MG CAPSULE PO ×2 (09:00→20:44)
[2020-12-31] MEDS: Paliperidone ER 6 MG TAB.ER.24 12 MG PO (09:00)
[2020-12-31] MEDS: hydrOXYzine HCL 25 MG TABLET 50 MG PO ×2 (09:50→16:33)
--- NOTE | 2020-12-31 09:57 | P.PNPSI_ITS ---
Subjective Subjective Date of Service: 01/01/21 Reason For Visit: Radha Subjective Notes: Section 8 Interim History: Pt continues to report feeling anxious about discharge. He reports he plans to continue medications and sees how these medications have been helpful in that he is less paranoid and able to be around others. He has attended groups. He reports sleeping and eating well. He denies SI/HI. His thought process more organized. Medication Compliance: Yes Review of Systems Review of Systems Constitutional: No Fever, No Chills ENT/Mouth: No Ear Pain, No Nasal Congestion, No sore throat Eyes: No Eye Pain, No Swelling, No Redness Cardiovascular: No Chest Pain, No SOB Respiratory: No Cough, No Sputum, No Dyspnea Gastrointestinal: No Nausea, No Vomiting, No Diarrhea, No Hematochezia, No Melena Genitourinary: No Dysuria, No Urinary Frequency, No Hematuria Musculoskeletal: No Myalgias Skin: No Skin Lesions, No rash Neuro: No Weakness, No Numbness, No Paresthesias, No Dizziness, No Headache Psych: positive Anxiety, positive Depression, positive radha, no SI HI Heme/Lymph: No Lymphadenopathy Endocrine: No Polyuria, No Polydipsia Yes all other systems are reviewed and are negative Cardiovascular: Denies chest pain, Denies irregular heart rhythm and Denies lightheadedness Respiratory: Denies pain with cough Gastrointestinal: Denies constipation and Denies diarrhea Mental Status Exam Mental Status Exam Narrative: Appearance: casually groomed, fair hygiene, in NAD Behavior: less guarded. Psychomotor: no agitation or retardation noted Speech: clear, regular rate/rhythm, spontaneous TP: fairly linear and logical in brief interview TC: no delusions or paranoia expressed Affect:constricted no SI/HI/AVH expressed. Diagnostics Vital Signs (24Hr): Vital Signs - 24 hr 12/31/20 18:00 Temperature 97.9 F Pulse Rate 64 Respiratory Rate 18 Blood Pressure 94/54 L Pulse Oximetry 97 Body Mass Index 30.2 Labs Results: 10/17/20 20:45 10/17/20 20:45 Medications Medications Current Medications Acetaminophen (Acetaminophen 325 Mg Tablet) 650 mg PO Q6H PRN PRN Reason: Headache/Pain Mild Scale (1-3) Last Admin: 12/31/20 18:44 Dose: 650 mg Documented by: Al Hydroxide/Mg Hydroxide (Magnesium Hydrox/Alum Hydrox 30 Ml Oral.Susp) 30 ml PO Q6H PRN PRN Reason: Heartburn/Nausea Last Admin: 11/27/20 16:28 Dose: 30 ml Documented by: Aspirin (Aspirin Enteric Coated 325 Mg Tablet.Dr) 325 mg PO Q4H PRN PRN Reason: Pain, Moderate (Pain Scale 4-6 Last Admin: 11/15/20 12:01 Dose: 325 mg Documented by: Diphenhydramine HCl (Diphenhydramine Hcl 25 Mg Tablet) 25 mg PO Q3H PRN PRN Reason: Rash Last Admin: 12/31/20 15:56 Dose: 25 mg Documented by: Docusate Sodium (Docusate Sodium 100 Mg Capsule) 100 mg PO BID [facility] Last Admin: 01/01/21 09:28 Dose: 100 mg Documented by: Haloperidol (Haloperidol 5 Mg Tablet) 5 mg PO BID [facility] Last Admin: 01/01/21 09:28 Dose: 5 mg Documented by: Haloperidol Lactate (Haloperidol Lactate 5 Mg/Ml Vial) 5 mg IM BID PRN PRN Reason: if pt refuses PO antipsychotic Hydroxyzine HCl (Hydroxyzine Hcl 25 Mg Tablet) 50 mg PO Q6H PRN PRN Reason: Anxiety Last Admin: 12/31/20 16:33 Dose: 50 mg Documented by: Ibuprofen (Ibuprofen 800 Mg Tablet) 800 mg PO Q8H PRN PRN Reason: pain Last Admin: 12/07/20 09:05 Dose: 800 mg Documented by: Magnesium Hydroxide (Milk Of Magnesia 30 Ml Oral.Susp) 30 ml PO DAILY PRN PRN Reason: Constipation Last Admin: 12/28/20 15:25 Dose: 30 ml Documented by: Melatonin (Melatonin 3 Mg Tablet) 6 mg PO BEDTIME [facility] Last Admin: 12/31/20 20:44 Dose: 6 mg Documented by: Multi-Ingred Cream/Lotion/Oil/Oint (Mineral Oil/Petrolatum,White 106 Gm Tube) 1 appl TOPICAL BID PRN PRN Reason: rash Last Admin: 12/20/20 14:32 Dose: 1 appl Documented by: Olanzapine (Olanzapine Odt 10 Mg Tab.Rapdis) 10 mg TRANSLINGU Q6H PRN PRN Reason: agitation Last Admin: 10/25/20 10:50 Dose: 10 mg Documented by: Paliperidone (Paliperidone Er 6 Mg Tab.Er.24) 12 mg PO DAILY [facility] Last Admin: 01/01/21 09:28 Dose: 12 mg Documented by: Polyethylene Glycol (Polyethylene Glycol 3350 17 Gm Powd.Pack) 17 gm PO DAILY PRN PRN Reason: constipation Last Admin: 12/25/20 13:05 Dose: 17 gm Documented by: Trazodone HCl (Trazodone Hcl 100 Mg Tablet) 100 mg PO BEDTIME [facility] Last Admin: 12/31/20 20:44 Dose: 100 mg Documented by: Allergies Allergies Allergy/AdvReac Type Severity Reaction Status Date / Time No Known Allergies Allergy Verified 06/25/20 12:27 [No Known Allergies*] Assessment & Plan Assessment & Plan (1) Schizoaffective disorder, bipolar type: Status: Acute Code(s): F25.0 - Schizoaffective disorder, bipolar type Assessment and Plan: Mr. Islas is a 25 year-old male with hx of Schizoaffective Disorder who self presented to [facility] ED reporting signs of radha including decrease need for sleep, racing thoughts, hyperverbal, pressured speech, poor concentration, christianity preoccupation, flight of ideas. He recently was taken off olanzapine, some concern in terms of weight gain in addition to pt request. we discussed risks, benefits and alternative treatment options. Pt presents as guarded, thought process with loose associations, appears to struggle to process information. PLAN: Colace BID. 1. Continue plan of care- patient on Section 8. 2. Increased paliperidone to 12mg po qhs. Back up HAldol 5mg IM if pt refuses oral paliperidone per section 8. haldol 5 mg BID scheduled. 3. increase Haldol 5mg po BID back up IM haldol. 4. Clonazepam 0.5mg po qhs for sleep/anxiety. Greater than 50% of the session was spent on counseling and/or coordination of care Reason for contiued inpatient stay Substantial Risk for: stable for discharge
[2020-12-31] MEDS: Acetaminophen 325 MG TABLET 650 MG PO ×2 (12:32→18:44)
[2020-12-31] MEDS: diphenhydrAMINE HCL 25 MG TABLET PO (15:56)
[2020-12-31 18:00] VITALS: BP 94/54; PULSE 64; RESP 18; TEMP 36.6; O2SAT 97
[2020-12-31] MEDS: traZODone HCL 100 MG TABLET PO (20:44)
[2020-12-31] MEDS: Melatonin 3 MG TABLET 6 MG PO (20:44)
[2021-01-01] MEDS: Docusate Sodium 100 MG CAPSULE PO (09:28)
[2021-01-01] MEDS: HaloperidoL 5 MG TABLET PO (09:28)
[2021-01-01] MEDS: Paliperidone ER 6 MG TAB.ER.24 12 MG PO (09:28)
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
== END 2021-01-01 12:45 | disposition home or self-care (01) | DRG 750 ==
LOC: HO.ED 10-18 01:27 → HO.PADLT16 10-20 13:57
PROVIDERS: Nurse Practitioner Family; Admitting Provider Psychiatry & Neurology Psychiatry; Emergency Provider Internal Medicine; Visit Provider Social Worker
DX: F25.0 Schizoaffective disorder, bipolar type (principal); Z91.14 Patient's other noncompliance with medication regimen; Z20.822 Contact with and (suspected) exposure to COVID-19; Z79.899 Other long term (current) drug therapy
CPT/HCPCS: 36415; 80048; 80061; 80076; 80164; 80307; 82077; 82140; 82607; 82746; 83036; 84443; 85025; 87635; 93005; 99232; 99285; Q0163

== ENCOUNTER 2021-03-02 10:58 | Inpatient (IN) | payer OTHER, MEDICAID, SELFPAY ==
--- NOTE | 2021-03-02 11:27 | ED_ITS ---
HPI - General Adult General Chief complaint: Psychiatric Symptoms Stated complaint: WEAK X'S 1 WEEK Time Seen by Provider: 03/02/21 11:04 Source: patient, EMS and old records reviewed History of Present Illness HPI narrative: Patient with a history of bipolar disorder presents complaining of feeling very slow and weak. He states this started approximately 1 week ago and has gotten progressively worse especially over the past 2 days. He thinks it may be due to his medication, especially Haldol. He started Haldol approximately 4 months ago since his last admission here. Over the past week he has been having difficulty sleeping as well. He denies falling. No trauma No other recent stressors or changes. He denies drugs or alcohol. He states he has been taking his medication only as prescribed. He denies suicidal or homicidal ideation. Although the sober living house that he was in states he mentioned some suicidal ideation yesterday. No other further details are available this moment No prior history of similar issues. No fevers chills or infectious symptoms. No exposures to COVID-19 knows of Related Data Home Medications Medication Instructions Recorded Confirmed buspirone 10 mg tablet 1 tab PO BID 03/02/21 03/02/21 diphenhydramine 25 1 tab PO Q6H PRN 03/02/21 03/02/21 mg-acetaminophen 500 mg tablet (Tylenol PM Extra Strength) melatonin 3 mg tablet 6 mg PO BEDTIME PRN 03/02/21 03/02/21 Previous Rx's Medication Instructions Recorded haloperidol 5 mg tablet 5 mg PO BID #60 tab 01/01/21 paliperidone 6 mg tablet,extended 12 mg PO DAILY #60 tab 01/01/21 release 24 hr (Invega) trazodone 100 mg tablet 100 mg PO BEDTIME #30 tab 01/01/21 Allergies Allergy/AdvReac Type Severity Reaction Status Date / Time No Known Allergies Allergy Verified 06/25/20 12:27 [No Known Allergies*] [facility] Past Medical History Medical History Anxiety No known health problems OCD (obsessive compulsive disorder) Social History Social History Household Members: Other Household Members Other:: roommate Housing: Apartment Do you presently have visiting nurse or other home services: No Alcohol intake: never Patient Tobacco Use Status: Never used Tobacco Substance Use Type: Marijuana Advance Directives: No Advance Directives Information Provided: Yes service: No Sexual orientation: Straight/Heterosexual Physical Exam Vital Signs: Vital Signs: Last Vital Signs Temp 99.6 F 03/02/21 13:55 Pulse 105 H 03/02/21 13:55 Resp 17 03/02/21 13:55 BP 147/76 H 03/02/21 13:55 Pulse Ox 98 03/02/21 13:55 Body Mass Index 30.2 Const: Other: Awake and alert no acute distress HENMT: Other: Normocephalic atraumatic Eyes: Other: Pupils equal round reactive to light. Extraocular muscles intact without nystagmus Neck: Other: Full range of motion Resp: Other: Clear and equal bilaterally. No respiratory distress Cardio: Other: Regular rate and rhythm GI: Other: Soft nontender Skin: Other: Warm pink and dry without rash Neuro: Other: Nonfocal neuro exam. Cranial nerves intact. No facial droop. Strategic Sourcing Specialist equal bilaterally No pronator drift on a 10 count [id number] is intact bilaterally There is no rigidity on passive range of motion Course Course Course Narrative: Medication reaction Conversion disorder Neuroleptics malignant syndrome is possible, but without rigidity seems less likely. Await temperature Hypothyroidism Will draw labs and reassess 3:05 p.m.. Workup in the emergency department shows labs relatively normal but with a CPK minimally elevated 175. Temperature 99 initially and now 99.6. Treated with Tylenol. Question of medication reaction. Patient states he feels the same as upon arrival. Psych in crisis consult ordered. 4:52 p.m.. Psychiatric nurse practitioner recommends Ativan 2 mg. 6:27 p.m.. Crisis team with plans to hospitalized patient for management of psychotic symptoms. Medical Decision Making Lab Data Result diagrams: 03/02/21 12:19 03/02/21 12:19 Labs: Lab Results 03/02/21 03/02/21 03/02/21 Range/Units 12:19 12:19 12:19 WBC 6.8 (4.8-10.8) X10*3/uL RBC 5.22 (4.60-5.80) X10*6/uL Hgb 15.6 (14.0-18.0) g/dl Hct 45.2 (42.0-52.0) % MCV 86.6 (80.0-98.0) fL MCH 29.9 (27.0-33.0) pg MCHC 34.5 (31.0-36.0) g/dl RDW 13.6 (11.0-16.0) % Plt Count 233 (160-400) X10*3/uL MPV 9.5 (9.4-12.4) fL Immature Gran % (Auto) 0.3 (0.0-0.4) % Neut % (Auto) 79.1 H (45-73) % Lymph % (Auto) 14.2 L (20-40) % [place] % (Auto) 6.2 (2-11) % Eos % (Auto) 0.1 (0-4) % Baso % (Auto) 0.1 (0-2) % Lymph # (Auto) 1.0 L (1.2-4.9) X10*3/uL [place] # (Auto) 0.4 (0.1-1.2) X10*3/uL Eos # (Auto) 0.0 (0.0-0.4) X10*3/uL Baso # (Auto) 0.0 (0.0-0.2) X10*3/uL Abs Immat Gran (auto) 0.02 (0.00-0.03) X10*3/uL Absolute Neuts (auto) 5.4 (2.0-8.3) x10*3/uL Absolute Nucleated RBC 0.000 (0.0-0.012) X10*3/uL Nucleated RBC % (auto) 0.0 (0.0-0.2) /100WBC Sodium 139 (135-145) mmol/L Potassium 4.0 (3.3-5.1) mmol/L Chloride 104 (96-108) mmol/L Carbon Dioxide 23 (22-29) mmol/L Anion Gap 16 (12-20) BUN 11 (9-16) mg/dL Creatinine 0.85 (0.5-1.4) mg/dL Estim Creat Clear Calc 137.0 Estimated GFR > 60 Random Glucose 124 H (60-115) mg/dL Calcium 10.2 D (8.4-10.2) mg/dL Total Bilirubin 0.5 (0.0-1.0) mg/dL AST 16 (5-37) U/L ALT 24 (0-40) U/L Alkaline Phosphatase 61 (39-117) U/L Ammonia 32 (13-55) umol/L Total Creatine Kinase 175 H (38-174) U/L Total Protein 8.1 H (6.5-8.0) g/dL Albumin 4.8 (3.5-5.0) g/dL TSH 1.14 (0.32-4.0) uIU/mL Urine Color Urine Appearance Urine pH (5.0-8.0) Ur Specific [place] (1.005-1.025) Urine Protein (NEG-TRACE) MG/DL Urine Glucose (UA) (NEG) MG/DL Urine Ketones (NEG) MG/DL Urine Blood (NEG) Urine Nitrite (NEG) Ur Leukocyte Esterase (NEG) COVID-19 ([facility]) (Negative) COVID-19 Clin Com 03/02/21 03/02/21 Range/Units 12:19 13:46 WBC (4.8-10.8) X10*3/uL RBC (4.60-5.80) X10*6/uL Hgb (14.0-18.0) g/dl Hct (42.0-52.0) % MCV (80.0-98.0) fL MCH (27.0-33.0) pg MCHC (31.0-36.0) g/dl RDW (11.0-16.0) % Plt Count (160-400) X10*3/uL MPV (9.4-12.4) fL Immature Gran % (Auto) (0.0-0.4) % Neut % (Auto) (45-73) % Lymph % (Auto) (20-40) % [place] % (Auto) (2-11) % Eos % (Auto) (0-4) % Baso % (Auto) (0-2) % Lymph # (Auto) (1.2-4.9) X10*3/uL [place] # (Auto) (0.1-1.2) X10*3/uL Eos # (Auto) (0.0-0.4) X10*3/uL Baso # (Auto) (0.0-0.2) X10*3/uL Abs Immat Gran (auto) (0.00-0.03) X10*3/uL Absolute Neuts (auto) (2.0-8.3) x10*3/uL Absolute Nucleated RBC (0.0-0.012) X10*3/uL Nucleated RBC % (auto) (0.0-0.2) /100WBC Sodium (135-145) mmol/L Potassium (3.3-5.1) mmol/L Chloride (96-108) mmol/L Carbon Dioxide (22-29) mmol/L Anion Gap (12-20) BUN (9-16) mg/dL Creatinine (0.5-1.4) mg/dL Estim Creat Clear Calc Estimated GFR Random Glucose (60-115) mg/dL Calcium (8.4-10.2) mg/dL Total Bilirubin (0.0-1.0) mg/dL AST (5-37) U/L ALT (0-40) U/L Alkaline Phosphatase (39-117) U/L Ammonia (13-55) umol/L Total Creatine Kinase (38-174) U/L Total Protein (6.5-8.0) g/dL Albumin (3.5-5.0) g/dL TSH (0.32-4.0) uIU/mL Urine Color YELLOW Urine Appearance CLEAR Urine pH 6.0 (5.0-8.0) Ur Specific [place] >= 1.030 H (1.005-1.025) Urine Protein NEG (NEG-TRACE) MG/DL Urine Glucose (UA) NEG (NEG) MG/DL Urine Ketones NEG (NEG) MG/DL Urine Blood NEG (NEG) Urine Nitrite NEG (NEG) Ur Leukocyte Esterase NEG (NEG) COVID-19 ([facility]AN) Negative (Negative) COVID-19 Clin Com See Note Discharge Plan Discharge Clinical Impression: Bipolar disorder Qualifiers: Active/Remission status: currently active Current bipolar episode type: depress ed Current episode severity: moderate Qualified Code(s): F31.32 - Bipolar disorder, current episode depressed, moderate Depression Qualifiers: Depression Type: major depressive disorder Major depression recurrence: recurrent Active/Remission status: currently active Major depression episode severity: moderate Qualified Code(s): F33.1 - Major depressive disorder, recurrent, moderate Patient Disposition: Admitted As Inpatient
[2021-03-02 11:58] VITALS: BP 127/73; BP 131/66; PULSE 90; PULSE 97; RESP 16; TEMP 37.2; O2SAT 97; O2SAT 99; BMI 30.2
[2021-03-02 12:33] LABS: Ammonia 32 umol/L (13-55)
[2021-03-02 12:42] LABS: MANUAL DIFF FLAG NO
[2021-03-02 12:51] LABS: Basophils Percent Auto 0.1 % (0-2); Eosinophils Percent Auto 0.1 % (0-4); Hematocrit 45.2 % (42.0-52.0); Hemoglobin 15.6 g/dl (14.0-18.0); Imm Gran Abs Auto 0.02 X10*3/uL (0.00-0.03); Imm Gran Pct Auto 0.3 % (0.0-0.4); Lymphocytes Percent Auto 14.2 % (20-40); Mean Corpuscular HGB Conc 34.5 g/dl (31.0-36.0); Mean Corpuscular Hemoglobin 29.9 pg (27.0-33.0); Mean Corpuscular Volume 86.6 fL (80.0-98.0); Mean Platelet Volume 9.5 fL (9.4-12.4); Monocytes Absolute Auto 0.4 X10*3/uL (0.1-1.2); Monocytes Percent Auto 6.2 % (2-11); Neutrophils Absolute Auto 5.4 x10*3/uL (2.0-8.3); Neutrophils Percent Auto 79.1 % (45-73); Platelet Count 233 X10*3/uL (160-400); Red Blood Count 5.22 X10*6/uL (4.60-5.80); Red Cell Distribution Width 13.6 % (11.0-16.0); White Blood Count 6.8 X10*3/uL (4.8-10.8)
[2021-03-02 13:04] LABS: Alanine Aminotransferase 24 U/L (0-40); Albumin Level 4.8 g/dL (3.5-5.0); Alkaline Phosphatase 61 U/L (39-117); Anion Gap 16 (12-20); Aspartate Amino Transferase 16 U/L (5-37); Bilirubin Total 0.5 mg/dL (0.0-1.0); Blood Urea Nitrogen 11 mg/dL (9-16); Calcium 10.2 mg/dL (8.4-10.2); Carbon Dioxide 23 mmol/L (22-29); Chloride 104 mmol/L (96-108); Estimated Glomerular Filt Rate > 60; Glucose Random 124 mg/dL (60-115); Sodium 139 mmol/L (135-145); Total Protein 8.1 g/dL (6.5-8.0)
[2021-03-02 13:08] LABS: COVID-19 Test Negative (Negative)
[2021-03-02 13:27] LABS: TSH reflex Free T4 1.14 uIU/mL (0.32-4.0)
--- NOTE | 2021-03-02 13:32 | PHA.MEDREC ---
Pharmacy Consult ? Medication Reconciliation Pharmacy has completed the medication reconciliation. There are no remarkable issues for provider's attention. Patient reported medications matched with filled history. Mimi Hernandez, [email or web address]
[2021-03-02 13:55] VITALS: BP 147/76; PULSE 105; RESP 17; TEMP 37.6; O2SAT 98
[2021-03-02 15:05] LABS: Appearance Urine CLEAR; Color Urine YELLOW; Glucose Urine UA NEG (NEG); Leukocyte Esterase Urine NEG (NEG); Nitrite Urine NEG (NEG); Specific Gravity - Urine >= 1.030 (1.005-1.025); Urine Blood NEG (NEG); Urine Ketones NEG (NEG); Urine Protein NEG (NEG-TRACE)
[2021-03-02] MEDS: Acetaminophen 325 MG TABLET 650 MG PO (15:11)
[2021-03-02] MEDS: Benztropine Mesylate 1 MG TABLET PO (15:47)
--- NOTE | 2021-03-02 17:12 | PC.NURSE ---
t/w spoke to Lewis elizabeth father on phone, patient requested i updated father, father concurred that clients speech and movement has changed in last two weeks and father reiterated what client had reported feeling slow and weak and having poor sleep. patients father requests update in patients condistion should he return to inpatient
[2021-03-02] MEDS: LORazepam 1 MG TABLET 2 MG PO (17:15)
--- NOTE | 2021-03-02 17:45 | PC.NURSE ---
client expresses difficulty in laying down put wedge pillow under mattress, extra pillow and warm blamkets for client.
[2021-03-02 19:21] LABS: Amphetamine Screen Urine Not Detected (Not Detect); Barbiturates, Urine Not Detected (Not Detect); Benzodiazepines Screen Urine Not Detected (Not Detect); Cannabinoid Screen Urine Not Detected (Not Detect); Cocaine Screen Urine Not Detected (Not Detect); Fentanyl, urine POSITIVE (Not Detect); Opiate Screen Urine Not Detected (Not Detect); Phencyclidine Screen Urine Not Detected (Not Detect)
[2021-03-03 00:10] VITALS: BP 133/73; PULSE 90; RESP 20; TEMP 36.1; O2SAT 97
[2021-03-03] MEDS: traZODone HCL 100 MG TABLET PO ×2 (00:58→20:19)
[2021-03-03] MEDS: Melatonin 3 MG TABLET 6 MG PO ×2 (00:58→20:18)
[2021-03-03 01:46] VITALS: BMI 37.5
--- NOTE | 2021-03-03 01:57 | PC.NURSE ---
Pt. admitted [place] [facility] [place] 0000 on 03/03/2021. Pt. signed a CV. Pt. alert and oriented x4. Pt. reports he came into the ER due to muscle weakness for the last month which worsened in the last week. Pt. experiencing slow, delayed speech and drooling. Pt. reports difficulty sleeping because he is unable to get comfortable. Pt. believes Haldol is causing the muscle weakness. Haldol level drawn after admission. Pt. was calm and cooperative. He requested and received HS trazodone 100mg and PRN melatonin 6mg. Pt. presented with an anxious mood and affect. He displays some paranoia but denied any AH or VH. Pt. denied SI and HI. Pt. witnessed ambulating slowly but with a steady gait. Pt. reported feeling safe on the unit and contracts for safety. Pt. was brought into room [facility]. He stood at the bottom of the bed for a number of minutes and then asked to be in a room alone. Pt. allowed to sleep in 505 for the night. Room situation will be assessed in the morning. Pt. is resting quietly with eyes closed at this time.
[2021-03-03] MEDS: busPIRone HCl 10 MG TABLET PO (02:48)
[2021-03-03 05:52] VITALS: BP 134/78; PULSE 85; TEMP 36.6; O2SAT 98
[2021-03-03] MEDS: Paliperidone ER 6 MG TAB.ER.24 PO (08:48)
[2021-03-03] MEDS: LORazepam 1 MG TABLET PO ×3 (12:05→20:18)
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
[2021-03-03 15:36] LABS: Lactate Dehydrogenase 172 U/L (118-273)
[2021-03-03 20:15] VITALS: BP 130/63; PULSE 99; TEMP 36.6
[2021-03-04 07:00] VITALS: BMI 37.5
[2021-03-04] MEDS: LORazepam 1 MG TABLET PO ×3 (08:45→20:08)
[2021-03-04] MEDS: Paliperidone ER 6 MG TAB.ER.24 PO (08:45)
--- NOTE | 2021-03-04 10:05 | HO.PSYCHPN ---
Subjective Subjective Date of Service: 03/04/21 Reason For Visit: Psychosis Interim History: Patient continues to deny of feeling slowed in both movement and speech. He says he is eating, drinking and toileting himself however he still feels like it takes much effort. Rubbish Collector again did a focused exam of the patient's strength is 5/5 bilaterally throughout. He continues to deny any SI, HI or AVH or any paranoid thinking. Patient said that the Ativan did help calm him down some but did not seem to make it any easier to move. Mental Status Exam Mental Status Exam Narrative: Pt is alert and oriented; behavior sitting, moving very little; dressed in hospital gown, unkempt hair, malodorous; mood is described as anxious and affect constricted, eyes wide; minimal eye contact; Speech is slowed, latent and soft; significant psychomotor retardation present; thought process is organized, linear, logical and goal directed;. Thought content is on tx; otherwise pertinent to relevant topics and without any delusional content, paranoid ideations or grandiosity; denies any SI/HI. There is no evidence of perceptual disturbance and denies AVH; Patients insight and judgment appear intact. Diagnostics Vital Signs (24Hr): Vital Signs - 24 hr 03/03/21 20:15 Temperature 97.8 F Pulse Rate 99 Blood Pressure 130/63 Body Mass Index 37.5 Labs Results: 03/02/21 12:19 03/02/21 12:19 Labs: Laboratory Results - last 48 hr 03/02/21 03/02/21 03/02/21 12:19 12:19 12:19 WBC 6.8 RBC 5.22 Hgb 15.6 Hct 45.2 MCV 86.6 MCH 29.9 MCHC 34.5 RDW 13.6 Plt Count 233 MPV 9.5 Immature Gran % (Auto) 0.3 Neut % (Auto) 79.1 H Lymph % (Auto) 14.2 L [place] % (Auto) 6.2 Eos % (Auto) 0.1 Baso % (Auto) 0.1 Lymph # (Auto) 1.0 L [place] # (Auto) 0.4 Eos # (Auto) 0.0 Baso # (Auto) 0.0 Abs Immat Gran (auto) 0.02 Absolute Neuts (auto) 5.4 Absolute Nucleated RBC 0.000 Nucleated RBC % (auto) 0.0 Sodium 139 Potassium 4.0 Chloride 104 Carbon Dioxide 23 Anion Gap 16 BUN 11 Creatinine 0.85 Estim Creat Clear Calc 137.0 Estimated GFR > 60 Random Glucose 124 H Calcium 10.2 D Total Bilirubin 0.5 AST 16 ALT 24 Alkaline Phosphatase 61 Ammonia 32 Lactate Dehydrogenase Total Creatine Kinase 175 H Total Protein 8.1 H Albumin 4.8 TSH 1.14 Urine Color Urine Appearance Urine pH Ur Specific [place] Urine Protein Urine Glucose (UA) Urine Ketones Urine Blood Urine Nitrite Ur Leukocyte Esterase Urine Opiates Screen Urine Fentanyl Screen Ur Barbiturates Screen Ur Phencyclidine Scrn Ur Amphetamines Screen U Benzodiazepines Scrn Urine Cocaine Screen U Marijuana (THC) Screen COVID-19 (SUZAN) COVID-19 ActiveO 03/02/21 03/02/21 03/02/21 12:19 13:46 13:46 WBC RBC Hgb Hct MCV MCH MCHC RDW Plt Count MPV Immature Gran % (Auto) Neut % (Auto) Lymph % (Auto) [place] % (Auto) Eos % (Auto) Baso % (Auto) Lymph # (Auto) [place] # (Auto) Eos # (Auto) Baso # (Auto) Abs Immat Gran (auto) Absolute Neuts (auto) Absolute Nucleated RBC Nucleated RBC % (auto) Sodium Potassium Chloride Carbon Dioxide Anion Gap BUN Creatinine Estim Creat Clear Calc Estimated GFR Random Glucose Calcium Total Bilirubin AST ALT Alkaline Phosphatase Ammonia Lactate Dehydrogenase Total Creatine Kinase Total Protein Albumin TSH Urine Color YELLOW Urine Appearance CLEAR Urine pH 6.0 Ur Specific [place] >= 1.030 H Urine Protein NEG Urine Glucose (UA) NEG Urine Ketones NEG Urine Blood NEG Urine Nitrite NEG Ur Leukocyte Esterase NEG Urine Opiates Screen Not Detected Urine Fentanyl Screen POSITIVE H Ur Barbiturates Screen Not Detected Ur Phencyclidine Scrn Not Detected Ur Amphetamines Screen Not Detected U Benzodiazepines Scrn Not Detected Urine Cocaine Screen Not Detected U Marijuana (THC) Screen Not Detected COVID-19 (SUZAN) Negative COVID-19 ActiveO See Note 03/03/21 13:49 WBC RBC Hgb Hct MCV MCH MCHC RDW Plt Count MPV Immature Gran % (Auto) Neut % (Auto) Lymph % (Auto) [place] % (Auto) Eos % (Auto) Baso % (Auto) Lymph # (Auto) [place] # (Auto) Eos # (Auto) Baso # (Auto) Abs Immat Gran (auto) Absolute Neuts (auto) Absolute Nucleated RBC Nucleated RBC % (auto) Sodium Potassium Chloride Carbon Dioxide Anion Gap BUN Creatinine Estim Creat Clear Calc Estimated GFR Random Glucose Calcium Total Bilirubin AST ALT Alkaline Phosphatase Ammonia Lactate Dehydrogenase 172 Total Creatine Kinase 119 Total Protein Albumin TSH Urine Color Urine Appearance Urine pH Ur Specific [place] Urine Protein Urine Glucose (UA) Urine Ketones Urine Blood Urine Nitrite Ur Leukocyte Esterase Urine Opiates Screen Urine Fentanyl Screen Ur Barbiturates Screen Ur Phencyclidine Scrn Ur Amphetamines Screen U Benzodiazepines Scrn Urine Cocaine Screen U Marijuana (THC) Screen COVID-19 (SUZAN) COVID-19 Clin Com Medications Medications Current Medications Acetaminophen (Acetaminophen 325 Mg Tablet) 650 mg PO Q6H PRN PRN Reason: Headache/Pain Mild Scale (1-3) Al Hydroxide/Mg Hydroxide (Magnesium Hydrox/Alum Hydrox 30 Ml Oral.Susp) 30 ml PO Q6H PRN PRN Reason: Heartburn/Nausea Hydroxyzine HCl (Hydroxyzine Hcl 25 Mg Tablet) 25 mg PO BEDTIME PRN PRN Reason: Anxiety Lorazepam (Lorazepam 1 Mg Tablet) 1 mg PO TID [facility] Last Admin: 03/04/21 08:45 Dose: 1 mg Documented by: Magnesium Hydroxide (Milk Of Magnesia 30 Ml Oral.Susp) 30 ml PO DAILY PRN PRN Reason: Constipation Melatonin (Melatonin 3 Mg Tablet) 6 mg PO BEDTIME PRN PRN Reason: Insomnia Last Admin: 03/03/21 20:18 Dose: 6 mg Documented by: Paliperidone (Paliperidone Er 6 Mg Tab.Er.24) 6 mg PO DAILY [facility] Last Admin: 03/04/21 08:45 Dose: 6 mg Documented by: Pharmacy Consult (Consult Rx Perform Med Rec) 1 each MISCELLANE ONCE PRN PRN Reason: Consult order Trazodone HCl (Trazodone Hcl 100 Mg Tablet) 100 mg PO BEDTIME [facility] Last Admin: 03/03/21 20:19 Dose: 100 mg Documented by: Trazodone HCl (Trazodone Hcl 50 Mg Tablet) 50 mg PO BEDTIME PRN PRN Reason: Insomnia Allergies Allergies Allergy/AdvReac Type Severity Reaction Status Date / Time No Known Allergies Allergy Verified 06/25/20 12:27 [No Known Allergies*] Assessment & Plan Assessment & Plan (1) Schizoaffective disorder, bipolar type: Status: Acute Code(s): F25.0 - Schizoaffective disorder, bipolar type Assessment and Plan: IMPRESSION Patient is a 25-year-old male with history of psychotic illness, recently discharged from am 3 this December 2020 after over 2 months stay during which time he was started on both Haldol and Invega, who presents complaining that he become very slow down over the past week. -it is currently unclear what is causing patient's presentation -patient speech is logical, linear and organized. -telegraphic typewriter operator unobserved, witnessed patient drooling 03/04-patient remains the same; his muscle strength is within normal limits, he does not seem dizzy; patient does not appear to have NMS; Haldol level pending Staff who know him think that perhaps M5 is over stimulating for him and it is agreed to transfer patient to PLAN: 1. Muscle weakness: Medication/Haldol side effect? Psychosis? Catatonia? NMS increasingly unlikely; meningitis unlikely (cleared in ED; afebrile, WBC wnl, denies neck stiffness) -DC'd haldol -Haldol level pending Continue Ativan 1 mg t.i.d. (which is tx for both catatonia and NMS) -Will increase vitals to t.i.d. FOR NOW WILL CONTINUE Invega 6 mg daily given patient's last presentation which was difficult to treat (normally on 12mg) CONSIDER HOLDING INVEGA -UNlikely NMS EOMI CN 2-12 grossly intact no muscle rigidity B/L throughout no hyperreflexia; mild hypo-reflexia right pettella +1 Muscle strength 5/5, B/L, throughout WBC WNL CPK 175; Repeat CPK: Wnl LDH Wnl Vitals WNL; Afebrile speech organized, logical and linear denies any head trauma -will get collateral I spent minutes with the patient and/or on the patient floor today, greater than?50% of which was spent counseling/coordinating care. Reason for contiued inpatient stay Substantial Risk for: inability to function
--- NOTE | 2021-03-04 16:45 | PC.NURSE ---
Pt transfered to unit from M5. PT calm and cooperative with transfer. Pt reports feeling slow since he was discharged from the hospital. PT states that he was started on risperdone and has felt worse since then but that the last week has been the worst. PT states he came to the hospital because he felt like his muscles were not working. PT currently resting in his room, states that he will ask for help when he wants to move, declined offers for food and drink at this time.
[2021-03-04 18:00] VITALS: BP 129/72; PULSE 93; RESP 16; TEMP 36.6; O2SAT 97
[2021-03-04] MEDS: traZODone HCL 100 MG TABLET PO (20:08)
[2021-03-04] MEDS: busPIRone HCl 10 MG TABLET PO (20:08)
[2021-03-05 09:30] VITALS: BP 151/66; PULSE 87; RESP 17; TEMP 36.7; O2SAT 96
[2021-03-05] MEDS: LORazepam 1 MG TABLET PO ×2 (09:33→20:19)
[2021-03-05] MEDS: Paliperidone ER 6 MG TAB.ER.24 PO (09:33)
[2021-03-05] MEDS: busPIRone HCl 10 MG TABLET PO ×2 (09:39→20:19)
[2021-03-05] MEDS: LORazepam 1 MG TABLET 2 MG PO (13:30)
--- NOTE | 2021-03-05 13:39 | HO.PSYCHPN ---
Subjective Subjective Date of Service: 03/05/21 Reason For Visit: Psychosis Interim History: pt found lying in his bed, awake. RN had informed MD pt was asking for something for anxiety and to take a nap. pt reported to MD he was feeling slow and weak and also acknowledged anxiety. he was concerned perhaps the haldol he had been on was making him slow. MD stated he would prescribe ativan for his anxiety complaint and let the discontinuation of haldol contnue to develop its effects. MD informed him there would be coverage for him over the weekend and josh, his attending, would return on monday. per staff, pt slow, weak, paranoid, flat, non-expressive. sleeping well. Mental Status Exam Mental Status Exam Narrative: Pt is alert and oriented; lying in bed, moving very little; dressed in hospital gown, unkempt hair; mood is described as anxious and affect constricted, eyes wide; minimal eye contact; Speech is slowed, latent and soft; significant psychomotor retardation present; thought process is organized, linear, logical and goal directed. no SI/HI/AVH expressed. Diagnostics Vital Signs (24Hr): Vital Signs - 24 hr 03/04/21 18:00 03/05/21 09:30 Temperature 97.9 F 98.0 F Pulse Rate 93 87 Respiratory Rate 16 17 Blood Pressure 129/72 151/66 H Pulse Oximetry 97 96 Body Mass Index 37.5 Labs Results: 03/02/21 12:19 03/02/21 12:19 Labs: Laboratory Results - last 48 hr 03/03/21 13:49 Lactate Dehydrogenase 172 Total Creatine Kinase 119 Medications Medications Current Medications Acetaminophen (Acetaminophen 325 Mg Tablet) 650 mg PO Q6H PRN PRN Reason: Headache/Pain Mild Scale (1-3) Al Hydroxide/Mg Hydroxide (Magnesium Hydrox/Alum Hydrox 30 Ml Oral.Susp) 30 ml PO Q6H PRN PRN Reason: Heartburn/Nausea Buspirone HCl (Buspirone Hcl 10 Mg Tablet) 10 mg PO BID [facility] Last Admin: 03/05/21 09:39 Dose: 10 mg Documented by: Hydroxyzine HCl (Hydroxyzine Hcl 25 Mg Tablet) 25 mg PO BEDTIME PRN PRN Reason: Anxiety Lorazepam (Lorazepam 1 Mg Tablet) 1 mg PO TID [facility] Last Admin: 03/05/21 09:33 Dose: 1 mg Documented by: Magnesium Hydroxide (Milk Of Magnesia 30 Ml Oral.Susp) 30 ml PO DAILY PRN PRN Reason: Constipation Melatonin (Melatonin 3 Mg Tablet) 6 mg PO BEDTIME PRN PRN Reason: Insomnia Last Admin: 03/03/21 20:18 Dose: 6 mg Documented by: Paliperidone (Paliperidone Er 6 Mg Tab.Er.24) 6 mg PO DAILY [facility] Last Admin: 03/05/21 09:33 Dose: 6 mg Documented by: Pharmacy Consult (Consult Rx Perform Med Rec) 1 each MISCELLANE ONCE PRN PRN Reason: Consult order Trazodone HCl (Trazodone Hcl 100 Mg Tablet) 100 mg PO BEDTIME [facility] Last Admin: 03/04/21 20:08 Dose: 100 mg Documented by: Trazodone HCl (Trazodone Hcl 50 Mg Tablet) 50 mg PO BEDTIME PRN PRN Reason: Insomnia Allergies Allergies Allergy/AdvReac Type Severity Reaction Status Date / Time No Known Allergies Allergy Verified 06/25/20 12:27 [No Known Allergies*] Assessment & Plan Assessment & Plan (1) Schizoaffective disorder, bipolar type: Status: Acute Code(s): F25.0 - Schizoaffective disorder, bipolar type Assessment and Plan: IMPRESSION Patient is a 25-year-old male with history of psychotic illness, recently discharged from am 3 this December 2020 after over 2 months stay during which time he was started on both Haldol and Invega, who presents complaining that he become very slow down over the past week. -it is currently unclear what is causing patient's presentation -patient speech is logical, linear and organized. -food writer unobserved, witnessed patient drooling 03/04-patient remains the same; his muscle strength is within normal limits, he does not seem dizzy; patient does not appear to have NMS; Haldol level pending Staff who know him think that perhaps M5 is over stimulating for him and it is agreed to transfer patient to 03/05 - on M3. no notable change in presentation. ativan 2 mg x1 given for anxiety. PLAN: 1. Muscle weakness: Medication/Haldol side effect? Psychosis? Catatonia? NMS increasingly unlikely; meningitis unlikely (cleared in ED; afebrile, WBC wnl, denies neck stiffness) -DC'd haldol -Haldol level pending Continue Ativan 1 mg t.i.d. (which is tx for both catatonia and NMS) -Will increase vitals to t.i.d. FOR NOW WILL CONTINUE Invega 6 mg daily given patient's last presentation which was difficult to treat (normally on 12mg) CONSIDER HOLDING INVEGA -UNlikely NMS EOMI CN 2-12 grossly intact no muscle rigidity B/L throughout no hyperreflexia; mild hypo-reflexia right pettella +1 Muscle strength 5/5, B/L, throughout WBC WNL CPK 175; Repeat CPK: Wnl LDH Wnl Vitals WNL; Afebrile speech organized, logical and linear denies any head trauma I spent minutes with the patient and/or on the patient floor today, greater than?50% of which was spent counseling/coordinating care. Reason for contiued inpatient stay Substantial Risk for: inability to function
[2021-03-05 20:15] VITALS: BP 119/59; PULSE 78; RESP 16; TEMP 36.5; O2SAT 100
[2021-03-05] MEDS: Melatonin 3 MG TABLET 6 MG PO (20:19)
[2021-03-05] MEDS: hydrOXYzine HCL 25 MG TABLET PO (20:19)
[2021-03-05] MEDS: traZODone HCL 100 MG TABLET PO (20:19)
[2021-03-06 09:00] VITALS: BP 105/51; PULSE 88; RESP 16; TEMP 36.3; O2SAT 94
[2021-03-06] MEDS: Paliperidone ER 6 MG TAB.ER.24 PO (10:10)
[2021-03-06] MEDS: busPIRone HCl 10 MG TABLET PO ×2 (10:10→20:40)
[2021-03-06] MEDS: LORazepam 1 MG TABLET PO ×3 (10:10→20:40)
--- NOTE | 2021-03-06 11:06 | P.PNPSI_ITS ---
Subjective Subjective Date of Service: 03/06/21 Reason For Visit: Psychosis Interim History: Pt seen and discussed with team. Pt found lying in his bed, awake. Patient asking for increase in frequency of anxiety medication (Hydroxyzine). He reports he feels heavy and slow. He was reminded of the Haldol being dced and that it will need some time for symptoms to improve. pt reported to MD he was feeling slow and weak and also acknowledged anxiety. Per staff, pt slow, weak, paranoid, flat, non-expressive. sleeping well. Mental Status Exam Mental Status Exam Narrative: Pt is alert and oriented; lying in bed, moving very little; dressed in hospital gown, unkempt hair; mood is described as anxious and affect constricted, eyes wide; minimal eye contact; Speech is slowed, latent and soft; significant psychomotor retardation present; thought process is organized, linear, logical and goal directed. no SI/HI/AVH expressed. Diagnostics Vital Signs (24Hr): Vital Signs - 24 hr 03/06/21 09:00 03/06/21 13:00 03/06/21 20:26 Temperature 97.4 F 97.9 F 98.0 F Pulse Rate 88 94 79 Respiratory Rate 16 20 16 Blood Pressure 105/51 L 126/64 103/58 L Pulse Oximetry 94 94 97 Body Mass Index 37.5 Labs Results: 03/02/21 12:19 03/02/21 12:19 Medications Medications Current Medications Acetaminophen (Acetaminophen 325 Mg Tablet) 650 mg PO Q6H PRN PRN Reason: Headache/Pain Mild Scale (1-3) Al Hydroxide/Mg Hydroxide (Magnesium Hydrox/Alum Hydrox 30 Ml Oral.Susp) 30 ml PO Q6H PRN PRN Reason: Heartburn/Nausea Buspirone HCl (Buspirone Hcl 10 Mg Tablet) 10 mg PO BID [facility] Last Admin: 03/06/21 20:40 Dose: 10 mg Documented by: Hydroxyzine HCl (Hydroxyzine Hcl 25 Mg Tablet) 25 mg PO TID PRN PRN Reason: Anxiety Last Admin: 03/06/21 17:54 Dose: 25 mg Documented by: Lorazepam (Lorazepam 1 Mg Tablet) 1 mg PO TID [facility] Last Admin: 03/06/21 20:40 Dose: 1 mg Documented by: Magnesium Hydroxide (Milk Of Magnesia 30 Ml Oral.Susp) 30 ml PO DAILY PRN PRN Reason: Constipation Melatonin (Melatonin 3 Mg Tablet) 6 mg PO BEDTIME PRN PRN Reason: Insomnia Last Admin: 03/05/21 20:19 Dose: 6 mg Documented by: Paliperidone (Paliperidone Er 6 Mg Tab.Er.24) 6 mg PO DAILY [facility] Last Admin: 03/06/21 10:10 Dose: 6 mg Documented by: Pharmacy Consult (Consult Rx Perform Med Rec) 1 each MISCELLANE ONCE PRN PRN Reason: Consult order Trazodone HCl (Trazodone Hcl 100 Mg Tablet) 100 mg PO BEDTIME [facility] Last Admin: 03/06/21 20:40 Dose: 100 mg Documented by: Trazodone HCl (Trazodone Hcl 50 Mg Tablet) 50 mg PO BEDTIME PRN PRN Reason: Insomnia Allergies Allergies Allergy/AdvReac Type Severity Reaction Status Date / Time No Known Allergies Allergy Verified 06/25/20 12:27 [No Known Allergies*] Assessment & Plan Assessment & Plan (1) Schizoaffective disorder, bipolar type: Status: Acute Code(s): F25.0 - Schizoaffective disorder, bipolar type Assessment and Plan: IMPRESSION Patient is a 25-year-old male with history of psychotic illness, recently discharged from [facility] this December 2020 after over 2 months stay during which time he was started on both Haldol and Invega, who presents complaining that he become very slow down over the past week. -it is currently unclear what is causing patient's presentation -patient speech is logical, linear and organized. 03/04-patient remains the same; his muscle strength is within normal limits, he does not seem dizzy; patient does not appear to have NMS; Haldol level pending Staff who know him think that perhaps M5 is over stimulating for him and it is agreed to transfer patient to 03/05 - on M3. no notable change in presentation. ativan 2 mg x1 given for an xiety. 03/06: NO CHANGE IN PHARMACOLOGICAL MANAGEMENT. PLAN: 1. Muscle weakness: Medication/Haldol side effect? Psychosis? Catatonia? NMS increasingly unlikely; meningitis unlikely (cleared in ED; afebrile, WBC wnl, denies neck stiffness) -DC'd haldol -Haldol level pending Continue Ativan 1 mg t.i.d. (which is tx for both catatonia and NMS) -Will increase vitals to t.i.d. FOR NOW WILL CONTINUE Invega 6 mg daily given patient's last presentation which was difficult to treat (normally on 12mg) CONSIDER HOLDING INVEGA -UNlikely NMS EOMI CN 2-12 grossly intact no muscle rigidity B/L throughout no hyperreflexia; mild hypo-reflexia right pettella +1 Muscle strength 5/5, B/L, throughout WBC WNL CPK 175; Repeat CPK: Wnl LDH Wnl Vitals WNL; Afebrile speech organized, logical and linear denies any head trauma I spent minutes with the patient and/or on the patient floor today, greater than?50% of which was spent counseling/coordinating care. Reason for contiued inpatient stay Substantial Risk for: inability to function and rapid decompensation
[2021-03-06 13:00] VITALS: BP 126/64; PULSE 94; RESP 20; TEMP 36.6; O2SAT 94
[2021-03-06] MEDS: hydrOXYzine HCL 25 MG TABLET PO (17:54)
[2021-03-06 20:26] VITALS: BP 103/58; PULSE 79; RESP 16; TEMP 36.7; O2SAT 97
[2021-03-06] MEDS: traZODone HCL 100 MG TABLET PO (20:40)
[2021-03-07 09:00] VITALS: BP 129/70; PULSE 95; RESP 20; TEMP 36.6; O2SAT 99
[2021-03-07] MEDS: LORazepam 1 MG TABLET PO ×3 (09:46→20:58)
[2021-03-07] MEDS: busPIRone HCl 10 MG TABLET PO ×2 (09:46→20:58)
[2021-03-07] MEDS: Paliperidone ER 6 MG TAB.ER.24 PO (09:46)
[2021-03-07 13:00] VITALS: BP 129/76; PULSE 86; RESP 18; TEMP 36.7; O2SAT 96
[2021-03-07] MEDS: Venlafaxine HCl ER 37.5 MG CAP.ER.24H PO (14:46)
--- NOTE | 2021-03-07 16:25 | P.PNPSI_ITS ---
Subjective Subjective Date of Service: 03/07/21 Reason For Visit: Psychosis Interim History: Pt seen and discussed with team. Pt found lying in his bed, awake. Patient continues to be slowed. Reports he is depressed. He is isolative and sleeps a lot during the day. He appears depressed. He agrees to a trial of antidepressant. He reports he took antidepressants in the past and thinks they helped. He has no rigidity. Staff note he is depressed and isolative. Mental Status Exam Mental Status Exam Narrative: Pt is alert and oriented; lying in bed, moving very little; dressed in hospital gown, unkempt hair; mood is described as anxious and depressde and affect constricted, depressed, flat. Some eye contact; Speech is slowed, latent and soft; significant psychomotor retardation present; thought process is organized, linear, logical and goal directed. no SI/HI/AVH expressed. Patient Appearance: Disheveled Mood Description: Depressed and Anxious Affect Description: Depressed, Anxious, Blunted and Flat Ability to Follow Directions: Good Speech Pattern: Impoverished, Monotone and Delayed Hallucinations: None Delusions: Not Present Thought Process: Slowed Thinking Thought Content: positive for Poverty of Content Depressive Symptoms: Increased Anxiety, Muscle Tension, Sleeping More Than Usual, Loss of Int. in Activity, Hopelessness, Unhappiness, Increased Fatigue and Loss of Energy Abnormal Motor Activity Signs and Symptoms: Psychomotor Retardation Diagnostics Vital Signs (24Hr): Vital Signs - 24 hr 03/07/21 09:00 03/07/21 13:00 03/07/21 18:00 Temperature 97.8 F 98.1 F 97.8 F Pulse Rate 95 86 80 Respiratory Rate 20 18 20 Blood Pressure 129/70 129/76 118/72 Pulse Oximetry 99 96 96 Body Mass Index 37.5 Labs Results: 03/02/21 12:19 03/02/21 12:19 Medications Medications Current Medications Acetaminophen (Acetaminophen 325 Mg Tablet) 650 mg PO Q6H PRN PRN Reason: Headache/Pain Mild Scale (1-3) Al Hydroxide/Mg Hydroxide (Magnesium Hydrox/Alum Hydrox 30 Ml Oral.Susp) 30 ml PO Q6H PRN PRN Reason: Heartburn/Nausea Buspirone HCl (Buspirone Hcl 10 Mg Tablet) 10 mg PO BID [facility] Last Admin: 03/07/21 20:58 Dose: 10 mg Documented by: Hydroxyzine HCl (Hydroxyzine Hcl 25 Mg Tablet) 25 mg PO TID PRN PRN Reason: Anxiety Last Admin: 03/06/21 17:54 Dose: 25 mg Documented by: Lorazepam (Lorazepam 1 Mg Tablet) 1 mg PO TID [facility] Last Admin: 03/07/21 20:58 Dose: 1 mg Documented by: Magnesium Hydroxide (Milk Of Magnesia 30 Ml Oral.Susp) 30 ml PO DAILY PRN PRN Reason: Constipation Melatonin (Melatonin 3 Mg Tablet) 6 mg PO BEDTIME PRN PRN Reason: Insomnia Last Admin: 03/05/21 20:19 Dose: 6 mg Documented by: Paliperidone (Paliperidone Er 6 Mg Tab.Er.24) 6 mg PO DAILY [facility] Last Admin: 03/07/21 09:46 Dose: 6 mg Documented by: Pharmacy Consult (Consult Rx Perform Med Rec) 1 each MISCELLANE ONCE PRN PRN Reason: Consult order Trazodone HCl (Trazodone Hcl 100 Mg Tablet) 100 mg PO BEDTIME [facility] Last Admin: 03/07/21 20:58 Dose: 100 mg Documented by: Trazodone HCl (Trazodone Hcl 50 Mg Tablet) 50 mg PO BEDTIME PRN PRN Reason: Insomnia Venlafaxine HCl (Venlafaxine Hcl Er 37.5 Mg Cap.Er.24h) 37.5 mg PO DAILY [facility] Last Admin: 03/07/21 14:46 Dose: 37.5 mg Documented by: Allergies Allergies Allergy/AdvReac Type Severity Reaction Status Date / Time No Known Allergies Allergy Verified 06/25/20 12:27 [No Known Allergies*] Assessment & Plan Assessment & Plan (1) Schizoaffective disorder, bipolar type: Status: Acute Code(s): F25.0 - Schizoaffective disorder, bipolar type Assessment and Plan: IMPRESSION Patient is a 25-year-old male with history of psychotic illness, recently discharged from [address] December 2020 after over 2 months stay during which time he was started on both Haldol and Invega, who presents complaining that he become very slow down over the past week. -UNlikely NMS EOMI CN 2-12 grossly intact no muscle rigidity B/L throughout no hyperreflexia; mild hypo-reflexia right pettella +1 Muscle strength 5/5, B/L, throughout WBC WNL CPK 175; Repeat CPK: Wnl LDH Wnl Vitals WNL; Afebrile speech organized, logical and linear denies any head trauma PLAN: -DC'd haldol -Haldol level pending Continue Ativan 1 mg t.i.d. (which is tx for both catatonia and NMS) FOR NOW WILL CONTINUE Invega 6 mg daily given patient's last presentation which was difficult to treat (normally on 12mg) CONSIDER HOLDING INVEGA 03/04-patient remains the same; his muscle strength is within normal limits, he does not seem dizzy; patient does not appear to have NMS; Haldol level pending. Staff who know him think that perhaps M5 is over stimulating for him and it is agreed to transfer patient to 03/05 - on M3. no notable change in presentation. ativan 2 mg x1 given for anxiety. 03/06: NO CHANGE IN PHARMACOLOGICAL MANAGEMENT. 03/07: Start Effexor XR 37.5 mg targeting depression. Watch for activation. I spent minutes with the patient and/or on the patient floor today, greater than?50% of which was spent counseling/coordinating care. Reason for contiued inpatient stay Substantial Risk for: inability to function and rapid decompensation
[2021-03-07 18:00] VITALS: BP 118/72; PULSE 80; RESP 20; TEMP 36.6; O2SAT 96
[2021-03-07] MEDS: traZODone HCL 100 MG TABLET PO (20:58)
[2021-03-08 10:00] VITALS: BP 134/73; PULSE 96; RESP 17; TEMP 36.7; O2SAT 96
[2021-03-08] MEDS: Paliperidone ER 6 MG TAB.ER.24 PO (10:05)
[2021-03-08] MEDS: busPIRone HCl 10 MG TABLET PO ×2 (10:05→20:46)
[2021-03-08] MEDS: LORazepam 1 MG TABLET PO (10:05)
--- NOTE | 2021-03-08 10:36 | P.PNPSI_ITS ---
Subjective Subjective Date of Service: 03/08/21 Reason For Visit: Psychosis Subjective Notes: Conditional Voluntary Interim History: Pt reports that he was feeling very slowed, difficult to talk. He reports being able to talk more and move more. He reports he does not like the where he is staying now. It is a dual dx GH, unclear why pt is there without hx of substance use. He denies SI/HI. He does report at times waking up and feeling down. No overt psychosis or paranoia reported. He asks if antidepressant can be started. However, concern is that it may destabilize mood and worsened psychosis, specially now that he is on lower dose of antipsychotic due to s/s of catatonia. Per nursing, pt mostly in his room. No behavioral concerns. Mental Status Exam Mental Status Exam Narrative: Pt is alert and oriented x 3. Pt wearing hospital gown, fair hygiene. Much less psychomotor retardation, no rigidity Speech: clear, no significant delayed responses, regular tone/rhythm, spontaneous TP: mostly linear, coherent TC: no overt psychosis/paranoia, not liking the where he currently resides Mood: depressed' Affect: constricted VH/AH: denies Insight/judgment: fair x 2. Diagnostics Vital Signs (24Hr): Vital Signs - 24 hr 03/07/21 13:00 03/07/21 18:00 03/08/21 10:00 Temperature 98.1 F 97.8 F 98.0 F Pulse Rate 86 80 96 Respiratory Rate 18 20 17 Blood Pressure 129/76 118/72 134/73 Pulse Oximetry 96 96 96 Body Mass Index 37.5 Labs Results: 03/02/21 12:19 03/02/21 12:19 Medications Medications Current Medications Acetaminophen (Acetaminophen 325 Mg Tablet) 650 mg PO Q6H PRN PRN Reason: Headache/Pain Mild Scale (1-3) Al Hydroxide/Mg Hydroxide (Magnesium Hydrox/Alum Hydrox 30 Ml Oral.Susp) 30 ml PO Q6H PRN PRN Reason: Heartburn/Nausea Buspirone HCl (Buspirone Hcl 10 Mg Tablet) 10 mg PO BID [facility] Last Admin: 03/08/21 10:05 Dose: 10 mg Documented by: Hydroxyzine HCl (Hydroxyzine Hcl 25 Mg Tablet) 25 mg PO TID PRN PRN Reason: Anxiety Last Admin: 03/06/21 17:54 Dose: 25 mg Documented by: Lorazepam (Lorazepam 1 Mg Tablet) 1 mg PO TID [facility] Last Admin: 03/08/21 10:05 Dose: 1 mg Documented by: Magnesium Hydroxide (Milk Of Magnesia 30 Ml Oral.Susp) 30 ml PO DAILY PRN PRN Reason: Constipation Melatonin (Melatonin 3 Mg Tablet) 6 mg PO BEDTIME PRN PRN Reason: Insomnia Last Admin: 03/05/21 20:19 Dose: 6 mg Documented by: Paliperidone (Paliperidone Er 6 Mg Tab.Er.24) 6 mg PO DAILY [facility] Last Admin: 03/08/21 10:05 Dose: 6 mg Documented by: Pharmacy Consult (Consult Rx Perform Med Rec) 1 each MISCELLANE ONCE PRN PRN Reason: Consult order Trazodone HCl (Trazodone Hcl 100 Mg Tablet) 100 mg PO BEDTIME [facility] Last Admin: 03/07/21 20:58 Dose: 100 mg Documented by: Trazodone HCl (Trazodone Hcl 50 Mg Tablet) 50 mg PO BEDTIME PRN PRN Reason: Insomnia Allergies Allergies Allergy/AdvReac Type Severity Reaction Status Date / Time No Known Allergies Allergy Verified 06/25/20 12:27 [No Known Allergies*] Assessment & Plan Assessment & Plan (1) Schizoaffective disorder, bipolar type: Status: Acute Code(s): F25.0 - Schizoaffective disorder, bipolar type Assessment and Plan: IMPRESSION Patient is a 25-year-old male with history of psychotic illness, recently discharged from [address] December 2020 after over 2 months stay during which time he was started on both Haldol and Invega, who presents complaining that he become very slow down over the past week. Catatonia: improving, less psychomotor retardation, less blank staring, no significant response rate delayed, no waxy flexibility, constricted affect. PLAN: 1. Continue Ativan 1 mg t.i.d. (which is tx for both catatonia) 2. Continue Invega 6 mg daily given patient's last presentation which was difficult to treat (normally on 12mg) 3. Hold on haldol 4. concern of starting antidepressant as it may worsen psychosis and currently pt on much lower dose of antipsychotic and past admission very difficult to treat his psychosis/disorganized behavior/thought process. We discussed instead adding lithium but pt declined. 5. Obtain collateral information 6. Aftercare planning. I spent minutes with the patient and/or on the patient floor today, greater than?50% of which was spent counseling/coordinating care. Reason for contiued inpatient stay Substantial Risk for: inability to function
[2021-03-08] MEDS: hydrOXYzine HCL 25 MG TABLET PO (16:47)
[2021-03-08] MEDS: LORazepam 1 MG TABLET 2 MG PO (17:56)
[2021-03-08 18:00] VITALS: BP 108/64; PULSE 83; RESP 18; TEMP 36.7; O2SAT 96
[2021-03-08] MEDS: traZODone HCL 100 MG TABLET PO (20:46)
[2021-03-08] MEDS: Melatonin 3 MG TABLET 6 MG PO (20:46)
[2021-03-09 09:26] LABS: Haloperidol 2 ng/mL (5-15)
[2021-03-09] MEDS: busPIRone HCl 10 MG TABLET PO ×2 (10:07→21:35)
[2021-03-09] MEDS: Paliperidone ER 6 MG TAB.ER.24 PO (10:07)
[2021-03-09 10:25] VITALS: BP 116/56; PULSE 80; RESP 16; TEMP 36.6; O2SAT 97
--- NOTE | 2021-03-09 11:31 | P.PNPSI_ITS ---
Subjective Subjective Date of Service: 03/09/21 Reason For Visit: Psychosis Subjective Notes: Conditional Voluntary Interim History: Pt reports after he was discharged he was feeling very restless, need to constant pace. He does think that restlessness stopped once he stopped haldol. He describes mood as depressed. He asks for antidepressant but we discussed concern of worsening psychosis, especially since he is on lower dose of paliperidone. We discussed adding instead for depression lithium or lamical but pt declined. Pt denies SI/HI. Collateral information gathered from his OP provider, Venecia Rodriguez who reports pt after discharge reported increased anxiety, pacing, was started on buspar. I suspect pt experienced akathisia. Per nursing, pt mostly in his room. No behavioral concerns. Medication Compliance: Yes Side effects from medications: No Attending Groups: Yes Review of Systems Acute medical concerns: No Mental Status Exam Mental Status Exam Narrative: Pt is alert and oriented x 3. Pt wearing hospital gown, fair hygiene. Much less psychomotor retardation, no rigidity Speech: clear, no significant delayed responses, regular tone/rhythm, spontaneous TP: mostly linear, coherent TC: no overt psychosis/paranoia, not liking the where he currently resides, feeling hopeless Mood: depressed' Affect: constricted SI: denies HI: denies Delusions: no overt delusional content. VH/AH: denies Insight/judgment: fair x 2. Diagnostics Vital Signs (24Hr): Vital Signs - 24 hr 03/08/21 18:00 03/09/21 10:25 Temperature 98.0 F 97.9 F Pulse Rate 83 80 Respiratory Rate 18 16 Blood Pressure 108/64 116/56 L Pulse Oximetry 96 97 Body Mass Index 37.5 Labs Results: 03/02/21 12:19 03/02/21 12:19 Labs: Laboratory Results - last 48 hr 03/03/21 01:06 Haloperidol 2 L Medications Medications Current Medications Acetaminophen (Acetaminophen 325 Mg Tablet) 650 mg PO Q6H PRN PRN Reason: Headache/Pain Mild Scale (1-3) Al Hydroxide/Mg Hydroxide (Magnesium Hydrox/Alum Hydrox 30 Ml Oral.Susp) 30 ml PO Q6H PRN PRN Reason: Heartburn/Nausea Buspirone HCl (Buspirone Hcl 10 Mg Tablet) 10 mg PO BID [facility] Last Admin: 03/09/21 10:07 Dose: 10 mg Documented by: Hydroxyzine HCl (Hydroxyzine Hcl 25 Mg Tablet) 25 mg PO TID PRN PRN Reason: Anxiety Last Admin: 03/08/21 16:47 Dose: 25 mg Documented by: Lorazepam (Lorazepam 1 Mg Tablet) 1 mg PO TID [facility] Magnesium Hydroxide (Milk Of Magnesia 30 Ml Oral.Susp) 30 ml PO DAILY PRN PRN Reason: Constipation Melatonin (Melatonin 3 Mg Tablet) 6 mg PO BEDTIME PRN PRN Reason: Insomnia Last Admin: 03/08/21 20:46 Dose: 6 mg Documented by: Paliperidone (Paliperidone Er 6 Mg Tab.Er.24) 6 mg PO DAILY [facility] Last Admin: 03/09/21 10:07 Dose: 6 mg Documented by: Pharmacy Consult (Consult Rx Perform Med Rec) 1 each MISCELLANE ONCE PRN PRN Reason: Consult order Trazodone HCl (Trazodone Hcl 100 Mg Tablet) 100 mg PO BEDTIME [facility] Last Admin: 03/08/21 20:46 Dose: 100 mg Documented by: Trazodone HCl (Trazodone Hcl 50 Mg Tablet) 50 mg PO BEDTIME PRN PRN Reason: Insomnia Allergies Allergies Allergy/AdvReac Type Severity Reaction Status Date / Time No Known Allergies Allergy Verified 06/25/20 12:27 [No Known Allergies*] Assessment & Plan Assessment & Plan (1) Schizoaffective disorder, bipolar type: Status: Acute Code(s): F25.0 - Schizoaffective disorder, bipolar type Assessment and Plan: IMPRESSION Patient is a 25-year-old male with history of psychotic illness, recently discharged from [facility] this December 2020 after over 2 months stay during which time he was started on both Haldol and Invega, who presents complaining that he become very slow down over the past week. Catatonia: improving, less psychomotor retardation, less blank staring, no significant response rate delayed, no waxy flexibility, constricted affect. PLAN: 1. Continue Ativan 1 mg t.i.d. (which is tx for both catatonia) 2. Continue Invega 6 mg daily given patient's last presentation which was difficult to treat (normally on 12mg) 3. Hold on haldol- per pt and OP provider it appears he experienced akathisia with haldol 4. concern of starting antidepressant as it may worsen psychosis and currently pt on much lower dose of antipsychotic and past admission very difficult to treat his psychosis/disorganized behavior/thought process. We discussed instead adding lithium but pt declined. 5. Obtain collateral information 6. Aftercare planning. I spent minutes with the patient and/or on the patient floor today, greater than?50% of which was spent counseling/coordinating care. Reason for contiued inpatient stay Substantial Risk for: inability to function
[2021-03-09] MEDS: LORazepam 1 MG TABLET PO ×2 (15:44→21:09)
[2021-03-09 20:50] VITALS: BP 129/60; PULSE 80; RESP 16; TEMP 36.8; O2SAT 95
[2021-03-09] MEDS: traZODone HCL 100 MG TABLET PO (21:09)
[2021-03-09] MEDS: Melatonin 3 MG TABLET 6 MG PO (21:09)
[2021-03-10] MEDS: LORazepam 1 MG TABLET PO ×3 (08:16→20:01)
[2021-03-10] MEDS: Paliperidone ER 6 MG TAB.ER.24 PO (08:16)
[2021-03-10] MEDS: busPIRone HCl 10 MG TABLET PO ×2 (08:16→20:01)
[2021-03-10 09:00] VITALS: BP 115/56; PULSE 65; RESP 16; TEMP 36.8; O2SAT 99
--- NOTE | 2021-03-10 10:03 | P.PNPSI_ITS ---
Subjective Subjective Date of Service: 03/10/21 Reason For Visit: Psychosis Subjective Notes: Conditional Voluntary Interim History: Pt reports sleeping and eating well. He notes he is able to talk moreand move better but continues to report feeling weak when walking. Pt continues to describe mood as depressed. He denies SI/HI. We discussed again adding mood stabilizer such as lithium or lamictal for depression without worsening psychosis with an antidepressant. Pt declines. Per nursing, pt has been in room, pleasant on approach. Medication Compliance: Yes Side effects from medications: No Attending Groups: No Review of Systems Acute medical concerns: No Mental Status Exam Mental Status Exam Narrative: Pt is alert and oriented x 3. Pt wearing hospital gown, fair hygiene. Much less psychomotor retardation, no rigidity Speech: clear, no significant delayed responses, regular tone/rhythm, spontaneous TP: mostly linear, coherent TC: no overt psychosis/paranoia, not liking the where he currently resides, feeling hopeless Mood: depressed' Affect: constricted SI: denies HI: denies Delusions: no overt delusional content. VH/AH: denies Insight/judgment: fair x 2. Diagnostics Vital Signs (24Hr): Vital Signs - 24 hr 03/09/21 10:25 03/09/21 20:50 Temperature 97.9 F 98.2 F Pulse Rate 80 80 Respiratory Rate 16 16 Blood Pressure 116/56 L 129/60 Pulse Oximetry 97 95 Body Mass Index 37.5 Labs Results: 03/02/21 12:19 03/02/21 12:19 Labs: Laboratory Results - last 48 hr 03/03/21 01:06 Haloperidol 2 L Medications Medications Current Medications Acetaminophen (Acetaminophen 325 Mg Tablet) 650 mg PO Q6H PRN PRN Reason: Headache/Pain Mild Scale (1-3) Al Hydroxide/Mg Hydroxide (Magnesium Hydrox/Alum Hydrox 30 Ml Oral.Susp) 30 ml PO Q6H PRN PRN Reason: Heartburn/Nausea Buspirone HCl (Buspirone Hcl 10 Mg Tablet) 10 mg PO BID [facility] Last Admin: 03/10/21 08:16 Dose: 10 mg Documented by: Hydroxyzine HCl (Hydroxyzine Hcl 25 Mg Tablet) 25 mg PO TID PRN PRN Reason: Anxiety Last Admin: 03/08/21 16:47 Dose: 25 mg Documented by: Lorazepam (Lorazepam 1 Mg Tablet) 1 mg PO TID [facility] Last Admin: 03/10/21 08:16 Dose: 1 mg Documented by: Magnesium Hydroxide (Milk Of Magnesia 30 Ml Oral.Susp) 30 ml PO DAILY PRN PRN Reason: Constipation Melatonin (Melatonin 3 Mg Tablet) 6 mg PO BEDTIME PRN PRN Reason: Insomnia Last Admin: 03/09/21 21:09 Dose: 6 mg Documented by: Paliperidone (Paliperidone Er 6 Mg Tab.Er.24) 6 mg PO DAILY [facility] Last Admin: 03/10/21 08:16 Dose: 6 mg Documented by: Pharmacy Consult (Consult Rx Perform Med Rec) 1 each MISCELLANE ONCE PRN PRN Reason: Consult order Trazodone HCl (Trazodone Hcl 100 Mg Tablet) 100 mg PO BEDTIME [facility] Last Admin: 03/09/21 21:09 Dose: 100 mg Documented by: Trazodone HCl (Trazodone Hcl 50 Mg Tablet) 50 mg PO BEDTIME PRN PRN Reason: Insomnia Allergies Allergies Allergy/AdvReac Type Severity Reaction Status Date / Time No Known Allergies Allergy Verified 06/25/20 12:27 [No Known Allergies*] Assessment & Plan Assessment & Plan (1) Schizoaffective disorder, bipolar type: Status: Acute Code(s): F25.0 - Schizoaffective disorder, bipolar type Assessment and Plan: IMPRESSION Patient is a 25-year-old male with history of psychotic illness, recently discharged from [facility] this December 2020 after over 2 months stay during which time he was started on both Haldol and Invega, who presents complaining that he become very slow down over the past week. Catatonia: improving, less psychomotor retardation, less blank staring, no significant response rate delayed, no waxy flexibility, constricted affect. PLAN: 1. Continue Ativan 1 mg t.i.d. (which is tx for both catatonia) 2. Continue Invega 6 mg daily given patient's last presentation which was difficult to treat (normally on 12mg) 3. Hold on haldol- per pt and OP provider it appears he experienced akathisia with haldol 4. concern of starting antidepressant as it may worsen psychosis and currently pt on much lower dose of antipsychotic and past admission very difficult to treat his psychosis/disorganized behavior/thought process. We discussed instead adding lithium but pt declined. 5. Obtain collateral information 6. Aftercare planning. I spent minutes with the patient and/or on the patient floor today, greater than?50% of which was spent counseling/coordinating care. Reason for contiued inpatient stay Substantial Risk for: inability to function
[2021-03-10 13:00] VITALS: BP 127/61; PULSE 75; RESP 18; TEMP 36.1; O2SAT 99
[2021-03-10 19:59] VITALS: BP 121/69; PULSE 92; TEMP 36.6; O2SAT 98
[2021-03-10] MEDS: hydrOXYzine HCL 25 MG TABLET PO (20:01)
[2021-03-10] MEDS: Melatonin 3 MG TABLET 6 MG PO (20:01)
[2021-03-10] MEDS: traZODone HCL 100 MG TABLET PO (20:01)
[2021-03-11 07:00] VITALS: BMI 37.8
--- NOTE | 2021-03-11 08:12 | HO.PSYCHPN ---
Subjective Subjective Date of Service: 03/11/21 Reason For Visit: Psychosis Subjective Notes: Conditional Voluntary Interim History: Pt continues to describe mood as depressed. He is mostly in his room. He reports sleeping and eating well. He continues to present with need to move feet even when laying down, he denies that akathisia is as prominent as when he was on haldol. We discussed starting propanolol, which he agrees. We discussed again medication for depression including mood stabilizer lithium or lamictal but avoiding antidepressant as it will worsen psychosis, as they have in the past for him. He denies SI/HI. Medication Compliance: Yes Side effects from medications: No Attending Groups: No Review of Systems Acute medical concerns: No Diagnostics Vital Signs (24Hr): Vital Signs - 24 hr 03/11/21 09:10 03/11/21 11:48 03/11/21 13:26 Temperature 98.6 F Pulse Rate 69 72 118 H Respiratory Rate 16 Blood Pressure 110/55 L 121/56 L 134/69 Pulse Oximetry 98 03/11/21 20:18 03/11/21 21:37 Temperature 98.7 F Pulse Rate 71 71 Respiratory Rate 16 Blood Pressure 108/54 L 108/54 L Pulse Oximetry 98 Body Mass Index 37.8 Labs Results: 03/02/21 12:19 03/02/21 12:19 Medications Medications Current Medications Acetaminophen (Acetaminophen 325 Mg Tablet) 650 mg PO Q6H PRN PRN Reason: Headache/Pain Mild Scale (1-3) Al Hydroxide/Mg Hydroxide (Magnesium Hydrox/Alum Hydrox 30 Ml Oral.Susp) 30 ml PO Q6H PRN PRN Reason: Heartburn/Nausea Buspirone HCl (Buspirone Hcl 10 Mg Tablet) 10 mg PO BID [facility] Last Admin: 03/11/21 20:25 Dose: 10 mg Documented by: Hydroxyzine HCl (Hydroxyzine Hcl 25 Mg Tablet) 25 mg PO TID PRN PRN Reason: Anxiety Last Admin: 03/10/21 20:01 Dose: 25 mg Documented by: Lorazepam (Lorazepam 1 Mg Tablet) 1 mg PO TID [facility] Last Admin: 03/11/21 20:25 Dose: 1 mg Documented by: Magnesium Hydroxide (Milk Of Magnesia 30 Ml Oral.Susp) 30 ml PO DAILY PRN PRN Reason: Constipation Melatonin (Melatonin 3 Mg Tablet) 6 mg PO BEDTIME PRN PRN Reason: Insomnia Last Admin: 03/11/21 20:25 Dose: 6 mg Documented by: Paliperidone (Paliperidone Er 6 Mg Tab.Er.24) 6 mg PO DAILY [facility] Last Admin: 03/11/21 09:31 Dose: 6 mg Documented by: Pharmacy Consult (Consult Rx Perform Med Rec) 1 each MISCELLANE ONCE PRN PRN Reason: Consult order Propranolol HCl (Propranolol Hcl 10 Mg Tablet) 10 mg PO BID [facility]; Protocol Last Admin: 03/11/21 21:37 Dose: Not Given Documented by: Trazodone HCl (Trazodone Hcl 100 Mg Tablet) 100 mg PO BEDTIME [facility] Last Admin: 03/11/21 20:25 Dose: 100 mg Documented by: Trazodone HCl (Trazodone Hcl 50 Mg Tablet) 50 mg PO BEDTIME PRN PRN Reason: Insomnia Allergies Allergies Allergy/AdvReac Type Severity Reaction Status Date / Time No Known Allergies Allergy Verified 06/25/20 12:27 [No Known Allergies*] Assessment & Plan Assessment & Plan (1) Schizoaffective disorder, bipolar type: Status: Acute Code(s): F25.0 - Schizoaffective disorder, bipolar type Assessment and Plan: IMPRESSION Patient is a 25-year-old male with history of psychotic illness, recently discharged from this December 2020 after over 2 months stay during which time he was started on both Haldol and Invega, who presents complaining that he become very slow down over the past week. Catatonia: improving, less psychomotor retardation, less blank staring, no significant response rate delayed, no waxy flexibility, constricted affect. PLAN: 1. Continue Ativan 1 mg t.i.d. (which is tx for catatonia) 2. Continue Invega 6 mg daily given patient's last presentation which was difficult to treat (normally on 12mg) 3. Start propanolol 10mg po BID residual akathisia with paliperidone. 4. concern of starting antidepressant as it may worsen psychosis and currently pt on much lower dose of antipsychotic and past admission very difficult to treat his psychosis/disorganized behavior/thought process. We discussed instead adding lithium or lamictal but pt declined. 5. Obtain collateral information 6. Aftercare planning. I spent minutes with the patient and/or on the patient floor today, greater than?50% of which was spent counseling/coordinating care. Reason for contiued inpatient stay Substantial Risk for: inability to function
[2021-03-11 09:10] VITALS: BP 110/55; PULSE 69; RESP 16; TEMP 37; O2SAT 98
[2021-03-11] MEDS: busPIRone HCl 10 MG TABLET PO ×2 (09:30→20:25)
[2021-03-11] MEDS: LORazepam 1 MG TABLET PO ×3 (09:31→20:25)
[2021-03-11] MEDS: Paliperidone ER 6 MG TAB.ER.24 PO (09:31)
[2021-03-11 11:48] VITALS: BP 121/56; PULSE 72
[2021-03-11 13:26] VITALS: BP 134/69; PULSE 118
[2021-03-11] MEDS: Propranolol HCL 10 MG TABLET PO (13:26)
[2021-03-11 20:18] VITALS: BP 108/54; PULSE 71; RESP 16; TEMP 37.1; O2SAT 98
[2021-03-11] MEDS: traZODone HCL 100 MG TABLET PO (20:25)
[2021-03-11] MEDS: Melatonin 3 MG TABLET 6 MG PO (20:25)
[2021-03-11 21:37] VITALS: BP 108/54; PULSE 71
[2021-03-12 09:46] VITALS: BP 114/62; PULSE 67; RESP 18; TEMP 36.7; O2SAT 100
[2021-03-12 09:47] VITALS: BP 114/62; PULSE 67
[2021-03-12] MEDS: LORazepam 1 MG TABLET PO ×4 (09:47→19:59)
[2021-03-12] MEDS: Paliperidone ER 6 MG TAB.ER.24 PO (09:47)
[2021-03-12] MEDS: busPIRone HCl 10 MG TABLET PO ×2 (09:47→19:59)
[2021-03-12] MEDS: Propranolol HCL 10 MG TABLET PO ×2 (09:47→19:59)
--- NOTE | 2021-03-12 14:15 | P.PNPSI_ITS ---
Subjective Subjective Date of Service: 03/12/21 Reason For Visit: Psychosis Interim History: pt seen in his room eating breakfast. calm and cooperative. asks for more ativan. chart reviewed, seen to be ordered for catatonia. pt continues to appear slowed, so agrees to increase dosing from 1 TID to 1 QID. pt has no other complaints or requests. per staff, isolative. dep/anx /. feels slowed. denies SI/HI/AVH. doesn't like where he lives outside the hospital. sleeping well. Mental Status Exam Mental Status Exam Narrative: Pt is alert and oriented; standing eating breakfast; dressed in hospital gown, fair hygiene; decreased eye contact; Speech is more rapid and louder than earlier in his stay; less psychomotor retardation present; thought process is organized, linear, logical and goal directed. no SI/HI/AVH expressed. Diagnostics Vital Signs (24Hr): Vital Signs - 24 hr 03/11/21 20:18 03/11/21 21:37 03/12/21 09:46 Temperature 98.7 F 98.0 F Pulse Rate 71 71 67 Respiratory Rate 16 18 Blood Pressure 108/54 L 108/54 L 114/62 Pulse Oximetry 98 100 03/12/21 09:47 Temperature Pulse Rate 67 Respiratory Rate Blood Pressure 114/62 Pulse Oximetry Body Mass Index 37.8 Labs Results: 03/02/21 12:19 03/02/21 12:19 Medications Medications Current Medications Acetaminophen (Acetaminophen 325 Mg Tablet) 650 mg PO Q6H PRN PRN Reason: Headache/Pain Mild Scale (1-3) Al Hydroxide/Mg Hydroxide (Magnesium Hydrox/Alum Hydrox 30 Ml Oral.Susp) 30 ml PO Q6H PRN PRN Reason: Heartburn/Nausea Buspirone HCl (Buspirone Hcl 10 Mg Tablet) 10 mg PO BID [facility] Last Admin: 03/12/21 09:47 Dose: 10 mg Documented by: Hydroxyzine HCl (Hydroxyzine Hcl 25 Mg Tablet) 25 mg PO TID PRN PRN Reason: Anxiety Last Admin: 03/10/21 20:01 Dose: 25 mg Documented by: Lorazepam (Lorazepam 1 Mg Tablet) 1 mg PO QID [facility] Last Admin: 03/12/21 13:31 Dose: 1 mg Documented by: Magnesium Hydroxide (Milk Of Magnesia 30 Ml Oral.Susp) 30 ml PO DAILY PRN PRN Reason: Constipation Melatonin (Melatonin 3 Mg Tablet) 6 mg PO BEDTIME PRN PRN Reason: Insomnia Last Admin: 03/11/21 20:25 Dose: 6 mg Documented by: Paliperidone (Paliperidone Er 6 Mg Tab.Er.24) 6 mg PO DAILY [facility] Last Admin: 03/12/21 09:47 Dose: 6 mg Documented by: Pharmacy Consult (Consult Rx Perform Med Rec) 1 each MISCELLANE ONCE PRN PRN Reason: Consult order Propranolol HCl (Propranolol Hcl 10 Mg Tablet) 10 mg PO BID [facility]; Protocol Last Admin: 03/12/21 09:47 Dose: 10 mg Documented by: Trazodone HCl (Trazodone Hcl 100 Mg Tablet) 100 mg PO BEDTIME [facility] Last Admin: 03/11/21 20:25 Dose: 100 mg Documented by: Trazodone HCl (Trazodone Hcl 50 Mg Tablet) 50 mg PO BEDTIME PRN PRN Reason: Insomnia Allergies Allergies Allergy/AdvReac Type Severity Reaction Status Date / Time No Known Allergies Allergy Verified 06/25/20 12:27 [No Known Allergies*] Assessment & Plan Assessment & Plan (1) Schizoaffective disorder, bipolar type: Status: Acute Code(s): F25.0 - Schizoaffective disorder, bipolar type Assessment and Plan: IMPRESSION Patient is a 25-year-old male with history of psychotic illness, recently di scharged from [facility] this December 2020 after over 2 months stay during which time he was started on both Haldol and Invega, who presents complaining that he become very slow down over the past week. Catatonia: improving, less psychomotor retardation, less blank staring, no significant response rate delayed, no waxy flexibility, constricted affect. PLAN: 1. increased Ativan 1 mg t.i.d. (which is tx for catatonia) to 1 QID at pt request as of 03/12. 2. Continue Invega 6 mg daily given patient's last presentation which was difficult to treat (normally on 12mg) 3. Start propanolol 10mg po BID residual akathisia with paliperidone. 4. concern of starting antidepressant as it may worsen psychosis and currently pt on much lower dose of antipsychotic and past admission very difficult to treat his psychosis/disorganized behavior/thought process. We discussed instead adding lithium or lamictal but pt declined. 5. Obtain collateral information 6. Aftercare planning. I spent minutes with the patient and/or on the patient floor today, greater than?50% of which was spent counseling/coordinating care. Reason for contiued inpatient stay Substantial Risk for: inability to function and rapid decompensation
[2021-03-12 19:52] VITALS: TEMP 36.4; O2SAT 96
[2021-03-12 19:59] VITALS: BP 121/64; PULSE 104
[2021-03-12] MEDS: traZODone HCL 100 MG TABLET PO (19:59)
[2021-03-12] MEDS: Melatonin 3 MG TABLET 6 MG PO (19:59)
[2021-03-12] MEDS: hydrOXYzine HCL 25 MG TABLET PO (19:59)
[2021-03-13 09:32] VITALS: BP 114/55; PULSE 64; RESP 16; TEMP 36.8; O2SAT 97
[2021-03-13 09:36] VITALS: BP 114/55; PULSE 64
[2021-03-13] MEDS: busPIRone HCl 10 MG TABLET PO ×2 (09:36→20:26)
[2021-03-13] MEDS: LORazepam 1 MG TABLET PO ×4 (09:36→20:25)
[2021-03-13] MEDS: Paliperidone ER 6 MG TAB.ER.24 PO (09:36)
[2021-03-13] MEDS: Propranolol HCL 10 MG TABLET PO ×2 (09:36→20:25)
--- NOTE | 2021-03-13 14:13 | P.PNPSI_ITS ---
Subjective Subjective Date of Service: 03/13/21 Reason For Visit: Psychosis Interim History: pt observed pacing the halls. easily engaged, pleasant, cooperative. no questions or complaints. reports the ativan increase yesterday was helpful. per staff, slow, feelingbetter, though. sleeping and eating well. some restlessness this morning - akathisia? Mental Status Exam Mental Status Exam Narrative: Pt is alert and oriented, pacing the halls; dressed in street clothes, fair hygiene; improved eye contact; Speech is more rapid and louder than earlier in his stay; less psychomotor retardation present; thought process is organized, linear, logical and goal directed. no SI/HI/AVH expressed. Diagnostics Vital Signs (24Hr): Vital Signs - 24 hr 03/12/21 19:52 03/12/21 19:59 03/13/21 09:32 Temperature 97.6 F 98.3 F Pulse Rate 104 H 64 Respiratory Rate 16 Blood Pressure 121/64 114/55 L Pulse Oximetry 96 97 03/13/21 09:36 Temperature Pulse Rate 64 Respiratory Rate Blood Pressure 114/55 L Pulse Oximetry Body Mass Index 37.8 Labs Results: 03/02/21 12:19 03/02/21 12:19 Medications Medications Current Medications Acetaminophen (Acetaminophen 325 Mg Tablet) 650 mg PO Q6H PRN PRN Reason: Headache/Pain Mild Scale (1-3) Al Hydroxide/Mg Hydroxide (Magnesium Hydrox/Alum Hydrox 30 Ml Oral.Susp) 30 ml PO Q6H PRN PRN Reason: Heartburn/Nausea Buspirone HCl (Buspirone Hcl 10 Mg Tablet) 10 mg PO BID [facility] Last Admin: 03/13/21 09:36 Dose: 10 mg Documented by: Hydroxyzine HCl (Hydroxyzine Hcl 25 Mg Tablet) 25 mg PO TID PRN PRN Reason: Anxiety Last Admin: 03/12/21 19:59 Dose: 25 mg Documented by: Lorazepam (Lorazepam 1 Mg Tablet) 1 mg PO QID [facility] Last Admin: 03/13/21 12:45 Dose: 1 mg Documented by: Magnesium Hydroxide (Milk Of Magnesia 30 Ml Oral.Susp) 30 ml PO DAILY PRN PRN Reason: Constipation Melatonin (Melatonin 3 Mg Tablet) 6 mg PO BEDTIME PRN PRN Reason: Insomnia Last Admin: 03/12/21 19:59 Dose: 6 mg Documented by: Paliperidone (Paliperidone Er 6 Mg Tab.Er.24) 6 mg PO DAILY [facility] Last Admin: 03/13/21 09:36 Dose: 6 mg Documented by: Pharmacy Consult (Consult Rx Perform Med Rec) 1 each MISCELLANE ONCE PRN PRN Reason: Consult order Propranolol HCl (Propranolol Hcl 10 Mg Tablet) 10 mg PO BID [facility]; Protocol Last Admin: 03/13/21 09:36 Dose: 10 mg Documented by: Trazodone HCl (Trazodone Hcl 100 Mg Tablet) 100 mg PO BEDTIME [facility] Last Admin: 03/12/21 19:59 Dose: 100 mg Documented by: Trazodone HCl (Trazodone Hcl 50 Mg Tablet) 50 mg PO BEDTIME PRN PRN Reason: Insomnia Allergies Allergies Allergy/AdvReac Type Severity Reaction Status Date / Time No Known Allergies Allergy Verified 06/25/20 12:27 [No Known Allergies*] Assessment & Plan Assessment & Plan (1) Schizoaffective disorder, bipolar type: Status: Acute Code(s): F25.0 - Schizoaffective disorder, bipolar type Assessment and Plan: IMPRESSION Patient is a 25-year-old male with history of psychotic illness, recently discharged from [facility] this December 2020 after over 2 months stay during which time he was started on both Haldol and Invega, who presents complaining that he become very slow down over the past week. Catatonia: improving, less psychomotor retardation, less blank staring, no significant response rate delayed, no waxy flexibility, constricted affect. PLAN: 1. increased Ativan 1 mg t.i.d. (which is tx for catatonia) to 1 QID at pt request as of 03/12. 2. Continue Invega 6 mg daily given patient's last presentation which was difficult to treat (normally on 12mg) 3. Start propanolol 10mg po BID residual akathisia with paliperidone. 4. concern of starting antidepressant as it may worsen psychosis and currently pt on much lower dose of antipsychotic and past admission very difficult to treat his psychosis/disorganized behavior/thought process. We discussed instead adding lithium or lamictal but pt declined. 5. Obtain collateral information 6. Aftercare planning. I spent minutes with the patient and/or on the patient floor today, greater than?50% of which was spent counseling/coordinating care. Reason for contiued inpatient stay Substantial Risk for: inability to function and rapid decompensation
[2021-03-13 20:21] VITALS: BP 138/81; PULSE 64; TEMP 36.4; O2SAT 100
[2021-03-13 20:25] VITALS: BP 138/81; PULSE 64
[2021-03-13] MEDS: hydrOXYzine HCL 25 MG TABLET PO (20:26)
[2021-03-13] MEDS: Melatonin 3 MG TABLET 6 MG PO (20:26)
[2021-03-13] MEDS: traZODone HCL 100 MG TABLET PO (20:26)
[2021-03-14 09:22] VITALS: BP 104/49; PULSE 59; RESP 14; TEMP 36.6; O2SAT 97
[2021-03-14 09:32] VITALS: BP 100/54
[2021-03-14] MEDS: Paliperidone ER 6 MG TAB.ER.24 PO (09:35)
[2021-03-14] MEDS: busPIRone HCl 10 MG TABLET PO ×2 (09:35→21:56)
[2021-03-14 13:00] VITALS: BP 127/69; PULSE 80; RESP 16
--- NOTE | 2021-03-14 13:54 | HO.PSYCHPN ---
Subjective Subjective Date of Service: 03/14/21 Reason For Visit: Psychosis Interim History: pt reports he has been talkign to his family this morning trying to work out a discharge option. he had wanted to discharge to stay at his father's house for a while but that does not appear possible. he is not finding an option with his family and he does not want to go back to the sober house where he was before. he is exhibiting PMA of leg-bouncing, which he denies hge does regularly and directly attributes to stress today rather than anything else. he has no questions or complaints or requests for MD today. he is agreeable to having melatonin and hydroxyzine scheduled for bedtime. per staff, isolative, slept through the night. get melatonin and hydroxyzine. BP was 104/49 this morning so ativan and propranolol were held. anx/dep high due to plan to D/C to live with father being problematic. Mental Status Exam Mental Status Exam Narrative: Pt is alert and oriented, pacing the halls talking on the phone; dressed in hospital ho, fair hygiene; improved eye contact; Speech is more rapid and louder than earlier in his stay; PMA of leg bouncing throughout interview; thought process is organized, linear, logical and goal directed. no SI/HI/AVH expressed. Diagnostics Vital Signs (24Hr): Vital Signs - 24 hr 03/13/21 20:21 03/13/21 20:25 03/14/21 09:22 Temperature 97.6 F 97.8 F Pulse Rate 64 64 59 Respiratory Rate 14 Blood Pressure 138/81 138/81 104/49 L Pulse Oximetry 100 97 03/14/21 09:32 Temperature Pulse Rate Respiratory Rate Blood Pressure 100/54 L Pulse Oximetry Body Mass Index 37.8 Labs Results: 03/02/21 12:19 03/02/21 12:19 Medications Medications Current Medications Acetaminophen (Acetaminophen 325 Mg Tablet) 650 mg PO Q6H PRN PRN Reason: Headache/Pain Mild Scale (1-3) Al Hydroxide/Mg Hydroxide (Magnesium Hydrox/Alum Hydrox 30 Ml Oral.Susp) 30 ml PO Q6H PRN PRN Reason: Heartburn/Nausea Buspirone HCl (Buspirone Hcl 10 Mg Tablet) 10 mg PO BID [facility] Last Admin: 03/14/21 09:35 Dose: 10 mg Documented by: Hydroxyzine HCl (Hydroxyzine Hcl 25 Mg Tablet) 25 mg PO TID PRN PRN Reason: Anxiety Last Admin: 03/13/21 20:26 Dose: 25 mg Documented by: Hydroxyzine HCl (Hydroxyzine Hcl 25 Mg Tablet) 25 mg PO BEDTIME [facility] Lorazepam (Lorazepam 1 Mg Tablet) 1 mg PO QID [facility] Last Admin: 03/14/21 09:33 Dose: Not Given Documented by: Magnesium Hydroxide (Milk Of Magnesia 30 Ml Oral.Susp) 30 ml PO DAILY PRN PRN Reason: Constipation Melatonin (Melatonin 3 Mg Tablet) 6 mg PO BEDTIME [facility] Paliperidone (Paliperidone Er 6 Mg Tab.Er.24) 6 mg PO DAILY [facility] Last Admin: 03/14/21 09:35 Dose: 6 mg Documented by: Pharmacy Consult (Consult Rx Perform Med Rec) 1 each MISCELLANE ONCE PRN PRN Reason: Consult order Propranolol HCl (Propranolol Hcl 10 Mg Tablet) 10 mg PO BID [facility]; Protocol Last Admin: 03/14/21 09:33 Dose: Not Given Documented by: Trazodone HCl (Trazodone Hcl 100 Mg Tablet) 100 mg PO BEDTIME [facility] Last Admin: 03/13/21 20:26 Dose: 100 mg Documented by: Trazodone HCl (Trazodone Hcl 50 Mg Tablet) 50 mg PO BEDTIME PRN PRN Reason: Insomnia Allergies Allergies Allergy/AdvReac Type Severity Reaction Status Date / Time No Known Allergies Allergy Verified 06/25/20 12:27 [No Known Allergies*] Assessment & Plan Assessment & Plan (1) Schizoaffective disorder, bipolar type: Status: Acute Code(s): F25.0 - Schizoaffective disorder, bipolar type Assessment and Plan: IMPRESSION Patient is a 25-year-old male with history of psychotic illness, recently discharged from this December 2020 after over 2 months stay during which time he was started on both Haldol and Invega, who presents complaining that he become very slow down over the past week. Catatonia: improving, less psychomotor retardation, less blank staring, no significant response rate delayed, no waxy flexibility, constricted affect. PLAN: 1. increased Ativan 1 mg t.i.d. (which is tx for catatonia) to 1 QID at pt request as of 03/12. 2. Continue Invega 6 mg daily given patient's last presentation which was difficult to treat (normally on 12mg) 3. Start propanolol 10mg po BID residual akathisia with paliperidone. 4. concern of starting antidepressant as it may worsen psychosis and currently pt on much lower dose of antipsychotic and past admission very difficult to treat his psychosis/disorganized behavior/thought process. We discussed instead adding lithium or lamictal but pt declined. 5. 03/14 melatonin and hydroxyzine scheduled for bedtime for insomnia. 6. Obtain collateral information 7. Aftercare planning. I spent minutes with the patient and/or on the patient floor today, greater than?50% of which was spent counseling/coordinating care. Reason for contiued inpatient stay Substantial Risk for: inability to function and rapid decompensation
[2021-03-14] MEDS: LORazepam 1 MG TABLET PO ×3 (14:20→21:56)
[2021-03-14 18:00] VITALS: BP 115/60; PULSE 78; RESP 18; TEMP 36.4; O2SAT 96
[2021-03-14] MEDS: Melatonin 3 MG TABLET 6 MG PO (21:55)
[2021-03-14 21:56] VITALS: BP 118/70; PULSE 66
[2021-03-14] MEDS: hydrOXYzine HCL 25 MG TABLET PO (21:56)
[2021-03-14] MEDS: traZODone HCL 100 MG TABLET PO (21:56)
[2021-03-14] MEDS: Propranolol HCL 10 MG TABLET PO (21:56)
[2021-03-15 09:50] VITALS: BP 123/61; PULSE 88; RESP 17; TEMP 36.5; O2SAT 99
[2021-03-15] MEDS: busPIRone HCl 10 MG TABLET PO ×2 (09:51→20:04)
[2021-03-15 09:52] VITALS: BP 123/61; PULSE 88
[2021-03-15] MEDS: Paliperidone ER 6 MG TAB.ER.24 PO (09:52)
[2021-03-15] MEDS: Propranolol HCL 10 MG TABLET PO ×2 (09:52→20:03)
[2021-03-15] MEDS: LORazepam 1 MG TABLET PO ×4 (09:52→20:02)
--- NOTE | 2021-03-15 11:24 | P.PNPSI_ITS ---
Subjective Subjective Date of Service: 03/15/21 Reason For Visit: Psychosis Subjective Notes: Conditional Voluntary Interim History: Pt reports mood less depressed. Pt does not provide much details as to changes he has noticed on his mood. He reports sleeping and eating well. He has been mostly in his room. He denies SI/HI. No overt signs of psychosis. He reports decreased anxiety. He denies s/s of orthostatic HOTN. Medication Compliance: Yes Side effects from medications: No Attending Groups: No Review of Systems Acute medical concerns: No Mental Status Exam Mental Status Exam Narrative: Pt is alert and oriented, pacing the halls talking on the phone; dressed in hospital ho, fair hygiene; improved eye contact; Speech is more rapid and louder than earlier in his stay; PMA of leg bouncing throughout interview; thought process is organized, linear, logical and goal directed. no SI/HI/AVH expressed. Diagnostics Vital Signs (24Hr): Vital Signs - 24 hr 03/14/21 13:00 03/14/21 18:00 03/14/21 21:56 Temperature 97.6 F Pulse Rate 80 78 66 Respiratory Rate 16 18 Blood Pressure 127/69 115/60 118/70 Pulse Oximetry 96 03/15/21 09:50 03/15/21 09:52 Temperature 97.7 F Pulse Rate 88 88 Respiratory Rate 17 Blood Pressure 123/61 123/61 Pulse Oximetry 99 Body Mass Index 37.8 Labs Results: 03/02/21 12:19 03/02/21 12:19 Medications Medications Current Medications Acetaminophen (Acetaminophen 325 Mg Tablet) 650 mg PO Q6H PRN PRN Reason: Headache/Pain Mild Scale (1-3) Al Hydroxide/Mg Hydroxide (Magnesium Hydrox/Alum Hydrox 30 Ml Oral.Susp) 30 ml PO Q6H PRN PRN Reason: Heartburn/Nausea Buspirone HCl (Buspirone Hcl 10 Mg Tablet) 10 mg PO BID [facility] Last Admin: 03/15/21 09:51 Dose: 10 mg Documented by: Hydroxyzine HCl (Hydroxyzine Hcl 25 Mg Tablet) 25 mg PO TID PRN PRN Reason: Anxiety Last Admin: 03/13/21 20:26 Dose: 25 mg Documented by: Hydroxyzine HCl (Hydroxyzine Hcl 25 Mg Tablet) 25 mg PO BEDTIME [facility] Last Admin: 03/14/21 21:56 Dose: 25 mg Documented by: Lorazepam (Lorazepam 1 Mg Tablet) 1 mg PO QID [facility] Last Admin: 03/15/21 09:52 Dose: 1 mg Documented by: Magnesium Hydroxide (Milk Of Magnesia 30 Ml Oral.Susp) 30 ml PO DAILY PRN PRN Reason: Constipation Melatonin (Melatonin 3 Mg Tablet) 6 mg PO BEDTIME [facility] Last Admin: 03/14/21 21:55 Dose: 6 mg Documented by: Paliperidone (Paliperidone Er 6 Mg Tab.Er.24) 6 mg PO DAILY [facility] Last Admin: 03/15/21 09:52 Dose: 6 mg Documented by: Pharmacy Consult (Consult Rx Perform Med Rec) 1 each MISCELLANE ONCE PRN PRN Reason: Consult order Propranolol HCl (Propranolol Hcl 10 Mg Tablet) 10 mg PO BID [facility]; Protocol Last Admin: 03/15/21 09:52 Dose: 10 mg Documented by: Trazodone HCl (Trazodone Hcl 100 Mg Tablet) 100 mg PO BEDTIME [facility] Last Admin: 03/14/21 21:56 Dose: 100 mg Documented by: Trazodone HCl (Trazodone Hcl 50 Mg Tablet) 50 mg PO BEDTIME PRN PRN Reason: Insomnia Allergies Allergies Allergy/AdvReac Type Severity Reaction Status Date / Time No Known Allergies Allergy Verified 06/25/20 12:27 [No Known Allergies*] Assessment & Plan Assessment & Plan (1) Schizoaffective disorder, bipolar type: Status: Acute Code(s): F25.0 - Schizoaffective disorder, bipolar type Assessment and Plan: IMPRESSION Patient is a 25-year-old male with history of psychotic illness, recently discharged from [address] December 2020 after over 2 months stay during which time he was started on both Haldol and Invega, who presents complaining that he become very slow down over the past week. Catatonia: improving, less psychomotor retardation, less blank staring, no significant response rate delayed, no waxy flexibility, constricted affect. PLAN: 1. Continue Ativan 1 mg t.i.d. (which is tx for catatonia). 2. Continue Invega 6 mg daily given patient's last presentation which was difficult to treat (normally on 12mg) 3. Start propanolol 10mg po BID residual akathisia with paliperidone. 4. concern of starting antidepressant as it may worsen psychosis and currently pt on much lower dose of antipsychotic and past admission very difficult to treat his psychosis/disorganized behavior/thought process. We discussed instead adding lithium or lamictal but pt declined. 5. 03/14 melatonin and hydroxyzine scheduled for bedtime for insomnia. 6. Obtain collateral information 7. Aftercare planning. I spent minutes with the patient and/or on the patient floor today, greater than?50% of which was spent counseling/coordinating care. Reason for contiued inpatient stay Substantial Risk for: inability to function
[2021-03-15 18:00] VITALS: BP 128/75; PULSE 82; RESP 15; TEMP 36.4; O2SAT 94
[2021-03-15 20:03] VITALS: BP 128/75; PULSE 82
[2021-03-15] MEDS: Melatonin 3 MG TABLET 6 MG PO (20:03)
[2021-03-15] MEDS: hydrOXYzine HCL 25 MG TABLET PO (20:03)
[2021-03-15] MEDS: traZODone HCL 100 MG TABLET PO (20:04)
[2021-03-16 09:00] VITALS: BP 140/70; PULSE 85; RESP 18; TEMP 36.4; O2SAT 98
[2021-03-16 09:42] VITALS: BP 140/70; PULSE 78
[2021-03-16] MEDS: Propranolol HCL 10 MG TABLET PO ×2 (09:42→20:25)
[2021-03-16] MEDS: Paliperidone ER 6 MG TAB.ER.24 PO (09:43)
[2021-03-16] MEDS: LORazepam 1 MG TABLET PO ×4 (09:43→20:25)
[2021-03-16] MEDS: busPIRone HCl 10 MG TABLET PO ×2 (09:43→20:26)
[2021-03-16 14:00] VITALS: BP 111/85; PULSE 64; RESP 16; TEMP 36.7; O2SAT 97
--- NOTE | 2021-03-16 14:25 | HO.PSYCHPN ---
Subjective Subjective Date of Service: 03/16/21 Reason For Visit: Psychosis Interim History: pt found sleeping in his room. rousable to voice. flat, terse. has no questions or complaints. reports that the increase in ativan over the w/e was helpful for his anxiety. states he continues to look for dispo options. per staff, quiet, isolative. calling his father a lot. pacing. no SI/HI. appears depressed. no OCD concerns. slept about 8 hours. Mental Status Exam Mental Status Exam Narrative: Pt is sleepy and in bed; dressed in hospital ho, fair hygiene; fair eye contact; Speech is soft and spare; thought process is organized, linear, logical and goal directed. mood is fine. affect is flat. no SI/HI/AVH expressed. Diagnostics Vital Signs (24Hr): Vital Signs - 24 hr 03/15/21 18:00 03/15/21 20:03 03/16/21 09:00 Temperature 97.5 F 97.5 F Pulse Rate 82 82 85 Respiratory Rate 15 18 Blood Pressure 128/75 128/75 140/70 H Pulse Oximetry 94 98 03/16/21 09:42 Temperature Pulse Rate 78 Respiratory Rate Blood Pressure 140/70 H Pulse Oximetry Body Mass Index 37.8 Labs Results: 03/02/21 12:19 03/02/21 12:19 Medications Medications Current Medications Acetaminophen (Acetaminophen 325 Mg Tablet) 650 mg PO Q6H PRN PRN Reason: Headache/Pain Mild Scale (1-3) Al Hydroxide/Mg Hydroxide (Magnesium Hydrox/Alum Hydrox 30 Ml Oral.Susp) 30 ml PO Q6H PRN PRN Reason: Heartburn/Nausea Buspirone HCl (Buspirone Hcl 10 Mg Tablet) 10 mg PO BID [facility] Last Admin: 03/16/21 09:43 Dose: 10 mg Documented by: Hydroxyzine HCl (Hydroxyzine Hcl 25 Mg Tablet) 25 mg PO TID PRN PRN Reason: Anxiety Last Admin: 03/13/21 20:26 Dose: 25 mg Documented by: Hydroxyzine HCl (Hydroxyzine Hcl 25 Mg Tablet) 25 mg PO BEDTIME [facility] Last Admin: 03/15/21 20:03 Dose: 25 mg Documented by: Lorazepam (Lorazepam 1 Mg Tablet) 1 mg PO QID [facility] Last Admin: 03/16/21 14:19 Dose: 1 mg Documented by: Magnesium Hydroxide (Milk Of Magnesia 30 Ml Oral.Susp) 30 ml PO DAILY PRN PRN Reason: Constipation Melatonin (Melatonin 3 Mg Tablet) 6 mg PO BEDTIME [facility] Last Admin: 03/15/21 20:03 Dose: 6 mg Documented by: Paliperidone (Paliperidone Er 6 Mg Tab.Er.24) 6 mg PO DAILY [facility] Last Admin: 03/16/21 09:43 Dose: 6 mg Documented by: Pharmacy Consult (Consult Rx Perform Med Rec) 1 each MISCELLANE ONCE PRN PRN Reason: Consult order Propranolol HCl (Propranolol Hcl 10 Mg Tablet) 10 mg PO BID [facility]; Protocol Last Admin: 03/16/21 09:42 Dose: 10 mg Documented by: Trazodone HCl (Trazodone Hcl 100 Mg Tablet) 100 mg PO BEDTIME [facility] Last Admin: 03/15/21 20:04 Dose: 100 mg Documented by: Trazodone HCl (Trazodone Hcl 50 Mg Tablet) 50 mg PO BEDTIME PRN PRN Reason: Insomnia Allergies Allergies Allergy/AdvReac Type Severity Reaction Status Date / Time No Known Allergies Allergy Verified 06/25/20 12:27 [No Known Allergies*] Assessment & Plan Assessment & Plan (1) Schizoaffective disorder, bipolar type: Status: Acute Code(s): F25.0 - Schizoaffective disorder, bipolar type Assessment and Plan: IMPRESSION Patient is a 25-year-old male with history of psychotic illness, recently discharged from [address] December 2020 after over 2 months stay during which time he was started on both Haldol and Invega, who presents complaining that he become very slow down over the past week. Catatonia: improving, less psychomotor retardation, less blank staring, no significant response rate delayed, no waxy flexibility, constricted affect. PLAN: 1. Continue Ativan 1 mg t.i.d. (which is tx for catatonia). 2. Continue Invega 6 mg daily given patient's last presentation which was difficult to treat (normally on 12mg) 3. Start propanolol 10mg po BID residual akathisia with paliperidone. 4. concern of starting antidepressant as it may worsen psychosis and currently pt on much lower dose of antipsychotic and past admission very difficult to treat his psychosis/disorganized behavior/thought process. We discussed instead adding lithium or lamictal but pt declined. 5. 03/14 melatonin and hydroxyzine scheduled for bedtime for insomnia. 6. Obtain collateral information 7. Aftercare planning. I spent minutes with the patient and/or on the patient floor today, greater than?50% of which was spent counseling/coordinating care. Reason for contiued inpatient stay Substantial Risk for: inability to function and rapid decompensation
[2021-03-16 20:08] VITALS: BP 119/58; PULSE 70; RESP 16; TEMP 36.8; O2SAT 96
[2021-03-16 20:25] VITALS: BP 119/58; PULSE 70
[2021-03-16] MEDS: Melatonin 3 MG TABLET 6 MG PO (20:25)
[2021-03-16] MEDS: hydrOXYzine HCL 25 MG TABLET PO (20:26)
[2021-03-16] MEDS: traZODone HCL 100 MG TABLET PO (20:26)
[2021-03-16 21:46] VITALS: PULSE 70; RESP 16; TEMP 36.8; O2SAT 96
[2021-03-17] MEDS: LORazepam 1 MG TABLET PO (08:44)
[2021-03-17] MEDS: Paliperidone ER 6 MG TAB.ER.24 PO (08:44)
[2021-03-17] MEDS: busPIRone HCl 10 MG TABLET PO ×2 (08:45→20:44)
[2021-03-17 09:00] VITALS: BP 110/54; PULSE 55; RESP 16; TEMP 36.7; O2SAT 97
[2021-03-17 09:53] VITALS: BP 110/55; PULSE 55
[2021-03-17] MEDS: Propranolol HCL 10 MG TABLET PO ×2 (09:53→20:43)
--- NOTE | 2021-03-17 09:55 | PC.NURSE ---
Propranolol administered per Giulia Drew NP following review of BP and parameters.
--- NOTE | 2021-03-17 10:48 | HO.PSYCHPN ---
Subjective Subjective Date of Service: 03/17/21 Reason For Visit: Psychosis Subjective Notes: Conditional Voluntary Interim History: Pt met with this insurance underwriter, [facility] provider and providers from [employer]. Pt reports that he will be in agreement to return to [facility] instead of his father's. Pt reports sleeping well. He reports less depressed mood but affect blunted and constricted. Pt denies SI/HI. He has been more visible in the unit, minimally interactive with peers. Medication Compliance: Yes Side effects from medications: No Mental Status Exam Mental Status Exam Narrative: Pt is sleepy and in bed; dressed in hospital ho, fair hygiene; fair eye contact; Speech is soft and spare; thought process is organized, linear, logical and goal directed. mood is fine. affect is flat. no SI/HI/AVH expressed. Diagnostics Vital Signs (24Hr): Vital Signs - 24 hr 03/17/21 13:00 03/17/21 20:23 03/17/21 20:43 Temperature 97.4 F 97.9 F Pulse Rate 75 72 72 Respiratory Rate 16 16 Blood Pressure 126/61 105/51 L 105/51 L Pulse Oximetry 75 L 98 03/18/21 08:57 03/18/21 09:05 Temperature 97.9 F Pulse Rate 60 60 Respiratory Rate 16 Blood Pressure 118/59 L 118/59 L Pulse Oximetry 98 BMI result Body Mass Index 37.8 Labs Results: 03/02/21 12:19 03/02/21 12:19 Medications Medications Current Medications Acetaminophen (Acetaminophen 325 Mg Tablet) 650 mg PO Q6H PRN PRN Reason: Headache/Pain Mild Scale (1-3) Al Hydroxide/Mg Hydroxide (Magnesium Hydrox/Alum Hydrox 30 Ml Oral.Susp) 30 ml PO Q6H PRN PRN Reason: Heartburn/Nausea Buspirone HCl (Buspirone Hcl 10 Mg Tablet) 10 mg PO BID [facility] Last Admin: 03/18/21 08:50 Dose: 10 mg Documented by: Hydroxyzine HCl (Hydroxyzine Hcl 25 Mg Tablet) 25 mg PO TID PRN PRN Reason: Anxiety Last Admin: 03/13/21 20:26 Dose: 25 mg Documented by: Hydroxyzine HCl (Hydroxyzine Hcl 25 Mg Tablet) 25 mg PO BEDTIME [facility] Last Admin: 03/17/21 20:44 Dose: 25 mg Documented by: Magnesium Hydroxide (Milk Of Magnesia 30 Ml Oral.Susp) 30 ml PO DAILY PRN PRN Reason: Constipation Melatonin (Melatonin 3 Mg Tablet) 6 mg PO BEDTIME [facility] Last Admin: 03/17/21 20:43 Dose: 6 mg Documented by: Paliperidone (Paliperidone Er 6 Mg Tab.Er.24) 6 mg PO DAILY [facility] Last Admin: 03/18/21 08:50 Dose: 6 mg Documented by: Pharmacy Consult (Consult Rx Perform Med Rec) 1 each MISCELLANE ONCE PRN PRN Reason: Consult order Propranolol HCl (Propranolol Hcl 10 Mg Tablet) 10 mg PO BID [facility]; Protocol Last Admin: 03/18/21 08:57 Dose: 10 mg Documented by: Trazodone HCl (Trazodone Hcl 100 Mg Tablet) 100 mg PO BEDTIME [facility] Last Admin: 03/17/21 20:43 Dose: 100 mg Documented by: Trazodone HCl (Trazodone Hcl 50 Mg Tablet) 50 mg PO BEDTIME PRN PRN Reason: Insomnia Allergies Allergies Allergy/AdvReac Type Severity Reaction Status Date / Time No Known Allergies Allergy Verified 06/25/20 12:27 [No Known Allergies*] Assessment & Plan Assessment & Plan (1) Schizoaffective disorder, bipolar type: Status: Acute Code(s): F25.0 - Schizoaffective disorder, bipolar type Assessment and Plan: IMPRESSION Patient is a 25-year-old male with history of psychotic illness, recently discharged from this December 2020 after over 2 months stay during which time he was started on both Haldol and Invega, who presents complaining that he become very slow down over the past week. Catatonia: improving, less psychomotor retardation, less blank staring, no significant response rate delayed, no waxy flexibility, constricted affect. PLAN: 1. Continue Ativan 1 mg t.i.d. (which is tx for catatonia). 2. Continue Invega 6 mg daily given patient's last presentation which was difficult to treat (normally on 12mg) 3. Start propanolol 10mg po BID residual akathisia with paliperidone. 4. concern of starting antidepressant as it may worsen psychosis and currently pt on much lower dose of antipsychotic and past admission very difficult to treat his psychosis/disorganized behavior/thought process. We discussed instead adding lithium or lamictal but pt declined. 5. 03/14 melatonin and hydroxyzine scheduled for bedtime for insomnia. 6. Obtain collateral information 7. Aftercare planning. I spent minutes with the patient and/or on the patient floor today, greater than?50% of which was spent counseling/coordinating care. Reason for contiued inpatient stay Substantial Risk for: stable for discharge
[2021-03-17 13:00] VITALS: BP 126/61; PULSE 75; RESP 16; TEMP 36.3; O2SAT 75
[2021-03-17 20:23] VITALS: BP 105/51; PULSE 72; RESP 16; TEMP 36.6; O2SAT 98
[2021-03-17 20:43] VITALS: BP 105/51; PULSE 72
[2021-03-17] MEDS: Melatonin 3 MG TABLET 6 MG PO (20:43)
[2021-03-17] MEDS: traZODone HCL 100 MG TABLET PO (20:43)
[2021-03-17] MEDS: hydrOXYzine HCL 25 MG TABLET PO (20:44)
[2021-03-18] MEDS: busPIRone HCl 10 MG TABLET PO (08:50)
[2021-03-18] MEDS: Paliperidone ER 6 MG TAB.ER.24 PO (08:50)
[2021-03-18 08:57] VITALS: BP 118/59; PULSE 60
[2021-03-18] MEDS: Propranolol HCL 10 MG TABLET PO (08:57)
[2021-03-18 09:05] VITALS: BP 118/59; PULSE 60; RESP 16; TEMP 36.6; O2SAT 98
--- NOTE | 2021-03-18 09:31 | PM.PSYDC ---
DS: Providers Provider Date of Service: 03/18/21 <Giulia Dsouza - Last Filed: 04/19/21 16:18> Date of admission: 03/02/21 22:17 <Giulia Josephaixa - Last Filed: 04/19/21 16:18> Date of discharge: 03/18/21 <Abhijeet Hart MD - Last Filed: 04/19/21 22:58> Primary care physician: Unknown Physician <Giuliarafael Josephaixa - Last Filed: 04/19/21 16:18> DS: Diagnosis Discharge Diagnosis (1) Schizoaffective disorder, bipolar type: Status: Acute <Giuliarafael Josephaixa - Last Filed: 04/19/21 16:18> DS: Medications Discharge Medications Home Medications: Home Medications Medication Instructions Recorded Confirmed diphenhydramine 25 1 tab PO Q6H PRN 03/02/21 03/02/21 mg-acetaminophen 500 mg tablet (Tylenol PM Extra Strength) Previous Rx's Medication Instructions Recorded acetaminophen 325 mg tablet 650 mg PO Q6H PRN #0 tab 03/04/21 hydroxyzine HCl 25 mg tablet 25 mg PO BEDTIME PRN #0 tab 03/04/21 melatonin 3 mg tablet 6 mg PO BEDTIME PRN #0 tab 03/04/21 buspirone 10 mg tablet 10 mg PO BID #60 tab 03/18/21 lorazepam 0.5 mg tablet (Ativan) 0.5 mg PO TID #45 tab 03/18/21 melatonin 3 mg tablet 6 mg PO BEDTIME #60 tab 03/18/21 paliperidone 9 mg tablet,extended 9 mg PO DAILY #30 tab 03/18/21 release 24 hr propranolol 10 mg tablet 10 mg PO BID #60 tab 03/18/21 trazodone 150 mg tablet 150 mg PO BEDTIME #30 tab 03/18/21 <Giuliarafael Josephaixa - Last Filed: 04/19/21 16:18> Mental Status Exam Mental Status Exam Narrative: Pt is alert and oriented, casually groomed, fair hygiene; improved eye contact; Speech is more rapid and louder than earlier in his stay; PMA of leg bouncing throughout interview; thought process is organized, linear, logical and goal directed. no SI/HI/AVH expressed. <Giulia Josephaixa - Last Filed: 04/19/21 16:18> DS: Summary Hospital Course Hospital Course: HPI Date of Service: 03/03/21 Chief Complaint: Psychosis Sources of Information: patient interviewed, chart reviewed and crisis/core team assessment reviewed HPI Subjective Notes: Edwards Warning and Conditional Voluntary Narrative: Patient is a 25-year-old male with history of psychotic illness, recently discharged from [facility] this December 2020 after over 2 months stay during which time he was started on both Haldol and Invega, who presents complaining that he become very slow down over the past week.? Patient reports that he has been taking his medications daily without fail and lists them for this aligner typewriter.? He says he was feeling a little slow down after discharge this December but only over the past few days or week has he this slow notice really started to affect him.? He says I can not brush my teeth.. .? Can not walk. . ? bathe. . .? I think my responses are slower also.. .? My vision is a little blurry. Patient clarifies to say that he is able to do these things but is very slow in doing them to the point where he is hesitant even bother.? He also reports that he is drooling which is evident on presentation.? He denies any SI, HI, paranoid thinking or depression.? Denies any AVH.? Patient says he is starting to feel scared by this experience of being slow down and hopes that aligner typewriter can help him.? Patient denies any drug use current or any history of such, though he is living in a sober house.? Patient sitting in chair mostly looking straight ahead.? His speech is organized, logical and linear. Environmental Health Safety Manager did focused exam: EOMI CN 2-12 grossly intact no muscle rigidity B/L throughout no hyperreflexia; mild hypo-reflexia right pettella +1 Muscle strength 5/5 WBC WNL CPK 175 Vitals WNL speech organized, logical and linear denies any head trauma Past Psychiatric History: Inpatient: multiple in past OP: [employer], [facility]. Venecia Rodriguez APRN Suicide attempts: none Medication trials: risperidone, olanzapine, sertraline Medical Evaluation Reviewed: Yes HOSPITAL COURSE On the unit, Mr. Islas was admitted on a CV and placed on 15 minutes checks for safety. pt presented with symptoms of catatonia including mutism, negativism, waxy flexibility. It was noted that pt had akathisia with paliperidone, which as pt was improving reported feeling restless, need to pace with haldol. After discussing risks, benefits and alternative treatment options, pt was started on ativan 2mg po TID, paliperidone was continued at lower doses 6mg po daily. His symptoms of catatonia gradually resolved. he was talking spontaneously, no waxy flexibility. Pt did not show overt delusional content as he had in the past. He reported he felt very restless with haldol, needing to pace, subjective sense of restless which improved once he continued only paliperidone. Even with paliperidone there was mild need of tapping his feet, although pt reported less than before. He reported feeling depressed. We discussed adding mood stabilizer such as lithium rather than antidepressant given than in past his psychosis has significantly worsened with antidepressant and he does take significant time to stabilize. Pt was not open to start mood stabilizer mostly due to regular blood work. His affect gradually brighten. he denied suicidal or homicidal ideation. he did not present as delusional or paranoid as before. His affect was still constricted and he spend most of the time in his room. He was minimally interacting with peers. There were no incidences of disruptive behaviors nor use of restraints. He denied SI/HI. Collateral information gathered from his father and his OP providers who agreed with plan for discharged, and denied any safety concerns. <Giulia Dsouza - Last Filed: 04/19/21 16:18> Time spent discussing smoking cessation with patient: 3 to 10 minutes <Giulia Dsouza - Last Filed: 04/19/21 16:18> Status at Discharge Cognitive/behavioral status at discharge: Pt with no s/s of catatonia, no overt delusional content nor actively responding to internal stimuli. No SI/HI. His affect withdrawn but he denied any plan or intent to hurt himself. He reported less symptoms of depression. No signs of aggression towards self or others. <Giulia Dsouza - Last Filed: 04/19/21 16:18> Time Spent with Patient Time attestation: Total time spent providing and/or coordinating discharge services: <Giulia Dsouza - Last Filed: 04/19/21 16:18> Discharge Plan Discharge Patient Disposition: Home, Self-Care <Giulia Dsouza - Last Filed: 04/19/21 16:18> Discharge Diagnosis: Schizoaffective disorder, bipolar type; r/o catatonia vs med side-effect <Giulia Dsouza - Last Filed: 04/19/21 16:18> Schizoaffective disorder, bipolar type; r/o catatonia vs med side-effect <Abhijeet Hart MD - Last Filed: 04/19/21 22:58> Referrals: Esthela Quintanilla (Therapy) [Other] - 03/23/21 12:00 pm (Telehealth Appointment) Venecia Rodriguez (Psychiatry) [Other] - 03/23/21 11:30 am (Telehealth Appointment) Nahid Zuniga (DM) [Other] - 1 Week (Please follow up with your [facility] worker) [facility] [Provider Group] - 1 Week ([phone] [place] [address] In hours 830 am to 4 pm Monday through Monday) <Giulia Dsouza - Last Filed: 04/19/21 16:18> Discharge Medications: New acetaminophen 325 mg Tablet 650 mg PO Q6H PRN (Reason: Headache/Pain Mild Scale (1-3)) Qty: 0 RF: 0 melatonin 3 mg Tablet 6 mg PO BEDTIME PRN (Reason: Insomnia) Qty: 0 RF: 0 hydroxyzine HCl 25 mg Tablet 25 mg PO BEDTIME PRN (Reason: Anxiety) Qty: 0 RF: 0 buspirone 10 mg Tablet 10 mg PO BID Qty: 60 RF: 0 melatonin 3 mg Tablet 6 mg PO BEDTIME Qty: 60 RF: 0 paliperidone 9 mg tablet extended release 24 hr 9 mg PO DAILY Qty: 30 RF: 0 lorazepam [Ativan] 0.5 mg tablet 0.5 mg PO TID Qty: 45 RF: 0 propranolol 10 mg tablet 10 mg PO BID Qty: 60 RF: 0 trazodone 150 mg tablet 150 mg PO BEDTIME Qty: 30 RF: 0 Continued diphenhydramine-acetaminophen [Tylenol PM Extra Strength] 25-500 mg Tablet 1 tab PO Q6H PRN (Reason: pain/sleep) RF: 0 Discontinued haloperidol 5 mg Tablet 5 mg PO BID Qty: 60 RF: 0 paliperidone [Invega] 6 mg Tablet Extended Release 24hr 12 mg PO DAILY Qty: 60 RF: 0 trazodone 100 mg Tablet 100 mg PO BEDTIME Qty: 30 RF: 0 buspirone 10 mg tablet 1 tab PO BID RF: 0 melatonin 3 mg tablet 6 mg PO BEDTIME PRN (Reason: Insomnia) RF: 0 <Giulia Dsouza - Last Filed: 04/19/21 16:18> Discharge Orders: Discharge Order (Routine); Ordered 03/18/21 Ordered By: Giulia Dsouza <Giulia Dsouza - Last Filed: 04/19/21 16:18> Diet: regular diet <Giulia Dsouza - Last Filed: 04/19/21 16:18> regular diet <Abhijeet Hart MD - Last Filed: 04/19/21 22:58> Activity on Discharge: As tolerated <Giulia Dsouza - Last Filed: 04/19/21 16:18> As tolerated <Abhijeet Hart MD - Last Filed: 04/19/21 22:58> Stand Alone Forms: Patient Portal Discharge page, Community Support <Giulia Dsouza - Last Filed: 04/19/21 16:18> Care Plan Goals: Maintain mood No SI/HI No overt signs of psychosis No signs of aggression towards self or others. <Giulia Dsouza - Last Filed: 04/19/21 16:18> Health Concerns: 1. Follow up with PCP <Giulia Dsouza - Last Filed: 04/19/21 16:18> Plan of Treatment: 1. Take medications as prescribed 2. Go to nearest ED or call 911 in event of emergency 3. Follow up with referrals <Giulia Dsouza - Last Filed: 04/19/21 16:18> Assessment: Risk assessment at time of discharge:? Patient was interviewed prior to discharge and found to be fully oriented and without any SI or HI. Patient has insight and demonstrates good judgment in terms of wanting to pursue treatment. Patient is not in imminent risk of harm to self or others. Patient has been observed closely by nursing and unit staff throughout admission; patient has not engaged in any behaviors that suggest dangerousness to self or others. No signs of catatonia nor overt delusional content or psychosis noted. <Giulia Dsouza - Last Filed: 04/19/21 16:18> Discharge Date/Time: 03/18/21 11:11 <Giulia Dsouza - Last Filed: 04/19/21 16:18>
--- NOTE | 2021-03-18 11:10 | PC.NURSE ---
Johnathon is alert, fully oriented, anxious but cooperative with discharge process. All belongings returned to patient. Johnathon denies ideation, plan or intent to harm himself or others. He denies physical complaint. He verbalized understanding of discharge meds and appointments following teaching.
== END 2021-03-18 11:11 | disposition home or self-care (01) | DRG 750 ==
LOC: HO.ED 18:25 → HO.PM5 22:31 → HO.PADLT16 03-04 16:08
PROVIDERS: Psychiatry & Neurology Psychiatry; Absent Provider Psychiatry & Neurology Psychiatry; Admitting Provider Psychiatry & Neurology Psychiatry; Emergency Provider Emergency Medicine; Visit Provider Social Worker
DX: F25.0 Schizoaffective disorder, bipolar type (principal); Z20.822 Contact with and (suspected) exposure to COVID-19; Z23 Encounter for immunization; Z79.899 Other long term (current) drug therapy
CPT/HCPCS: 36415; 80053; 80173; 80307; 81003; 82140; 82550; 83615; 84443; 85025; 87635; 90686; 99285